=== PATIENT | female | born 1940 | race Caucasian/White ===

== ENCOUNTER → 2018-02-13 | Outpatient (CLI) | payer MEDICARE, BC ==
--- NOTE | 2018-02-13 09:44 | MR ---
EXAMINATION TYPE: MR brain wo con DATE OF EXAM: 02/13/2018 COMPARISON: CT 03/26/2015 HISTORY: 77-year-old female Dizziness / falling TECHNIQUE: Multiplanar, multisequence images of the brain and brainstem were acquired without IV con trast. The patient declined IV contrast administration. Diffusion weighted imaging is performed. FINDINGS: No evidence for acute infarction, hemorrhage, mass, mass effect, midline shift, herniation, effacemen t of basal cisterns, or extra-axial fluid collection. There is moderate bifrontal cerebral atrophy. No hydrocephalus. The vertebral and basilar artery flow voids appear diminutive and small in caliber. No mass in the posterior fossa or cerebellopontine angles. T2/FLAIR weighted sequences show mild scattered burden of right white matter change located in the mazariegos bcortical and periventricular regions of both cerebral hemispheres. Midline structures demonstrates a partially empty sella but otherwise normal morphology. The cranioc ervical junction is normal. Mild mucosal thickening within the ethmoid air cells, right maxillary sinus, and bifrontal sinuses. G lobes are intact. IMPRESSION: 1. The patient declined IV contrast administration. 2. No acute intracranial abnormality seen. No CP angle or posterior fossa mass. 3. Moderate bifrontal atrophy and mild burden of chronic small vessel ischemic disease. 4. We note small caliber to the vertebral and basilar arteries. Correlate for the possibility of vert ebrobasilar insufficiency as an etiology of the patient's symptoms. 5. Mild chronic pansinus disease.
== END | disposition home or self-care (01) ==
LOC: RADMRIMAIN 07:07
PROVIDERS: ATTEND Family Medicine
DX: G31.9 Degenerative disease of nervous system, unspecified (principal); I67.82 Cerebral ischemia
CPT/HCPCS: 70551

== ENCOUNTER 2018-06-03 19:54 | Inpatient (IN) | payer MEDICARE, BC ==
--- NOTE | 2018-06-03 20:52 | ED ---
General Adult HPI - General Chief complaint: Shortness of Breath Stated complaint: LEIE/Anxiety Time Seen by Provider: 06/03/18 20:05 Source: patient, EMS, RN notes reviewed, old records reviewed Mode of arrival: EMS Limitations: no limitations - History of Present Illness Initial comments: 77-year-old female presented for evaluation of dyspnea. Patient has history of congestive heart failure. She states that this evening she went to sleep, woke with significant dyspnea. She has noted increased lower extremity swelling over the past several weeks. Denies chest pain. States her symptoms have improved with supplemental oxygen and sitting up. Denies any recent change in medication. Denies cough. Denies fever or chills. Denies abdominal pain nausea vomiting. - Related Data Home Medications Medication Instructions Recorded Confirmed Glimepiride [Amaryl] 1 mg PO DAILY 03/13/15 06/03/18 Carbidopa-Levodopa 25-100 mg 0.5 tab PO HS 06/03/18 06/03/18 [Sinemet 25-100] Carbidopa-Levodopa 25-100 mg 1 tab PO AC-BID 06/03/18 06/03/18 [Sinemet 25-100] Furosemide [Lasix] 20 mg PO DAILY 06/03/18 06/03/18 Isosorbide Mononitrate ER [Imdur] 30 mg PO DAILY 06/03/18 06/03/18 Levothyroxine Sodium [Synthroid] 50 mcg PO DAILY 06/03/18 06/03/18 Meclizine [Antivert] 25 mg PO Q8H PRN 06/03/18 06/03/18 Simvastatin [Zocor] 40 mg PO HS 06/03/18 06/03/18 amLODIPine [Norvasc] 5 mg PO DAILY 06/03/18 06/03/18 Allergies Allergy/AdvReac Type Severity Reaction Status Date / Time Influenza Virus Vaccines Allergy Unknown Verified 06/03/18 20:28 Insulins Allergy Swelling Verified 06/03/18 20:28 nitroglycerin Allergy Swelling Verified 06/03/18 20:28 [From Nitro-Bid] pneumococcal vaccine Allergy Unknown Verified 06/03/18 20:28 strawberry Allergy Swelling Verified 06/03/18 20:28 tetanus immune globulin Allergy Unknown Verified 06/03/18 20:28 Review of Systems ROS Statement: Those systems with pertinent positive or pertinent negative responses have been documented in the HPI. ROS Other: All systems not noted in ROS Statement are negative. Past Medical History Past Medical History: Atrial Fibrillation, Chest Pain / Angina, Diabetes Mellitus, Hyperlipidemia, Hypertension, Myocardial Infarction (MD), Thyroid Disorder Additional Past Medical History / Comment(s): ARTHRITIS Last Myocardial Infarction Date:: unknown History of Any Multi-Drug Resistant Organisms: MRSA Date of last positivie culture/infection: 02/14/2015 MDRO Source:: URINE Past Surgical History: Cholecystectomy, Heart Catheterization With Stent, Hysterectomy Past Anesthesia/Blood Transfusion Reactions: No Reported Reaction Date of Last Stent Placement:: unknown Past Psychological History: Anxiety Smoking Status: Never smoker Past Alcohol Use History: Rare Past Drug Use History: None Reported - Past Family History Father Additional Family Medical History / Comment(s): from lung disease not sure what it was called Mother History Unknown: Yes Family Medical History: COPD Additional Family Medical History / Comment(s): empysema General Exam Limitations: no limitations General appearance: alert, in no apparent distress Head exam: Present: atraumatic, normocephalic Eye exam: Present: normal appearance, PERRL ENT exam: Present: normal exam Neck exam: Present: normal inspection. Absent: tenderness Respiratory exam: Present: normal lung sounds bilaterally, decreased breath sounds. Absent: respiratory distress Cardiovascular Exam: Present: regular rate, normal rhythm GI/Abdominal exam: Present: soft. Absent: distended, tenderness Extremities exam: Present: normal capillary refill, pedal edema. Absent: calf tenderness Neurological exam: Present: alert, oriented X3, CN II-XII intact. Absent: motor sensory deficit Psychiatric exam: Present: normal affect, normal mood Skin exam: Present: warm, dry, intact. Absent: cyanosis, diaphoretic Course Vital Signs 06/03/18 06/03/18 19:56 21:32 Temperature 98.6 F Pulse Rate 81 58 L Respiratory 16 16 Rate Blood Pressure 140/64 141/70 O2 Sat by Pulse 99 100 Oximetry EKG Findings - EKG Comments: EKG Findings:: EKG: Sinus rhythm, rate of 68, LA interval approximately 200 ms, QRS duration 96, QTC 440. T waves are upright, no ST segment elevation or depression Medical Decision Making - Medical Decision Making 77-year-old female presenting with an episode dyspnea. She does have bilateral lower extremity edema. Lungs are clear to auscultation, normal oxygenation. EKG normal sinus rhythm with no signs of ischemia. Patient has normal CBC, stable hemoglobin, CMP, negative troponin, negative BNP. Chest x-ray negative for pulmonary edema, no acute process. Patient is 99% on room air. I did offer observation, patient prefers to be discharged home. She will return with worsening or changing symptoms. Diagnosis: Dyspnea, resolved. - Lab Data Result diagrams: 06/03/18 20:35 06/03/18 20:35 Lab Results 06/03/18 06/03/18 06/03/18 Range/Units 20:35 20:35 20:35 WBC 8.9 (3.8-10.6) k/uL RBC 3.91 (3.80-5.40) m/uL Hgb 11.7 (11.4-16.0) gm/dL Hct 35.8 (34.0-46.0) % MCV 91.5 (80.0-100.0) fL MCH 30.0 (25.0-35.0) pg MCHC 32.8 (31.0-37.0) g/dL RDW 13.1 (11.5-15.5) % Plt Count 201 (150-450) k/uL Neutrophils % 76 % Lymphocytes % 13 % Monocytes % 7 % Eosinophils % 3 % Basophils % 0 % Neutrophils # 6.7 (1.3-7.7) k/uL Lymphocytes # 1.1 (1.0-4.8) k/uL Monocytes # 0.6 (0-1.0) k/uL Eosinophils # 0.3 (0-0.7) k/uL Basophils # 0.0 (0-0.2) k/uL PT (9.0-12.0) sec INR (<1.2) APTT (22.0-30.0) sec Sodium 139 (137-145) mmol/L Potassium 4.3 (3.5-5.1) mmol/L Chloride 105 (98-107) mmol/L Carbon Dioxide 27 (22-30) mmol/L Anion Gap 7 mmol/L BUN 22 H (7-17) mg/dL Creatinine 0.89 (0.52-1.04) mg/dL Est GFR (CKD-EPI)AfAm 72 (>60 ml/min/1.73 sqM) Est GFR (CKD-EPI)NonAf 62 (>60 ml/min/1.73 sqM) Glucose 187 H (74-99) mg/dL Calcium 9.8 (8.4-10.2) mg/dL Total Bilirubin 0.5 (0.2-1.3) mg/dL AST 13 L (14-36) U/L ALT 20 (9-52) U/L Alkaline Phosphatase 75 (38-126) U/L Total Creatine Kinase 49 (30-135) U/L CK-MB (CK-2) 0.2 (0.0-2.4) ng/mL CK-MB (CK-2) Rel Index 0.4 Troponin I <0.012 (0.000-0.034) ng/mL NT-Pro-B Natriuret Pep pg/mL Total Protein 6.5 (6.3-8.2) g/dL Albumin 3.5 (3.5-5.0) g/dL 06/03/18 06/03/18 Range/Units 20:35 20:35 WBC (3.8-10.6) k/uL RBC (3.80-5.40) m/uL Hgb (11.4-16.0) gm/dL Hct (34.0-46.0) % MCV (80.0-100.0) fL MCH (25.0-35.0) pg MCHC (31.0-37.0) g/dL RDW (11.5-15.5) % Plt Count (150-450) k/uL Neutrophils % % Lymphocytes % % Monocytes % % Eosinophils % % Basophils % % Neutrophils # (1.3-7.7) k/uL Lymphocytes # (1.0-4.8) k/uL Monocytes # (0-1.0) k/uL Eosinophils # (0-0.7) k/uL Basophils # (0-0.2) k/uL PT 9.9 (9.0-12.0) sec INR 0.9 (<1.2) APTT 23.4 (22.0-30.0) sec Sodium (137-145) mmol/L Potassium (3.5-5.1) mmol/L Chloride (98-107) mmol/L Carbon Dioxide (22-30) mmol/L Anion Gap mmol/L BUN (7-17) mg/dL Creatinine (0.52-1.04) mg/dL Est GFR (CKD-EPI)AfAm (>60 ml/min/1.73 sqM) Est GFR (CKD-EPI)NonAf (>60 ml/min/1.73 sqM) Glucose (74-99) mg/dL Calcium (8.4-10.2) mg/dL Total Bilirubin (0.2-1.3) mg/dL AST (14-36) U/L ALT (9-52) U/L Alkaline Phosphatase (38-126) U/L Total Creatine Kinase (30-135) U/L CK-MB (CK-2) (0.0-2.4) ng/mL CK-MB (CK-2) Rel Index Troponin I (0.000-0.034) ng/mL NT-Pro-B Natriuret Pep 735 pg/mL Total Protein (6.3-8.2) g/dL Albumin (3.5-5.0) g/dL Disposition Clinical Impression: Acute anxiety, Dyspnea Disposition: HOME SELF-CARE Condition: Fair Instructions (If sedation given, give patient instructions): Dyspnea (ED), Shortness of Breath (ED) Is patient prescribed a controlled substance at d/c from ED?: No Referrals: Ben Al MD [Primary Care Provider] - 1-2 days Time of Disposition: 22:00
[2018-06-03 20:55] LABS: Basophils % (A) 0 %; Eosinophils # (A) 0.3 k/uL (0-0.7); Eosinophils % (A) 3 %; HCT 35.8 % (34.0-46.0); HGB 11.7 gm/dL (11.4-16.0); Lymphocytes # (A) 1.1 k/uL (1.0-4.8); Lymphocytes % (A) 13 %; MCHC 32.8 g/dL (31.0-37.0); MCV 91.5 fL (80.0-100.0); Mean Platelet Volume 8.1; Monocytes # (A) 0.6 k/uL (0-1.0); Monocytes % (A) 7 %; Neutrophils # (A) 6.7 k/uL (1.3-7.7); Neutrophils % (A) 76 %; Platelet Count 201 k/uL (150-450); RBC 3.91 m/uL (3.80-5.40); RDW 13.1 % (11.5-15.5); WBC 8.9 k/uL (3.8-10.6)
[2018-06-03 21:04] LABS: INR 0.9 (<1.2); Partial Thromboplastin Time 23.4 sec (22.0-30.0); Prothrombin Time 9.9 sec (9.0-12.0)
[2018-06-03 21:10] LABS: Albumin 3.5 g/dL (3.5-5.0); Calcium 9.8 mg/dL (8.4-10.2); Creatine Kinase 49 U/L (30-135); Potassium 4.3 mmol/L (3.5-5.1); Total Bilirubin 0.5 mg/dL (0.2-1.3); Total Protein 6.5 g/dL (6.3-8.2)
[2018-06-03 21:21] LABS: Creatine Kinase MB 0.2 ng/mL (0.0-2.4); Troponin I <0.012 ng/mL (0.000-0.034)
--- NOTE | 2018-06-03 21:35 | XR ---
EXAMINATION: XR chest 2V DATE AND TIME: 06/03/2018 9:06 PM CLINICAL INDICATION: PHH; difficulty breathing TECHNIQUE: AP upright and lateral COMPARISON: 08/08/2015 FINDINGS: There is a baseline of a few scattered chronic calcifications throughout the lungs bilaterally, great er on the right. These are 1 cm and less in diameter and are consistent with incidental healed granul omatous process. The lungs are clear. The pleural spaces are negative. The cardiac silhouette is mildly enlarged. The remainder of the mediastinal silhouette is unremarkabl e. The skeletal structures and soft tissues are negative for acute findings. IMPRESSION: NO ACUTE PROCESS.
[2018-06-03] MEDS ORDERED: FUROSEMIDE 10 MG/ML 2 ML VIAL IV ONE (23:12)
[2018-06-03] MEDS ORDERED: ACETAMINOPHEN TAB 325 MG TAB PO PRN (23:13)
[2018-06-03] MEDS ORDERED: NALOXONE 0.4 MG/ML 1 ML VIAL IV PRN (23:13)
--- NOTE | 2018-06-03 23:18 | ED ---
Medical Decision Making - Lab Data Result diagrams: 06/03/18 20:35 06/03/18 20:35 Lab Results 06/03/18 06/03/18 06/03/18 Range/Units 20:35 20:35 20:35 WBC 8.9 (3.8-10.6) k/uL RBC 3.91 (3.80-5.40) m/uL Hgb 11.7 (11.4-16.0) gm/dL Hct 35.8 (34.0-46.0) % MCV 91.5 (80.0-100.0) fL MCH 30.0 (25.0-35.0) pg MCHC 32.8 (31.0-37.0) g/dL RDW 13.1 (11.5-15.5) % Plt Count 201 (150-450) k/uL Neutrophils % 76 % Lymphocytes % 13 % Monocytes % 7 % Eosinophils % 3 % Basophils % 0 % Neutrophils # 6.7 (1.3-7.7) k/uL Lymphocytes # 1.1 (1.0-4.8) k/uL Monocytes # 0.6 (0-1.0) k/uL Eosinophils # 0.3 (0-0.7) k/uL Basophils # 0.0 (0-0.2) k/uL PT (9.0-12.0) sec INR (<1.2) APTT (22.0-30.0) sec Sodium 139 (137-145) mmol/L Potassium 4.3 (3.5-5.1) mmol/L Chloride 105 (98-107) mmol/L Carbon Dioxide 27 (22-30) mmol/L Anion Gap 7 mmol/L BUN 22 H (7-17) mg/dL Creatinine 0.89 (0.52-1.04) mg/dL Est GFR (CKD-EPI)AfAm 72 (>60 ml/min/1.73 sqM) Est GFR (CKD-EPI)NonAf 62 (>60 ml/min/1.73 sqM) Glucose 187 H (74-99) mg/dL Calcium 9.8 (8.4-10.2) mg/dL Total Bilirubin 0.5 (0.2-1.3) mg/dL AST 13 L (14-36) U/L ALT 20 (9-52) U/L Alkaline Phosphatase 75 (38-126) U/L Total Creatine Kinase 49 (30-135) U/L CK-MB (CK-2) 0.2 (0.0-2.4) ng/mL CK-MB (CK-2) Rel Index 0.4 Troponin I <0.012 (0.000-0.034) ng/mL NT-Pro-B Natriuret Pep pg/mL Total Protein 6.5 (6.3-8.2) g/dL Albumin 3.5 (3.5-5.0) g/dL 06/03/18 06/03/18 Range/Units 20:35 20:35 WBC (3.8-10.6) k/uL RBC (3.80-5.40) m/uL Hgb (11.4-16.0) gm/dL Hct (34.0-46.0) % MCV (80.0-100.0) fL MCH (25.0-35.0) pg MCHC (31.0-37.0) g/dL RDW (11.5-15.5) % Plt Count (150-450) k/uL Neutrophils % % Lymphocytes % % Monocytes % % Eosinophils % % Basophils % % Neutrophils # (1.3-7.7) k/uL Lymphocytes # (1.0-4.8) k/uL Monocytes # (0-1.0) k/uL Eosinophils # (0-0.7) k/uL Basophils # (0-0.2) k/uL PT 9.9 (9.0-12.0) sec INR 0.9 (<1.2) APTT 23.4 (22.0-30.0) sec Sodium (137-145) mmol/L Potassium (3.5-5.1) mmol/L Chloride (98-107) mmol/L Carbon Dioxide (22-30) mmol/L Anion Gap mmol/L BUN (7-17) mg/dL Creatinine (0.52-1.04) mg/dL Est GFR (CKD-EPI)AfAm (>60 ml/min/1.73 sqM) Est GFR (CKD-EPI)NonAf (>60 ml/min/1.73 sqM) Glucose (74-99) mg/dL Calcium (8.4-10.2) mg/dL Total Bilirubin (0.2-1.3) mg/dL AST (14-36) U/L ALT (9-52) U/L Alkaline Phosphatase (38-126) U/L Total Creatine Kinase (30-135) U/L CK-MB (CK-2) (0.0-2.4) ng/mL CK-MB (CK-2) Rel Index Troponin I (0.000-0.034) ng/mL NT-Pro-B Natriuret Pep 735 pg/mL Total Protein (6.3-8.2) g/dL Albumin (3.5-5.0) g/dL Disposition Clinical Impression: Acute anxiety, Dyspnea, Congestive heart failure Disposition: HOME SELF-CARE Condition: Fair Instructions (If sedation given, give patient instructions): Dyspnea (ED), Shortness of Breath (ED) Is patient prescribed a controlled substance at d/c from ED?: No Referrals: Ben Al MD [Primary Care Provider] - 1-2 days Decision to Admit Reason: Admit from EC Decision Date: 06/03/18 Decision Time: 23:17
[2018-06-04 06:51] LABS: Glucose,Whole Blood 118 mg/dL (75-99)
[2018-06-04] MEDS: FUROSEMIDE 10 MG/ML 2 ML VIAL IV SCH ×2 (08:41→19:55)
[2018-06-04] MEDS: CARBIDOPA-LEVODOPA 25-100 MG 1 EACH TAB PO SCH ×2 (08:41→17:22)
[2018-06-04] MEDS: LEVOTHYROXINE 50 MCG TAB PO SCH (08:41)
[2018-06-04] MEDS: ISOSORBIDE MONONITRATE ER 30 MG TAB.ER.24H PO SCH (08:41)
[2018-06-04] MEDS: amLODIPine 5 MG TAB PO SCH (08:41)
[2018-06-04 11:59] LABS: Glucose,Whole Blood 145 mg/dL (75-99)
[2018-06-04] MEDS: NYSTATIN 100,000UNIT/GM CREAM 30 GM TUBE TOPICAL SCH ×2 (14:29→19:56)
[2018-06-04 15:09] VITALS: BMI 32.9
[2018-06-04 16:34] LABS: Glucose,Whole Blood 140 mg/dL (75-99)
[2018-06-04 19:55] LABS: Glucose,Whole Blood 190 mg/dL (75-99)
[2018-06-04] MEDS ORDERED: CARBIDOPA-LEVODOPA 25-100 MG 1 EACH TAB PO SCH (21:00)
[2018-06-04] MEDS ORDERED: ATORVASTATIN 20 MG TAB PO SCH (21:00)
--- NOTE | 2018-06-04 23:29 | HP ---
HISTORY AND PHYSICAL Came into the emergency room with shortness of breath. Awaken from sleep. She was out of rehab for like 5 days. She has gained a lot of weight. She says she has been taken off her diuretic for unclear reasons. She is admitted with shortness of breath and monitoring. She has gained a lot of weight. A lot of swelling in her extremities and spine. She had swelling in her legs. She does not wear oxygen at home. PAST MEDICAL HISTORY: History of congestive heart failure, PND, orthopnea. Denies cough, fever, chills, nausea, vomiting. She has been diagnosed with Parkinson's, versus supranuclear palsy being seen by Dr. Ray. MEDICATIONS: Home medications are: 1. Amaryl for diabetes. 2. Sinemet for Parkinson's. 3. Lasix that she states she has been taken off of. 4. Imdur 30 mg daily. 5. Synthroid 50 mcg daily. 6. Antivert 25 q.h.s. for vertigo. 7. Zocor 40 q.h.s. for dyslipidemia. 8. Norvasc 5 mg a day for hypertension. ALLERGIES: Influenza, insulin, Nitro-Bid, strawberry, pneumococcal vaccine, tetanus, immunoglobulin. 14-point review of systems negative except for mentioned in HPI. PAST MEDICAL HISTORY: Atrial fibrillation and diabetes mellitus, dyslipidemia, hypertension, myocardial infarction, hypothyroidism, arthritis, MRSA surgery, cholecystectomy, heart catheterization with stent, hysterectomy. SOCIAL HISTORY: No smoking. No alcohol. No illicit drugs. FAMILY HISTORY: Father from lung disease. Mother, COPD. PHYSICAL EXAM: Alert and oriented x3. CARDIOVASCULAR: S1, S2. Lungs: Rales at the bases. Hematology: Negative Homans, 2+ pedal edema. Psych: Fair mood and affect. SKIN: Warm, dry, intact. NECK: Supple. Normal range of motion ophthalmologic pupils equal, round, reactive to light and accommodation. Temp 98.6, pulse is 50s to 81, respiratory 12-16. EKG sinus rhythm. No ischemia. Chest x-ray negative for pulmonary edema. O2 99% on room air. She does not take oxygen at home. She is on IV Lasix. ASSESSMENT: 1. Acute shortness of breath secondary to congestive heart failure exacerbation. 2. Insulin dependent diabetes mellitus, supranuclear palsy versus Parkinson's. 3. Anxiety. Continue with IV diuretics. Wean off oxygen and see how she does. Continue with PT/OT. Possible discharge home in the morning. MMODL / IJN: [id number] /
[2018-06-05] MEDS: LEVOTHYROXINE 50 MCG TAB PO SCH (06:00)
[2018-06-05 06:52] LABS: Glucose,Whole Blood 126 mg/dL (75-99)
[2018-06-05] MEDS: amLODIPine 5 MG TAB PO SCH (07:52)
[2018-06-05] MEDS: FUROSEMIDE 10 MG/ML 2 ML VIAL IV SCH (07:52)
[2018-06-05] MEDS: CARBIDOPA-LEVODOPA 25-100 MG 1 EACH TAB PO SCH (07:52)
[2018-06-05] MEDS: ISOSORBIDE MONONITRATE ER 30 MG TAB.ER.24H PO SCH (07:52)
[2018-06-05 08:08] VITALS: TEMP 97.5
[2018-06-05] MEDS: NYSTATIN 100,000UNIT/GM CREAM 30 GM TUBE TOPICAL SCH (10:09)
--- NOTE | 2018-06-05 10:50 | CDI ---
Documentation Clarification Form Date: 06/05/2018 10:40:45 AM From: Gege Lopez CCS, CCDS Admit Date: 06/04/2018 2:46:00 PM Patient Name: Brit Wilkinson Visit Number: [id number] Discharge Date: 06/05/2018 ATTENTION: The Clinical Documentation Specialists (CDI) and [facility] Coding Staff appreciate your assistance in clarifying documentation. Please respond to the clarification below the line at the bottom and electronically sign. The CDI & [facility] Coding staff will review the response and follow-up if needed. Please note: Queries are made part of the Legal Health Record. If you have any questions, please contact the author of this message via ITS. Dr. Ben Al: CHF is documented in the ED notes and also the History & Physical as "Acute SOB secondary to congestive heart failure exacerbation." History/Risk Factors: CHF, Hypertension, Hyperlipidemia, possible Parkinson's disease vs supranuclear palsy, [place], Hypothyroidism, Osteoarthritis, CAD w/ coronary stent, IDDM. Clinical Indicators: SOB, recently discharged from rehab & taken off of her diuretics for unknown reason. VS: P 81 - 56*, R 16, BP 140/64, PO 99 RA - 100 2Lnc BNP: 735 Echocardiogram Results: no recent ECHO obtained. Chest X Ray: No acute process Treatment: O2 2Lnc, IV Lasix. Cardiology is not consulted at this time. In your professional opinion, can you please clarify the acuity and type of CHF if known? Systolic Heart Failure: o Acute o Chronic o Acute on Chronic Diastolic Heart Failure: o Acute o Chronic o Acute on Chronic Systolic & Diastolic Heart Failure: o Acute o Chronic o Acute on Chronic Heart Failure Unable to Determine Other, please specify (Last Revision: July 2017) MTDD
[2018-06-05 11:39] LABS: Glucose,Whole Blood 201 mg/dL (75-99)
[2018-06-05] MEDS ORDERED: FUROSEMIDE 40 MG TAB PO STA (12:23)
[2018-06-05 16:02] VITALS: BP 128/60; PULSE 77; RESP 18
--- NOTE | 2018-06-06 09:58 | CDI ---
Documentation Clarification Form Date: 06/03/2018 1:07:00 PM From: Gege Lopez CCS, CCDS Admit Date: 06/02/2018 3:04:00 PM Patient Name: Aakash Bowers Visit Number: [id number] Discharge Date: ATTENTION: The Clinical Documentation Specialists (CDI) and [facility] Coding Staff appreciate your assistance in clarifying documentation. Please respond to the clarification below the line at the bottom and electronically sign. The CDI & [facility] Coding staff will review the response and follow-up if needed. Please note: Queries are made part of the Legal Health Record. If you have any questions, please contact the author of this message via ITS. Dr. Cathie Tan: Per the Cardiology consult: "The patient appears to have paroxysmal atrial flutter on and off." Per the Pulmonary consult: "Shortness of breath, likely secondary to atrial fibrillation/flutter with increased with the atrial fibrillation/flutter with a rapid ventricular response." History/Risk Factors: Atrial fibrillation (per pulmonary consult), Hypertension with CKD, PVD, COPD, Hyperlipidemia, Obesity,non smoker, previous left carotid endarterectomy. Clinical Indicators: Presented with SOB from other facility, transferred for VQ scan: low probability for PE. 06/03 Initial EKG: evidence of atrial flutter. Treatment: Albuterol INH, IV Rocephin, IV fl bolus x, IV Azithromycin, IV Solumedrol, NRB. In your professional opinion, can you please clarify the type of Atrial Fibrillation and the type of Atrial Flutter, if known? Atrial Fibrillation: o Chronic/Permanent o Paroxysmal o Persistent o Other, please specify o Unable to determine Atrial Flutter: o Typical o Atypical o Type I o Type II o Other, please specify: o Unable to determine (Last Revision: July 2017) MTDD
--- NOTE | 2018-06-10 05:55 | DS ---
DISCHARGE SUMMARY ADDENDUM: Please add acute on chronic diastolic congestive heart failure. MMODL / IJN: [id number] /
== END 2018-06-05 16:20 | DRG 293 ==
LOC: EC 19:54 → 1SOBS 23:13 → OBSVTOIN 06-04 14:46
PROVIDERS: ADMIT Family Medicine; ATTEND Family Medicine
DX: I11.0 Hypertensive heart disease with heart failure (principal); I50.33 Acute on chronic diastolic (congestive) heart failure; G20 Parkinson's disease; E11.9 Type 2 diabetes mellitus without complications; G83.9 Paralytic syndrome, unspecified; E03.9 Hypothyroidism, unspecified; E78.5 Hyperlipidemia, unspecified; I25.10 Atherosclerotic heart disease of native coronary artery without angina pectoris; F41.9 Anxiety disorder, unspecified; I25.2 Old myocardial infarction; M19.90 Unspecified osteoarthritis, unspecified site; Z79.890 Hormone replacement therapy; Z79.899 Other long term (current) drug therapy; Z79.84 Long term (current) use of oral hypoglycemic drugs; Z90.710 Acquired absence of both cervix and uterus; Z88.7 Allergy status to serum and vaccine; Z88.8 Allergy status to other drugs, medicaments and biological substances; Z86.14 Personal history of Methicillin resistant Staphylococcus aureus infection; Z90.49 Acquired absence of other specified parts of digestive tract
CPT/HCPCS: 36415; 71046; 80053; 82550; 82553; 83880; 84484; 85025; 85610; 85730; 93005; 96374; 99285

== ENCOUNTER 2018-09-13 20:19 | Emergency (ER) | payer MEDICARE, BC ==
[2018-09-13 20:31] VITALS: TEMP 98.1
--- NOTE | 2018-09-13 21:27 | ED ---
General Adult HPI - General Chief complaint: Fall Stated complaint: Fall, Hip injury Time Seen by Provider: 09/13/18 20:22 Source: patient, EMS Mode of arrival: EMS Limitations: no limitations - History of Present Illness Initial comments: Dictation was produced using [employer] dictation software. please excuse any grammatical, word or spelling errors. Chief Complaint: 77-year-old female multiple comorbidities presents after fall. History of Present Illness: Is a frail 69-year-old female multiple comorbidities. Patient states that 1 hour prior to arrival she fell. Patient states she lost her balance and started to fall backwards. She states she landed on her right hip. Denies any head trauma or loss of consciousness. Follows unwitnessed. Patient was at home by herself. Patient states that her right hip hurts. Patient reports that she was unable to ambulate after the fall. The ROS documented in this emergency department record has been reviewed and confirmed by me. Those systems with pertinent positive or negative responses have been documented in the HPI. All other systems are other negative and/or noncontributory. PHYSICAL EXAM: General Impression: Alert and oriented x3, not in acute distress HEENT: Normocephalic atraumatic, extra-ocular movements intact, pupils equal and reactive to light bilaterally, mucous membranes moist. Cardiovascular: Heart regular rate and rhythm, S1&S2 audible, no murmurs, rubs or gallops Chest: Lungs clear to auscultation bilaterally, no rhonchi, no wheeze, no rales Abdomen: Bowel sounds present, abdomen soft, non-tender, non-distended, no organomegaly Musculoskeletal: Pulses present and equal in all extremities, no peripheral edema, range of motion of the bilateral lower extremities are intact. Right lower extremity is not shortened or externally rotated Motor: no focal deficits noted Neurological: CN II-XII grossly intact, no focal motor or sensory deficits noted Skin: Intact with no visualized rashes Psych: Normal affect and mood ED course: 77 y old female presents with right hip pain after fall. Vital signs upon arrival are within acceptable limits. Laboratory evaluation obtained. CBC coag panel metabolic panel is unremarkable. Urinalysis is negative. X-ray of the pelvis knee and hip were all unremarkable. A computed tomography scan of the head and C-spine unremarkable. Her chest x-ray is unremarkable. Patient was given by mouth analgesia with improvement of her pain symptoms. Patient ambulatory at baseline with a walker. Patient appears stable to go home. Patient clear for discharge. Patient clinical presentation consistent with hip contusion. EKG interpretation: Ventricular rate 67, normal sinus rhythm, QRS 94. TC 426. No IN prolongation, no QTC prolongation, no ST or T-wave changes noted. Overall, this EKG is unremarkable - Related Data Home Medications Medication Instructions Recorded Confirmed Glimepiride [Amaryl] 1 mg PO DAILY 03/13/15 06/03/18 Carbidopa-Levodopa 25-100 mg 0.5 tab PO HS 06/03/18 06/03/18 [Sinemet 25-100 mg] Carbidopa-Levodopa 25-100 mg 1 tab PO AC-BID 06/03/18 06/03/18 [Sinemet 25-100 mg] Isosorbide Mononitrate ER [Imdur] 30 mg PO DAILY 06/03/18 06/03/18 Levothyroxine Sodium [Synthroid] 50 mcg PO DAILY 06/03/18 06/03/18 Meclizine [Antivert] 25 mg PO Q8H PRN 06/03/18 06/03/18 Simvastatin [Zocor] 40 mg PO HS 06/03/18 06/03/18 amLODIPine [Norvasc] 5 mg PO DAILY 06/03/18 06/03/18 Previous Rx's Medication Instructions Recorded Acetaminophen Tab [Tylenol] 650 mg PO Q6HR PRN tab 06/05/18 Furosemide [Lasix] 40 mg PO ONCE tab 06/05/18 Nystatin 100,000Unit/gm Cream 1 applic TOPICAL BID applic 06/05/18 [Mycostatin Cream] Allergies Allergy/AdvReac Type Severity Reaction Status Date / Time Influenza Virus Vaccines Allergy Unknown Verified 09/13/18 20:40 Insulins Allergy Swelling Verified 09/13/18 20:40 metformin Allergy Rash/Hives Verified 09/13/18 20:40 nitroglycerin Allergy Swelling Verified 09/13/18 20:40 [From Nitro-Bid] pneumococcal vaccine Allergy Unknown Verified 09/13/18 20:40 strawberry Allergy Swelling Verified 09/13/18 20:40 tetanus immune globulin Allergy Unknown Verified 09/13/18 20:40 Review of Systems ROS Statement: Those systems with pertinent positive or pertinent negative responses have been documented in the HPI. ROS Other: All systems not noted in ROS Statement are negative. Past Medical History Past Medical History: Atrial Fibrillation, Chest Pain / Angina, Diabetes Mellitus, Hyperlipidemia, Hypertension, Myocardial Infarction ([place]), Thyroid Disorder Additional Past Medical History / Comment(s): ARTHRITIS Last Myocardial Infarction Date:: unknown History of Any Multi-Drug Resistant Organisms: MRSA Date of last positivie culture/infection: 02/14/2015 MDRO Source:: URINE Past Surgical History: Cholecystectomy, Heart Catheterization With Stent, Hysterectomy Past Anesthesia/Blood Transfusion Reactions: No Reported Reaction Date of Last Stent Placement:: unknown Past Psychological History: Anxiety Smoking Status: Never smoker Past Alcohol Use History: Rare Past Drug Use History: None Reported - Past Family History Father Additional Family Medical History / Comment(s): from lung disease not sure what it was called Mother History Unknown: Yes Family Medical History: COPD Additional Family Medical History / Comment(s): empysema General Exam Limitations: no limitations Course Vital Signs 09/13/18 09/13/18 20:23 22:47 Temperature 98.1 F Pulse Rate 66 68 Respiratory 18 16 Rate Blood Pressure 129/97 125/78 O2 Sat by Pulse 99 99 Oximetry Medical Decision Making - Lab Data Result diagrams: 09/13/18 21:50 09/13/18 21:50 Lab Results 09/13/18 09/13/18 09/13/18 Range/Units 20:51 21:50 21:50 WBC 9.6 (3.8-10.6) k/uL RBC 4.37 (3.80-5.40) m/uL Hgb 12.8 (11.4-16.0) gm/dL Hct 38.2 (34.0-46.0) % MCV 87.3 (80.0-100.0) fL MCH 29.3 (25.0-35.0) pg MCHC 33.6 (31.0-37.0) g/dL RDW 14.5 (11.5-15.5) % Plt Count 214 (150-450) k/uL Neutrophils % 73 % Lymphocytes % 16 % Monocytes % 6 % Eosinophils % 4 % Basophils % 0 % Neutrophils # 7.0 (1.3-7.7) k/uL Lymphocytes # 1.5 (1.0-4.8) k/uL Monocytes # 0.6 (0-1.0) k/uL Eosinophils # 0.3 (0-0.7) k/uL Basophils # 0.0 (0-0.2) k/uL PT (9.0-12.0) sec INR (<1.2) Sodium 139 (137-145) mmol/L Potassium 4.4 (3.5-5.1) mmol/L Chloride 107 (98-107) mmol/L Carbon Dioxide 27 (22-30) mmol/L Anion Gap 5 mmol/L BUN 29 H (7-17) mg/dL Creatinine 0.99 (0.52-1.04) mg/dL Est GFR (CKD-EPI)AfAm 63 (>60 ml/min/1.73 sqM) Est GFR (CKD-EPI)NonAf 55 (>60 ml/min/1.73 sqM) Glucose 212 H (74-99) mg/dL Plasma Lactic Acid Kurt (0.7-2.0) mmol/L Calcium 9.7 (8.4-10.2) mg/dL Magnesium 1.7 (1.6-2.3) mg/dL Troponin I (0.000-0.034) ng/mL Urine Color Light Yellow Urine Appearance Clear (Clear) Urine pH 7.0 (5.0-8.0) Ur Specific [place] 1.015 (1.001-1.035) Urine Protein 2+ H (Negative) Urine Glucose (UA) Negative (Negative) Urine Ketones Negative (Negative) Urine Blood Trace H (Negative) Urine Nitrite Negative (Negative) Urine Bilirubin Negative (Negative) Urine Urobilinogen <2.0 (<2.0) mg/dL Ur Leukocyte Esterase Negative (Negative) Urine RBC 1 (0-5) /hpf Urine WBC 1 (0-5) /hpf Ur Squamous Epith Cells 2 (0-4) /hpf Hyaline Casts 7 H (0-2) /lpf Urine Mucus Rare H (None) /hpf 09/13/18 09/13/18 09/13/18 Range/Units 21:50 21:50 21:50 WBC (3.8-10.6) k/uL RBC (3.80-5.40) m/uL Hgb (11.4-16.0) gm/dL Hct (34.0-46.0) % MCV (80.0-100.0) fL MCH (25.0-35.0) pg MCHC (31.0-37.0) g/dL RDW (11.5-15.5) % Plt Count (150-450) k/uL Neutrophils % % Lymphocytes % % Monocytes % % Eosinophils % % Basophils % % Neutrophils # (1.3-7.7) k/uL Lymphocytes # (1.0-4.8) k/uL Monocytes # (0-1.0) k/uL Eosinophils # (0-0.7) k/uL Basophils # (0-0.2) k/uL PT 9.9 (9.0-12.0) sec INR 0.9 (<1.2) Sodium (137-145) mmol/L Potassium (3.5-5.1) mmol/L Chloride (98-107) mmol/L Carbon Dioxide (22-30) mmol/L Anion Gap mmol/L BUN (7-17) mg/dL Creatinine (0.52-1.04) mg/dL Est GFR (CKD-EPI)AfAm (>60 ml/min/1.73 sqM) Est GFR (CKD-EPI)NonAf (>60 ml/min/1.73 sqM) Glucose (74-99) mg/dL Plasma Lactic Acid Kurt 1.3 (0.7-2.0) mmol/L Calcium (8.4-10.2) mg/dL Magnesium (1.6-2.3) mg/dL Troponin I <0.012 (0.000-0.034) ng/mL Urine Color Urine Appearance (Clear) Urine pH (5.0-8.0) Ur Specific [place] (1.001-1.035) Urine Protein (Negative) Urine Glucose (UA) (Negative) Urine Ketones (Negative) Urine Blood (Negative) Urine Nitrite (Negative) Urine Bilirubin (Negative) Urine Urobilinogen (<2.0) mg/dL Ur Leukocyte Esterase (Negative) Urine RBC (0-5) /hpf Urine WBC (0-5) /hpf Ur Squamous Epith Cells (0-4) /hpf Hyaline Casts (0-2) /lpf Urine Mucus (None) /hpf Disposition Clinical Impression: Fall, Contusion, hip Disposition: HOME SELF-CARE Condition: Good Instructions (If sedation given, give patient instructions): Fall Prevention for Older Adults (ED) Is patient prescribed a controlled substance at d/c from ED?: No Referrals: None,Stated [Primary Care Provider] - 1-2 days Time of Disposition: 22:57
[2018-09-13 21:29] LABS: Appearance,Urine Clear (Clear); Bilirubin,Urine Negative (Negative); Blood,Urine Trace (Negative); Color,Urine Light Yellow; Glucose,Urine (UA) Negative (Negative); Hyaline Casts,Urine 7 /lpf (0-2); Ketones,Urine Negative (Negative); Leukocyte Esterase,Urine Negative (Negative); Mucus,Urine Rare /hpf; Nitrite,Urine Negative (Negative); Protein,Urine 2+ (Negative); RBC,Urine 1 /hpf (0-5); Specific Gravity,Urine 1.015 (1.001-1.035); Squamous Epithelial Cell,Urine 2 /hpf (0-4); Urobilinogen,Urine <2.0 mg/dL (<2.0)
--- NOTE | 2018-09-13 21:49 | CT ---
EXAMINATION TYPE: CT brain mono bolivar con DATE OF EXAM: 09/13/2018 COMPARISON: CT brain from March 26, 2015 HISTORY: Fall injury with headache and neck pain. CT DLP: 1371.4 mGycm. Automated Exposure Control for Dose Reduction was Utilized. TECHNIQUE: CT scan of the head and cervical spine are performed without contrast. FINDINGS: There is no acute intracranial hemorrhage or midline shift identified. There is ventricul ar and sulcal prominence. There is slightly more prominent atrophy of the bilateral frontal lobes red emonstrated. The calvarium is intact. The globes are intact and the visualized sinuses are clear. Cervical spine is visualized in its entirety from C1 through upper thoracic levels and demonstrates l evoconvex scoliosis or positioning centered in the upper thoracic spine with loss of normal cervical curvature. There is no acute fracture or dislocation clearly seen. Prevertebral soft tissue appears w ithin normal limits. The C1-C2 articulation is within normal limits on the coronal images. Vertebra l body heights are maintained. There is habf-[id number] disc space narrowing at C3-C4 and C4-C5 leve ls. There is moderate to advanced disc space narrowing at C5-C6 and C6-C7 levels. There is moderately advanced anterior spurring C4-C5 level extending through the C7-T1 level. Posterior spur disc comple x effaces the anterior thecal sac at C3-C4, C5-C6, C6-C7 levels on sagittal and axial images. Lung ap ices are clear. Thyroid gland is normal in size. IMPRESSION: 1. There is no acute fracture or dislocation evident in the cervical spine. 2. No acute intracranial hemorrhage or midline shift is seen. Dcrj-et-ibvyvxcj diffuse cerebral atrop hy more prominent over bilateral frontal lobes is redemonstrated.
--- NOTE | 2018-09-13 21:51 | XR ---
EXAMINATION TYPE: XR pelvis AP view, XR Hip Complete RT DATE OF EXAM: 09/13/2018 CLINICAL HISTORY: Pelvic and right hip pain after falling injury today.. TECHNIQUE: A single AP view of the pelvis is obtained. Two views of the right hip are obtained. COMPARISON: None. FINDINGS: There is no acute fracture/dislocation evident in the pelvis. There is suggestion of asymmetric right sacroiliac joint narrowing and sclerosis. Scattered pelvic phleboliths are present bilaterally. Ther e is [id number] axial joint space loss and mild acetabular spurring of both hips. .Two views of right hip show no acute fracture or dislocation. No focal lytic or sclerotic lesion se en in the proximal right femur. The overlying soft tissue is unremarkable. IMPRESSION: There is no acute fracture or dislocation in the pelvis or right hip.
--- NOTE | 2018-09-13 21:52 | XR ---
EXAMINATION TYPE: XR chest 1V DATE OF EXAM: 09/13/2018 COMPARISON: Chest x-ray June 03, 2018. HISTORY: History of atrial fibrillation with chest pain. TECHNIQUE: Single frontal view of the chest is obtained. FINDINGS: There is no focal air space opacity, pleural effusion, or pneumothorax seen. The cardiac silhouette size remains enlarged. The osseous structures are intact. IMPRESSION: Cardiomegaly without acute pulmonary process.
--- NOTE | 2018-09-13 21:52 | XR ---
EXAMINATION TYPE: XR knee complete RT DATE OF EXAM: 09/13/2018 CLINICAL HISTORY: Fall injury with pain TECHNIQUE: Three views of the right knee are obtained. COMPARISON: None. FINDINGS: Demineralization is present. There is no acute fracture/dislocation evident in right knee. Metallic hardware from right knee arthroplasty is well satisfactory in position. Some medial heteroto pic ossification is noted. The overlying soft tissue appears unremarkable. IMPRESSION: There is no acute fracture or dislocation in the right knee.
[2018-09-13 22:11] LABS: Basophils % (A) 0 %; Eosinophils # (A) 0.3 k/uL (0-0.7); Eosinophils % (A) 4 %; HCT 38.2 % (34.0-46.0); HGB 12.8 gm/dL (11.4-16.0); INR 0.9 (<1.2); Lymphocytes # (A) 1.5 k/uL (1.0-4.8); Lymphocytes % (A) 16 %; MCH 29.3 pg (25.0-35.0); MCHC 33.6 g/dL (31.0-37.0); MCV 87.3 fL (80.0-100.0); Monocytes # (A) 0.6 k/uL (0-1.0); Monocytes % (A) 6 %; Neutrophils % (A) 73 %; Platelet Count 214 k/uL (150-450); Prothrombin Time 9.9 sec (9.0-12.0); RBC 4.37 m/uL (3.80-5.40); RDW 14.5 % (11.5-15.5); WBC 9.6 k/uL (3.8-10.6)
[2018-09-13 22:12] LABS: Calcium 9.7 mg/dL (8.4-10.2); Magnesium 1.7 mg/dL (1.6-2.3); Potassium 4.4 mmol/L (3.5-5.1)
[2018-09-13] MEDS ORDERED: ACETAMINOPHEN TAB 500 MG TAB PO STA (22:30)
[2018-09-13 22:48] VITALS: BP 125/78; PULSE 68; RESP 16
== END 2018-09-13 23:32 | disposition home or self-care (01) ==
LOC: EC 20:19
DX: S70.01XA Contusion of right hip, initial encounter (principal); E11.9 Type 2 diabetes mellitus without complications; E78.5 Hyperlipidemia, unspecified; I10 Essential (primary) hypertension; I25.2 Old myocardial infarction; E07.9 Disorder of thyroid, unspecified; Z79.84 Long term (current) use of oral hypoglycemic drugs; Z79.890 Hormone replacement therapy; Z79.899 Other long term (current) drug therapy; Z88.7 Allergy status to serum and vaccine; Z88.8 Allergy status to other drugs, medicaments and biological substances; Z91.018 Allergy to other foods; Z95.5 Presence of coronary angioplasty implant and graft; W19.XXXA Unspecified fall, initial encounter
CPT/HCPCS: 36415; 70450; 71045; 72125; 72170; 73502; 80048; 81001; 83605; 83735; 84484; 85025; 85610; 93005; 99284

== ENCOUNTER 2019-05-13 05:10 | Observation (INO) | payer MEDICARE, BC ==
[2019-05-13] MEDS ORDERED: ASPIRIN 81 MG PO STA (05:22)
[2019-05-13] MEDS ORDERED: SODIUM CHLORIDE 0.9% 1,000 ML IV STA (05:22)
[2019-05-13 05:40] LABS: Basophils # (A) 0.2 k/uL (0-0.2); Basophils % (A) 3 %; Eosinophils # (A) 0.3 k/uL (0-0.7); Eosinophils % (A) 4 %; HCT 41.2 % (34.0-46.0); HGB 13.5 gm/dL (11.4-16.0); Lymphocytes # (A) 1.6 k/uL (1.0-4.8); Lymphocytes % (A) 22 %; MCH 30.1 pg (25.0-35.0); MCHC 32.8 g/dL (31.0-37.0); MCV 91.7 fL (80.0-100.0); Mean Platelet Volume 9.9; Monocytes # (A) 0.7 k/uL (0-1.0); Monocytes % (A) 9 %; Neutrophils # (A) 4.4 k/uL (1.3-7.7); Neutrophils % (A) 59 %; Platelet Count 234 k/uL (150-450); RBC 4.49 m/uL (3.80-5.40); RDW 12.7 % (11.5-15.5); WBC 7.4 k/uL (3.8-10.6)
[2019-05-13 05:50] LABS: INR 0.9 (<1.2); Prothrombin Time 9.8 sec (9.0-12.0)
[2019-05-13 05:54] LABS: Albumin 3.7 g/dL (3.5-5.0); Calcium 8.9 mg/dL (8.4-10.2); Magnesium 1.9 mg/dL (1.6-2.3); Potassium 4.1 mmol/L (3.5-5.1); Total Bilirubin 0.5 mg/dL (0.2-1.3); Total Protein 7.2 g/dL (6.3-8.2)
--- NOTE | 2019-05-13 06:27 | ED ---
Chest Pain HPI - General Chief Complaint: Chest Pain Stated Complaint: Neck Pain Time Seen by Provider: 05/13/19 05:21 Source: EMS Mode of arrival: EMS Limitations: no limitations - History of Present Illness Initial Comments: Brit is a pleasant 78-year-old female with a history of coronary artery disease status post stenting number of years ago. Patient presents to the ER today with complaint of pain in her chest radiating to her neck which woke her from sleep. Patient reports that this pain is same as previous IN. Pain is not associated with any lightheadedness diaphoresis or shortness of breath. - Related Data Home Medications Medication Instructions Recorded Confirmed Glimepiride [Amaryl] 1 mg PO DAILY 03/13/15 06/03/18 Carbidopa-Levodopa 25-100 mg 0.5 tab PO HS 06/03/18 06/03/18 [Sinemet 25-100 mg] Carbidopa-Levodopa 25-100 mg 1 tab PO AC-BID 06/03/18 06/03/18 [Sinemet 25-100 mg] Isosorbide Mononitrate ER [Imdur] 30 mg PO DAILY 06/03/18 06/03/18 Levothyroxine Sodium [Synthroid] 50 mcg PO DAILY 06/03/18 06/03/18 Meclizine [Antivert] 25 mg PO Q8H PRN 06/03/18 06/03/18 Simvastatin [Zocor] 40 mg PO HS 06/03/18 06/03/18 amLODIPine [Norvasc] 5 mg PO DAILY 06/03/18 06/03/18 Previous Rx's Medication Instructions Recorded Acetaminophen Tab [Tylenol] 650 mg PO Q6HR PRN tab 06/05/18 Furosemide [Lasix] 40 mg PO ONCE tab 06/05/18 Nystatin 100,000Unit/gm Cream 1 applic TOPICAL BID applic 06/05/18 [Mycostatin Cream] Allergies Allergy/AdvReac Type Severity Reaction Status Date / Time Influenza Virus Vaccines Allergy Unknown Verified 05/13/19 07:59 Insulins Allergy Swelling Verified 05/13/19 07:59 metformin Allergy Rash/Hives Verified 05/13/19 07:59 pneumococcal vaccine Allergy Unknown Verified 05/13/19 07:59 strawberry Allergy Swelling Verified 05/13/19 07:59 tetanus immune globulin Allergy Unknown Verified 05/13/19 07:59 Review of Systems ROS Statement: Those systems with pertinent positive or pertinent negative responses have been documented in the HPI. ROS Other: All systems not noted in ROS Statement are negative. EKG Findings - EKG Comments: EKG Findings:: EKG was obtained due to complaint chest pain, EKG was obtained at 5:27 AM, rate of 78 rhythm is sinus with first-degree AV block, GA prolonged at 302, QRS 92, QTc is [address] elevations or depressions there is no evidence of acute ischemia or infarction. Past Medical History Past Medical History: Atrial Fibrillation, Chest Pain / Angina, Diabetes Mellitus, Hyperlipidemia, Hypertension, Myocardial Infarction ([place]), Thyroid Disorder Additional Past Medical History / Comment(s): ARTHRITIS Last Myocardial Infarction Date:: unknown History of Any Multi-Drug Resistant Organisms: C-DIFF, MRSA Date of last positivie culture/infection: 02/14/2015 MDRO Source:: URINE Past Surgical History: Cholecystectomy, Heart Catheterization With Stent, Hysterectomy Past Anesthesia/Blood Transfusion Reactions: No Reported Reaction Date of Last Stent Placement:: unknown Past Psychological History: Anxiety Smoking Status: Never smoker Past Alcohol Use History: Rare Past Drug Use History: None Reported - Past Family History Father Additional Family Medical History / Comment(s): from lung disease not sure what it was called Mother History Unknown: Yes Family Medical History: COPD Additional Family Medical History / Comment(s): empysema General Exam - General Exam Comments Initial Comments: Physical Exam GENERAL: Patient is well-developed and well-nourished. Patient is nontoxic and well- hydrated and is in no distress. HENT: Normocephalic, Atraumatic. EYES: PERRL, EOMI PULMONARY: Unlabored respirations. No audible rales rhonchi or wheezing was noted. CARDIOVASCULAR: There is a regular rate and rhythm without any murmurs gallops or rubs. ABDOMEN: Soft and nontender with normal bowel sounds. SKIN: Skin is clear with no lesions or rashes and otherwise unremarkable. : Deferred NEUROLOGIC: Patient is alert and oriented x3. Moving all extremities spontaneously MUSCULOSKELETAL: Normal extremities with adequate strength and full range of motion. No lower extremity swelling or edema. No calf tenderness. PSYCHIATRIC: Normal psychiatric evaluation. Limitations: no limitations Course Vital Signs 05/13/19 05/13/19 05:15 07:27 Temperature 97.6 F Pulse Rate 68 70 Respiratory 18 18 Rate Blood Pressure 145/77 152/60 O2 Sat by Pulse 99 99 Oximetry Chest Pain MDM - MDM Pt was seen and evaluated history was obtained from the patient excited 78-year-old female with known coronary artery disease presenting the ER with chest pain radiating to her neck similar to previous episodes of cardiac ischemia I think cardiac workup was initiated initial EKG is nonischemic Labs were unremarkable initial troponin was not elevated however given the pat ient's advanced age multiple risk factors we will plan to admit the patient for acute coronary syndrome workup Patient care was discussed with admitting physician Dr. Swartz who agrees with plan for admission Disposition Clinical Impression: Chest pain Disposition: ADMITTED IP TO THIS HOSP Condition: Stable Is patient prescribed a controlled substance at d/c from ED?: No Referrals: Sangeeta Chung DO [Primary Care Provider] - 1-2 days
--- NOTE | 2019-05-13 06:56 | XR ---
EXAMINATION TYPE: XR chest 2V DATE OF EXAM: 05/13/2019 COMPARISON: 09/13/2018 HISTORY: Atrial fibrillation TECHNIQUE: Single view FINDINGS: There is no heart failure nor confluent pneumonic infiltrate. Heart is enlarged. Costophren ic angles are clear. Thoracic aorta is atheromatous. There are chest leads. IMPRESSION: Mild cardiomegaly. No acute lung disease. No change.
[2019-05-13] MEDS ORDERED: NITROGLYCERIN SL TABS 0.4 MG TAB SUBLINGUAL PRN (07:27)
[2019-05-13] MEDS ORDERED: INSULIN LISPRO 9 UNIT SQ SCH (17:30)
[2019-05-13] MEDS: SODIUM CHLORIDE 0.9% 1,000 ML IV SCH (17:32)
[2019-05-13] MEDS: GLIMEPIRIDE 2 MG TAB PO SCH (17:33)
[2019-05-13] MEDS: amLODIPine 2.5 MG TAB PO SCH (17:33)
[2019-05-13] MEDS: CARBIDOPA-LEVODOPA 25-100 MG 1 EACH TAB PO SCH (20:35)
[2019-05-13 20:48] LABS: Glucose,Whole Blood 294 mg/dL (75-99)
[2019-05-13] MEDS: INSULIN LISPRO SQ SCH ×2 (21:01)
--- NOTE | 2019-05-13 22:49 | P.HPIM ---
History of Present Illness H&P Date: 05/13/19 Chief Complaint: chest pain Brit Wilkinson is a 78 yo F with PMH of cononary artery disease, hx LA, parkinson disease, T2DM who presented to the ED after experiencing chest ti ghtness last night. She reports experiencing pain and tightness in her bilateral neck which lasted a few minutes. She did have some associated shortness of breath, denies chest pain, nausea, diaphoresis. She states this felt similar to her previous LA so came in to the ED. On presentation, vitals stable, labs notable for Cr 1.3, trop negative x3, EKG with NSR. Review of Systems All systems: negative Constitutional: Denies chills, Denies fever Eyes: denies blurred vision, denies pain Ears, nose, mouth and throat: Denies headache, Denies sore throat Cardiovascular: Reports as per HPI, Reports chest pain, Denies shortness of breath Respiratory: Denies cough Gastrointestinal: Denies abdominal pain, Denies diarrhea, Denies nausea, Denies vomiting Genitourinary: Denies dysuria, Denies hematuria Musculoskeletal: Denies myalgias Integumentary: Denies pruritus, Denies rash Neurological: Denies numbness, Denies weakness Psychiatric: Denies anxiety, Denies depression Endocrine: Denies fatigue, Denies weight change Past Medical History Past Medical History: Blood Disorder, Coronary Artery Disease (CAD), Chest Pain / Angina, Heart Failure, Diabetes Mellitus, Deep Vein Thrombosis (DVT), Hyperlipidemia, Hypertension, Myocardial Infarction ([place]), Neurologic Disorder, Pneumonia, Pulmonary Embolus (PE), Renal Disease, Thyroid Disorder Additional Past Medical History / Comment(s): ARTHRITIS, low platelets, [place] x2, parkinsons, stage 3 renal failure Last Myocardial Infarction Date:: unknown History of Any Multi-Drug Resistant Organisms: C-DIFF Date of last positivie culture/infection: 02/14/2015 MDRO Source:: URINE Past Surgical History: Appendectomy, Cholecystectomy, Heart Catheterization With Stent, Hysterectomy, Orthopedic Surgery Additional Past Surgical History / Comment(s): bilateral total knee, 4 breast biopsies right breast, bilateral cataract sx Past Anesthesia/Blood Transfusion Reactions: No Reported Reaction Date of Last Stent Placement:: unknown Past Psychological History: No Psychological Hx Reported Smoking Status: Never smoker Past Alcohol Use History: Rare Past Drug Use History: None Reported - Past Family History Father Additional Family Medical History / Comment(s): from lung disease not sure what it was called Mother History Unknown: Yes Family Medical History: COPD Additional Family Medical History / Comment(s): empysema Medications and Allergies Home Medications Medication Instructions Recorded Confirmed Type Carbidopa-Levodopa 25-100 mg 1 tab PO BID 06/03/18 05/13/19 History [Sinemet 25-100 mg] Levothyroxine Sodium [Synthroid] 50 mcg PO DAILY 06/03/18 05/13/19 History Simvastatin [Zocor] 40 mg PO PC-LUNCH 06/03/18 05/13/19 History Aspirin EC [Ecotrin Low Dose] 81 mg PO DAILY 05/13/19 05/13/19 History Furosemide [Lasix] 40 mg PO Q72H 05/13/19 05/13/19 History Glimepiride [Amaryl] 2 mg PO DAILY 05/13/19 05/13/19 History Insulin Lispro [humaLOG Kwikpen] 9 unit SQ AC-TID 05/13/19 05/13/19 History amLODIPine [Norvasc] 2.5 mg PO PC-LUNCH 05/13/19 05/13/19 History Allergies Allergy/AdvReac Type Severity Reaction Status Date / Time Influenza Virus Vaccines Allergy Unknown Verified 05/13/19 07:59 Insulins Allergy Swelling Verified 05/13/19 16:41 metformin Allergy Rash/Hives Verified 05/13/19 07:59 pneumococcal vaccine Allergy Unknown Verified 05/13/19 07:59 strawberry Allergy Swelling Verified 05/13/19 07:59 tetanus immune globulin Allergy Unknown Verified 05/13/19 07:59 Physical Exam Vitals: Vital Signs Temp Pulse Pulse Resp BP BP Pulse Ox 05/13/19 20:00 98.1 F 90 17 115/65 99 05/13/19 15:46 97.4 F L 68 18 135/65 100 05/13/19 13:17 97.7 F 56 L 163/80 71 L 05/13/19 12:53 70 18 132/80 98 05/13/19 10:14 63 18 103/60 98 05/13/19 07:27 70 18 152/60 99 05/13/19 05:15 97.6 F 68 18 145/77 99 Intake and Output 05/13/19 05/13/19 05/13/19 06:59 14:59 22:59 Intake Total 340 Balance 340 Intake: Oral 240 Other 100 Other: Voiding Method Toilet Toilet Bedside Commode # Voids 1 Weight 83.007 kg 83.007 kg General: well nourished, well developed, NAD. Vitals reviewed Eyes: PERRL, EOMI, conjunctiva normal HENT: normocephalic, mucus membranes moist Neck: supple, no JVD Lungs: normal respiratory effort, no wheezes or rales CV: Regular rate and rhythm, no murmur. Peripheral pulses 2+ Abdomen: soft, nondistended, no organomegaly Lymph: no cervical or axillary LAD Skin: warm and dry. Neuro: A&Ox3, normal mood and affect Results CBC & Chem 7: 05/13/19 05:32 05/13/19 05:32 Labs: Abnormal Lab Results - Last 24 Hours (Table) 05/13/19 05/13/19 Range/Units 05:32 20:46 Sodium 136 L (137-145) mmol/L BUN 31 H (7-17) mg/dL Creatinine 1.27 H (0.52-1.04) mg/dL Glucose 170 H (74-99) mg/dL POC Glucose (mg/dL) 294 H (75-99) mg/dL Thrombosis Risk Factor Assmnt - Choose All That Apply Any of the Below Risk Factors Present?: Yes Each Factor Represents 1 point: Abnormal pulmonary function (COPD), Obesity (BMI >25) Other Risk Factors: Yes Each Risk Factor Represents 3 Points: Age 75 years or older, History of DVT/PE Other congenital or acquired thrombophilia - If yes, enter type in comment: No Thrombosis Risk Factor Assessment Total Risk Factor Score: 8 Thrombosis Risk Factor Assessment Level: High Risk Assessment and Plan (1) Coronary artery disease Current Visit: Yes Status: Acute Code(s): I25.10 - ATHSCL HEART DISEASE OF [place] CORONARY ARTERY W/O ANG PCTRS SNOMED Code(s): 57101377 (2) History of LA (myocardial infarction) Current Visit: Yes Status: Acute Code(s): I25.2 - OLD MYOCARDIAL INFARCTION SNOMED Code(s): 302678318 (3) T2DM (type 2 diabetes mellitus) Current Visit: Yes Status: Acute Code(s): E11.9 - TYPE 2 DIABETES MELLITUS WITHOUT COMPLICATIONS SNOMED Code(s): 59066326 (4) Chest pain Current Visit: Yes Status: Acute Code(s): R07.9 - CHEST PAIN, UNSPECIFIED SNOMED Code(s): 15950383 (5) Unstable angina pectoris Current Visit: No Status: Acute Code(s): I20.0 - UNSTABLE ANGINA SNOMED Code(s): 3400784 Plan: 1. Chest pain. ACS ruled out. Cardiology consulted for further evaluation 2. Coronary artery disease. Continue ASA and lipitor 3. T2DM. Continue amaryl. Accucheck and sliding scale insulin 4. HTN. Continue norvasc
[2019-05-14] MEDS: SODIUM CHLORIDE 0.9% 1,000 ML IV SCH (02:00)
[2019-05-14 04:45] VITALS: RESP 18
[2019-05-14] MEDS ORDERED: LEVOTHYROXINE 50 MCG TAB PO SCH (06:30)
[2019-05-14 07:28] LABS: Glucose,Whole Blood 184 mg/dL (75-99)
[2019-05-14 08:05] LABS: Calcium 9.1 mg/dL (8.4-10.2); Potassium 4.3 mmol/L (3.5-5.1)
[2019-05-14] MEDS ORDERED: SODIUM CHLORIDE 0.9% IV ONE (08:54)
[2019-05-14] MEDS ORDERED: AMINOPHYLLINE 500 MG/20 ML VIAL IV PRN (08:54)
[2019-05-14] MEDS ORDERED: CAFFEINE CITRATE 60 MG/3 ML VIAL IV PRN (08:54)
[2019-05-14] MEDS ORDERED: DIPYRIDAMOLE IV ONE (08:54)
[2019-05-14] MEDS ORDERED: ASPIRIN 81 MG PO SCH (09:00)
[2019-05-14] MEDS ORDERED: ASPIRIN 325 MG TAB PO SCH (09:00)
[2019-05-14] MEDS: INSULIN LISPRO SQ SCH ×4 (09:44→12:49)
[2019-05-14] MEDS: CARBIDOPA-LEVODOPA 25-100 MG 1 EACH TAB PO SCH (09:53)
--- NOTE | 2019-05-14 11:00 | P.CRDCN ---
History of Present Illness History of present illness: HISTORY OF PRESENTING ILLNESS This is a pleasant 78-year-old female past medical history significant for coronary artery disease in the setting of an anterior wall myocardial infar ction in 2007 status post PCI to the LAD, hypertension, diabetes mellitus, dyslipidemia and frequent falls. She follows in the office with Dr. Tan. We have been asked to see in consultation for chest pain. She states she felt a burning sensation at the base of her neck that radiated up to the neck and into the jaw yesterday morning when she woke up. She states she sensation she experienced was similar to how she felt in the past when she had a heart attack. She denies radiation to the back or down the arms. She denies associated shortness of breath, dizziness, nausea, vomiting, palpitations or diaphoresis. She is seen and examined resting comfortably in no acute distress. Her symptoms have resolved. Due to frequent falls she has been taken off beta blockers. DIAGNOSTICS EKG reveals an is mechanism with first-degree AV block heart rate of 78. Telemetry tracings reviewed and she is having intermittent episodes of second- degree Wenckebach. Chest xray negative for an acute cardiopulmonary process. Laboratory reviewed, CBC unremarkable, cardiac enzymes negative 3, sodium 140, potassium 4.3, creatinine 1.07 with a GFR 50, magnesium 1.9, NT proBNP 185 and LDL 98. Current cardiac medications include Lasix 40 mg every 3 days, simvastatin 40 mg daily, amlodipine 2.5 mg daily and aspirin 81 mg daily. Most recent echocardiogram obtained in the office in 2017 reveals preserved LV systolic function with EF 55-60%, mild MR and mild TR. Most recent stress test was a Lexiscan in 2015, negative for reversible ischemia. REVIEW OF SYSTEMS At the time of my exam: CONSTITUTIONAL: Denies fever or chills. CARDIOVASCULAR: Denies chest pain, shortness of breath, orthopnea, PND or pa lpitations. RESPIRATORY: Denies cough. GASTROINTESTINAL: Denies abdominal pain, diarrhea, constipation, nausea or vomiting. MUSCULOSKELETAL: Denies myalgias. NEUROLOGIC: Denies numbness, tingling or weakness. ENDOCRINE: Denies fatigue, weight change, polydipsia or polyurina. GENITOURINARY: Denies burning, hematuria or urgency with micturation. HEMATOLOGIC: Denies history of anemia or bleeding. PHYSICAL EXAMINATION Blood pressure 116/54 heart rate 67 afebrile and maintaining oxygen saturation on room air. CONSTITUTIONAL: No apparent distress. HEENT: Head is normocephalic. Pupils are equal, round. Sclerae anicteric. Mucous membranes of the mouth are moist. No JVD. No carotid bruit. CHEST EXAMINATION: Lungs are clear to auscultation. No chest wall tenderness is noted on palpation or with deep breathing. HEART EXAMINATION: Regular rate and rhythm. S1, S2 heard. No murmurs, gallops or rub. ABDOMEN: Soft, nontender. Positive bowel sounds. EXTREMITIES: 2+ peripheral pulses, no lower extremity edema and no calf tenderness. NEUROLOGIC EXAMINATION: Patient is awake, alert and oriented x3. ASSESSMENT Chest pain, atypical. An acute event has been ruled out. History of coronary artery disease s/p stent placement to the LAD 2006 in the setting of an acute anterior wall [place] Hypertension Dyslipidemia Diabetes mellitus Frequent falls PLAN An acute coronary event has been ruled out. Obtain 2D echocardiogram and doppler study to assess cardiac structure and function. Perform persantine stress test to assess for reversible cardiac ischemia. If abnormal we will consider coronary angiography. Increase atorvastatin to 40 mg daily for optimal LDL of less than 70. Thank you kindly for this consultation. Nurse Practitioner note has been reviewed, I agree with a documented findings and plan of care. Patient was seen and examined. Past Medical History Past Medical History: Blood Disorder, Coronary Artery Disease (CAD), Chest Pain / Angina, Heart Failure, Diabetes Mellitus, Deep Vein Thrombosis (DVT), Hyperlipidemia, Hypertension, Myocardial Infarction ([place]), Neurologic Disorder, Pneumonia, Pulmonary Embolus (PE), Renal Disease, Thyroid Disorder Additional Past Medical History / Comment(s): ARTHRITIS, low platelets, [place] x2, parkinsons, stage 3 renal failure Last Myocardial Infarction Date:: unknown History of Any Multi-Drug Resistant Organisms: C-DIFF Date of last positivie culture/infection: 02/14/2015 MDRO Source:: URINE Past Surgical History: Appendectomy, Cholecystectomy, Heart Catheterization With Stent, Hysterectomy, Orthopedic Surgery Additional Past Surgical History / Comment(s): bilateral total knee, 4 breast biopsies right breast, bilateral cataract sx Past Anesthesia/Blood Transfusion Reactions: No Reported Reaction Date of Last Stent Placement:: unknown Past Psychological History: No Psychological Hx Reported Smoking Status: Never smoker Past Alcohol Use History: Rare Past Drug Use History: None Reported - Past Family History Father Additional Family Medical History / Comment(s): from lung disease not sure what it was called Mother History Unknown: Yes Family Medical History: COPD Additional Family Medical History / Comment(s): empysema Medications and Allergies Home Medications Medication Instructions Recorded Confirmed Type Carbidopa-Levodopa 25-100 mg 1 tab PO BID 06/03/18 05/13/19 History [Sinemet 25-100 mg] Levothyroxine Sodium [Synthroid] 50 mcg PO DAILY 06/03/18 05/13/19 History Simvastatin [Zocor] 40 mg PO PC-LUNCH 06/03/18 05/13/19 History Aspirin EC [Ecotrin Low Dose] 81 mg PO DAILY 05/13/19 05/13/19 History Furosemide [Lasix] 40 mg PO Q72H 05/13/19 05/13/19 History Glimepiride [Amaryl] 2 mg PO DAILY 05/13/19 05/13/19 History Insulin Lispro [humaLOG Kwikpen] 9 unit SQ AC-TID 05/13/19 05/13/19 History amLODIPine [Norvasc] 2.5 mg PO PC-LUNCH 05/13/19 05/13/19 History Allergies Allergy/AdvReac Type Severity Reaction Status Date / Time Influenza Virus Vaccines Allergy Unknown Verified 05/13/19 07:59 Insulins Allergy Swelling Verified 05/13/19 16:41 metformin Allergy Rash/Hives Verified 05/13/19 07:59 pneumococcal vaccine Allergy Unknown Verified 05/13/19 07:59 strawberry Allergy Swelling Verified 05/13/19 07:59 tetanus immune globulin Allergy Unknown Verified 05/13/19 07:59 Physical Exam Vitals: Vital Signs Temp Pulse Pulse Resp BP BP Pulse Ox 05/14/19 07:52 97.3 F L 67 18 116/54 95 05/14/19 04:00 97.5 F L 71 18 142/65 99 05/13/19 23:41 97.9 F 75 17 126/65 97 05/13/19 20:00 98.1 F 90 17 115/65 99 05/13/19 15:46 97.4 F L 68 18 135/65 100 05/13/19 13:17 97.7 F 56 L 163/80 71 L 05/13/19 12:53 70 18 132/80 98 Intake and Output 01/05/14/19 05/14/19 22:59 06:59 14:59 Intake Total 340 Balance 340 Intake: Oral 240 Other 100 Other: Voiding Method Toilet Toilet Toilet Diaper Diaper Diaper # Voids 1 1 Results 05/13/19 05:32 05/14/19 06:39 Cardiac Enzymes 05/13/19 05/13/19 Range/Units 11:29 17:19 Troponin I <0.012 <0.012 (0.000-0.034) ng/mL Lipids 05/14/19 Range/Units 06:39 Triglycerides 170 H (<150) mg/dL Cholesterol 173 (<200) mg/dL HDL Cholesterol 41 (40-60) mg/dL Comprehensive Metabolic Panel 05/14/19 Range/Units 06:39 Sodium 140 (137-145) mmol/L Potassium 4.3 (3.5-5.1) mmol/L Chloride 110 H (98-107) mmol/L Carbon Dioxide 21 L (22-30) mmol/L BUN 24 H (7-17) mg/dL Creatinine 1.07 H (0.52-1.04) mg/dL Glucose 182 H (74-99) mg/dL Calcium 9.1 (8.4-10.2) mg/dL Current Medications Generic Name Dose Route Start Last Admin Trade Name Freq PRN Reason Stop Dose Admin Aminophylline 100 mg 05/14/19 08:54 Aminophylline IV 05/14/19 23:00 ONCE PRN Patient Response Amlodipine Besylate 2.5 mg 05/13/19 16:30 05/13/19 17:33 Norvasc PO 2.5 mg PC-LUNCH YULISA Administration Aspirin 81 mg 05/14/19 09:00 05/14/19 09:53 Aspirin PO 81 mg DAILY YULISA Administration Atorvastatin Calcium 20 mg 05/14/19 13:30 Lipitor PO PC-LUNCH YULISA Caffeine Citrate 60 mg 05/14/19 08:54 Cafcit Inj IV 05/14/19 23:00 ONCE PRN Patient Response Carbidopa/Levodopa 1 each 05/13/19 21:00 05/14/19 09:53 Sinemet 25-100 PO 1 each BID YULISA Administration Glimepiride 2 mg 05/13/19 16:30 05/13/19 17:33 Amaryl PO 2 mg DAILY YULISA Administration Sodium Chloride 1,000 mls @ 60 mls/hr 05/13/19 16:30 05/14/19 02:00 Saline 0.9% IV Not Given .[id number] YULISA Levothyroxine Sodium 50 mcg 05/14/19 06:30 05/14/19 06:22 Synthroid PO 50 mcg DAILY@0630 YULISA Administration Nitroglycerin 0.4 mg 05/13/19 07:27 Nitrostat SUBLINGUAL Q5M PRN Chest Pain Humalog (Insulin 0 each 05/13/19 21:00 05/14/19 09:44 Lispro) *Nonform* SQ Not Given 100 Units/Ml ACHS [facility] Protocol Humalog (Insulin 9 each 05/13/19 18:30 05/14/19 09:44 Lispro) *Nonform* SQ Not Given 100 Units/Ml AC-TID YULISA Intake and Output 05/13/19 05/14/19 05/14/19 22:59 06:59 14:59 Intake Total 340 Balance 340 Intake: Oral 240 Other 100 Other: Voiding Method Toilet Toilet Toilet Diaper Diaper Diaper # Voids 1 1 05/13/19 05:32 05/14/19 06:39
[2019-05-14] MEDS ORDERED: AMINOPHYLLINE 500 MG/20 ML VIAL IV ONE (11:48)
[2019-05-14 12:33] LABS: Glucose,Whole Blood 216 mg/dL (75-99)
[2019-05-14] MEDS: amLODIPine 2.5 MG TAB PO SCH (12:49)
[2019-05-14] MEDS: GLIMEPIRIDE 2 MG TAB PO SCH (12:49)
--- NOTE | 2019-05-14 12:54 | NM ---
EXAMINATION TYPE: NM stress persantine cardiolit DATE OF EXAM: 05/14/2019 COMPARISON: 03/14/2015 HISTORY: Chest pain TECHNIQUE: After the intravenous administration of 10.23 mCi Tc 99m Sestamibi - Cardiolite resting S PECT images acquired 45 minutes post injection. The patient received 47.3 mg Persantine, 26.0 mCi Tc 99m Sestamibi - Stress images obtained 30 minute s post injection FINDINGS: Review of stress and rest SPECT images demonstrates no distinct perfusion abnormality. Gated analysi s shows normal wall motion with an estimated left ventricular ejection fraction of 75 %. TID is withi n normal limits calculated at 0.9. IMPRESSION: No scintigraphic evidence for reversible ischemia.
[2019-05-14 13:06] VITALS: BP 126/72; PULSE 81; TEMP 97.5
[2019-05-14] MEDS ORDERED: ATORVASTATIN 20 MG TAB PO SCH (13:30)
[2019-05-14] MEDS ORDERED: ATORVASTATIN 40 MG TAB PO SCH (13:30)
--- NOTE | 2019-05-14 14:48 | P.DS ---
Providers Date of admission: 05/13/19 07:27 Expected date of discharge: 05/14/19 Attending physician: Adrien Swartz MD Consults: 05/13/19 07:27 Consult Physician Urgent Consulting Provider: [facility] Consult Reason/Comments: chest pain, known CAD Do you want consulting provider notified?: Yes, Notify in am Primary care physician: Sangeeta Chung [facility] Hospital Course: Final Diagnoses: (1) Coronary artery disease Current Visit: Yes Status: Acute Code(s): I25.10 - ATHSCL HEART DISEASE OF [place] CORONARY ARTERY W/O ANG PCTRS SNOMED Code(s): 75953870 (2) History of [place] (myocardial infarction) Current Visit: Yes Status: Acute Code(s): I25.2 - OLD MYOCARDIAL INFARCTION SNOMED Code(s): 214401546 (3) T2DM (type 2 diabetes mellitus) Current Visit: Yes Status: Acute Code(s): E11.9 - TYPE 2 DIABETES MELLITUS WITHOUT COMPLICATIONS SNOMED Code(s): 98503447 (4) Chest pain, atypical, acute coronary syndrome ruled out as per cardiology, stress test reported as negative Current Visit: Yes Status: Acute Code(s): R07.9 - CHEST PAIN, UNSPECIFIED SNOMED Code(s): 93467504 (5) Unstable angina pectoris Current Visit: No Status: Acute Code(s): I20.0 - UNSTABLE ANGINA SNOMED C ode(s): 5116310 (6) Hypertension Hospital course: Brit Wilkinson is a 78 yo F with PMH of cononary artery disease, hx [place], parkinson disease, T2DM who presented to the ED after experiencing chest tightness last night. She reports experiencing pain and tightness in her bilateral neck which lasted a few minutes. She did have some associated shortness of breath, denies chest pain, nausea, diaphoresis. She states this felt similar to her previous [place] so came in to the ED. On presentation, vitals stable, labs notable for Cr 1.3, trop negative x3, EKG with NSR. Evaluated by cardiology, underwent stress test, reported negative. Significant clinical improvement. Patient has been cleared by cardiology for discharge. Patient is being discharged home in stable condition with guarded prognosis. EXAM: General: Alert and oriented 3, NAD. Lungs: normal respiratory effort, no wheezes or rales CV: Regular rate and rhythm, no murmur. Peripheral pulses 2+ Abdomen: soft, nondistended, nontender, Positive bowel sounds Neuro: No focal deficits The impression and plan of care has been dictated as directed. : I performed a history and examination of this patient, discussed the same with the dictator. I agree with the dictator's note ,documented as a scribe. Any additional findings or plans will be noted. Patient Condition at Discharge: Stable Plan - Discharge Summary Discharge Rx Participant: Yes New Discharge Prescriptions: Continue Levothyroxine Sodium [Synthroid] 50 mcg PO DAILY Carbidopa-Levodopa 25-100 mg [Sinemet 25-100 mg] 1 tab PO BID Simvastatin [Zocor] 40 mg PO PC-LUNCH Aspirin EC [Ecotrin Low Dose] 81 mg PO DAILY amLODIPine [Norvasc] 2.5 mg PO PC-LUNCH Glimepiride [Amaryl] 2 mg PO DAILY Furosemide [Lasix] 40 mg PO Q72H Insulin Lispro [humaLOG Kwikpen] 9 unit SQ AC-TID #0 Discharge Medication List Carbidopa-Levodopa 25-100 mg [Sinemet 25-100 mg] 1 tab PO BID 06/03/18 [History] Levothyroxine Sodium [Synthroid] 50 mcg PO DAILY 06/03/18 [History] Simvastatin [Zocor] 40 mg PO PC-LUNCH 06/03/18 [History] Aspirin EC [Ecotrin Low Dose] 81 mg PO DAILY 05/13/19 [History] Furosemide [Lasix] 40 mg PO Q72H 05/13/19 [History] Glimepiride [Amaryl] 2 mg PO DAILY 05/13/19 [History] amLODIPine [Norvasc] 2.5 mg PO PC-LUNCH 05/13/19 [History] Insulin Lispro [humaLOG Kwikpen] 9 unit SQ AC-TID #0 05/14/19 [Rx] Follow up Appointment(s)/Referral(s): Sangeeta Chung DO [Primary Care Provider] - 3 Days Ambulatory/Diagnostic Orders: Complete Blood Count w/diff [LAB.AMB] Time Frame: 3 Days, Location: None Selected Activity/Diet/Wound Care/Special Instructions: Confirm cardiology follow-up appointment prior to discharge.
--- NOTE | 2019-05-15 12:52 | P.STRESS ---
- Stress Test Note Stress Test Results/Findings: Exam Performed: NM stress persantine cardiolite Exam Date: 05/14/19 Reason for Exam: CHEST PAIN Height: 5 ft 1 in Weight: 83.01 kg Protocol: PERSANTINE Stage: NA Duration of Exercise: NA Resting Heart Rate: 68 Resting Blood Pressure: 134/69 Maximum Achieved Heart Rate: 85 Maximum Achieved Blood Pressure: 148/65 85% PMHR: NA 100% PMHR: NA METS: NA Technologist Comment: Stress Test Results/Findings: This is a 78-year-old female with history of hypertension, diabetes, hypercholesterolemia, being evaluated for symptoms of chest pain and palpitations. Stress data: Baseline EKG showed sinus rhythm with normal GA interval and QRS duration. Blood pressure at rest is 134/69 with pulse rate of 68. A standard dose of Persantine was infused. EKGs taken during and after infusion did not reveal any significant changes from the baseline. Final impression: #1. Negative Persantine stress test #2. Report on the nuclear images to be given by the radiologist.
--- NOTE | 2019-05-15 13:57 | EST ---
Stress Test Results/Findings: Exam Performed: NM stress persantine cardiolite Exam Date: 05/14/19 Reason for Exam: CHEST PAIN Height: 5 ft 1 in Weight: 83.01 kg Protocol: PERSANTINE Stage: NA Duration of Exercise: NA Resting Heart Rate: 68 Resting Blood Pressure: 134/69 Maximum Achieved Heart Rate: 85 Maximum Achieved Blood Pressure: 148/65 85% PMHR: NA 100% PMHR: NA METS: NA Technologist Comment: Stress Test Results/Findings: This is a 78-year-old female with history of hypertension, diabetes, hypercholesterolemia, being evaluated for symptoms of chest pain and palpitations. Stress data: Baseline EKG showed sinus rhythm with normal MA interval and QRS duration. Blood pressure at rest is 134/69 with pulse rate of 68. A standard dose of Persantine was infused. EKGs taken during and after infusion did not reveal any significant changes from the baseline. Final impression: #1. Negative Persantine stress test #2. Report on the nuclear images to be given by the radiologist. LIOR
== END 2019-05-14 16:38 | disposition home or self-care (01) ==
LOC: EC 05:10 → 1SOBS 07:27
PROVIDERS: ADMIT Family Medicine; ATTEND Family Medicine
DX: R07.89 Other chest pain (principal); I25.110 Atherosclerotic heart disease of native coronary artery with unstable angina pectoris; I13.0 Hypertensive heart and chronic kidney disease with heart failure and stage 1 through stage 4 chronic kidney disease, or unspecified chronic kidney disease; E11.22 Type 2 diabetes mellitus with diabetic chronic kidney disease; N18.3 Chronic kidney disease, stage 3 (moderate); I50.9 Heart failure, unspecified; I48.91 Unspecified atrial fibrillation; E11.9 Type 2 diabetes mellitus without complications; E78.5 Hyperlipidemia, unspecified; E07.9 Disorder of thyroid, unspecified; M19.90 Unspecified osteoarthritis, unspecified site; I44.1 Atrioventricular block, second degree; I25.2 Old myocardial infarction; F41.9 Anxiety disorder, unspecified; G20 Parkinson's disease; R29.6 Repeated falls; Z86.718 Personal history of other venous thrombosis and embolism; Z86.711 Personal history of pulmonary embolism; Z95.5 Presence of coronary angioplasty implant and graft; Z86.14 Personal history of Methicillin resistant Staphylococcus aureus infection; Z86.19 Personal history of other infectious and parasitic diseases; Z87.01 Personal history of pneumonia (recurrent); Z83.6 Family history of other diseases of the respiratory system; Z90.49 Acquired absence of other specified parts of digestive tract; Z90.710 Acquired absence of both cervix and uterus; Z96.653 Presence of artificial knee joint, bilateral; Z79.890 Hormone replacement therapy; Z79.82 Long term (current) use of aspirin; Z79.899 Other long term (current) drug therapy; Z79.4 Long term (current) use of insulin; Z88.7 Allergy status to serum and vaccine; Z88.8 Allergy status to other drugs, medicaments and biological substances; Z91.018 Allergy to other foods
CPT/HCPCS: 93005 ×3; 99285; 36415; 93017; 93306; 83880; 80061; 80053; 80048; 83735; 84484; 85025; 85610; 85730; 71046; 78452; G0378 ×2; A9500; J0280; J1245

== ENCOUNTER 2019-06-22 07:44 | Emergency (ER) | payer MEDICARE, BC ==
[2019-06-22 07:56] VITALS: RESP 16; TEMP 98.5
[2019-06-22] MEDS ORDERED: SODIUM CHLORIDE 0.9% 500 ML 500 ML IV STA (08:05)
--- NOTE | 2019-06-22 08:12 | ED ---
General Adult HPI - General Chief complaint: Fall Stated complaint: fall Time Seen by Provider: 06/22/19 07:50 Source: patient, EMS, RN notes reviewed, old records reviewed Mode of arrival: EMS Limitations: no limitations - History of Present Illness Initial comments: This is a 78-year-old female presents emergency department stating she came out of the bathroom all spell spell backward and hit her on the floor. Patient states she may have lost consciousness because she murmurs falling in and seeing the ceiling so she doesn't know if she was out or not. Patient states she has pain on her scalp but no headache. Patient denies any neck pain. Patient denies numbness weakness. Patient denies any back pain chest pain or abdominal pain. Patient denies any hip pain. Patient only complains of pain in the left lower extremity at the knee just above the patella. Patient does move it with full range of motion. Patient denies any other injury. Patient denies being on any blood thinners. Patient mentions that she has been low on platelets many years ago but she doesn't know if that still a problem. - Related Data Home Medications Medication Instructions Recorded Confirmed Carbidopa-Levodopa 25-100 mg 1 tab PO BID 06/03/18 05/13/19 [Sinemet 25-100 mg] Levothyroxine Sodium [Synthroid] 50 mcg PO DAILY 06/03/18 05/13/19 Simvastatin [Zocor] 40 mg PO PC-LUNCH 06/03/18 05/13/19 Aspirin EC [Ecotrin Low Dose] 81 mg PO DAILY 05/13/19 05/13/19 Furosemide [Lasix] 40 mg PO Q72H 05/13/19 05/13/19 Glimepiride [Amaryl] 2 mg PO DAILY 05/13/19 05/13/19 amLODIPine [Norvasc] 2.5 mg PO PC-LUNCH 05/13/19 05/13/19 Previous Rx's Medication Instructions Recorded Insulin Lispro [humaLOG Kwikpen] 9 unit SQ AC-TID #0 05/14/19 Allergies Allergy/AdvReac Type Severity Reaction Status Date / Time Influenza Virus Vaccines Allergy Unknown Verified 05/13/19 07:59 Insulins Allergy Swelling Verified 05/13/19 16:41 metformin Allergy Rash/Hives Verified 05/13/19 07:59 pneumococcal vaccine Allergy Unknown Verified 05/13/19 07:59 strawberry Allergy Swelling Verified 05/13/19 07:59 tetanus immune globulin Allergy Unknown Verified 05/13/19 07:59 Review of Systems ROS Statement: Those systems with pertinent positive or pertinent negative responses have been documented in the HPI. ROS Other: All systems not noted in ROS Statement are negative. Past Medical History Past Medical History: Blood Disorder, Coronary Artery Disease (CAD), Chest Pain / Angina, Heart Failure, Diabetes Mellitus, Deep Vein Thrombosis (DVT), Hyperlipidemia, Hypertension, Myocardial Infarction ([place]), Neurologic Disorder, Pneumonia, Pulmonary Embolus ([place]), Renal Disease, Thyroid Disorder Additional Past Medical History / Comment(s): ARTHRITIS, low platelets, [place] x2, parkinsons, stage 3 renal failure Last Myocardial Infarction Date:: unknown History of Any Multi-Drug Resistant Organisms: C-DIFF Date of last positivie culture/infection: 02/14/2015 MDRO Source:: URINE Past Surgical History: Appendectomy, Cholecystectomy, Heart Catheterization With Stent, Hysterectomy, Orthopedic Surgery Additional Past Surgical History / Comment(s): bilateral total knee, 4 breast biopsies right breast, bilateral cataract sx Past Anesthesia/Blood Transfusion Reactions: No Reported Reaction Date of Last Stent Placement:: unknown Past Psychological History: No Psychological Hx Reported Smoking Status: Never smoker Past Alcohol Use History: Rare Past Drug Use History: None Reported - Past Family History Father Additional Family Medical History / Comment(s): from lung disease not sure what it was called Mother History Unknown: Yes Family Medical History: COPD Additional Family Medical History / Comment(s): empysema General Exam - General Exam Comments Initial Comments: GENERAL: Patient is well-developed and well-nourished. Patient is nontoxic and well- hydrated and is in mild distress. Patient has a large hematoma to the occipital region a little bit to the left. ENT: Neck is soft and supple. No significant lymphadenopathy is noted. Oropharynx is clear. Moist mucous membranes. Neck has full range of motion without eliciting any pain. EYES: The sclera were anicteric and conjunctiva were pink and moist. Extraocular movements were intact and pupils were equal round and reactive to light. Ey elids were unremarkable. PULMONARY: Unlabored respirations. Good breath sounds bilaterally. No audible rales rhonchi or wheezing was noted. CARDIOVASCULAR: There is a regular rate and rhythm without any murmurs gallops or rubs. ABDOMEN: Soft and nontender with normal bowel sounds. SKIN: Skin is clear with no lesions or rashes and otherwise unremarkable. NEUROLOGIC: Patient is alert and oriented x3. Cranial nerves II through XII are grossly intact. Motor and sensory are also intact. Normal speech, volume and content. Symmetrical smile. MUSCULOSKELETAL: Normal extremities with adequate strength and full range of motion. Patient has some slight tenderness above the patella on the left knee. LYMPHATICS: No significant lymphadenopathy is noted PSYCHIATRIC: Normal psychiatric evaluation. Limitations: no limitations Course Vital Signs 06/22/19 06/22/19 06/22/19 07:50 08:50 09:35 Temperature 98.5 F Pulse Rate 74 69 72 Respiratory 16 16 16 Rate Blood Pressure 179/97 158/88 184/66 O2 Sat by Pulse 98 98 99 Oximetry 06/22/19 10:56 Temperature Pulse Rate 70 Respiratory 16 Rate Blood Pressure 170/73 O2 Sat by Pulse 100 Oximetry Medical Decision Making - Medical Decision Making EKG shows an accelerated junctional rhythm at 73 bpm QRS is 92 QT interval 44 QTC is 445. Patient's EKG shows no ST segment elevation or depression. Chest x-ray shows no acute abnormality. Patient did have a lung nodule that needs to be followed up. CT of the brain and C-spine showed no acute abnormality. X-ray of the knee shows no acute normalities. - Lab Data Result diagrams: 06/22/19 09:21 06/22/19 09:21 Lab Results 06/22/19 06/22/19 06/22/19 Range/Units 09:21 09:21 09:21 WBC 8.0 (3.8-10.6) k/uL RBC 4.23 (3.80-5.40) m/uL Hgb 12.7 (11.4-16.0) gm/dL Hct 38.9 (34.0-46.0) % MCV 92.0 (80.0-100.0) fL MCH 30.0 (25.0-35.0) pg MCHC 32.6 (31.0-37.0) g/dL RDW 12.8 (11.5-15.5) % Plt Count 173 (150-450) k/uL Neutrophils % 74 % Lymphocytes % 14 % Monocytes % 6 % Eosinophils % 3 % Basophils % 1 % Neutrophils # 5.9 (1.3-7.7) k/uL Lymphocytes # 1.1 (1.0-4.8) k/uL Monocytes # 0.5 (0-1.0) k/uL Eosinophils # 0.2 (0-0.7) k/uL Basophils # 0.1 (0-0.2) k/uL PT 9.6 (9.0-12.0) sec INR 0.9 (<1.2) APTT 22.1 (22.0-30.0) sec Sodium 138 (137-145) mmol/L Potassium 4.4 (3.5-5.1) mmol/L Chloride 107 (98-107) mmol/L Carbon Dioxide 23 (22-30) mmol/L Anion Gap 8 mmol/L BUN 25 H (7-17) mg/dL Creatinine 1.09 H (0.52-1.04) mg/dL Est GFR (CKD-EPI)AfAm 56 (>60 ml/min/1.73 sqM) Est GFR (CKD-EPI)NonAf 49 (>60 ml/min/1.73 sqM) Glucose 179 H (74-99) mg/dL Calcium 9.4 (8.4-10.2) mg/dL Magnesium 1.7 (1.6-2.3) mg/dL Total Bilirubin 0.5 (0.2-1.3) mg/dL AST 16 (14-36) U/L ALT <6 (4-34) U/L Alkaline Phosphatase 95 (38-126) U/L Troponin I (0.000-0.034) ng/mL Total Protein 6.9 (6.3-8.2) g/dL Albumin 3.8 (3.5-5.0) g/dL 06/22/19 Range/Units 09:21 WBC (3.8-10.6) k/uL RBC (3.80-5.40) m/uL Hgb (11.4-16.0) gm/dL Hct (34.0-46.0) % MCV (80.0-100.0) fL MCH (25.0-35.0) pg MCHC (31.0-37.0) g/dL RDW (11.5-15.5) % Plt Count (150-450) k/uL Neutrophils % % Lymphocytes % % Monocytes % % Eosinophils % % Basophils % % Neutrophils # (1.3-7.7) k/uL Lymphocytes # (1.0-4.8) k/uL Monocytes # (0-1.0) k/uL Eosinophils # (0-0.7) k/uL Basophils # (0-0.2) k/uL PT (9.0-12.0) sec INR (<1.2) APTT (22.0-30.0) sec Sodium (137-145) mmol/L Potassium (3.5-5.1) mmol/L Chloride (98-107) mmol/L Carbon Dioxide (22-30) mmol/L Anion Gap mmol/L BUN (7-17) mg/dL Creatinine (0.52-1.04) mg/dL Est GFR (CKD-EPI)AfAm (>60 ml/min/1.73 sqM) Est GFR (CKD-EPI)NonAf (>60 ml/min/1.73 sqM) Glucose (74-99) mg/dL Calcium (8.4-10.2) mg/dL Magnesium (1.6-2.3) mg/dL Total Bilirubin (0.2-1.3) mg/dL AST (14-36) U/L ALT (4-34) U/L Alkaline Phosphatase (38-126) U/L Troponin I <0.012 (0.000-0.034) ng/mL Total Protein (6.3-8.2) g/dL Albumin (3.5-5.0) g/dL Disposition Clinical Impression: Fall, Head injury, acute Disposition: HOME SELF-CARE Instructions (If sedation given, give patient instructions): Concussion (ED), Fall Prevention for Older Adults (ED) Referrals: Sangeeta Chung DO [Primary Care Provider] - 1-2 days Time of Disposition: 11:00
--- NOTE | 2019-06-22 08:52 | XR ---
EXAMINATION TYPE: XR chest 2V DATE OF EXAM: 06/22/2019 COMPARISON: 05/13/2019 HISTORY: Fall and subsequent chest pain TECHNIQUE: Frontal and lateral views of the chest are obtained. FINDINGS: There is no focal air space opacity, pleural effusion, or pneumothorax seen. 7 mm right mi dlung pulmonary nodule. The cardiac silhouette size is within normal limits. The osseous structures are intact. Moderate multilevel degenerative change of the spine. Dextroscoliosis is seen of the spi ne. Calcific tendinitis of the left rotator cuff. IMPRESSION: 1. No acute cardiopulmonary process. 2. New right midlung pulmonary nodule. Follow-up CT thorax is recommended on a nonemergent basis for full characterization.
[2019-06-22] MEDS ORDERED: ONDANSETRON 4 MG/2 ML VIAL IVP STA (09:15)
--- NOTE | 2019-06-22 09:19 | CT ---
EXAMINATION TYPE: CT brain mono wo con DATE OF EXAM: 06/22/2019 COMPARISON: 09/13/2018 HISTORY: 78-year-old female with pain after Fall CT DLP: 1355 mGycm Automated exposure control for dose reduction was used. Technique: Examination of the head was done in axial plane without intravenous contrast. Coronal and sagittal reconstructions performed. CT of the cervical spine was obtained in axial plane without intravenous injection of contrast mater ial. Coronal and sagittal reformatted images were obtained from the axial views for evaluation of f ractures, spinal alignment and canal. FINDINGS: Head: There is no evidence of acute intracranial hemorrhage, acute ischemic changes, mass, mass-effect, or extra-axial fluid collection. There is no effacement of cerebral sulci or basal subarachnoid cister ns. There is no hydrocephalus. There is no midline shift. Molina-white matter distinction is preserv ed. Redemonstrated moderate bifrontal atrophy and partially empty sella. Lobulated mucosal thickening posterior left sphenoid sinus. Mastoid air cells are well pneumatized. O rbits and globes are intact. No calvarial fracture. Cervical spine: No craniocervical junction abnormality, predental space widening, or prevertebral soft tissue swellin g. Facet and uncovertebral joint arthropathy throughout. Enlarging subchondral geode within the right C4 facet. Moderate to advanced disc/endplate degenerative change particularly at C5-C7 levels. Disc/osteophyte complexes mildly narrow the spinal canal at both of these levels. Stable sclerotic focus within the C3 vertebral body suggesting a benign bone island. No acute fracture of the cervical spine. Alignment is maintained. Moderate neural foraminal stenosis at C3-C4, on the right at C5-C6. Additional mild neuroforaminal st enoses throughout. Sagittal and coronal reformatted images confirm above findings. COMBINED IMPRESSION: 1. Redemonstrated moderate bifrontal atrophy. No acute intracranial abnormality seen. 2. No acute fracture or malalignment of the cervical spine. Moderate to advanced multilevel spondylot ic change. Incidental enlarging subchondral geode within the right C4 facet.
[2019-06-22 09:51] LABS: Basophils # (A) 0.1 k/uL (0-0.2); Basophils % (A) 1 %; Eosinophils # (A) 0.2 k/uL (0-0.7); Eosinophils % (A) 3 %; HCT 38.9 % (34.0-46.0); HGB 12.7 gm/dL (11.4-16.0); Lymphocytes # (A) 1.1 k/uL (1.0-4.8); Lymphocytes % (A) 14 %; MCHC 32.6 g/dL (31.0-37.0); Mean Platelet Volume 8.3; Monocytes # (A) 0.5 k/uL (0-1.0); Monocytes % (A) 6 %; Neutrophils # (A) 5.9 k/uL (1.3-7.7); Neutrophils % (A) 74 %; Platelet Count 173 k/uL (150-450); RBC 4.23 m/uL (3.80-5.40); RDW 12.8 % (11.5-15.5)
[2019-06-22 10:02] LABS: ALT <6 U/L (4-34); AST 16 U/L (14-36); African American GFR (CKD) 56 (>60 ml/min/1.73 sqM); Albumin 3.8 g/dL (3.5-5.0); Alkaline Phosphatase 95 U/L (38-126); Anion Gap 8 mmol/L; Blood Urea Nitrogen 25 mg/dL (7-17); Calcium 9.4 mg/dL (8.4-10.2); Carbon Dioxide 23 mmol/L (22-30); Chloride 107 mmol/L (98-107); Glucose 179 mg/dL (74-99); INR 0.9 (<1.2); Magnesium 1.7 mg/dL (1.6-2.3); Non-African American GFR(CKD) 49 (>60 ml/min/1.73 sqM); Partial Thromboplastin Time 22.1 sec (22.0-30.0); Potassium 4.4 mmol/L (3.5-5.1); Prothrombin Time 9.6 sec (9.0-12.0); Sodium 138 mmol/L (137-145); Total Bilirubin 0.5 mg/dL (0.2-1.3); Total Protein 6.9 g/dL (6.3-8.2)
[2019-06-22] MEDS ORDERED: ACETAMINOPHEN TAB 500 MG TAB PO STA (11:00)
--- NOTE | 2019-06-22 11:36 | XR ---
Left knee HISTORY: Trauma and pain 3 views of the left knee Bone mineralization is reduced. Patient is status post left knee arthroplasty. Soft tissue calcificat ions felt likely to be vascular. No evident joint effusion. Alignment is maintained. Suspect soft tis frank swelling is present. IMPRESSION: No fracture or dislocation.
[2019-06-22 11:47] VITALS: BP 148/89; PULSE 67
== END 2019-06-22 12:51 | disposition home or self-care (01) ==
LOC: EC 07:44
DX: S09.90XA Unspecified injury of head, initial encounter (principal); I49.8 Other specified cardiac arrhythmias; R91.1 Solitary pulmonary nodule; I25.119 Atherosclerotic heart disease of native coronary artery with unspecified angina pectoris; I13.0 Hypertensive heart and chronic kidney disease with heart failure and stage 1 through stage 4 chronic kidney disease, or unspecified chronic kidney disease; E11.22 Type 2 diabetes mellitus with diabetic chronic kidney disease; N18.3 Chronic kidney disease, stage 3 (moderate); I50.9 Heart failure, unspecified; E07.9 Disorder of thyroid, unspecified; G20 Parkinson's disease; E78.5 Hyperlipidemia, unspecified; I25.2 Old myocardial infarction; Z79.84 Long term (current) use of oral hypoglycemic drugs; Z79.890 Hormone replacement therapy; Z79.82 Long term (current) use of aspirin; Z79.899 Other long term (current) drug therapy; Z88.7 Allergy status to serum and vaccine; Z88.8 Allergy status to other drugs, medicaments and biological substances; Z91.018 Allergy to other foods; Z86.718 Personal history of other venous thrombosis and embolism; Z86.711 Personal history of pulmonary embolism; Z95.5 Presence of coronary angioplasty implant and graft; W18.39XA Other fall on same level, initial encounter; Y92.009 Unspecified place in unspecified non-institutional (private) residence as the place of occurrence of the external cause
CPT/HCPCS: 36415; 93005; 80053; 83735; 84484; 85025; 85610; 85730; 73562; 71046; 72125; 70450; 96374; 99285; 96361 ×4; J2405

== ENCOUNTER 2020-01-31 08:07 | Emergency (ER) | payer MEDICARE, BC ==
[2020-01-31] MEDS ORDERED: ASPIRIN 81 MG PO STA (08:17)
[2020-01-31] MEDS ORDERED: MORPHINE SULFATE 2 MG/ML SYRINGE IVP ONE (08:18)
[2020-01-31] MEDS ORDERED: ONDANSETRON 4 MG/2 ML VIAL IVP STA (08:18)
[2020-01-31 08:19] VITALS: RESP 18
--- NOTE | 2020-01-31 08:24 | ED ---
General Adult HPI - General Stated complaint: Rt shoulder/back pain Time Seen by Provider: 01/31/20 08:12 Source: patient, EMS, RN notes reviewed Mode of arrival: EMS Limitations: no limitations - History of Present Illness Initial comments: This an 79-year-old female presents emergency department via EMS with chief complaint of right shoulder pain, chest discomfort. Patient states that she fell 2 weeks ago in which she fell and right shoulders been having shoulder pain. Patient states that she became worried today when she states the pain is radiating across her chest. She states she has some pain in her right side and injured her back. Patient reports no current shortness of breath she complained shortness breath a few days ago. Patient has a history of cardiac stents with hyperlipidemia hypertension and diabetes. She states she has full range of motion right shoulder though does increase her pain. Denies paresthesias. No abdominal pain denies any nausea vomiting. - Related Data Home Medications Medication Instructions Recorded Confirmed Carbidopa-Levodopa 25-100 mg 1 tab PO BID 06/03/18 05/13/19 [Sinemet 25-100 mg] Levothyroxine Sodium [Synthroid] 50 mcg PO DAILY 06/03/18 05/13/19 Simvastatin [Zocor] 40 mg PO PC-LUNCH 06/03/18 05/13/19 Aspirin EC [Ecotrin Low Dose] 81 mg PO DAILY 05/13/19 05/13/19 Furosemide [Lasix] 40 mg PO Q72H 05/13/19 05/13/19 Glimepiride [Amaryl] 2 mg PO DAILY 05/13/19 05/13/19 amLODIPine [Norvasc] 2.5 mg PO PC-LUNCH 05/13/19 05/13/19 Previous Rx's Medication Instructions Recorded Insulin Lispro [humaLOG Kwikpen] 9 unit SQ AC-TID #0 05/14/19 Allergies Allergy/AdvReac Type Severity Reaction Status Date / Time Influenza Virus Vaccines Allergy Unknown Verified 05/13/19 07:59 Insulins Allergy Swelling Verified 05/13/19 16:41 metformin Allergy Rash/Hives Verified 05/13/19 07:59 pneumococcal vaccine Allergy Unknown Verified 05/13/19 07:59 strawberry Allergy Swelling Verified 05/13/19 07:59 tetanus immune globulin Allergy Unknown Verified 05/13/19 07:59 Review of Systems ROS Statement: Those systems with pertinent positive or pertinent negative responses have been documented in the HPI. ROS Other: All systems not noted in ROS Statement are negative. Past Medical History Past Medical History: Blood Disorder, Coronary Artery Disease (CAD), Chest Pain / Angina, Heart Failure, Diabetes Mellitus, Deep Vein Thrombosis (DVT), Hyperlipidemia, Hypertension, Myocardial Infarction ([place]), Neurologic Disorder, Pneumonia, Pulmonary Embolus ([place]), Renal Disease, Thyroid Disorder Additional Past Medical History / Comment(s): ARTHRITIS, low platelets, [place] x2, parkinsons, stage 3 renal failure Last Myocardial Infarction Date:: unknown History of Any Multi-Drug Resistant Organisms: C-DIFF Date of last positivie culture/infection: 02/14/2015 MDRO Source:: URINE Past Surgical History: Appendectomy, Cholecystectomy, Heart Catheterization With Stent, Hysterectomy, Orthopedic Surgery Additional Past Surgical History / Comment(s): bilateral total knee, 4 breast biopsies right breast, bilateral cataract sx Past Anesthesia/Blood Transfusion Reactions: No Reported Reaction Date of Last Stent Placement:: unknown Past Psychological History: No Psychological Hx Reported Smoking Status: Never smoker Past Alcohol Use History: Rare Past Drug Use History: None Reported - Past Family History Father Additional Family Medical History / Comment(s): from lung disease not sure what it was called Mother History Unknown: Yes Family Medical History: COPD Additional Family Medical History / Comment(s): empysema General Exam General appearance: alert, in no apparent distress Head exam: Present: atraumatic, normocephalic, normal inspection Eye exam: Present: normal appearance, PERRL, EOMI. Absent: scleral icterus, conjunctival injection, periorbital swelling ENT exam: Present: normal exam, normal oropharynx, mucous membranes moist Neck exam: Present: normal inspection, full ROM. Absent: tenderness, meningismus, lymphadenopathy Respiratory exam: Present: normal lung sounds bilaterally. Absent: respiratory distress, wheezes, rales, rhonchi, stridor Cardiovascular Exam: Present: regular rate, normal rhythm, normal heart sounds. Absent: systolic murmur, diastolic murmur, rubs, gallop, clicks GI/Abdominal exam: Present: soft, normal bowel sounds. Absent: distended, tenderness, guarding, rebound, rigid Neurological exam: Present: alert, oriented X3, CN II-XII intact Course Vital Signs 01/31/20 08:12 Temperature 97.6 F Pulse Rate 70 Respiratory 18 Rate Blood Pressure 142/97 O2 Sat by Pulse 99 Oximetry EKG Findings - EKG Comments: EKG Findings:: A. fib rate of 60 QRS 94 QTC is QTC 420/420 Medical Decision Making - Medical Decision Making 79-year-old presented for right shoulder pain after a fall 2 weeks ago. She states she's had persistent pain x-rays were reviewed and arthritic changes possible underlying rotator cuff disease. Patient reported to have some discomfort and chest recently. She has no symptoms currently. Patient's labs are unremarkable. She was offered admission for further evaluation for cardiology shoulder patient declined states she was here this year for chronic work up patient negative stress test. Patient will follow-up with orthopedics, primary care physician and return for any worsening or changing symptoms. - Lab Data Result diagrams: 01/31/20 08:21 01/31/20 08:21 Lab Results 01/31/20 01/31/20 01/31/20 Range/Units 08:21 08:21 08:21 WBC 6.0 (3.8-10.6) k/uL RBC 4.31 (3.80-5.40) m/uL Hgb 13.4 (11.4-16.0) gm/dL Hct 40.5 (34.0-46.0) % MCV 93.8 (80.0-100.0) fL MCH 31.1 (25.0-35.0) pg MCHC 33.1 (31.0-37.0) g/dL RDW 12.6 (11.5-15.5) % Plt Count 189 (150-450) k/uL Neutrophils % 66 % Lymphocytes % 22 % Monocytes % 7 % Eosinophils % 2 % Basophils % 1 % Neutrophils # 3.9 (1.3-7.7) k/uL Lymphocytes # 1.3 (1.0-4.8) k/uL Monocytes # 0.4 (0-1.0) k/uL Eosinophils # 0.1 (0-0.7) k/uL Basophils # 0.0 (0-0.2) k/uL PT 9.5 (9.0-12.0) sec INR 0.9 (<1.2) APTT 22.4 (22.0-30.0) sec Sodium 137 (137-145) mmol/L Potassium 5.0 (3.5-5.1) mmol/L Chloride 105 (98-107) mmol/L Carbon Dioxide 24 (22-30) mmol/L Anion Gap 8 mmol/L BUN 27 H (7-17) mg/dL Creatinine 1.43 H (0.52-1.04) mg/dL Est GFR (CKD-EPI)AfAm 40 (>60 ml/min/1.73 sqM) Est GFR (CKD-EPI)NonAf 35 (>60 ml/min/1.73 sqM) Glucose 223 H (74-99) mg/dL Calcium 9.3 (8.4-10.2) mg/dL Magnesium 1.9 (1.6-2.3) mg/dL Total Bilirubin 0.6 (0.2-1.3) mg/dL AST 17 (14-36) U/L ALT <6 (4-34) U/L Alkaline Phosphatase 79 (38-126) U/L Troponin I (0.000-0.034) ng/mL Total Protein 7.1 (6.3-8.2) g/dL Albumin 3.8 (3.5-5.0) g/dL 01/31/20 Range/Units 08:21 WBC (3.8-10.6) k/uL RBC (3.80-5.40) m/uL Hgb (11.4-16.0) gm/dL Hct (34.0-46.0) % MCV (80.0-100.0) fL MCH (25.0-35.0) pg MCHC (31.0-37.0) g/dL RDW (11.5-15.5) % Plt Count (150-450) k/uL Neutrophils % % Lymphocytes % % Monocytes % % Eosinophils % % Basophils % % Neutrophils # (1.3-7.7) k/uL Lymphocytes # (1.0-4.8) k/uL Monocytes # (0-1.0) k/uL Eosinophils # (0-0.7) k/uL Basophils # (0-0.2) k/uL PT (9.0-12.0) sec INR (<1.2) APTT (22.0-30.0) sec Sodium (137-145) mmol/L Potassium (3.5-5.1) mmol/L Chloride (98-107) mmol/L Carbon Dioxide (22-30) mmol/L Anion Gap mmol/L BUN (7-17) mg/dL Creatinine (0.52-1.04) mg/dL Est GFR (CKD-EPI)AfAm (>60 ml/min/1.73 sqM) Est GFR (CKD-EPI)NonAf (>60 ml/min/1.73 sqM) Glucose (74-99) mg/dL Calcium (8.4-10.2) mg/dL Magnesium (1.6-2.3) mg/dL Total Bilirubin (0.2-1.3) mg/dL AST (14-36) U/L ALT (4-34) U/L Alkaline Phosphatase (38-126) U/L Troponin I <0.012 (0.000-0.034) ng/mL Total Protein (6.3-8.2) g/dL Albumin (3.5-5.0) g/dL Disposition Clinical Impression: Right shoulder strain Disposition: HOME SELF-CARE Condition: Stable Instructions (If sedation given, give patient instructions): Shoulder Sprain (ED) Additional Instructions: Please return to the Emergency Department if symptoms worsen or any other concerns. Is patient prescribed a controlled substance at d/c from ED?: No Referrals: Sangeeta Chung DO [Primary Care Provider] - 1-2 days Adis Dailey MD [STAFF PHYSICIAN] - 1-2 days Time of Disposition: 09:57
[2020-01-31 09:14] LABS: Basophils % (A) 1 %; Eosinophils # (A) 0.1 k/uL (0-0.7); Eosinophils % (A) 2 %; HCT 40.5 % (34.0-46.0); HGB 13.4 gm/dL (11.4-16.0); Lymphocytes # (A) 1.3 k/uL (1.0-4.8); Lymphocytes % (A) 22 %; MCH 31.1 pg (25.0-35.0); MCHC 33.1 g/dL (31.0-37.0); MCV 93.8 fL (80.0-100.0); Mean Platelet Volume 8.4; Monocytes # (A) 0.4 k/uL (0-1.0); Monocytes % (A) 7 %; Neutrophils # (A) 3.9 k/uL (1.3-7.7); Neutrophils % (A) 66 %; Platelet Count 189 k/uL (150-450); RBC 4.31 m/uL (3.80-5.40); RDW 12.6 % (11.5-15.5)
--- NOTE | 2020-01-31 09:19 | XR ---
EXAMINATION TYPE: XR chest 2V DATE OF EXAM: 01/31/2020 COMPARISON: 06/22/2019 HISTORY: 79-year-old female with chest pain TECHNIQUE: AP and lateral views FINDINGS: Heart mildly enlarged. Mild interstitial prominence. No consolidation or pleural effusion. The previo us right midlung nodule is no longer identified. IMPRESSION: Mild cardiomegaly. Mild interstitial prominence. Correlate to exclude mild pulmonary vascular congest ion.
[2020-01-31 09:20] LABS: ALT <6 U/L (4-34); AST 17 U/L (14-36); African American GFR (CKD) 40 (>60 ml/min/1.73 sqM); Albumin 3.8 g/dL (3.5-5.0); Alkaline Phosphatase 79 U/L (38-126); Anion Gap 8 mmol/L; Blood Urea Nitrogen 27 mg/dL (7-17); Calcium 9.3 mg/dL (8.4-10.2); Carbon Dioxide 24 mmol/L (22-30); Chloride 105 mmol/L (98-107); Glucose 223 mg/dL (74-99); Magnesium 1.9 mg/dL (1.6-2.3); Non-African American GFR(CKD) 35 (>60 ml/min/1.73 sqM); Sodium 137 mmol/L (137-145); Total Bilirubin 0.6 mg/dL (0.2-1.3); Total Protein 7.1 g/dL (6.3-8.2)
--- NOTE | 2020-01-31 09:20 | XR ---
EXAMINATION TYPE: XR shoulder complete RT DATE OF EXAM: 01/31/2020 Comparison: None Clinical History: 79-year-old female with pain Findings: Mild degenerative change at the AC joint with capsular hypertrophy and marginal spurring. Bony irregu larity at the greater tuberosity. No acute fracture, subluxation, or dislocation. Impression: Mild AC joint OA. Bony changes suggesting chronic rotator cuff tendinopathy. No acute osseous abnorma lity seen.
[2020-01-31 09:22] LABS: INR 0.9 (<1.2); Partial Thromboplastin Time 22.4 sec (22.0-30.0); Prothrombin Time 9.5 sec (9.0-12.0)
[2020-01-31] MEDS ORDERED: SODIUM CHLORIDE 0.9% 1,000 ML IV ONE (09:24)
[2020-01-31] MEDS ORDERED: SODIUM CHLORIDE 0.9% 500 ML 500 ML IV ONE (09:25)
[2020-01-31] MEDS ORDERED: ACET/COD 300 MG/30 MG STARTER PACK 6 TAB BTL PO STA (09:56)
[2020-01-31 10:18] VITALS: BP 149/60; PULSE 62; TEMP 97.5
== END 2020-01-31 10:18 | disposition home or self-care (01) ==
LOC: EC 08:07
DX: S46.911A Strain of unspecified muscle, fascia and tendon at shoulder and upper arm level, right arm, initial encounter (principal); I11.0 Hypertensive heart disease with heart failure; I50.9 Heart failure, unspecified; I25.119 Atherosclerotic heart disease of native coronary artery with unspecified angina pectoris; I25.2 Old myocardial infarction; E78.5 Hyperlipidemia, unspecified; E07.9 Disorder of thyroid, unspecified; Z86.718 Personal history of other venous thrombosis and embolism; Z86.711 Personal history of pulmonary embolism; G20 Parkinson's disease; Z79.890 Hormone replacement therapy; Z79.82 Long term (current) use of aspirin; Z79.84 Long term (current) use of oral hypoglycemic drugs; Z79.899 Other long term (current) drug therapy; Z88.7 Allergy status to serum and vaccine; Z88.8 Allergy status to other drugs, medicaments and biological substances; Z91.018 Allergy to other foods; Z95.5 Presence of coronary angioplasty implant and graft; W19.XXXA Unspecified fall, initial encounter
CPT/HCPCS: 36415; 93005; 80053; 83735; 84484; 85025; 85610; 85730; 73030; 71046; 99284; 96374; 96375; 96361; J2405; J2270

== ENCOUNTER 2020-02-02 22:03 | Emergency (ER) | payer MEDICARE, BC ==
[2020-02-02] MEDS ORDERED: MORPHINE SULFATE 4 MG/ML SYRINGE IV STA (22:32)
[2020-02-02] MEDS ORDERED: KETOROLAC 15 MG/ML 1 ML VIAL IVP STA (22:32)
--- NOTE | 2020-02-02 22:42 | ED ---
General Adult HPI - General Chief complaint: Shortness of Breath Stated complaint: Shortness of Breath Time Seen by Provider: 02/02/20 22:12 Source: patient, EMS Mode of arrival: EMS Limitations: no limitations - History of Present Illness Initial comments: This patient is an 79-year-old woman who presents with complaint of having right shoulder pain that was flaring up tonight and then she began to feel short of breath associated with this. The patient states that she had a fall approximately 2 weeks ago from a chair to the ground and she had landed on her right shoulder. She states that then it began flaring up and she was seen here on Saturday for the same complaint. She states that they performed x-rays and prescribed Tylenol 3. She states that the pain seems to keep coming back despite taking the Tylenol 3. She describes as aching and that she cannot find a comfortable position. Patient states that when the pain came tonight she also began feeling short of breath. She states that the shortness of breath is somewhat similar to when she had congestive heart failure exacerbation. She denies fever or chills. No cough or sputum. No chest pain or palpitations. No diaphoresis. No change in urination or bowel movements. No leg pain or swelling -: hour(s) Location: right, upper extremity Radiation: non-radiation Quality: aching Consistency: constant Improves with: none Worsens with: none Associated Symptoms: shortness of breath Treatments Prior to Arrival: other (Tylenol 3) - Related Data Home Medications Medication Instructions Recorded Confirmed Carbidopa-Levodopa 25-100 mg 1 tab PO BID 06/03/18 01/31/20 [Sinemet 25-100 mg] Levothyroxine Sodium [Synthroid] 50 mcg PO DAILY 06/03/18 01/31/20 Simvastatin [Zocor] 40 mg PO PC-LUNCH 06/03/18 01/31/20 Aspirin EC [Ecotrin Low Dose] 81 mg PO DAILY 05/13/19 01/31/20 Furosemide [Lasix] 40 mg PO DAILY 05/13/19 01/31/20 Glimepiride [Amaryl] 2 mg PO BID 05/13/19 01/31/20 amLODIPine [Norvasc] 2.5 mg PO PC-LUNCH 05/13/19 01/31/20 Cholecalciferol [Vitamin D3 (25 1,000 unit PO DAILY 01/31/20 01/31/20 Mcg = 1000 Iu)] Cyanocobalamin (Vitamin B-12) 1,000 mcg PO DAILY 01/31/20 01/31/20 [Vitamin B-12] Previous Rx's Medication Instructions Recorded Insulin Lispro [humaLOG Kwikpen] 9 unit SQ AC-TID #0 05/14/19 Allergies Allergy/AdvReac Type Severity Reaction Status Date / Time Influenza Virus Vaccines Allergy Unknown Verified 02/02/20 22:11 Insulins Allergy Swelling Verified 02/02/20 22:11 lisinopril Allergy SWELLING, Verified 02/02/20 22:11 HIVES metformin Allergy Rash/Hives Verified 02/02/20 22:11 pneumococcal vaccine Allergy Unknown Verified 02/02/20 22:11 strawberry Allergy Swelling Verified 02/02/20 22:11 tetanus immune globulin Allergy Unknown Verified 02/02/20 22:11 Review of Systems ROS Statement: Those systems with pertinent positive or pertinent negative responses have been documented in the HPI. ROS Other: All systems not noted in ROS Statement are negative. Constitutional: Denies: fever, chills Respiratory: Reports: dyspnea. Denies: cough, wheezes, hemoptysis, stridor Cardiovascular: Denies: chest pain, palpitations, orthopnea, edema, syncope Gastrointestinal: Denies: abdominal pain, nausea, vomiting, diarrhea, melena, hematochezia Genitourinary: Denies: dysuria, hematuria Musculoskeletal: Reports: as per HPI, arthralgia. Denies: back pain Skin: Denies: rash Neurological: Denies: headache, weakness, numbness Past Medical History Past Medical History: Blood Disorder, Coronary Artery Disease (CAD), Chest Pain / Angina, Heart Failure, Diabetes Mellitus, Deep Vein Thrombosis (DVT), Hyperlipidemia, Hypertension, Myocardial Infarction ([place]), Neurologic Disorder, Pneumonia, Pulmonary Embolus (PE), Renal Disease, Thyroid Disorder Additional Past Medical History / Comment(s): ARTHRITIS, low platelets, [place] x2, parkinsons, stage 3 renal failure Last Myocardial Infarction Date:: unknown History of Any Multi-Drug Resistant Organisms: C-DIFF Date of last positivie culture/infection: 02/14/2015 MDRO Source:: URINE Past Surgical History: Appendectomy, Cholecystectomy, Heart Catheterization With Stent, Hysterectomy, Orthopedic Surgery Additional Past Surgical History / Comment(s): bilateral total knee, 4 breast biopsies right breast, bilateral cataract sx Past Anesthesia/Blood Transfusion Reactions: No Reported Reaction Date of Last Stent Placement:: unknown Past Psychological History: No Psychological Hx Reported Smoking Status: Never smoker Past Alcohol Use History: Rare Past Drug Use History: None Reported - Past Family History Father Additional Family Medical History / Comment(s): from lung disease not sure what it was called Mother History Unknown: Yes Family Medical History: COPD Additional Family Medical History / Comment(s): empysema General Exam Limitations: no limitations General appearance: alert, in no apparent distress, anxious Head exam: Present: atraumatic, normocephalic Eye exam: Present: normal appearance. Absent: scleral icterus, conjunctival injection ENT exam: Present: normal oropharynx, mucous membranes moist Neck exam: Present: normal inspection, full ROM. Absent: tenderness, men ingismus Respiratory exam: Present: normal lung sounds bilaterally. Absent: respiratory distress, wheezes, rales, rhonchi, stridor Cardiovascular Exam: Present: regular rate, normal rhythm, normal heart sounds. Absent: systolic murmur, diastolic murmur, rubs, gallop GI/Abdominal exam: Present: soft. Absent: distended, tenderness, guarding, rebound, mass Extremities exam: Present: normal inspection, normal capillary refill. Absent: pedal edema, calf tenderness Right Shoulder Exam: Present: normal inspection, tenderness (Over anterior aspect right shoulder). Absent: full ROM, swelling, abrasion, laceration, ecchymosis, deformity, crepitus, dislocation, erythema, tenderness over AC joint Upper Arm exam: Present: normal inspection, full ROM. Absent: tenderness, swelling, abrasion, laceration, ecchymosis, deformity, crepidus, dislocation, erythema Elbow exam: Present: normal inspection, full ROM. Absent: tenderness, swelling, abrasion, laceration, ecchymosis, deformity, crepitus, dislocation, erythema, effusion Neurosensory exam: Present: radial nerve intact, ulnar nerve intact Vascular: Present: normal capillary refill, radial pulse (Normal). Absent: vascular compromise Back exam: Present: normal inspection. Absent: vertebral tenderness Neurological exam: Present: alert Psychiatric exam: Present: anxious Skin exam: Present: warm, dry, intact, normal color. Absent: rash Course Vital Signs 02/02/20 22:04 Temperature 97.7 F Pulse Rate 80 Respiratory 18 Rate Blood Pressure 101/69 O2 Sat by Pulse 98 Oximetry EKG Findings - EKG Results: EKG: interpreted by ERMD, sinus rhythm (Rate 63 bpm), normal axis, normal QRS, normal ST/T Medical Decision Making - Lab Data Result diagrams: 02/02/20 22:48 02/02/20 22:48 Lab Results 02/02/20 02/02/20 02/02/20 Range/Units 22:48 22:48 22:48 WBC 7.0 (3.8-10.6) k/uL RBC 4.25 (3.80-5.40) m/uL Hgb 13.3 (11.4-16.0) gm/dL Hct 40.5 (34.0-46.0) % MCV 95.3 (80.0-100.0) fL MCH 31.3 (25.0-35.0) pg MCHC 32.8 (31.0-37.0) g/dL RDW 12.8 (11.5-15.5) % Plt Count 221 (150-450) k/uL Neutrophils % 71 % Lymphocytes % 19 % Monocytes % 6 % Eosinophils % 2 % Basophils % 1 % Neutrophils # 5.0 (1.3-7.7) k/uL Lymphocytes # 1.4 (1.0-4.8) k/uL Monocytes # 0.4 (0-1.0) k/uL Eosinophils # 0.1 (0-0.7) k/uL Basophils # 0.0 (0-0.2) k/uL PT 9.5 (9.0-12.0) sec INR 0.9 (<1.2) APTT 22.5 (22.0-30.0) sec D-Dimer 1.21 H (<0.60) mg/L FEU Sodium 136 L (137-145) mmol/L Potassium 5.0 (3.5-5.1) mmol/L Chloride 102 (98-107) mmol/L Carbon Dioxide 26 (22-30) mmol/L Anion Gap 8 mmol/L BUN 30 H (7-17) mg/dL Creatinine 1.30 H (0.52-1.04) mg/dL Est GFR (CKD-EPI)AfAm 45 (>60 ml/min/1.73 sqM) Est GFR (CKD-EPI)NonAf 39 (>60 ml/min/1.73 sqM) Glucose 296 H (74-99) mg/dL Plasma Lactic Acid Kurt (0.7-2.0) mmol/L Calcium 9.6 (8.4-10.2) mg/dL Magnesium 1.9 (1.6-2.3) mg/dL Total Bilirubin 0.6 (0.2-1.3) mg/dL AST 18 (14-36) U/L ALT 6 (4-34) U/L Alkaline Phosphatase 79 (38-126) U/L Troponin I (0.000-0.034) ng/mL NT-Pro-B Natriuret Pep pg/mL Total Protein 6.8 (6.3-8.2) g/dL Albumin 3.9 (3.5-5.0) g/dL 02/02/20 02/02/20 02/02/20 Range/Units 22:48 22:48 22:48 WBC (3.8-10.6) k/uL RBC (3.80-5.40) m/uL Hgb (11.4-16.0) gm/dL Hct (34.0-46.0) % MCV (80.0-100.0) fL MCH (25.0-35.0) pg MCHC (31.0-37.0) g/dL RDW (11.5-15.5) % Plt Count (150-450) k/uL Neutrophils % % Lymphocytes % % Monocytes % % Eosinophils % % Basophils % % Neutrophils # (1.3-7.7) k/uL Lymphocytes # (1.0-4.8) k/uL Monocytes # (0-1.0) k/uL Eosinophils # (0-0.7) k/uL Basophils # (0-0.2) k/uL PT (9.0-12.0) sec INR (<1.2) APTT (22.0-30.0) sec D-Dimer (<0.60) mg/L FEU Sodium (137-145) mmol/L Potassium (3.5-5.1) mmol/L Chloride (98-107) mmol/L Carbon Dioxide (22-30) mmol/L Anion Gap mmol/L BUN (7-17) mg/dL Creatinine (0.52-1.04) mg/dL Est GFR (CKD-EPI)AfAm (>60 ml/min/1.73 sqM) Est GFR (CKD-EPI)NonAf (>60 ml/min/1.73 sqM) Glucose (74-99) mg/dL Plasma Lactic Acid Kurt 3.5 H* (0.7-2.0) mmol/L Calcium (8.4-10.2) mg/dL Magnesium (1.6-2.3) mg/dL Total Bilirubin (0.2-1.3) mg/dL AST (14-36) U/L ALT (4-34) U/L Alkaline Phosphatase (38-126) U/L Troponin I <0.012 (0.000-0.034) ng/mL NT-Pro-B Natriuret Pep 283 pg/mL Total Protein (6.3-8.2) g/dL Albumin (3.5-5.0) g/dL Disposition Clinical Impression: Dyspnea Disposition: Left Against Medical Advice Condition: Undetermined Instructions (If sedation given, give patient instructions): Dyspnea (ED) Is patient prescribed a controlled substance at d/c from ED?: No Referrals: Sangeeta Chung DO [Primary Care Provider] - 1-2 days
[2020-02-02 23:09] LABS: Albumin 3.9 g/dL (3.5-5.0); Calcium 9.6 mg/dL (8.4-10.2); Magnesium 1.9 mg/dL (1.6-2.3); Total Bilirubin 0.6 mg/dL (0.2-1.3); Total Protein 6.8 g/dL (6.3-8.2)
--- NOTE | 2020-02-02 23:12 | XR ---
EXAMINATION TYPE: XR chest 2V DATE OF EXAM: 02/02/2020 COMPARISON: 01/31/2020 HISTORY: Difficulty breathing TECHNIQUE: 2 views FINDINGS: There is no heart failure nor confluent pneumonic infiltrate. Costophrenic angles are clear . There is spurring in the thoracic spine. Thoracic aorta is atheromatous. IMPRESSION: No active cardiopulmonary disease. Atheromatous aorta. No adverse change.
[2020-02-02 23:14] LABS: INR 0.9 (<1.2); Partial Thromboplastin Time 22.5 sec (22.0-30.0); Prothrombin Time 9.5 sec (9.0-12.0)
[2020-02-02 23:23] LABS: D-Dimer 1.21 mg/L FEU (<0.60)
[2020-02-02 23:25] LABS: Basophils % (A) 1 %; Eosinophils # (A) 0.1 k/uL (0-0.7); Eosinophils % (A) 2 %; HCT 40.5 % (34.0-46.0); HGB 13.3 gm/dL (11.4-16.0); Lymphocytes # (A) 1.4 k/uL (1.0-4.8); Lymphocytes % (A) 19 %; MCH 31.3 pg (25.0-35.0); MCHC 32.8 g/dL (31.0-37.0); MCV 95.3 fL (80.0-100.0); Mean Platelet Volume 8.4; Monocytes # (A) 0.4 k/uL (0-1.0); Monocytes % (A) 6 %; Neutrophils % (A) 71 %; Platelet Count 221 k/uL (150-450); RBC 4.25 m/uL (3.80-5.40); RDW 12.8 % (11.5-15.5)
[2020-02-02] MEDS ORDERED: SODIUM CHLORIDE 0.9% 500 ML 500 ML IV STA ×2 (23:35→23:54)
[2020-02-02] MEDS ORDERED: SODIUM CHLORIDE 0.9% 1,000 ML IV STA (23:54)
[2020-02-03 00:30] LABS: Appearance,Urine Cloudy (Clear); Bacteria,Urine Rare /hpf; Bilirubin,Urine Negative (Negative); Blood,Urine Negative (Negative); Color,Urine Yellow; Glucose,Urine (UA) 3+ (Negative); Ketones,Urine Negative (Negative); Leukocyte Esterase,Urine Negative (Negative); Mucus,Urine Rare /hpf; Nitrite,Urine Negative (Negative); PH, Urine 6.5 (5.0-8.0); Protein,Urine 1+ (Negative); RBC,Urine 1 /hpf (0-5); Squamous Epithelial Cell,Urine 3 /hpf (0-4); WBC,Urine 6 /hpf (0-5)
[2020-02-03 01:10] VITALS: BP 167/79; PULSE 68; RESP 20; TEMP 97.9
== END 2020-02-03 01:10 | disposition left against medical advice (07) ==
LOC: EC 22:03
DX: R06.02 Shortness of breath (principal); M25.511 Pain in right shoulder; N18.30 Chronic kidney disease, stage 3 unspecified; E07.9 Disorder of thyroid, unspecified; E78.5 Hyperlipidemia, unspecified; E11.22 Type 2 diabetes mellitus with diabetic chronic kidney disease; I50.9 Heart failure, unspecified; I13.10 Hypertensive heart and chronic kidney disease without heart failure, with stage 1 through stage 4 chronic kidney disease, or unspecified chronic kidney disease; I25.119 Atherosclerotic heart disease of native coronary artery with unspecified angina pectoris; I25.2 Old myocardial infarction; Z79.82 Long term (current) use of aspirin; Z79.890 Hormone replacement therapy; Z79.899 Other long term (current) drug therapy; Z79.84 Long term (current) use of oral hypoglycemic drugs; Z95.5 Presence of coronary angioplasty implant and graft; Z98.42 Cataract extraction status, left eye; Z98.41 Cataract extraction status, right eye; Z88.7 Allergy status to serum and vaccine; Z88.8 Allergy status to other drugs, medicaments and biological substances; Z91.018 Allergy to other foods; Z53.29 Procedure and treatment not carried out because of patient's decision for other reasons
CPT/HCPCS: 36415; 93005; 85379; 83880; 80053; 83605; 83735; 84484; 85025; 85610; 85730; 81001; 71046; 99285; 96365; 96375 ×2; J2270; J0696; J1885

== ENCOUNTER 2020-03-27 08:58 | Inpatient (IN) | payer MEDICARE, BC ==
[2020-03-27] MEDS ORDERED: SODIUM CHLORIDE 0.9% 1,000 ML IV STA (09:09)
[2020-03-27 09:32] LABS: Basophils % (A) 0 %; Eosinophils # (A) 0.1 k/uL (0-0.7); Eosinophils % (A) 2 %; HGB 12.5 gm/dL (11.4-16.0); Lymphocytes # (A) 0.8 k/uL (1.0-4.8); Lymphocytes % (A) 14 %; MCH 30.5 pg (25.0-35.0); MCHC 32.9 g/dL (31.0-37.0); MCV 92.6 fL (80.0-100.0); Mean Platelet Volume 8.1; Monocytes # (A) 0.3 k/uL (0-1.0); Monocytes % (A) 6 %; Neutrophils # (A) 4.3 k/uL (1.3-7.7); Neutrophils % (A) 77 %; Platelet Count 235 k/uL (150-450); RDW 13.1 % (11.5-15.5); WBC 5.5 k/uL (3.8-10.6)
--- NOTE | 2020-03-27 09:34 | ED ---
Weakness HPI - General Source: patient, EMS, RN notes reviewed Mode of arrival: EMS Limitations: no limitations <Martinez Lenz - Last Filed: 03/27/20 10:54> <Trevor Buckner - Last Filed: 03/27/20 11:23> - General Stated complaint: weakness Time Seen by Provider: 03/27/20 09:00 - History of Present Illness Initial comments: This is a 79-year-old female presents emergency Department with chief complaint of generalized weakness. Patient states she is essentially getting more weak. She has had issues with this in the past in which she was sent to snf. Patient states that she lives at home by herself does have some home health care help but states that they have not been helping her that she is not getting help that she needs and feels that she's become more weak. She has no complaints of chest pain, , headache or dizziness. Denies any fevers or chills currently. Patient states she did have a cough and shortness of breath and felt that she had a fever the other day. She does state that she's had some diarrhea. Alysha ent has no dysuria. EMS stated bring her to the emergency room for evaluation [employer] did discuss with caregiver who has covid. And did evaluate homeless. (Martinez Lenz) - Related Data Home Medications Medication Instructions Recorded Confirmed Carbidopa-Levodopa 25-100 mg 1 tab PO BID 06/03/18 03/27/20 [Sinemet 25-100 mg] Levothyroxine Sodium [Synthroid] 50 mcg PO DAILY 06/03/18 03/27/20 Simvastatin [Zocor] 40 mg PO PC-LUNCH 06/03/18 03/27/20 Aspirin EC [Ecotrin Low Dose] 81 mg PO DAILY 05/13/19 03/27/20 Furosemide [Lasix] 40 mg PO DAILY 05/13/19 03/27/20 Glimepiride [Amaryl] 2 mg PO BID 05/13/19 03/27/20 amLODIPine [Norvasc] 2.5 mg PO PC-LUNCH 05/13/19 03/27/20 Cholecalciferol [Vitamin D3 (25 1,000 unit PO DAILY 01/31/20 03/27/20 Mcg = 1000 Iu)] Cyanocobalamin (Vitamin B-12) 1,000 mcg PO DAILY 01/31/20 03/27/20 [Vitamin B-12] Clotrimazole/Betamethasone Dip 1 applic TOPICAL BID PRN 03/27/20 03/27/20 [Lotrisone Cream] Insulin Glargine,Hum.rec.anlog 8 unit SQ DAILY 03/27/20 03/27/20 [Lantus Solostar] Nitroglycerin Sl Tabs [Nitrostat] 0.4 mg SUBLINGUAL Q5M PRN 03/27/20 03/27/20 metFORMIN HCL [Glucophage] 500 mg PO BID 03/27/20 03/27/20 Previous Rx's Medication Instructions Recorded Insulin Lispro [humaLOG Kwikpen] 9 unit SQ AC-TID #0 05/14/19 Allergies Allergy/AdvReac Type Severity Reaction Status Date / Time Influenza Virus Vaccines Allergy Unknown Verified 03/27/20 11:00 Insulins Allergy Swelling Verified 03/27/20 11:00 lisinopril Allergy SWELLING, Verified 03/27/20 11:00 HIVES metformin Allergy Rash/Hives Verified 03/27/20 11:00 pneumococcal vaccine Allergy Unknown Verified 03/27/20 11:00 strawberry Allergy Swelling Verified 03/27/20 11:00 tetanus immune globulin Allergy Unknown Verified 03/27/20 11:00 Review of Systems ROS Other: All systems not noted in ROS Statement are negative. <Martinez Lenz - Last Filed: 03/27/20 10:54> ROS Other: All systems not noted in ROS Statement are negative. <Trevor Buckner - Last Filed: 03/27/20 11:23> ROS Statement: Those systems with pertinent positive or pertinent negative responses have been documented in the HPI. Past Medical History Past Medical History: Blood Disorder, Coronary Artery Disease (CAD), Chest Pain / Angina, Heart Failure, Diabetes Mellitus, Deep Vein Thrombosis (DVT), Hyperlipidemia, Hypertension, Myocardial Infarction ([place]), Neurologic Disorder, Pneumonia, Pulmonary Embolus ([place]), Renal Disease, Thyroid Disorder Additional Past Medical History / Comment(s): ARTHRITIS, low platelets, [place] x2, parkinsons, stage 3 renal failure Last Myocardial Infarction Date:: unknown History of Any Multi-Drug Resistant Organisms: C-DIFF Date of last positivie culture/infection: 02/14/2015 MDRO Source:: URINE Past Surgical History: Appendectomy, Cholecystectomy, Heart Catheterization With Stent, Hysterectomy, Orthopedic Surgery Additional Past Surgical History / Comment(s): bilateral total knee, 4 breast biopsies right breast, bilateral cataract sx Past Anesthesia/Blood Transfusion Reactions: No Reported Reaction Date of Last Stent Placement:: unknown Past Psychological History: No Psychological Hx Reported Smoking Status: Never smoker Past Alcohol Use History: None Reported, Rare Past Drug Use History: None Reported - Past Family History Father Additional Family Medical History / Comment(s): from lung disease not sure what it was called Mother History Unknown: Yes Family Medical History: COPD Additional Family Medical History / Comment(s): empysema <Martinez Lenz - Last Filed: 03/27/20 10:54> General Exam Limitations: no limitations General appearance: alert, in no apparent distress Head exam: Present: atraumatic, normocephalic, normal inspection Eye exam: Present: normal appearance, PERRL, EOMI. Absent: scleral icterus, conjunctival injection, periorbital swelling ENT exam: Present: normal exam, normal oropharynx, mucous membranes moist Neck exam: Present: normal inspection, full ROM. Absent: tenderness, meningismus, lymphadenopathy Respiratory exam: Present: normal lung sounds bilaterally. Absent: respiratory distress, wheezes, rales, rhonchi, stridor Cardiovascular Exam: Present: regular rate, normal rhythm, normal heart sounds. Absent: systolic murmur, diastolic murmur, rubs, gallop, clicks GI/Abdominal exam: Present: soft, normal bowel sounds. Absent: distended, tenderness, guarding, rebound, rigid Extremities exam: Present: normal inspection, full ROM, normal capillary refill. Absent: tenderness, pedal edema, joint swelling, calf tenderness Neurological exam: Present: alert, oriented X3, CN II-XII intact, reflexes normal. Absent: motor sensory deficit Skin exam: Present: warm, dry, intact, normal color. Absent: rash <Martinez Lenz - Last Filed: 03/27/20 10:54> Course <Trevor Buckner - Last Filed: 03/27/20 11:23> Vital Signs 03/27/20 03/27/20 03/27/20 09:10 09:15 10:52 Temperature 97.6 F Pulse Rate 85 67 Respiratory 24 24 18 Rate Blood Pressure 154/101 141/59 O2 Sat by Pulse 97 100 Oximetry 03/27/20 11:15 Temperature Pulse Rate 65 Respiratory 16 Rate Blood Pressure 140/60 O2 Sat by Pulse 98 Oximetry - Reevaluation(s) Reevaluation #1: 03/27/20 11:22 PA supervision: I did personally evaluate this patient she did present with complaints of weakness she lives at home by herself her domicile is unkempt she did have stool on her person and clothing. She was brought in by EMS and police. She does demonstrate evidence of failure to thrive inability to perform ADLs. Evidence of dehydration. She will be admitted I did discuss the case with Dr. Griffin. X-rays do show evidence of left lower lobe infiltrate. (Trevor Buckner) Medical Decision Making - Lab Data Result diagrams: 03/27/20 09:22 03/27/20 09:22 <Martinez Lenz - Last Filed: 03/27/20 10:54> - Lab Data Result diagrams: 03/27/20 09:22 03/27/20 09:22 <Trevor Buckner - Last Filed: 03/27/20 11:23> - Medical Decision Making 79-year-old female present for weakness. Patient's found to have left lower lobe pneumonia. Patient was started on broad-spectrum antibiotics. We'll culture was obtained. did discuss with caregiver, went to the patient's home and which she noted to be very filthy, noted to have stool on the ground. Patient unable to care for herself has no current caregiver per her report. Patient will be admitted for placement, treatment of pneumonia. (Martinez Lenz) - Lab Data Lab Results 03/27/20 03/27/20 03/27/20 Range/Units 09:22 09:22 09:22 WBC 5.5 (3.8-10.6) k/uL RBC 4.10 (3.80-5.40) m/uL Hgb 12.5 (11.4-16.0) gm/dL Hct 38.0 (34.0-46.0) % MCV 92.6 (80.0-100.0) fL MCH 30.5 (25.0-35.0) pg MCHC 32.9 (31.0-37.0) g/dL RDW 13.1 (11.5-15.5) % Plt Count 235 (150-450) k/uL MPV 8.1 Neutrophils % 77 % Lymphocytes % 14 % Monocytes % 6 % Eosinophils % 2 % Basophils % 0 % Neutrophils # 4.3 (1.3-7.7) k/uL Lymphocytes # 0.8 L (1.0-4.8) k/uL Monocytes # 0.3 (0-1.0) k/uL Eosinophils # 0.1 (0-0.7) k/uL Basophils # 0.0 (0-0.2) k/uL PT 9.4 (9.0-12.0) sec INR 0.9 (<1.2) APTT 23.1 (22.0-30.0) sec Sodium 137 (137-145) mmol/L Potassium 4.4 (3.5-5.1) mmol/L Chloride 109 H (98-107) mmol/L Carbon Dioxide 21 L (22-30) mmol/L Anion Gap 7 mmol/L BUN 28 H (7-17) mg/dL Creatinine 1.17 H (0.52-1.04) mg/dL Est GFR (CKD-EPI)AfAm 51 (>60 ml/min/1.73 sqM) Est GFR (CKD-EPI)NonAf 44 (>60 ml/min/1.73 sqM) Glucose 262 H (74-99) mg/dL Plasma Lactic Acid Kurt (0.7-2.0) mmol/L Calcium 8.3 L (8.4-10.2) mg/dL Magnesium 2.2 (1.6-2.3) mg/dL Total Bilirubin 0.8 (0.2-1.3) mg/dL AST 20 (14-36) U/L ALT 7 (4-34) U/L Alkaline Phosphatase 94 (38-126) U/L Troponin I (0.000-0.034) ng/mL NT-Pro-B Natriuret Pep pg/mL Total Protein 6.7 (6.3-8.2) g/dL Albumin 3.3 L (3.5-5.0) g/dL Coronavirus (PCR) (Not Detectd) 03/27/20 03/27/20 03/27/20 Range/Units 09:22 09:22 09:22 WBC (3.8-10.6) k/uL RBC (3.80-5.40) m/uL Hgb (11.4-16.0) gm/dL Hct (34.0-46.0) % MCV (80.0-100.0) fL MCH (25.0-35.0) pg MCHC (31.0-37.0) g/dL RDW (11.5-15.5) % Plt Count (150-450) k/uL MPV Neutrophils % % Lymphocytes % % Monocytes % % Eosinophils % % Basophils % % Neutrophils # (1.3-7.7) k/uL Lymphocytes # (1.0-4.8) k/uL Monocytes # (0-1.0) k/uL Eosinophils # (0-0.7) k/uL Basophils # (0-0.2) k/uL PT (9.0-12.0) sec INR (<1.2) APTT (22.0-30.0) sec Sodium (137-145) mmol/L Potassium (3.5-5.1) mmol/L Chloride (98-107) mmol/L Carbon Dioxide (22-30) mmol/L Anion Gap mmol/L BUN (7-17) mg/dL Creatinine (0.52-1.04) mg/dL Est GFR (CKD-EPI)AfAm (>60 ml/min/1.73 sqM) Est GFR (CKD-EPI)NonAf (>60 ml/min/1.73 sqM) Glucose (74-99) mg/dL Plasma Lactic Acid Kurt 1.6 (0.7-2.0) mmol/L Calcium (8.4-10.2) mg/dL Magnesium (1.6-2.3) mg/dL Total Bilirubin (0.2-1.3) mg/dL AST (14-36) U/L ALT (4-34) U/L Alkaline Phosphatase (38-126) U/L Troponin I <0.012 (0.000-0.034) ng/mL NT-Pro-B Natriuret Pep 395 pg/mL Total Protein (6.3-8.2) g/dL Albumin (3.5-5.0) g/dL Coronavirus (PCR) (Not Detectd) 03/27/20 Range/Units 10:47 WBC (3.8-10.6) k/uL RBC (3.80-5.40) m/uL Hgb (11.4-16.0) gm/dL Hct (34.0-46.0) % MCV (80.0-100.0) fL MCH (25.0-35.0) pg MCHC (31.0-37.0) g/dL RDW (11.5-15.5) % Plt Count (150-450) k/uL MPV Neutrophils % % Lymphocytes % % Monocytes % % Eosinophils % % Basophils % % Neutrophils # (1.3-7.7) k/uL Lymphocytes # (1.0-4.8) k/uL Monocytes # (0-1.0) k/uL Eosinophils # (0-0.7) k/uL Basophils # (0-0.2) k/uL PT (9.0-12.0) sec INR (<1.2) APTT (22.0-30.0) sec Sodium (137-145) mmol/L Potassium (3.5-5.1) mmol/L Chloride (98-107) mmol/L Carbon Dioxide (22-30) mmol/L Anion Gap mmol/L BUN (7-17) mg/dL Creatinine (0.52-1.04) mg/dL Est GFR (CKD-EPI)AfAm (>60 ml/min/1.73 sqM) Est GFR (CKD-EPI)NonAf (>60 ml/min/1.73 sqM) Glucose (74-99) mg/dL Plasma Lactic Acid Kurt (0.7-2.0) mmol/L Calcium (8.4-10.2) mg/dL Magnesium (1.6-2.3) mg/dL Total Bilirubin (0.2-1.3) mg/dL AST (14-36) U/L ALT (4-34) U/L Alkaline Phosphatase (38-126) U/L Troponin I (0.000-0.034) ng/mL NT-Pro-B Natriuret Pep pg/mL Total Protein (6.3-8.2) g/dL Albumin (3.5-5.0) g/dL Coronavirus (PCR) Detected A (Not Detectd) Disposition <Martinez Lenz - Last Filed: 03/27/20 10:54> <Trevor Buckner - Last Filed: 03/27/20 11:23> Clinical Impression: Pneumonia, Impaired mobility and ADLs, Weakness Disposition: ADMITTED IP TO THIS HOSP Condition: Fair
[2020-03-27 09:42] LABS: Albumin 3.3 g/dL (3.5-5.0); Calcium 8.3 mg/dL (8.4-10.2); Magnesium 2.2 mg/dL (1.6-2.3); Potassium 4.4 mmol/L (3.5-5.1); Total Bilirubin 0.8 mg/dL (0.2-1.3); Total Protein 6.7 g/dL (6.3-8.2)
[2020-03-27 09:50] LABS: INR 0.9 (<1.2); Partial Thromboplastin Time 23.1 sec (22.0-30.0); Prothrombin Time 9.4 sec (9.0-12.0)
--- NOTE | 2020-03-27 10:03 | XR ---
EXAMINATION TYPE: XR chest 2V DATE OF EXAM: 03/27/2020 COMPARISON: 02/02/2020 INDICATION: Weakness shortness of breath TECHNIQUE: Frontal and lateral views of the chest are obtained. FINDINGS: The heart size is normal. The pulmonary vasculature is normal. Minimal left lower lobe infiltrate. Previous right lower lobe infiltrate has resolved. IMPRESSION: 1. Mild left lower lobe infiltrate.
[2020-03-27] MEDS ORDERED: PNEUMONIA PROTOCOL UTILIZED 1 EACH MISC PO PRN (10:57)
[2020-03-27] MEDS ORDERED: AZITHROMYCIN 500 MG in SODIUM CHLORIDE 0.9% 250 ML IVPB STA (10:57)
[2020-03-27] MEDS ORDERED: guaiFENesin-DM 100-10MG/5ML 10 ML CUP PO PRN (12:31)
--- NOTE | 2020-03-27 12:32 | P.HPIM ---
History of Present Illness This is a pleasant 79 years old female with multiple medical problems including history of coronary artery disease, heart failure, diabetes mellitus, hyperlipidemia, hypertension, history of DVT and pulmonary embolism, not on anticoagulation and reviewing her home medication. Hypothyroidism, arthritis, Parkinson disease, chronic kidney disease stage III. History of C. diff. She has recent stress test which was negative on 05/22/19, echocardiogram: EF 55- 60%. She presents because of generalized weakness and diarrhea. When asked patient she was complaining of from fever and headache at home with, and call symptoms like sneezing, she has been having with some phlegm, she also complained from heaviness and breathing however she was noted to be mildly tachypneic at 18-22. her oxygen saturation was 98% on room air. Also patient complaining of from loose stool and some mild abdominal pain and tenderness with no rebound ten derness, her pain M. Umbilical on the left side, abdomen soft with positive bowel sounds. Also patient has some vomiting Also patient has not limited to care for her at home so she might need place ment, one caregiver went to her home was noted it was healthy and stool on the ground Vitas looks stable. Labs including CBC, INR, BMP and liver enzymes and troponin were unremarkable. Her creatinine is filthy elevated at 1.1 which is baseline, GFR is 44. Glucose is elevated. Covid test came back to detected and positive. EKG showing junctional ST depression probably abnormal. Chest x-ray showing mild left lower lobe infiltrate In the emergency room she was started on Zithromax and ceftriaxone and normal saline bolus of 1 L. Review of Systems CONSTITUTIONAL: No fever, no malaise, no fatigue. HEENT: No recent visual problems or hearing problems. Denied any sore throat. CARDIOVASCULAR: No orthopnea, PND, no palpitations, no syncope. PULMONARY: No chest wall tenderness, no hemoptysis. GASTROINTESTINAL: No heartburn. Normoactive bowel sounds. NEUROLOGICAL: No headaches, no weakness, no numbness. HEMATOLOGICAL: Denies any bleeding or petechiae. GENITOURINARY: Denies any burning micturition, frequency, or urgency. MUSCULOSKELETAL/RHEUMATOLOGICAL: Denies any joint pain, swelling, or any muscle pain. ENDOCRINE: Denies any polyuria or polydipsia. Past Medical History Past Medical History: Blood Disorder, Coronary Artery Disease (CAD), Chest Pain / Angina, Heart Failure, Diabetes Mellitus, Deep Vein Thrombosis (DVT), Hyperlipidemia, Hypertension, Myocardial Infarction (MS), Neurologic Disorder, Pneumonia, Pulmonary Embolus (PE), Renal Disease, Thyroid Disorder Additional Past Medical History / Comment(s): ARTHRITIS, low platelets, MS x2, parkinsons, stage 3 renal failure Last Myocardial Infarction Date:: unknown History of Any Multi-Drug Resistant Organisms: C-DIFF Date of last positivie culture/infection: 02/14/2015 MDRO Source:: URINE Past Surgical History: Appendectomy, Cholecystectomy, Heart Catheterization With Stent, Hysterectomy, Orthopedic Surgery Additional Past Surgical History / Comment(s): bilateral total knee, 4 breast biopsies right breast, bilateral cataract sx Past Anesthesia/Blood Transfusion Reactions: No Reported Reaction Date of Last Stent Placement:: unknown Past Psychological History: No Psychological Hx Reported Smoking Status: Never smoker Past Alcohol Use History: None Reported, Rare Past Drug Use History: None Reported - Past Family History Father Additional Family Medical History / Comment(s): from lung disease not sure what it was called Mother History Unknown: Yes Family Medical History: COPD Additional Family Medical History / Comment(s): empysema Medications and Allergies Home Medications Medication Instructions Recorded Confirmed Type Carbidopa-Levodopa 25-100 mg 1 tab PO BID 06/03/18 03/27/20 History [Sinemet 25-100 mg] Levothyroxine Sodium [Synthroid] 50 mcg PO DAILY 06/03/18 03/27/20 History Simvastatin [Zocor] 40 mg PO PC-LUNCH 06/03/18 03/27/20 History Aspirin EC [Ecotrin Low Dose] 81 mg PO DAILY 05/13/19 03/27/20 History Furosemide [Lasix] 40 mg PO DAILY 05/13/19 03/27/20 History Glimepiride [Amaryl] 2 mg PO BID 05/13/19 03/27/20 History amLODIPine [Norvasc] 2.5 mg PO PC-LUNCH 05/13/19 03/27/20 History Insulin Lispro [humaLOG Kwikpen] 9 unit SQ AC-TID #0 05/14/19 03/27/20 Rx Cholecalciferol [Vitamin D3 (25 1,000 unit PO DAILY 01/31/20 03/27/20 History Mcg = 1000 Iu)] Cyanocobalamin (Vitamin B-12) 1,000 mcg PO DAILY 01/31/20 03/27/20 History [Vitamin B-12] Clotrimazole/Betamethasone Dip 1 applic TOPICAL BID PRN 03/27/20 03/27/20 History [Lotrisone Cream] Insulin Glargine,Hum.rec.anlog 8 unit SQ DAILY 03/27/20 03/27/20 History [Lantus Solostar] Nitroglycerin Sl Tabs [Nitrostat] 0.4 mg SUBLINGUAL Q5M PRN 03/27/20 03/27/20 History metFORMIN HCL [Glucophage] 500 mg PO BID 03/27/20 03/27/20 History Allergies Allergy/AdvReac Type Severity Reaction Status Date / Time Influenza Virus Vaccines Allergy Unknown Verified 03/27/20 11:00 Insulins Allergy Swelling Verified 03/27/20 11:00 lisinopril Allergy SWELLING, Verified 03/27/20 11:00 HIVES metformin Allergy Rash/Hives Verified 03/27/20 11:00 pneumococcal vaccine Allergy Unknown Verified 03/27/20 11:00 strawberry Allergy Swelling Verified 03/27/20 11:00 tetanus immune globulin Allergy Unknown Verified 03/27/20 11:00 Physical Exam Vitals: Vital Signs Temp Pulse Resp BP Pulse Ox 03/27/20 11:15 65 16 140/60 98 03/27/20 10:52 67 18 141/59 100 03/27/20 09:15 24 03/27/20 09:10 97.6 F 85 24 154/101 97 Intake and Output 03/26/20 03/27/20 03/27/20 22:59 06:59 14:59 Other: Weight 86.183 kg GENERAL: The patient is alert and oriented x3, not in any acute distress. Well developed, well nourished. HEENT: Pupils are round and equally reacting to light. EOMI. No scleral icterus. No conjunctival pallor. Normocephalic, atraumatic. No pharyngeal erythema. No thyromegaly. CARDIOVASCULAR: S1 and S2 present. No murmurs, rubs, or gallops. PULMONARY: Chest is clear to auscultation, no wheezing or crackles. -ABDOMEN: Soft, mildly left periumbilical tenderness, no rebound tenderness or guarding nondistended, normoactive bowel sounds. No palpable organomegaly. MUSCULOSKELETAL: No joint swelling or deformity. EXTREMITIES: No cyanosis, clubbing, or pedal edema. NEUROLOGICAL: Gross neurological examination did not reveal any focal deficits. SKIN: No rashes. No petechiae Results CBC & Chem 7: 03/27/20 09:22 03/27/20 09:22 Labs: Abnormal Lab Results - Last 24 Hours (Table) 03/27/20 03/27/20 03/27/20 Range/Units 09:22 09:22 10:47 Lymphocytes # 0.8 L (1.0-4.8) k/uL Chloride 109 H (98-107) mmol/L Carbon Dioxide 21 L (22-30) mmol/L BUN 28 H (7-17) mg/dL Creatinine 1.17 H (0.52-1.04) mg/dL Glucose 262 H (74-99) mg/dL Calcium 8.3 L (8.4-10.2) mg/dL Albumin 3.3 L (3.5-5.0) g/dL Coronavirus (PCR) Detected A (Not Detectd) Assessment and Plan Assessment: Acute Covid infection with left lower lobe pneumonia Covid acute gastroenteritis Dehydration Chronic kidney disease, stage III Diabetes mellitus, with hyperglycemia Hypertension Hyperlipidemia History of coronary artery disease Tonic heart failure History of DVT/PE, not on anticoagulation Hypothyroidism History of arthritis Plan: this is a pleasant 79 years old female who presents with Covid infection, pneumonia, deconditioning. Continue with antibiotic for now and adjust accordingly. Check inflammatory markers and procalcitonin. Start zinc/vitamin C. We will consult infectious disease as patient might benefit from remdesivir . Continue with gentle hydration. Check hemoglobin A1c Labs and medication were reviewed.. Continue same treatment. Continue with symptomatic treatment. Resume home medication. Monitor lytes and vitals. DVT and GI prophylaxis. Further recommendations depends on the clinical course of the patient DVT prophylaxis: SubcutaneouLovenox GI Prophylaxis: Pepcid PT/OT: Pending Prognosis is guarded Dr. Swartz will resume the care of the patient tomorrow
[2020-03-27] MEDS: FAMOTIDINE 20 MG TAB PO SCH (12:44)
[2020-03-27] MEDS: ENOXAPARIN 40 MG/0.4 ML SYRINGE SQ SCH (12:44)
[2020-03-27] MEDS: ASCORBIC ACID 500 MG TAB PO SCH (12:44)
[2020-03-27 13:01] LABS: C Reactive Protein 18.2 mg/L (<10.0)
[2020-03-27] MEDS: SODIUM CHLORIDE 0.9% 1,000 ML IV SCH ×2 (13:32→22:52)
[2020-03-27] MEDS: amLODIPine 2.5 MG TAB PO SCH (14:24)
[2020-03-27 17:06] LABS: Glucose,Whole Blood 198 mg/dL (75-99)
[2020-03-27] MEDS: ATORVASTATIN 40 MG TAB PO SCH (20:11)
[2020-03-27] MEDS: CARBIDOPA-LEVODOPA 25-100 MG 1 EACH TAB PO SCH (20:11)
[2020-03-27 20:14] LABS: Glucose,Whole Blood 232 mg/dL (75-99)
[2020-03-27] MEDS ORDERED: metFORMIN 500 MG TAB PO SCH (21:00)
[2020-03-27 21:13] LABS: Amorphous Sediment,Urine Many /hpf; Appearance,Urine Turbid (Clear); Bacteria,Urine Many /hpf; Bilirubin,Urine Negative (Negative); Blood,Urine Small (Negative); Color,Urine Yellow; Glucose,Urine (UA) 1+ (Negative); Hyaline Casts,Urine 21 /lpf (0-2); Ketones,Urine Negative (Negative); Leukocyte Esterase,Urine Moderate (Negative); Mucus,Urine Occasional /hpf; Nitrite,Urine Negative (Negative); PH, Urine 5.5 (5.0-8.0); Protein,Urine 2+ (Negative); RBC,Urine 8 /hpf (0-5); Squamous Epithelial Cell,Urine 5 /hpf (0-4); Uric Acid Crystals,Urine Many /hpf; Urobilinogen,Urine <2.0 mg/dL (<2.0); WBC,Urine 10 /hpf (0-5)
[2020-03-27] MEDS: DEXAMETHASONE SOD PHOSPHATE 10 MG/ML 1 ML VIAL IV SCH (22:50)
[2020-03-27 22:53] LABS: Ferritin 252.2 ng/mL (10.0-291.0)
[2020-03-28] MEDS: LEVOTHYROXINE 50 MCG TAB PO SCH (05:28)
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
[2020-03-28] MEDS ORDERED: INSULIN DETEMIR (LEVEMIR) 100 UNIT/ML SYR SQ SCH (07:00)
[2020-03-28 07:07] LABS: Glucose,Whole Blood 354 mg/dL (75-99)
[2020-03-28] MEDS: CARBIDOPA-LEVODOPA 25-100 MG 1 EACH TAB PO SCH ×2 (08:16→22:06)
[2020-03-28] MEDS: CHOLECALCIFEROL 1,000 UNIT TAB PO SCH (08:16)
[2020-03-28] MEDS: ASCORBIC ACID 500 MG TAB PO SCH (08:16)
[2020-03-28] MEDS: FAMOTIDINE 20 MG TAB PO SCH (08:16)
[2020-03-28] MEDS: ZINC SULFATE 220 MG CAP PO SCH (08:16)
[2020-03-28] MEDS: ENOXAPARIN 40 MG/0.4 ML SYRINGE SQ SCH (08:16)
[2020-03-28] MEDS: ASPIRIN 81 MG PO SCH (08:16)
[2020-03-28] MEDS: FUROSEMIDE 40 MG TAB PO SCH (08:16)
[2020-03-28] MEDS: DEXAMETHASONE SOD PHOSPHATE 10 MG/ML 1 ML VIAL IV SCH (08:17)
[2020-03-28] MEDS ORDERED: ONDANSETRON 4 MG/2 ML VIAL IVP PRN (09:03)
[2020-03-28] MEDS ORDERED: ALPRAZolam 0.25 MG TAB PO PRN (09:03)
--- NOTE | 2020-03-28 09:14 | XR ---
EXAMINATION TYPE: XR chest 1V portable DATE OF EXAM: 03/28/2020 HISTORY: Shortness of breath. COMPARISON: 03/27/2020 TECHNIQUE: Single view of the chest is submitted. FINDINGS: Demonstrated are scattered senescent parenchymal change. Patchy infiltrate left lower lobe and to a lesser extent right perihilar region. Correlate for pneumo mike. The heart is stable. Hilar and mediastinal structures are within normal limits. Degenerative changes are seen of the dorsal spine. IMPRESSION: 1. Patchy infiltrate left lower lobe and to a lesser extent right perihilar region. Correlate for pn eumonia.
[2020-03-28 09:23] LABS: C Reactive Protein 0.9 mg/dL (0.0-0.8)
[2020-03-28 11:30] LABS: Glucose,Whole Blood 378 mg/dL (75-99)
[2020-03-28 12:43] VITALS: BMI 34.7
[2020-03-28] MEDS: amLODIPine 2.5 MG TAB PO SCH (13:40)
--- NOTE | 2020-03-28 14:49 | P.PN ---
Subjective Progress Note Date: 03/28/20 This is an 79-year-old female admitted with acute left lower lobe covid pneumonia. Maintained on vitamin C, vitamin D, zinc, Decadron, Rocephin. Chest x-ray reporting patchy infiltrate lower lobe and to a lesser extent right perihilar region. Maintaining O2 sats in the 90s on room air. Complains of na usea, anxiety. No emesis, no diarrhea, no chest pain. Early in the morning Xanax ordered for anxiety .Confusion increased along with agitation, steroids and Xanax discontinued. Objective - Vital Signs Vital signs: Vital Signs Temp 98.1 F 03/28/20 05:49 Pulse 70 03/28/20 05:49 Resp 16 03/28/20 05:49 BP 174/84 03/28/20 05:49 Pulse Ox 96 03/28/20 05:49 Intake & Output 03/27/20 03/28/20 03/28/20 18:59 06:59 18:59 Intake Total 300 Balance 300 Weight 86.183 kg 86.183 kg Intake: Intake, IV Titration 300 Amount Sodium Chloride 0.9% 1, 300 000 ml @ 75 mls/hr IV . [id number] [facility] Rx#:[id number] Other: Voiding Method Toilet Toilet Toilet # Voids 1 1 - Exam GENERAL: The patient is alert and oriented x2, not in any acute distress. HEENT: Pupils are round and equally reacting to light. EOMI. No scleral icterus. No conjunctival pallor. Normocephalic, atraumatic. No pharyngeal erythema. No thyromegaly. CARDIOVASCULAR: S1 and S2 present. No murmurs, rubs, or gallops. PULMONARY: Chest is clear to auscultation, no rhonchi, crackles or wheezing. -ABDOMEN: Soft, nontender, nondistended, normoactive bowel sounds. No palpable organomegaly. EXTREMITIES: No cyanosis, clubbing, or pedal edema. NEUROLOGICAL: Gross neurological examination did not reveal any focal deficits. Mild fluctuating confusion SKIN: No rashes. No petechiae - Labs CBC & Chem 7: 03/27/20 09:22 03/27/20 09:22 Labs: Abnormal Lab Results - Last 24 Hours (Table) 03/27/20 03/27/20 03/27/20 Range/Units 09:22 11:01 16:56 D-Dimer (<0.60) mg/L FEU POC Glucose (mg/dL) 198 H (75-99) mg/dL Hemoglobin A1c 8.1 H (4.0-6.0) % C-Reactive Protein (0.0-0.8) mg/dL Urine Appearance Turbid H (Clear) Urine Protein 2+ H (Negative) Urine Glucose (UA) 1+ H (Negative) Urine Blood Small H (Negative) Ur Leukocyte Esterase Moderate H (Negative) Urine RBC 8 H (0-5) /hpf Urine WBC 10 H (0-5) /hpf Ur Squamous Epith Cells 5 H (0-4) /hpf Uric Acid Crystals Many H (None) /hpf Amorphous Sediment Many H (None) /hpf Urine Bacteria Many H (None) /hpf Hyaline Casts 21 H (0-2) /lpf Urine Mucus Occasional H (None) /hpf 03/27/20 03/28/20 03/28/20 Range/Units 20:09 04:53 04:53 D-Dimer 1.89 H (<0.60) mg/L FEU POC Glucose (mg/dL) 232 H (75-99) mg/dL Hemoglobin A1c (4.0-6.0) % C-Reactive Protein 0.9 H (0.0-0.8) mg/dL Urine Appearance (Clear) Urine Protein (Negative) Urine Glucose (UA) (Negative) Urine Blood (Negative) Ur Leukocyte Esterase (Negative) Urine RBC (0-5) /hpf Urine WBC (0-5) /hpf Ur Squamous Epith Cells (0-4) /hpf Uric Acid Crystals (None) /hpf Amorphous Sediment (None) /hpf Urine Bacteria (None) /hpf Hyaline Casts (0-2) /lpf Urine Mucus (None) /hpf 03/28/20 03/28/20 Range/Units 07:06 11:29 D-Dimer (<0.60) mg/L FEU POC Glucose (mg/dL) 354 H 378 H (75-99) mg/dL Hemoglobin A1c (4.0-6.0) % C-Reactive Protein (0.0-0.8) mg/dL Urine Appearance (Clear) Urine Protein (Negative) Urine Glucose (UA) (Negative) Urine Blood (Negative) Ur Leukocyte Esterase (Negative) Urine RBC (0-5) /hpf Urine WBC (0-5) /hpf Ur Squamous Epith Cells (0-4) /hpf Uric Acid Crystals (None) /hpf Amorphous Sediment (None) /hpf Urine Bacteria (None) /hpf Hyaline Casts (0-2) /lpf Urine Mucus (None) /hpf Microbiology - Last 24 Hours (Table) 03/27/20 11:12 Blood Culture - Preliminary Blood No Growth after 24 hours Assessment and Plan Assessment: Acute Covid infection with left lower lobe pneumonia Toxic and metabolic encephalopathy, multifactorial secondary to infection and Steroid psychosis. Covid acute gastroenteritis, improving Dehydration Acute on Chronic kidney disease, stage III Diabetes mellitus, with hyperglycemia , hemoglobin A1c 8.1 Hypertension Hyperlipidemia History of coronary artery disease CHronic heart failure History of DVT/PE, not on anticoagulation Hypothyroidism History of arthritis Plan: Continue on current medication regime ,monitoring and symptomatic treatment. Labs pending. Steroids and benzos discontinued. Seroquel added to med regimen. color artist ordered for bedside. Hyperglycemia, Levemir insulin dose increased, close monitoring of Accu-Cheks. Close monitoring of electrolytes, renal function .d-dimer trending up, expected with Covid. The impression and plan of care has been dictated as directed. : I performed a history and examination of this patient, discussed the same with the dictator. I agree with the dictator's note ,documented as a scribe. Any additional findings or plans will be noted.
[2020-03-28] MEDS ORDERED: INSULIN DETEMIR (LEVEMIR) 100 UNIT/ML SYR SQ ONE (15:00)
[2020-03-28 15:14] LABS: HCT 36.8 % (34.0-46.0); HGB 11.5 gm/dL (11.4-16.0); Hypochromasia Slight; MCH 30.1 pg (25.0-35.0); MCHC 31.2 g/dL (31.0-37.0); MCV 96.4 fL (80.0-100.0); Mean Platelet Volume 8.4; Platelet Count 248 k/uL (150-450); RBC 3.82 m/uL (3.80-5.40); WBC 3.8 k/uL (3.8-10.6)
[2020-03-28] MEDS: QUEtiapine 50 MG TAB PO SCH (16:52)
[2020-03-28] MEDS: AZITHROMYCIN 500 MG TAB PO SCH (16:52)
[2020-03-28] MEDS: SODIUM CHLORIDE 0.9% 1,000 ML IV SCH (16:53)
[2020-03-28 17:03] LABS: Glucose,Whole Blood 419 mg/dL (75-99)
[2020-03-28 20:05] LABS: Glucose,Whole Blood 474 mg/dL (75-99)
[2020-03-28] MEDS: ATORVASTATIN 40 MG TAB PO SCH (22:06)
--- NOTE | 2020-03-28 22:39 | PN ---
PROGRESS NOTE DATE OF SERVICE: 03/28/2020 REASON FOR FOLLOWUP: Pneumonia. INTERVAL HISTORY: The patient is currently afebrile. The patient is breathing comfortably on room air. The patient was agitated this morning at the time of evaluation and the patient wanted to leave, as the patient mentioned nobody is taking care of her or giving her food. When asked specifically, she denied having any chest pain. Minimal cough. No abdominal pain or diarrhea. PHYSICAL EXAMINATION: Her blood pressure 178/78, pulse of 78, temperature 98.9. She is 99% on room air. General description is an elderly female up in the bed in no distress. RESPIRATORY SYSTEM: Unlabored breathing with decreased intensity of breath sounds. No wheeze. HEART: S1, S2. Regular rate and rhythm. ABDOMEN: Soft. No tenderness. LABS: Hemoglobin 11.5, white count 3.8. BUN of 28, creatinine is 1.17. Procalcitonin 0.08. CRP is 18.2. DIAGNOSTIC IMPRESSION AND PLAN: 1. Patient admitted to hospital with mental status changes, shortness of breath fever, likely secondary to acute COVID-19 infection. However, the patient is currently maintaining oxygen saturations 99% on room air and will not qualify for the remdesivir. Currently covered with Lovenox, dexamethasone and zinc; to continue. 2. Possible urinary tract infection, covered with Rocephin while waiting for the culture to finalize. Continue with supportive care. MMODL / IJN: [id number] / MTDD
[2020-03-29] MEDS ORDERED: HALOPERIDOL LACTATE 5 MG/ML 1 ML VIAL IM ONE ×2 (04:03→09:26)
[2020-03-29] MEDS: SODIUM CHLORIDE 0.9% 1,000 ML IV SCH ×2 (05:46→19:08)
[2020-03-29] MEDS: LEVOTHYROXINE 50 MCG TAB PO SCH (05:47)
[2020-03-29 06:11] LABS: African American GFR (CKD) 61.6 (60.0-200.0); Anion Gap 14.9 mmol/L (4.00-12.00); Calcium 8.1 mg/dL (8.7-10.3); Carbon Dioxide 14.1 mmol/L (21.6-31.8); Non-African American GFR(CKD) 53.2 (60.0-200.0)
[2020-03-29 06:33] LABS: Basophils % (A) 0 %; Eosinophils % (A) 0 %; HCT 34.8 % (34.0-46.0); HGB 11.4 gm/dL (11.4-16.0); Lymphocytes # (A) 0.6 k/uL (1.0-4.8); Lymphocytes % (A) 9 %; MCHC 32.8 g/dL (31.0-37.0); MCV 91.6 fL (80.0-100.0); Mean Platelet Volume 7.4; Monocytes # (A) 0.4 k/uL (0-1.0); Monocytes % (A) 6 %; Neutrophils # (A) 5.2 k/uL (1.3-7.7); Neutrophils % (A) 84 %; Platelet Count 287 k/uL (150-450); WBC 6.2 k/uL (3.8-10.6)
[2020-03-29] MEDS ORDERED: INSULIN DETEMIR (LEVEMIR) 100 UNIT/ML SYR SQ SCH (07:00)
[2020-03-29 07:16] LABS: Glucose,Whole Blood 433 mg/dL (75-99)
[2020-03-29] MEDS: CARBIDOPA-LEVODOPA 25-100 MG 1 EACH TAB PO SCH ×2 (07:56→20:22)
[2020-03-29] MEDS: ASPIRIN 81 MG PO SCH (07:56)
[2020-03-29] MEDS: CHOLECALCIFEROL 1,000 UNIT TAB PO SCH (07:56)
[2020-03-29] MEDS: FAMOTIDINE 20 MG TAB PO SCH (07:56)
[2020-03-29] MEDS: ASCORBIC ACID 500 MG TAB PO SCH (07:57)
[2020-03-29] MEDS: ZINC SULFATE 220 MG CAP PO SCH (07:57)
[2020-03-29] MEDS: FUROSEMIDE 40 MG TAB PO SCH (07:57)
[2020-03-29] MEDS: ENOXAPARIN 40 MG/0.4 ML SYRINGE SQ SCH (07:57)
[2020-03-29] MEDS: QUEtiapine 50 MG TAB PO SCH ×2 (07:57→20:22)
[2020-03-29 09:15] LABS: Amorphous Sediment,Urine Occasional /hpf; Appearance,Urine Cloudy (Clear); Bacteria,Urine Few /hpf; Bilirubin,Urine Negative (Negative); Blood,Urine Small (Negative); Color,Urine Yellow; Glucose,Urine (UA) 4+ (Negative); Hyaline Casts,Urine 3 /lpf (0-2); Ketones,Urine Negative (Negative); Leukocyte Esterase,Urine Negative (Negative); Mucus,Urine Occasional /hpf; Nitrite,Urine Negative (Negative); PH, Urine 5.5 (5.0-8.0); Protein,Urine 2+ (Negative); RBC,Urine 3 /hpf (0-5); Specific Gravity,Urine 1.019 (1.001-1.035); Squamous Epithelial Cell,Urine 5 /hpf (0-4); Urobilinogen,Urine <2.0 mg/dL (<2.0); WBC,Urine 3 /hpf (0-5)
[2020-03-29 11:23] LABS: Glucose,Whole Blood 343 mg/dL (75-99)
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
[2020-03-29] MEDS: ACETAMINOPHEN TAB 500 MG TAB PO PRN (13:10)
[2020-03-29] MEDS: amLODIPine 2.5 MG TAB PO SCH (13:10)
--- NOTE | 2020-03-29 13:12 | P.PN ---
Subjective Progress Note Date: 03/29/20 This is an 79-year-old female admitted with acute left lower lobe covid pneumonia. Maintained on vitamin C, vitamin D, zinc, Decadron, Rocephin. Chest x-ray reporting patchy infiltrate lower lobe and to a lesser extent right perihilar region. Maintaining O2 sats in the 90s on room air. Complains of na usea, anxiety. No emesis, no diarrhea, no chest pain. Early in the morning Xanax ordered for anxiety .Confusion increased along with agitation, steroids and Xanax discontinued. 03/29/2020 steroids, benzos discontinued yesterday .confusion, psychosis worsened overnight. Patient having hallucinations, combative. Received Haldol during the wastewater supervisor hours. service counter cashier at bedside. This morning refusing oral meds, paranoid that people are out to hurt her. Hyperglycemic. Maintaining O2 sats of the 90s on room air. Objective - Vital Signs Vital signs: Vital Signs Temp 97.9 F 03/29/20 05:00 Pulse 77 03/29/20 05:00 Resp 16 03/29/20 05:00 BP 167/83 03/29/20 05:00 Pulse Ox 96 03/29/20 05:00 Intake & Output 03/28/20 03/29/20 03/29/20 18:59 06:59 18:59 Intake Total 100 Balance 100 Weight 86.183 kg Intake: Oral 100 Other: Voiding Method Toilet Toilet Toilet # Voids 6 1 - Exam GENERAL: The patient is alert and oriented x1, anxious, hallucinating HEENT: Pupils are round and equally reacting to light. EOMI. No scleral icterus. No conjunctival pallor. Normocephalic, atraumatic. No pharyngeal erythema. No thyromegaly. CARDIOVASCULAR: S1 and S2 present. No murmurs, rubs, or gallops. PULMONARY: Chest is clear to auscultation, no rhonchi, crackles or wheezing. -ABDOMEN: Soft, nontender, nondistended, normoactive bowel sounds. No palpable organomegaly. EXTREMITIES: No cyanosis, clubbing, or pedal edema. NEUROLOGICAL: Currently alert and oriented 1 to person only, agitated easily, hallucinating. SKIN: No rashes. Warm and dry. - Labs CBC & Chem 7: 03/29/20 05:38 03/28/20 04:53 Labs: Abnormal Lab Results - Last 24 Hours (Table) 03/28/20 03/28/20 03/28/20 Range/Units 04:53 17:02 19:56 Lymphocytes # (1.0-4.8) k/uL Chloride 114 H (96-109) mmol/L Carbon Dioxide 14.1 L (21.6-31.8) mmol/L Anion Gap 14.90 H (4.00-12.00) mmol/L Est GFR (CKD-EPI)NonAf 53.2 L (60.0-200.0) Glucose 326 H (70-110) mg/dL POC Glucose (mg/dL) 419 H 474 H (75-99) mg/dL Calcium 8.1 L (8.7-10.3) mg/dL Urine Appearance (Clear) Urine Protein (Negative) Urine Glucose (UA) (Negative) Urine Blood (Negative) Ur Squamous Epith Cells (0-4) /hpf Amorphous Sediment (None) /hpf Urine Bacteria (None) /hpf Hyaline Casts (0-2) /lpf Urine Mucus (None) /hpf 03/29/20 03/29/20 03/29/20 Range/Units 05:38 07:02 08:45 Lymphocytes # 0.6 L (1.0-4.8) k/uL Chloride (96-109) mmol/L Carbon Dioxide (21.6-31.8) mmol/L Anion Gap (4.00-12.00) mmol/L Est GFR (CKD-EPI)NonAf (60.0-200.0) Glucose (70-110) mg/dL POC Glucose (mg/dL) 433 H (75-99) mg/dL Calcium (8.7-10.3) mg/dL Urine Appearance Cloudy H (Clear) Urine Protein 2+ H (Negative) Urine Glucose (UA) 4+ H (Negative) Urine Blood Small H (Negative) Ur Squamous Epith Cells 5 H (0-4) /hpf Amorphous Sediment Occasional H (None) /hpf Urine Bacteria Few H (None) /hpf Hyaline Casts 3 H (0-2) /lpf Urine Mucus Occasional H (None) /hpf 03/29/20 Range/Units 11:20 Lymphocytes # (1.0-4.8) k/uL Chloride (96-109) mmol/L Carbon Dioxide (21.6-31.8) mmol/L Anion Gap (4.00-12.00) mmol/L Est GFR (CKD-EPI)NonAf (60.0-200.0) Glucose (70-110) mg/dL POC Glucose (mg/dL) 343 H (75-99) mg/dL Calcium (8.7-10.3) mg/dL Urine Appearance (Clear) Urine Protein (Negative) Urine Glucose (UA) (Negative) Urine Blood (Negative) Ur Squamous Epith Cells (0-4) /hpf Amorphous Sediment (None) /hpf Urine Bacteria (None) /hpf Hyaline Casts (0-2) /lpf Urine Mucus (None) /hpf Microbiology - Last 24 Hours (Table) 03/27/20 11:12 Blood Culture - Preliminary Blood No Growth after 24 hours Assessment and Plan Assessment: Acute Covid infection with left lower lobe pneumonia Toxic ,metabolic encephalopathy, multifactorial secondary to infection and Steroid psychosis. Covid acute gastroenteritis, improving Dehydration Acute on Chronic kidney disease, stage III Diabetes mellitus, with hyperglycemia , hemoglobin A1c 8.1 Hypertension Hyperlipidemia History of coronary artery disease CHronic heart failure History of DVT/PE, not on anticoagulation Hypothyroidism History of arthritis Plan: Continue on current medication regime ,monitoring and symptomatic treatment. Maintain service counter cashier. Delirium precautions. Increase Seroquel to twice a day, may give afternoon dose now. Hyperglycemia, Levemir insulin dose increased, close monitoring of Accu-Cheks. Psych consult in place with recommendations pending. Once medically stable, PT recommending subacute rehab at [place]. Social work assisting. The impression and plan of care has been dictated as directed. : I performed a history and examination of this patient, discussed the same with the dictator. I agree with the dictator's note ,documented as a scribe. Any additional findings or plans will be noted.
[2020-03-29] MEDS ORDERED: INSULIN DETEMIR (LEVEMIR) 100 UNIT/ML SYR SQ ONE (13:30)
[2020-03-29 14:09] LABS: African American GFR (CKD) 37.7 (60.0-200.0); Anion Gap 9.2 mmol/L (4.00-12.00); Calcium 8.8 mg/dL (8.7-10.3); Carbon Dioxide 21.8 mmol/L (21.6-31.8); Non-African American GFR(CKD) 32.6 (60.0-200.0); Potassium 4.5 mmol/L (3.5-5.5)
[2020-03-29] MEDS: AZITHROMYCIN 500 MG TAB PO SCH (17:06)
[2020-03-29 17:43] LABS: Glucose,Whole Blood 274 mg/dL (75-99)
[2020-03-29] MEDS: ATORVASTATIN 40 MG TAB PO SCH (20:22)
[2020-03-29 20:33] LABS: Glucose,Whole Blood 270 mg/dL (75-99)
[2020-03-29] MEDS ORDERED: QUEtiapine 25 MG TAB PO SCH (21:00)
--- NOTE | 2020-03-29 23:30 | PN ---
PROGRESS NOTE DATE OF SERVICE: 03/29/2020 REASON FOR FOLLOWUP: Pneumonia. INTERVAL HISTORY: The patient is afebrile. The patient remains upset and wants to leave. Denies having any chest pain or shortness of breath or cough. No abdominal pain or any diarrhea. PHYSICAL EXAMINATION: Her blood pressure 184/78 with a pulse of 84, temperature 97.8. She is 94% on room air. General description is an elderly female up in the bed in no distress. RESPIRATORY SYSTEM: Unlabored breathing with decreased intensity of breath sounds. No wheeze. HEART: S1, S2. Regular rate and rhythm. ABDOMEN: Soft. No tenderness. LABS: BUN of 27, creatinine 1.5. Urine is negative. Bautista PCR was positive. Procalcitonin was normal. DIAGNOSTIC IMPRESSION AND PLAN: Patient admitted to hospital with shortness of breath with evidence of pneumonia on the chest x-ray, likely secondary to acute COVID-19. procalcitonin is normal and not a bacterial pneumonia. Rocephin should be discontinued. She was started on dexamethasone, which will be discontinued, and currently covered with Lovenox. Continue with the current respiratory support and monitor her clinical course closely. MMODL / IJN: [id number] / MTDD
[2020-03-30] MEDS: LEVOTHYROXINE 50 MCG TAB PO SCH (05:49)
[2020-03-30] MEDS ORDERED: INSULIN DETEMIR (LEVEMIR) 100 UNIT/ML SYR SQ SCH (07:00)
[2020-03-30] MEDS: ASCORBIC ACID 500 MG TAB PO SCH (09:33)
[2020-03-30] MEDS: ASPIRIN 81 MG PO SCH (09:34)
[2020-03-30] MEDS: FAMOTIDINE 20 MG TAB PO SCH (09:35)
[2020-03-30] MEDS: AZITHROMYCIN 500 MG TAB PO SCH (09:35)
[2020-03-30] MEDS: ZINC SULFATE 220 MG CAP PO SCH (09:35)
[2020-03-30] MEDS: FUROSEMIDE 40 MG TAB PO SCH (09:35)
[2020-03-30] MEDS: amLODIPine 2.5 MG TAB PO SCH (09:35)
[2020-03-30] MEDS: QUEtiapine 50 MG TAB PO SCH ×2 (09:35→20:10)
[2020-03-30] MEDS: CARBIDOPA-LEVODOPA 25-100 MG 1 EACH TAB PO SCH ×2 (09:35→20:10)
[2020-03-30] MEDS: ENOXAPARIN 30 MG/0.3 ML SYRINGE SQ SCH (09:36)
[2020-03-30] MEDS: CHOLECALCIFEROL 1,000 UNIT TAB PO SCH (09:38)
[2020-03-30 09:44] LABS: African American GFR (CKD) 44.9 (60.0-200.0); Anion Gap 8.3 mmol/L (4.00-12.00); BUN/Creat Ratio 19.23 Ratio (12.00-20.00); Calcium 9.2 mg/dL (8.7-10.3); Carbon Dioxide 24.7 mmol/L (21.6-31.8); Non-African American GFR(CKD) 38.7 (60.0-200.0); Potassium 3.8 mmol/L (3.5-5.5)
--- NOTE | 2020-03-30 10:15 | P.PN ---
Progress Note - Text Progress Note Date: 03/30/20 Interval History: Patient was seen at bedside. Patient is currently eating her breakfast and a sitting upright in her chair. The patient is much more pleasant today. She is reporting that she continues to feel sick but is alert and oriented in all spheres. She is able to recall the reason for hospitalization stating that she is sick with covered pneumonia. She is able to identify person, place, and time. She is currently not reporting any suicidal or homicidal ideation, intention, and/or plan. She is reporting auditory or visual. She is denying any paranoia. In regards to her living situation, the patient states that she has significant support from her friend Olena. She has been adherent with her Seroquel is not reporting any significant side effects at this time. She has been noted by staff to be much more irritable and confused earlier this morning. Mental Status Exam: General Appearance: Patient appears to be stated age is alert, directable, and cooperative. Dressed in hospital gown. Slightly disheveled. Hair is unkempt. Behavior: Patient is calmly seated without any agitated behavior. Speech: Patient's speech is fluent and nonpressured. Mood/Affect: Mood is "I feel sick," affect is malaised with appropriate range. Suicidality/Homicidality: Patient denies having any suicidal or homicidal ideation intent or plan. Perceptions: Patient denies any visual hallucinations and denies any auditory hallucinations Though content/process: There is no evidence of any delusional thought content and thought process is linear and goal-directed. Memory and concentration: AOX3, grossly intact for the purposes of this session Judgment and insight: Improving mildly Assessment Toxic metabolic encephalopathy, resolving Plan: -At this time patient DOES NOT meet criteria for inpatient psychiatric admission. -Delirium precautions recommended with patient including - avoiding use of narcotics and BAG MAKING MACHINE TENDER sedatives, limit anticholinergic medications when possible, frequent re-orientation, minimize use of restraints, open window shades during the day and close them at night -Would recommend the following medication changes/additions: Continue Seroquel 50 mg by mouth twice a day for psychosis/agitation -QTC was noted to be 444 ms -Patient's confusion and agitation appear to be resolving. Psychiatry will sign off at this point. May hold Seroquel upon discharge once patient is medically stable. -Psychiatry will sign off at this point. Please call for any questions or reconsult us if necessary.
[2020-03-30 11:20] LABS: Glucose,Whole Blood 371 mg/dL (75-99)
[2020-03-30] MEDS: SODIUM CHLORIDE 0.9% 1,000 ML IV SCH ×2 (12:15→22:49)
[2020-03-30] MEDS ORDERED: HALOPERIDOL LACTATE 5 MG/ML 1 ML VIAL IM ONE (13:00)
--- NOTE | 2020-03-30 14:16 | P.PN ---
Subjective Progress Note Date: 03/30/20 HISTORY OF PRESENT ILLNESS This is an 79-year-old female admitted to the hospital for pneumonia secondary to acute COVID19. Patient is on dexamethasone, Lovenox, supplements and azithromycin. Patient states that her breathing is okay today. Patient denies any chest pain, no cough, no nausea, vomiting, diarrhea. No abdominal pain. She has been afebrile and pulse ox is 97% on room air. PHYSICAL EXAMINATION Gen: This is an obese 79-year-old female. She is sitting up in bed a nd appears to be comfortable. No acute respiratory distress is noted. HEENT: Head is atraumatic, normocephalic. Pupils equal, round. Sclerae is anicteric. NECK: Supple. No JVD. No lymphadenopathy. LUNGS: Clear to auscultation. No wheezes or rhonchi. No intercostal retractions. HEART: Regular rate and rhythm. No murmur. ABDOMEN: Soft. Bowel sounds are present. No masses. No tenderness. EXTREMITIES: No pedal edema. No calf tenderness. NEUROLOGICAL: Patient is awake, alert and oriented2%. ASSESSMENT COVID-19 pneumonia PLAN Patient does not qualify for him to severe. Continue Lovenox, dexamethasone, vitamin supplements The above dictated assessment and findings were discussed with Dr. Mcqueen. The impression and plan of care have been directed as dictated. Helena Love nurse practitioner acting as scribe for Dr. Mcqueen. Objective - Vital Signs Vital signs: Vital Signs Temp 97.4 F L 03/30/20 04:46 Pulse 86 03/30/20 08:30 Resp 18 03/30/20 08:30 BP 162/82 03/30/20 04:46 Pulse Ox 98 03/30/20 04:46 Intake & Output 03/29/20 03/30/20 03/30/20 18:59 06:59 18:59 Intake Total 540 Balance 540 Intake: Oral 540 Other: Voiding Method Toilet Toilet Toilet # Voids 1 1 # Bowel Movements 1 - Labs CBC & Chem 7: 03/29/20 05:38 03/30/20 06:32 Labs: Abnormal Lab Results - Last 24 Hours (Table) 03/29/20 03/29/20 03/29/20 Range/Units 05:38 17:38 20:11 Est GFR (CKD-EPI)AfAm 37.7 L (60.0-200.0) Est GFR (CKD-EPI)NonAf 32.6 L (60.0-200.0) Glucose 385 H (70-110) mg/dL POC Glucose (mg/dL) 274 H 270 H (75-99) mg/dL 03/30/20 03/30/20 Range/Units 06:32 11:19 Est GFR (CKD-EPI)AfAm 44.9 L (60.0-200.0) Est GFR (CKD-EPI)NonAf 38.7 L (60.0-200.0) Glucose 237 H (70-110) mg/dL POC Glucose (mg/dL) 371 H (75-99) mg/dL Microbiology - Last 24 Hours (Table) 03/27/20 11:12 Blood Culture - Preliminary Blood No Growth after 48 hours
--- NOTE | 2020-03-30 14:44 | P.PN ---
Subjective Progress Note Date: 03/30/20 This is an 79-year-old female admitted with acute left lower lobe covid pneumonia. Maintained on vitamin C, vitamin D, zinc, Decadron, Rocephin. Chest x-ray reporting patchy infiltrate lower lobe and to a lesser extent right perihilar region. Maintaining O2 sats in the 90s on room air. Complains of na usea, anxiety. No emesis, no diarrhea, no chest pain. Early in the morning Xanax ordered for anxiety .Confusion increased along with agitation, steroids and Xanax discontinued. 03/29/2020 steroids, benzos discontinued yesterday .confusion, psychosis worsened overnight. Patient having hallucinations, combative. Received Haldol during the wash barrel leader hours. engineer conductor at bedside. This morning refusing oral meds, paranoid that people are out to hurt her. Hyperglycemic. Maintaining O2 sats of the 90s on room air. 03/30/2020 maintained on Covid regimen with the exception of Remdesivir as per ID. Maintaining O2 sats in the high 90s on room air. Delirium persist, combative with staff. Refused labs, Accu-Cheks. Psychiatry consult reported patient not competent in making her own decisions at this time. Psychiatry recommendations noted and appreciated-Seroquel adjusted. Hyperglycemic. Objective - Vital Signs Vital signs: Vital Signs Temp 97.6 F 03/30/20 11:00 Pulse 63 03/30/20 13:15 Resp 18 03/30/20 13:15 BP 104/63 03/30/20 11:00 Pulse Ox 97 03/30/20 11:00 Intake & Output 03/29/20 03/30/20 03/30/20 18:59 06:59 18:59 Intake Total 540 Balance 540 Intake: Oral 540 Other: Voiding Method Toilet Toilet Toilet # Voids 1 1 2 # Bowel Movements 1 - Exam GENERAL: The patient is alert and oriented x1, anxious, paranoid, delirious HEENT: Pupils are round and equally reacting to light. EOMI. No scleral icterus. No conjunctival pallor. Normocephalic, atraumatic. No pharyngeal erythema. No thyromegaly. CARDIOVASCULAR: S1 and S2 present. No murmurs, rubs, or gallops. PULMONARY: Chest is clear to auscultation, no rhonchi, crackles or wheezing. -ABDOMEN: Soft, nontender, nondistended, normoactive bowel sounds. EXTREMITIES: No cyanosis, clubbing, or pedal edema. NEUROLOGICAL: Currently alert and oriented 1 to person only, combative at times, confused SKIN: No rashes. Warm and dry. - Labs CBC & Chem 7: 03/29/20 05:38 03/30/20 06:32 Labs: Abnormal Lab Results - Last 24 Hours (Table) 03/29/20 03/29/20 03/30/20 Range/Units 17:38 20:11 06:32 Est GFR (CKD-EPI)AfAm 44.9 L (60.0-200.0) Est GFR (CKD-EPI)NonAf 38.7 L (60.0-200.0) Glucose 237 H (70-110) mg/dL POC Glucose (mg/dL) 274 H 270 H (75-99) mg/dL 03/30/20 Range/Units 11:19 Est GFR (CKD-EPI)AfAm (60.0-200.0) Est GFR (CKD-EPI)NonAf (60.0-200.0) Glucose (70-110) mg/dL POC Glucose (mg/dL) 371 H (75-99) mg/dL Microbiology - Last 24 Hours (Table) 03/27/20 11:12 Blood Culture - Preliminary Blood No Growth after 72 hours Assessment and Plan Assessment: Acute Covid -19 left lower lobe pneumonia Toxic ,metabolic encephalopathy, multifactorial secondary to infection and Steroid psychosis. Covid acute gastroenteritis, improving Dehydration Acute on Chronic kidney disease, stage III Diabetes mellitus, with hyperglycemia , hemoglobin A1c 8.1 Hypertension Hyperlipidemia History of coronary artery disease CHronic heart failure History of DVT/PE, not on anticoagulation Hypothyroidism History of arthritis Plan: Continue on current medication regime ,monitoring and symptomatic treatment. engineer conductor. Delirium precautions. Psychiatry recommendations noted and appreciated. Hyperglycemia, Levemir insulin dose increased further. close monitoring of Accu-Cheks. Social work assisting discharge planning for subacute rehab. pending manageable behavior. Follow closely with psychiatry. The impression and plan of care has been dictated as directed. : I performed a history and examination of this patient, discussed the same with the dictator. I agree with the dictator's note ,documented as a scribe. Any additional findings or plans will be noted.
[2020-03-30] MEDS ORDERED: INSULIN DETEMIR (LEVEMIR) 100 UNIT/ML SYR SQ ONE (15:00)
[2020-03-30] MEDS: ESCITALOPRAM 10 MG TAB PO SCH (16:09)
--- NOTE | 2020-03-30 18:10 | CDI ---
Documentation Clarification Form Date: 03/30/2020 05:55:03 PM From: Juany Avilez RN, CCDS Admit Date: 03/27/2020 11:11:00 AM Patient Name: Brit Wilkinson Visit Number: [id number] Discharge Date: ATTENTION: The Clinical Documentation Specialists (CDI) and [facility] Coding Staff appreciate your assistance in clarifying documentation. Please respond to the clarification below the line at the bottom and electronically sign. The CDI & [facility] Coding staff will review the response and follow-up if needed. Please note: Queries are made part of the Legal Health Record. If you have any questions, please contact the author of this message via ITS. Dr. Adrien Swartz Chronic heart Failure is documented in the H/P and subsequent progress notes. Please further specify type of heart failure. History/Risk Factors: Coronary artery disease, Heart Failure, Diabetes mellitus, Hypertension. Clinical Indicators: 79-year-old female present with generalized weakness, minimal shortness of breath. 03/27 VS/Pulse OX: 154/101 85 24 97.6 97 % RA 03/27 BNP: 395 Echocardiogram Results: (05/22/19) EF 55-60 % 03/27 Chest X Ray: Mild left lower lobe infiltrate Treatment: Lasix 40 mg po daily Lipitor 40 mg po daily In your professional opinion, can you please clarify the type of CHF if known? Chronic Diastolic Heart Failure: Unable to Determine Other, please specify (Last Revision: July 2017) Chronic Diastolic Heart Failure MTDD
[2020-03-30] MEDS: ATORVASTATIN 40 MG TAB PO SCH (20:10)
[2020-03-31 06:12] LABS: Glucose,Whole Blood 236 mg/dL (75-99)
[2020-03-31] MEDS ORDERED: INSULIN DETEMIR (LEVEMIR) 100 UNIT/ML SYR SQ SCH (07:00)
[2020-03-31] MEDS: ZINC SULFATE 220 MG CAP PO SCH (08:14)
[2020-03-31] MEDS: ESCITALOPRAM 10 MG TAB PO SCH (08:15)
[2020-03-31] MEDS: ENOXAPARIN 30 MG/0.3 ML SYRINGE SQ SCH (08:15)
[2020-03-31] MEDS: FUROSEMIDE 40 MG TAB PO SCH (08:15)
[2020-03-31] MEDS: CHOLECALCIFEROL 1,000 UNIT TAB PO SCH (08:15)
[2020-03-31] MEDS: FAMOTIDINE 20 MG TAB PO SCH (08:15)
[2020-03-31] MEDS: CARBIDOPA-LEVODOPA 25-100 MG 1 EACH TAB PO SCH ×2 (08:15→20:49)
[2020-03-31] MEDS: QUEtiapine 50 MG TAB PO SCH ×2 (08:15→20:49)
[2020-03-31] MEDS: ASCORBIC ACID 500 MG TAB PO SCH (08:15)
[2020-03-31] MEDS: LEVOTHYROXINE 50 MCG TAB PO SCH (08:15)
[2020-03-31] MEDS: ASPIRIN 81 MG PO SCH (08:15)
--- NOTE | 2020-03-31 11:06 | P.PN ---
Subjective Progress Note Date: 03/31/20 HISTORY OF PRESENT ILLNESS This is an 79-year-old female admitted to the hospital for pneumonia secondary to acute COVID19. Patient is on dexamethasone, Lovenox, supplements and azithromycin. Patient states that her breathing is good today. Patient denies any chest pain, no cough, no nausea, vomiting, diarrhea. No abdominal pain. She has been afebrile and pulse ox is 97% on room air. PHYSICAL EXAMINATION Gen: This is an obese 79-year-old female. She is sitting up in bed a nd appears to be comfortable. No acute respiratory distress is noted. HEENT: Head is atraumatic, normocephalic. Pupils equal, round. Sclerae is anicteric. NECK: Supple. No JVD. No lymphadenopathy. LUNGS: Clear to auscultation. No wheezes or rhonchi. No intercostal retractions. HEART: Regular rate and rhythm. No murmur. ABDOMEN: Soft. Bowel sounds are present. No masses. No tenderness. EXTREMITIES: No pedal edema. No calf tenderness. NEUROLOGICAL: Patient is awake, alert and oriented2%. ASSESSMENT COVID-19 pneumonia PLAN Patient does not qualify for Remdesivir Continue Lovenox, dexamethasone, vitamin supplements Patient is cleared for discharge from infectious disease Plan for azithromycin 3 more days and continue supplements. The above dictated assessment and findings were discussed with Dr. Mcqueen. The impression and plan of care have been directed as dictated. Helena Love nurse practitioner acting as scribe for Dr. Mcqueen. Objective - Vital Signs Vital signs: Vital Signs Temp 98.2 F 03/31/20 04:40 Pulse 63 03/31/20 04:40 Resp 16 03/31/20 04:40 BP 164/74 03/31/20 04:40 Pulse Ox 97 03/31/20 04:40 Intake & Output 03/30/20 03/31/20 03/31/20 18:59 06:59 18:59 Intake Total 240 Balance 240 Intake: Oral 240 Other: Voiding Method Toilet Toilet # Voids 3 3 # Bowel Movements 0 - Labs CBC & Chem 7: 03/29/20 05:38 03/30/20 06:32 Labs: Abnormal Lab Results - Last 24 Hours (Table) 03/30/20 03/31/20 Range/Units 11:19 06:10 POC Glucose (mg/dL) 371 H 236 H (75-99) mg/dL Microbiology - Last 24 Hours (Table) 03/27/20 11:12 Blood Culture - Preliminary Blood No Growth after 72 hours
[2020-03-31] MEDS: SODIUM CHLORIDE 0.9% 1,000 ML IV SCH (11:08)
[2020-03-31 12:11] LABS: Glucose,Whole Blood 410 mg/dL (75-99)
[2020-03-31] MEDS: amLODIPine 2.5 MG TAB PO SCH (13:05)
[2020-03-31 17:12] LABS: Glucose,Whole Blood 387 mg/dL (75-99)
[2020-03-31] MEDS: AZITHROMYCIN 500 MG TAB PO SCH (17:18)
[2020-03-31] MEDS ORDERED: INSULIN DETEMIR (LEVEMIR) 100 UNIT/ML SYR SQ ONE (18:05)
--- NOTE | 2020-03-31 18:09 | P.PN ---
Subjective Progress Note Date: 03/31/20 This is an 79-year-old female admitted with acute left lower lobe covid pneumonia. Maintained on vitamin C, vitamin D, zinc, Decadron, Rocephin. Chest x-ray reporting patchy infiltrate lower lobe and to a lesser extent right perihilar region. Maintaining O2 sats in the 90s on room air. Complains of na usea, anxiety. No emesis, no diarrhea, no chest pain. Early in the morning Xanax ordered for anxiety .Confusion increased along with agitation, steroids and Xanax discontinued. 03/29/2020 steroids, benzos discontinued yesterday .confusion, psychosis worsened overnight. Patient having hallucinations, combative. Received Haldol during the oim architect hours. career center director at bedside. This morning refusing oral meds, paranoid that people are out to hurt her. Hyperglycemic. Maintaining O2 sats of the 90s on room air. 03/30/2020 maintained on Covid regimen with the exception of Remdesivir as per ID. Maintaining O2 sats in the high 90s on room air. Delirium persist, combative with staff. Refused labs, Accu-Cheks. Psychiatry consult reported patient not competent in making her own decisions at this time. Psychiatry recommendations noted and appreciated-Seroquel adjusted. Hyperglycemic. 03/31/20 significant clinical improvement this morning. Sitting up in chair, cooperative, allowing lab draw and taking morning meds. Continues on Covid regimen. Maintaining O2 sats in the high 90s on room air. Denies chest pain, palpitations or shortness of breath. Afebrile. Objective - Vital Signs Vital signs: Vital Signs Temp 98.1 F 03/31/20 17:00 Pulse 69 03/31/20 17:00 Resp 18 03/31/20 17:00 BP 132/67 03/31/20 17:00 Pulse Ox 98 03/31/20 17:00 Intake & Output 03/30/20 03/31/20 03/31/20 18:59 06:59 18:59 Intake Total 240 0 Balance 240 0 Intake: Intake, IV Titration 0 Amount Sodium Chloride 0.9% 1, 0 000 ml @ 75 mls/hr IV . [id number] YULISA Rx#:[id number] Oral 240 Other: Voiding Method Toilet Toilet Toilet # Voids 3 3 # Bowel Movements 0 - Exam GENERAL: The patient is alert and oriented x1, sitting up in chair, cooperative HEENT: Pupils are round and equally reacting to light. EOMI. No scleral icterus. No conjunctival pallor. Normocephalic, atraumatic. No pharyngeal erythema. No thyromegaly. CARDIOVASCULAR: S1 and S2 present. No murmurs, rubs, or gallops. PULMONARY: Chest is clear to auscultation, no rhonchi, crackles or wheezing. -ABDOMEN: Soft, nontender, nondistended, normoactive bowel sounds. EXTREMITIES: No cyanosis, clubbing, or pedal edema. NEUROLOGICAL: Currently alert and oriented 1-2, SKIN: No rashes. Warm and dry. - Labs CBC & Chem 7: 03/29/20 05:38 03/30/20 06:32 Labs: Abnormal Lab Results - Last 24 Hours (Table) 03/31/20 03/31/20 03/31/20 Range/Units 06:10 12:09 17:00 POC Glucose (mg/dL) 236 H 410 H 387 H (75-99) mg/dL Microbiology - Last 24 Hours (Table) 03/27/20 11:12 Blood Culture - Preliminary Blood No Growth after 96 hours Assessment and Plan Assessment: Acute Covid -19 left lower lobe pneumonia Toxic ,metabolic encephalopathy, multifactorial secondary to infection and Steroid psychosis. Covid acute gastroenteritis, resolved Dehydration, resolved Acute on Chronic kidney disease, stage III Diabetes mellitus, with hyperglycemia , hemoglobin A1c 8.1 Hypertension Hyperlipidemia History of coronary artery disease CHronic heart failure History of DVT/PE, not on anticoagulation Hypothyroidism History of arthritis Plan: Continue on current medication regime ,monitoring and symptomatic treatment. Maintain Delirium precautions. Consuming 50%, hyperglycemic, Levemir insulin dose increased. close monitoring of Accu-Cheks. Social work assisting discharge planning for subacute rehab. APS and social work petitioning for a public guardian, pending further psychiatric recommendations. The impression and plan of care has been dictated as directed. : I performed a history and examination of this patient, discussed the same with the dictator. I agree with the dictator's note ,documented as a scribe. Any additional findings or plans will be noted.
[2020-03-31 20:19] LABS: Glucose,Whole Blood 368 mg/dL (75-99)
[2020-03-31] MEDS: ATORVASTATIN 40 MG TAB PO SCH (20:49)
[2020-03-31] MEDS: INSULIN ASPART (NovoLOG) 100 UNIT/ML VIAL SQ SCH (20:50)
[2020-04-01] MEDS: SODIUM CHLORIDE 0.9% 1,000 ML IV SCH ×2 (00:51→12:54)
[2020-04-01] MEDS: LEVOTHYROXINE 50 MCG TAB PO SCH (05:27)
[2020-04-01 07:12] LABS: Glucose,Whole Blood 184 mg/dL (75-99)
[2020-04-01] MEDS: INSULIN DETEMIR (LEVEMIR) 100 UNIT/ML SYR SQ SCH (08:24)
[2020-04-01] MEDS: ASPIRIN 81 MG PO SCH (08:24)
[2020-04-01] MEDS: QUEtiapine 50 MG TAB PO SCH ×2 (08:24→20:18)
[2020-04-01] MEDS: ZINC SULFATE 220 MG CAP PO SCH (08:24)
[2020-04-01] MEDS: INSULIN ASPART (NovoLOG) 100 UNIT/ML VIAL SQ SCH ×4 (08:24→20:18)
[2020-04-01] MEDS: CARBIDOPA-LEVODOPA 25-100 MG 1 EACH TAB PO SCH ×2 (08:24→20:18)
[2020-04-01] MEDS: ESCITALOPRAM 10 MG TAB PO SCH (08:24)
[2020-04-01] MEDS: ENOXAPARIN 30 MG/0.3 ML SYRINGE SQ SCH (08:24)
[2020-04-01] MEDS: CHOLECALCIFEROL 1,000 UNIT TAB PO SCH (08:24)
[2020-04-01] MEDS: FAMOTIDINE 20 MG TAB PO SCH (08:24)
[2020-04-01] MEDS: ASCORBIC ACID 500 MG TAB PO SCH (08:25)
[2020-04-01] MEDS: FUROSEMIDE 40 MG TAB PO SCH (08:25)
[2020-04-01] MEDS ORDERED: amLODIPine 2.5 MG TAB PO SCH (10:00)
--- NOTE | 2020-04-01 10:15 | P.PN ---
Subjective Progress Note Date: 04/01/20 This is an 79-year-old female admitted with acute left lower lobe covid pneumonia. Maintained on vitamin C, vitamin D, zinc, Decadron, Rocephin. Chest x-ray reporting patchy infiltrate lower lobe and to a lesser extent right perihilar region. Maintaining O2 sats in the 90s on room air. Complains of na usea, anxiety. No emesis, no diarrhea, no chest pain. Early in the morning Xanax ordered for anxiety .Confusion increased along with agitation, steroids and Xanax discontinued. 03/29/2020 steroids, benzos discontinued yesterday .confusion, psychosis worsened overnight. Patient having hallucinations, combative. Received Haldol during the ore tester hours. licensed occupational therapist at bedside. This morning refusing oral meds, paranoid that people are out to hurt her. Hyperglycemic. Maintaining O2 sats of the 90s on room air. 03/30/2020 maintained on Covid regimen with the exception of Remdesivir as per ID. Maintaining O2 sats in the high 90s on room air. Delirium persist, combative with staff. Refused labs, Accu-Cheks. Psychiatry consult reported patient not competent in making her own decisions at this time. Psychiatry recommendations noted and appreciated-Seroquel adjusted. Hyperglycemic. 03/31/20 significant clinical improvement this morning. Sitting up in chair, cooperative, allowing lab draw and taking morning meds. Continues on Covid regimen. Maintaining O2 sats in the high 90s on room air. Denies chest pain, palpitations or shortness of breath. Afebrile. 04/01/2020 sitting up in chair, remains cooperative with staff, non-combative. Nurse reports yesterday patient was cooperative as well, took her medications. Discusses she is open to go to subacute rehab, requesting [facility]. Denies chest pain, palpitations or shortness of breath. Maintaining O2 sats in the 90s. Good diet intake with no nausea vomiting or diarrhea. Blood sugars trending down this morning. Afebrile. Objective - Vital Signs Vital signs: Vital Signs Temp 97.0 F L 04/01/20 05:00 Pulse 64 04/01/20 05:00 Resp 18 04/01/20 05:00 BP 185/67 04/01/20 05:00 Pulse Ox 98 04/01/20 05:00 Intake & Output 03/31/20 04/01/20 04/01/20 18:59 06:59 18:59 Intake Total 0 240 Balance 0 240 Intake: Intake, IV Titration 0 Amount Sodium Chloride 0.9% 1, 0 000 ml @ 75 mls/hr IV . [id number] [facility] Rx#:[id number] Oral 240 Other: Voiding Method Toilet Incontinent # Voids 1 # Bowel Movements 1 - Exam GENERAL: The patient is alert and oriented x1, sitting up in chair, cooperative HEENT: Pupils are round and equally reacting to light. EOMI. No scleral icterus. No conjunctival pallor.atraumatic. No pharyngeal erythema. CARDIOVASCULAR: S1 and S2 present. No murmurs, rubs, or gallops. PULMONARY: Chest is clear to auscultation, no rhonchi, crackles or wheezing. -ABDOMEN: Soft, nontender, nondistended, normoactive bowel sounds. EXTREMITIES: No cyanosis, clubbing, or pedal edema. NEUROLOGICAL: Currently alert and oriented 1-2, SKIN: No rashes. Warm and dry. - Labs CBC & Chem 7: 03/29/20 05:38 03/30/20 06:32 Labs: Abnormal Lab Results - Last 24 Hours (Table) 03/31/20 03/31/20 03/31/20 Range/Units 12:09 17:00 20:09 POC Glucose (mg/dL) 410 H 387 H 368 H (75-99) mg/dL 04/01/20 Range/Units 07:08 POC Glucose (mg/dL) 184 H (75-99) mg/dL Microbiology - Last 24 Hours (Table) 03/27/20 11:12 Blood Culture - Preliminary Blood No Growth after 96 hours Assessment and Plan Assessment: Acute Covid -19 left lower lobe pneumonia Toxic ,metabolic encephalopathy, multifactorial secondary to infection and Steroid psychosis. Covid acute gastroenteritis, resolved Dehydration, resolved Acute on Chronic kidney disease, stage III Diabetes mellitus, with hyperglycemia , hemoglobin A1c 8.1 Hypertension Hyperlipidemia History of coronary artery disease CHronic heart failure History of DVT/PE, not on anticoagulation Hypothyroidism History of arthritis Plan: Continue on current medication regime ,monitoring and symptomatic treatment. Blood sugars improving ,close monitoring of Accu-Cheks. [facility] to reevaluate. Social work assisting discharge planning for subacute rehab. APS and social work possibly petitioning for a public guardian, pending further psychiatric recommendations. The impression and plan of care has been dictated as directed. : I performed a history and examination of this patient, discussed the same with the dictator. I agree with the dictator's note ,documented as a scribe. Any a dditional findings or plans will be noted.
[2020-04-01] MEDS: amLODIPine 2.5 MG TAB PO SCH (10:17)
[2020-04-01 11:36] LABS: Glucose,Whole Blood 276 mg/dL (75-99)
--- NOTE | 2020-04-01 14:44 | CONS ---
CONSULTATION DATE OF SERVICE: 04/01/2020 PURPOSE FOR CONSULTATION: Evaluate for mental status change, agitation, and confusion. INTERVAL HISTORY: Patient has been showing progressive improvement, Dr. Nicole saw the patient on 03/30 indicating that she was showing a good mood. She was not having any issues of thought disorder. She was cooperative with care. The assessment of Dr. Nicole was that the patient did not have decision-making capacity. Psychotropic medications include Lexapro 10 mg a day and Seroquel 50 mg twice a day. When I talked to nursing in the morning, the indicated that the patient was showing some irritability. She was reluctant to consider any discharge alternative beyond returning to her own home. My understanding is that medical assessment was indicating that she needed subacute rehabilitation and that Social Work was working on referrals. When I talked to the patient, she was doing fair. She did have various complaints about staff, though felt that overall things were going somewhat better. She initially was reluctant to consider going to a rehab program, though I clarified with the patient that it was a medical necessity at that point, she did not ask questions about where the facility would be and what would be the plan. I did note to with the patient that she needed primarily to work on issues weakness. When I talked to the patient, she seems somewhat irritable, though she did respond appropriately the questions. She was oriented to his circumstances and surroundings. She did show good appetite assessment I will continue the current diagnosis and treatment plan. I would continue her psychotropic medications the same. I advised the patient that she would be referred to subacute rehabilitation program. It is not clear that she would need continuing use of Seroquel for any length of time, though it is reasonable to continue Seroquel at this point. I will continue to follow as appropriate. MMODL / IJN: [id number] /
[2020-04-01 17:25] LABS: Glucose,Whole Blood 242 mg/dL (75-99)
[2020-04-01] MEDS: AZITHROMYCIN 500 MG TAB PO SCH (17:52)
[2020-04-01 20:07] LABS: Glucose,Whole Blood 277 mg/dL (75-99)
[2020-04-01] MEDS: ATORVASTATIN 40 MG TAB PO SCH (20:18)
--- NOTE | 2020-04-02 00:36 | PN ---
PROGRESS NOTE DATE OF SERVICE: 04/01/2020 REASON FOR FOLLOWUP: Pneumonia. INTERVAL HISTORY: The patient is currently afebrile. The patient is pleasantly confused. No vegetation. She is hemodynamically stable. Denies any chest pain. Minimal cough. No abdominal pain. No diarrhea. PHYSICAL EXAMINATION: Blood pressure 155/70 with a pulse of 68. Temperature is 97.8. She is 98% on room air. General description: The patient is an elderly female up in the bed in no distress. Respiratory system: Unlabored breathing, decreased breath sounds in the bases. Heart S1, S2. Regular rate and rhythm. Abdomen soft, no tenderness. LABS: No new labs have been obtained. Blood culture has been negative. DIAGNOSTIC IMPRESSION AND PLAN: Patient admitted to hospital with weakness, congested cough in this patient diagnosed with COVID-19 infection, has been treated with antibiotic. The patient did not require any supplemental oxygen. The patient is currently covered with Zithromax, vitamin C, Lovenox, and zinc to continue and monitor clinical course closely. MMODL / IJN: [id number] /
[2020-04-02] MEDS: SODIUM CHLORIDE 0.9% 1,000 ML IV SCH ×2 (04:51→17:20)
[2020-04-02] MEDS: LEVOTHYROXINE 50 MCG TAB PO SCH (05:32)
[2020-04-02 07:02] LABS: Glucose,Whole Blood 194 mg/dL (75-99)
[2020-04-02] MEDS: INSULIN DETEMIR (LEVEMIR) 100 UNIT/ML SYR SQ SCH (08:00)
[2020-04-02] MEDS: ENOXAPARIN 30 MG/0.3 ML SYRINGE SQ SCH (08:01)
[2020-04-02] MEDS: ASCORBIC ACID 500 MG TAB PO SCH (08:02)
[2020-04-02] MEDS: FAMOTIDINE 20 MG TAB PO SCH (08:02)
[2020-04-02] MEDS: CARBIDOPA-LEVODOPA 25-100 MG 1 EACH TAB PO SCH ×2 (08:02→21:44)
[2020-04-02] MEDS: QUEtiapine 50 MG TAB PO SCH ×2 (08:02→21:44)
[2020-04-02] MEDS: ZINC SULFATE 220 MG CAP PO SCH (08:02)
[2020-04-02] MEDS: ASPIRIN 81 MG PO SCH (08:02)
[2020-04-02] MEDS: amLODIPine 2.5 MG TAB PO SCH (08:02)
[2020-04-02] MEDS: INSULIN ASPART (NovoLOG) 100 UNIT/ML VIAL SQ SCH ×4 (08:02→21:44)
[2020-04-02] MEDS: CHOLECALCIFEROL 1,000 UNIT TAB PO SCH (08:02)
[2020-04-02] MEDS: ESCITALOPRAM 10 MG TAB PO SCH (08:03)
[2020-04-02] MEDS: FUROSEMIDE 40 MG TAB PO SCH (09:08)
[2020-04-02 11:45] LABS: Glucose,Whole Blood 269 mg/dL (75-99)
[2020-04-02 17:18] LABS: Glucose,Whole Blood 218 mg/dL (75-99)
[2020-04-02] MEDS: AZITHROMYCIN 500 MG TAB PO SCH (17:48)
[2020-04-02 20:14] LABS: Glucose,Whole Blood 196 mg/dL (75-99)
[2020-04-02] MEDS: ATORVASTATIN 40 MG TAB PO SCH (21:44)
--- NOTE | 2020-04-02 22:25 | PN ---
PROGRESS NOTE DATE OF SERVICE: 04/02/2020 REASON FOR FOLLOWUP: Positive Covid test. INTERIM HISTORY: The patient is currently afebrile. The patient is breathing comfortably. Patient denies having any chest pain or shortness of breath or cough. No nausea, vomiting, abdominal pain, diarrhea. PHYSICAL EXAMINATION: Blood pressure 169/60 with a pulse of 50. Temperature 97.9. She is 93% on room air. General description is an elderly female up in the bed in no distress. Respiratory system: Unlabored breathing, decreased breath sounds in the bases. No wheeze. Heart S1, S2. Regular rate and rhythm. Abdomen soft, no tenderness. LABS: No new labs have been obtained today. DIAGNOSTIC IMPRESSION AND PLAN: Patient with a positive Covid test in this patient with no evidence of any pneumonia or hypoxemia. The patient on Zithromax, can be discontinued. Currently on Lovenox to continue along with zinc and monitor clinical course closely. MMODL / IJN: [id number] /
[2020-04-03] MEDS: SODIUM CHLORIDE 0.9% 1,000 ML IV SCH ×2 (00:56→19:42)
[2020-04-03] MEDS: LEVOTHYROXINE 50 MCG TAB PO SCH (06:24)
[2020-04-03 07:24] LABS: Glucose,Whole Blood 166 mg/dL (75-99)
[2020-04-03] MEDS: CARBIDOPA-LEVODOPA 25-100 MG 1 EACH TAB PO SCH ×2 (07:54→20:54)
[2020-04-03] MEDS: ASCORBIC ACID 500 MG TAB PO SCH (07:54)
[2020-04-03] MEDS: FAMOTIDINE 20 MG TAB PO SCH (07:54)
[2020-04-03] MEDS: ZINC SULFATE 220 MG CAP PO SCH (07:54)
[2020-04-03] MEDS: CHOLECALCIFEROL 1,000 UNIT TAB PO SCH (07:54)
[2020-04-03] MEDS: ASPIRIN 81 MG PO SCH (07:54)
[2020-04-03] MEDS: FUROSEMIDE 40 MG TAB PO SCH (07:54)
[2020-04-03] MEDS: amLODIPine 2.5 MG TAB PO SCH (07:54)
[2020-04-03] MEDS: INSULIN ASPART (NovoLOG) 100 UNIT/ML VIAL SQ SCH ×4 (07:55→20:54)
[2020-04-03] MEDS: INSULIN DETEMIR (LEVEMIR) 100 UNIT/ML SYR SQ SCH (07:55)
[2020-04-03] MEDS: ESCITALOPRAM 10 MG TAB PO SCH (07:55)
[2020-04-03] MEDS: ENOXAPARIN 30 MG/0.3 ML SYRINGE SQ SCH (07:55)
[2020-04-03] MEDS: QUEtiapine 50 MG TAB PO SCH ×2 (07:55→20:54)
[2020-04-03 11:15] LABS: Glucose,Whole Blood 229 mg/dL (75-99)
[2020-04-03 17:07] LABS: Glucose,Whole Blood 231 mg/dL (75-99)
[2020-04-03] MEDS: AZITHROMYCIN 500 MG TAB PO SCH (18:04)
[2020-04-03 20:49] LABS: Glucose,Whole Blood 257 mg/dL (75-99)
[2020-04-03] MEDS: ATORVASTATIN 40 MG TAB PO SCH (20:53)
--- NOTE | 2020-04-03 23:42 | P.PN ---
Subjective Progress Note Date: 04/02/20 Principal diagnosis: Acute COVID-19 pneumonia This is an 79-year-old female admitted with acute left lower lobe covid pneumonia. Maintained on vitamin C, vitamin D, zinc, Decadron, Rocephin. Chest x-ray reporting patchy infiltrate lower lobe and to a lesser extent right perihi lar region. Maintaining O2 sats in the 90s on room air. Complains of nausea, anxiety. No emesis, no diarrhea, no chest pain. Early in the morning Xanax ordered for anxiety .Confusion increased along with agitation, steroids and Xanax discontinued. 03/29/2020 steroids, benzos discontinued yesterday .confusion, psychosis worsened overnight. Patient having hallucinations, combative. Received Haldol during the administrator social welfare hours. shore man at bedside. This morning refusing oral meds, paranoid that people are out to hurt her. Hyperglycemic. Maintaining O2 sats of the 90s on room air. 03/30/2020 maintained on Covid regimen with the exception of Remdesivir as per ID. Maintaining O2 sats in the high 90s on room air. Delirium persist, combative with staff. Refused labs, Accu-Cheks. Psychiatry consult reported patient not competent in making her own decisions at this time. Psychiatry recommendations noted and appreciated-Seroquel adjusted. Hyperglycemic. 03/31/20 significant clinical improvement this morning. Sitting up in chair, cooperative, allowing lab draw and taking morning meds. Continues on Covid regimen. Maintaining O2 sats in the high 90s on room air. Denies chest pain, palpitations or shortness of breath. Afebrile. 04/01/2020 sitting up in chair, remains cooperative with staff, non-combative. Nurse reports yesterday patient was cooperative as well, took her medications. Discusses she is open to go to subacute rehab, requesting [facility]. Denies chest pain, palpitations or shortness of breath. Maintaining O2 sats in the 90s. Good diet intake with no nausea vomiting or diarrhea. Blood sugars trending down this morning. Afebrile. 04/02/2020 Patient is currently sitting in the chair comfortably. Patient is less combative today. Able to take her medications. Denied any chest pain or shortness breath. Currently being continued on antibiotics in the form of azithromycin. Currently on Lovenox subcu daily. Blood sugar is fairly contr olled and also on IV hydration. Patient is poor historian. Current medications reviewed. Objective - Vital Signs Vital signs: Vital Signs Temp 98.2 F 04/02/20 11:00 Pulse 71 04/02/20 11:00 Resp 16 04/02/20 11:00 BP 120/75 04/02/20 11:00 Pulse Ox 97 04/02/20 11:00 Intake & Output 04/01/20 04/02/20 04/02/20 18:59 06:59 18:59 Intake Total 900 Balance 900 Intake: Intake, IV Titration 900 Amount Sodium Chloride 0.9% 1, 900 000 ml @ 75 mls/hr IV . [id number] [facility] Rx#:[id number] Other: Voiding Method Toilet Toilet Toilet Diaper Diaper Diaper Incontinent Incontinent Incontinent # Voids 2 2 # Bowel Movements 1 1 - Exam - Exam GENERAL: The patient is alert and oriented x1, sitting up in chair, cooperative HEENT: Pupils are round and equally reacting to light. EOMI. No scleral icterus. No conjunctival pallor.atraumatic. No pharyngeal erythema. CARDIOVASCULAR: S1 and S2 present. No murmurs, rubs, or gallops. PULMONARY: Chest is clear to auscultation, no rhonchi, crackles or wheezing. -ABDOMEN: Soft, nontender, nondistended, normoactive bowel sounds. EXTREMITIES: No cyanosis, clubbing, or pedal edema. NEUROLOGICAL: Currently alert and oriented 1-2, SKIN: No rashes. Warm and dry. - Labs CBC & Chem 7: 03/29/20 05:38 03/30/20 06:32 Labs: Abnormal Lab Results - Last 24 Hours (Table) 04/01/20 04/01/20 04/02/20 Range/Units 17:16 20:06 07:00 POC Glucose (mg/dL) 242 H 277 H 194 H (75-99) mg/dL 04/02/20 Range/Units 11:43 POC Glucose (mg/dL) 269 H (75-99) mg/dL Microbiology - Last 24 Hours (Table) 03/27/20 11:12 Blood Culture - Preliminary Blood No Growth after 120 hours Assessment and Plan Assessment: Acute Covid -19 left lower lobe pneumonia Toxic ,metabolic encephalopathy, multifactorial secondary to infection and Steroid psychosis. Covid acute gastroenteritis, resolved Dehydration, resolved Acute on Chronic kidney disease, stage III Diabetes mellitus, with hyperglycemia , hemoglobin A1c 8.1 Hypertension Hyperlipidemia History of coronary artery disease CHronic heart failure History of DVT/PE, not on anticoagulation Hypothyroidism History of arthritis Plan: Continue on current medication regime ,monitoring and symptomatic treatment. Blood sugars improving ,close monitoring of Accu-Cheks. [facility] to reevaluate. Social work assisting discharge planning for subacute rehab. APS and social work possibly petitioning for a public guardian, pending further psychiatric recommendations. Time with Patient: Greater than 30
--- NOTE | 2020-04-03 23:44 | P.PN ---
Subjective Progress Note Date: 04/03/20 Principal diagnosis: Acute COVID-19 pneumonia This is an 79-year-old female admitted with acute left lower lobe covid pneumonia. Maintained on vitamin C, vitamin D, zinc, Decadron, Rocephin. Chest x-ray reporting patchy infiltrate lower lobe and to a lesser extent right perihi lar region. Maintaining O2 sats in the 90s on room air. Complains of nausea, anxiety. No emesis, no diarrhea, no chest pain. Early in the morning Xanax ordered for anxiety .Confusion increased along with agitation, steroids and Xanax discontinued. 03/29/2020 steroids, benzos discontinued yesterday .confusion, psychosis worsened overnight. Patient having hallucinations, combative. Received Haldol during the automatic embroidery machine tender hours. wet end operator at bedside. This morning refusing oral meds, paranoid that people are out to hurt her. Hyperglycemic. Maintaining O2 sats of the 90s on room air. 03/30/2020 maintained on Covid regimen with the exception of Remdesivir as per ID. Maintaining O2 sats in the high 90s on room air. Delirium persist, combative with staff. Refused labs, Accu-Cheks. Psychiatry consult reported patient not competent in making her own decisions at this time. Psychiatry recommendations noted and appreciated-Seroquel adjusted. Hyperglycemic. 03/31/20 significant clinical improvement this morning. Sitting up in chair, cooperative, allowing lab draw and taking morning meds. Continues on Covid regimen. Maintaining O2 sats in the high 90s on room air. Denies chest pain, palpitations or shortness of breath. Afebrile. 04/01/2020 sitting up in chair, remains cooperative with staff, non-combative. Nurse reports yesterday patient was cooperative as well, took her medications. Discusses she is open to go to subacute rehab, requesting [facility]. Denies chest pain, palpitations or shortness of breath. Maintaining O2 sats in the 90s. Good diet intake with no nausea vomiting or diarrhea. Blood sugars trending down this morning. Afebrile. 04/02/2020 Patient is currently sitting in the chair comfortably. Patient is less combative today. Able to take her medications. Denied any chest pain or shortness breath. Currently being continued on antibiotics in the form of azithromycin. Currently on Lovenox subcu daily. Blood sugar is fairly contr olled and also on IV hydration. Patient is poor historian. 04/03/2020 Patient is currently resting in the bed comfortably. Denies any complaints of chest pain or shortness breath. Less combative but still confused. Azithromycin will be discontinued. Continue with Lovenox subcu daily. Gentle I V hydration and follow-up CBC and BMP tomorrow. Tolerating oral diet. Patient has been afebrile. Current medications reviewed. Objective - Vital Signs Vital signs: Vital Signs Temp 97.9 F 04/03/20 11:00 Pulse 68 04/03/20 11:00 Resp 17 04/03/20 11:00 BP 145/77 04/03/20 11:00 Pulse Ox 98 04/03/20 11:00 Intake & Output 04/02/20 04/03/20 04/03/20 18:59 06:59 18:59 Intake Total 360 Balance 360 Intake: Oral 360 Other: Voiding Method Toilet Toilet Toilet Diaper Diaper Diaper Incontinent Incontinent Incontinent # Voids 1 1 # Bowel Movements 1 1 - Exam - Exam GENERAL: The patient is alert and oriented x1, sitting up in chair, cooperative HEENT: Pupils are round and equally reacting to light. EOMI. No scleral icterus. No conjunctival pallor.atraumatic. No pharyngeal erythema. CARDIOVASCULAR: S1 and S2 present. No murmurs, rubs, or gallops. PULMONARY: Chest is clear to auscultation, no rhonchi, crackles or wheezing. -ABDOMEN: Soft, nontender, nondistended, normoactive bowel sounds. EXTREMITIES: No cyanosis, clubbing, or pedal edema. NEUROLOGICAL: Currently alert and oriented 1-2, SKIN: No rashes. Warm and dry. - Labs CBC & Chem 7: 03/29/20 05:38 03/30/20 06:32 Labs: Abnormal Lab Results - Last 24 Hours (Table) 04/02/20 04/02/20 04/03/20 Range/Units 17:16 20:13 07:22 POC Glucose (mg/dL) 218 H 196 H 166 H (75-99) mg/dL 04/03/20 Range/Units 11:14 POC Glucose (mg/dL) 229 H (75-99) mg/dL Microbiology - Last 24 Hours (Table) 03/27/20 11:12 Blood Culture - Final Blood No Growth after 144 hours Assessment and Plan Assessment: Acute Covid -19 left lower lobe pneumonia Toxic ,metabolic encephalopathy, multifactorial secondary to infection and Steroid psychosis. Covid acute gastroenteritis, resolved Dehydration, resolved Acute on Chronic kidney disease, stage III Diabetes mellitus, with hyperglycemia , hemoglobin A1c 8.1 Hypertension Hyperlipidemia History of coronary artery disease CHronic heart failure History of DVT/PE, not on anticoagulation Hypothyroidism History of arthritis Plan: Continue on current medication regime ,monitoring and symptomatic treatment. Blood sugars improving ,close monitoring of Accu-Cheks. [facility] to reevaluate. Social work assisting discharge planning for subacute rehab. APS and social work possibly petitioning for a public guardian, pending further psychiatric recommendations. Time with Patient: Greater than 30
--- NOTE | 2020-04-04 00:48 | CONS ---
CONSULTATION DATE OF SERVICE: 04/03/2020 PURPOSE FOR CONSULTATION: Evaluate for mental status change, agitation, and confusion. INTERVAL HISTORY: Patient has been doing fair. I reviewed her situation with nursing. They note that the patient for the most part was fairly clear in her thoughts yesterday and continued so today. She does have short periods where she will seem to have confusion, though for the most part she communicates appropriately and seems to be aware of her circumstances and situation. She has continued to be quite reluctant about the idea of placement in a sub rehabilitation program. Apparently, she was turned down from one program because of her reluctance to consider going in to a facility. On the other hand, she has significant weakness and had been having falls at home and is not able to return home for issues of safety. When I talked to the patient, she had just woken up from a nap. She made some comments about not wanting to go into a rehab program, though she was not able to give much clarity about her thinking. I noted the factors that made it a medical necessity for her to get rehabilitation prior to going home. She was somewhat accepting of this, though she did not really engage much in the conversation. When I reviewed issues with nursing, they note that she tends to be more awake and responsive around mealtimes so my plan will be to stop by to see her in the morning. At the end of my a brief interview, the patient seemed to be drifting off to sleep again. AYSHA / KENDRA: [id number] /
--- NOTE | 2020-04-04 03:15 | PN ---
PROGRESS NOTE DATE OF SERVICE: 04/03/2020. REASON FOR FOLLOWUP: Possible pneumonia. INTERVAL HISTORY: The patient is currently afebrile. Patient is breathing comfortably. Denies having any chest pain or shortness of breath. Minimal cough. No abdominal pain or diarrhea. PHYSICAL EXAMINATION: Blood pressure is 108/79, pulse of 67, temperature 97.7. She is 99% on room air. General description is an elderly female up in the bed in no distress. RESPIRATORY SYSTEM: Unlabored breathing, with decreased intensity of breath sounds. No wheeze. HEART: S1, S2. Regular rate and rhythm. ABDOMEN: Soft, no tenderness. LABS: No new labs have been obtained today. DIAGNOSTIC IMPRESSION AND PLAN: Patient admitted to the hospital with shortness of breath and cough in this patient diagnosed with COVID-19 infection; however, she did not require any supplemental oxygen and is currently on Lovenox, Zithromax and zinc sulfate to continue and monitor clinical course closely. MMODL / IJN: [id number] /
[2020-04-04] MEDS: LEVOTHYROXINE 50 MCG TAB PO SCH (05:40)
[2020-04-04 06:47] LABS: Basophils # (A) 0.1 k/uL (0-0.2); Basophils % (A) 1 %; Eosinophils # (A) 0.1 k/uL (0-0.7); Eosinophils % (A) 2 %; HCT 36.1 % (34.0-46.0); HGB 12.1 gm/dL (11.4-16.0); Lymphocytes % (A) 12 %; MCH 31.3 pg (25.0-35.0); MCHC 33.7 g/dL (31.0-37.0); Mean Platelet Volume 8.1; Monocytes # (A) 0.7 k/uL (0-1.0); Monocytes % (A) 8 %; Neutrophils # (A) 6.5 k/uL (1.3-7.7); Neutrophils % (A) 76 %; Platelet Count 298 k/uL (150-450); RBC 3.88 m/uL (3.80-5.40); RDW 13.1 % (11.5-15.5); WBC 8.5 k/uL (3.8-10.6)
[2020-04-04 07:14] LABS: Glucose,Whole Blood 280 mg/dL (75-99)
[2020-04-04] MEDS: INSULIN DETEMIR (LEVEMIR) 100 UNIT/ML SYR SQ SCH (07:41)
[2020-04-04] MEDS: INSULIN ASPART (NovoLOG) 100 UNIT/ML VIAL SQ SCH ×4 (07:42→21:13)
[2020-04-04] MEDS: ASPIRIN 81 MG PO SCH ×2 (07:42→07:45)
[2020-04-04] MEDS: FAMOTIDINE 20 MG TAB PO SCH ×2 (07:42→10:13)
[2020-04-04] MEDS: ZINC SULFATE 220 MG CAP PO SCH (07:43)
[2020-04-04] MEDS: QUEtiapine 50 MG TAB PO SCH ×2 (07:44→21:13)
[2020-04-04] MEDS: CARBIDOPA-LEVODOPA 25-100 MG 1 EACH TAB PO SCH ×2 (07:44→21:13)
[2020-04-04] MEDS: ASCORBIC ACID 500 MG TAB PO SCH ×2 (07:44→10:24)
[2020-04-04] MEDS: CHOLECALCIFEROL 1,000 UNIT TAB PO SCH (07:44)
--- NOTE | 2020-04-04 09:53 | XR ---
EXAMINATION TYPE: XR knee complete LT DATE OF EXAM: 04/04/2020 CLINICAL HISTORY: pain TECHNIQUE: Three views of the left knee are obtained. COMPARISON: None. FINDINGS: There is no acute fracture/dislocation. 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 The overlying soft tissue appears unremarkable. IMPRESSION: There is no acute fracture or dislocation ICD 10 NO FRACTURE, INITIAL EVALUATION
[2020-04-04] MEDS: SODIUM CHLORIDE 0.9% 1,000 ML IV SCH ×2 (09:54→19:37)
[2020-04-04] MEDS: ENOXAPARIN 30 MG/0.3 ML SYRINGE SQ SCH (10:14)
[2020-04-04] MEDS: ESCITALOPRAM 10 MG TAB PO SCH (10:15)
[2020-04-04] MEDS: FUROSEMIDE 40 MG TAB PO SCH (10:15)
[2020-04-04] MEDS: amLODIPine 2.5 MG TAB PO SCH ×2 (10:15→10:23)
[2020-04-04 11:01] LABS: African American GFR (CKD) 32.4 (60.0-200.0); Anion Gap 8.6 mmol/L (4.00-12.00); BUN/Creat Ratio 22.35 Ratio (12.00-20.00); Calcium 9.2 mg/dL (8.7-10.3); Carbon Dioxide 22.4 mmol/L (21.6-31.8); Potassium 4.5 mmol/L (3.5-5.5)
[2020-04-04 11:32] LABS: Glucose,Whole Blood 287 mg/dL (75-99)
[2020-04-04] MEDS: AZITHROMYCIN 500 MG TAB PO SCH (13:59)
--- NOTE | 2020-04-04 14:21 | XR ---
EXAMINATION TYPE: XR knee complete RT DATE OF EXAM: 04/04/2020 CLINICAL HISTORY: pain TECHNIQUE: Three views of the right knee are obtained. COMPARISON: None. FINDINGS: There is no acute fracture/dislocation. Total knee arthroplasty changes are seen with femo ral and tibial components appearing well seated. The overlying soft tissue appears unremarkable. IMPRESSION: There is no acute fracture or dislocation.ICD 10 NO FRACTURE, INITIAL EVALUATION
[2020-04-04 17:01] LABS: Glucose,Whole Blood 299 mg/dL (75-99)
[2020-04-04 20:09] LABS: Glucose,Whole Blood 341 mg/dL (75-99)
--- NOTE | 2020-04-04 20:25 | CONS ---
CONSULTATION DATE OF SERVICE: 04/04/2020 PURPOSE FOR CONSULTATION: Evaluate for mental status change, agitation and confusion. INTERVAL HISTORY: The patient has been doing fairly well. Nursing has noted that yesterday and today the patient will have short periods where she seems confused and not fully aware of her situation. This does not seem to last very long, then she gets into fairly clear thinking. She slept well last night. She had been apparently stating to others that she did not want to go to [facility] for rehabilitation. When I talked to the patient today with Nursing, it was noteworthy that the patient was quite conversant. She was very clear in her thoughts and provided quite a few details that were accurate in what is documented in the medical record. She was very clear to me today that she anticipates going into rehabilitation and is not resistant to it at all. She stated that earlier in the year she was having falls and stated she had "59 falls at home." She said she went into [facility] for rehabilitation and was discharged on January 05. She said that since her discharge from [facility] January 05 she had one fall which was January 30; she said that occurred because she sat in a mechanical lounge chair and part of the chair moved on her. It is noted the patient was in quite a good mood today. She smiled. She was quite talkative. She said she had concern about medication she previously was on and said she had a list of medicines in her purse that had previously been prescribed that could put her at risk for falls. I did not look at the list during the interview. The patient's thoughts were clear. She was quite conversant. She did not show any signs of disorientation or confusion. It is noted that she did show a parkinsonian tremor in her hands. ASSESSMENT: I would continue the current diagnosis and general treatment plan. The patient is doing well in her mood and is quite positive about the idea of going to [facility] for rehabilitation. Hopefully she can be transferred as soon as possible. MMODL / RICKEYN: [id number] /
--- NOTE | 2020-04-04 20:36 | P.PN ---
Subjective Progress Note Date: 04/04/20 This is an 79-year-old female admitted with acute left lower lobe covid pneumonia. Maintained on vitamin C, vitamin D, zinc, Decadron, Rocephin. Chest x-ray reporting patchy infiltrate lower lobe and to a lesser extent right perihilar region. Maintaining O2 sats in the 90s on room air. Complains of na usea, anxiety. No emesis, no diarrhea, no chest pain. Early in the morning Xanax ordered for anxiety .Confusion increased along with agitation, steroids and Xanax discontinued. 03/29/2020 steroids, benzos discontinued yesterday .confusion, psychosis worsened overnight. Patient having hallucinations, combative. Received Haldol during the cardiopulmonary specialist hours. puppy sitter at bedside. This morning refusing oral meds, paranoid that people are out to hurt her. Hyperglycemic. Maintaining O2 sats of the 90s on room air. 03/30/2020 maintained on Covid regimen with the exception of Remdesivir as per ID. Maintaining O2 sats in the high 90s on room air. Delirium persist, combative with staff. Refused labs, Accu-Cheks. Psychiatry consult reported patient not competent in making her own decisions at this time. Psychiatry recommendations noted and appreciated-Seroquel adjusted. Hyperglycemic. 03/31/20 significant clinical improvement this morning. Sitting up in chair, cooperative, allowing lab draw and taking morning meds. Continues on Covid regimen. Maintaining O2 sats in the high 90s on room air. Denies chest pain, palpitations or shortness of breath. Afebrile. 04/01/2020 sitting up in chair, remains cooperative with staff, non-combative. Nurse reports yesterday patient was cooperative as well, took her medications. Discusses she is open to go to subacute rehab, requesting [facility]. Denies chest pain, palpitations or shortness of breath. Maintaining O2 sats in the 90s. Good diet intake with no nausea vomiting or diarrhea. Blood sugars trending down this morning. Afebrile. 04/02/2020 Patient is currently sitting in the chair comfortably. Patient is less combative today. Able to take her medications. Denied any chest pain or shortness breath. Currently being continued on antibiotics in the form of azithromycin. Currently on Lovenox subcu daily. Blood sugar is fairly controlled and also on IV hydration. Patient is poor historian. 04/03/2020 Patient is currently resting in the bed comfortably. Denies any complaints of chest pain or shortness breath. Less combative but still confused. Azithromycin will be discontinued. Continue with Lovenox subcu daily. Gentle IV hydration and follow-up CBC and BMP tomorrow. Tolerating oral diet. Patient has been afebrile. 04/04/2020 Pt did slip out of her chair and landed on her knee this morning, she is having a bit of knee pain. She denies any chest pain or shortness of breath. Appetite is improving. She remains disoriented although no longer combative with staff. Pt continues on seroquel 50 mg bid and psychiatry following. She remains incompetent and complex case manager working to establish guardianship. Objective - Vital Signs Vital signs: Vital Signs Temp 97.6 F 04/04/20 17:00 Pulse 70 04/04/20 17:00 Resp 18 04/04/20 17:00 BP 114/76 04/04/20 17:00 Pulse Ox 96 04/04/20 17:00 Intake & Output 04/04/20 04/04/20 04/05/20 06:59 18:59 06:59 Intake Total 590 Balance 590 Intake: Oral 590 Other: Voiding Method Toilet Toilet Diaper Diaper Incontinent Incontinent # Voids 2 - Exam General: well nourished, well developed, NAD. Vitals reviewed Lungs: normal respiratory effort, no wheezes or rales CV: Regular rate and rhythm, no murmur. Peripheral pulses 2+ Abdomen: soft, nondistended, no organomegaly Skin: warm and dry. - Labs CBC & Chem 7: 04/04/20 05:57 04/04/20 05:57 Labs: Abnormal Lab Results - Last 24 Hours (Table) 04/03/20 04/04/20 04/04/20 Range/Units 20:48 05:57 07:12 Sodium 131 L (135-145) mmol/L BUN 38.0 H (9.0-27.0) mg/dL Creatinine 1.7 H (0.6-1.5) mg/dL Est GFR (CKD-EPI)AfAm 32.4 L (60.0-200.0) Est GFR (CKD-EPI)NonAf 28.0 L (60.0-200.0) BUN/Creatinine Ratio 22.35 H (12.00-20.00) Ratio Glucose 250 H (70-110) mg/dL POC Glucose (mg/dL) 257 H 280 H (75-99) mg/dL 04/04/20 04/04/20 04/04/20 Range/Units 11:30 17:00 19:46 Sodium (135-145) mmol/L BUN (9.0-27.0) mg/dL Creatinine (0.6-1.5) mg/dL Est GFR (CKD-EPI)AfAm (60.0-200.0) Est GFR (CKD-EPI)NonAf (60.0-200.0) BUN/Creatinine Ratio (12.00-20.00) Ratio Glucose (70-110) mg/dL POC Glucose (mg/dL) 287 H 299 H 341 H (75-99) mg/dL Assessment and Plan Plan: Stop IV fluids and reduce lasix to 20 mg daily. Continue seroquel bid. Continue lovenox while inpatient and will switch to ASA on discharge. Continue vit C for now. She remains medically stable for discharge and awaiting legal disposition
[2020-04-04] MEDS: ATORVASTATIN 40 MG TAB PO SCH (21:13)
--- NOTE | 2020-04-04 23:24 | PN ---
PROGRESS NOTE DATE OF SERVICE: 04/04/2020 REASON FOR FOLLOWUP: Pneumonia. INTERVAL HISTORY: The patient is currently afebrile. The patient is breathing comfortably on room air. Denies having any chest pain. Occasional cough. No abdominal pain or diarrhea. PHYSICAL EXAMINATION: Blood pressure 146/81 with a pulse of 66. Temperature 97.7. She is 97% on room air. General description is an elderly female up in bed in no distress. RESPIRATORY SYSTEM: Unlabored breathing with decreased intensity of breath sounds. No wheeze. HEART: S1, S2. Regular rate and rhythm. ABDOMEN: Soft. No tenderness. LABS: Hemoglobin is 12.1, white count 8.5. Creatinine is slightly up at 1.7. DIAGNOSTIC IMPRESSION AND PLAN: Patient admitted to hospital with shortness of breath and a cough with concern for pneumonia. She did have positive COVID testing. Currently on Lovenox, zinc, and has completed her Zithromax therapy. Continue with supportive care. MMODL / IJN: [id number] / LIOR
[2020-04-05] MEDS: LEVOTHYROXINE 50 MCG TAB PO SCH (06:00)
[2020-04-05 07:17] LABS: Glucose,Whole Blood 124 mg/dL (75-99)
[2020-04-05] MEDS: INSULIN ASPART (NovoLOG) 100 UNIT/ML VIAL SQ SCH ×4 (07:41→20:54)
[2020-04-05] MEDS: INSULIN DETEMIR (LEVEMIR) 100 UNIT/ML SYR SQ SCH (07:53)
[2020-04-05] MEDS: FUROSEMIDE 40 MG TAB PO SCH (07:53)
[2020-04-05] MEDS: ASPIRIN 81 MG PO SCH (07:53)
[2020-04-05] MEDS: ASCORBIC ACID 500 MG TAB PO SCH (07:53)
[2020-04-05] MEDS: FAMOTIDINE 20 MG TAB PO SCH (07:54)
[2020-04-05] MEDS: ZINC SULFATE 220 MG CAP PO SCH (07:54)
[2020-04-05] MEDS: CHOLECALCIFEROL 1,000 UNIT TAB PO SCH (07:54)
[2020-04-05] MEDS: CARBIDOPA-LEVODOPA 25-100 MG 1 EACH TAB PO SCH ×2 (10:18→20:54)
[2020-04-05] MEDS: amLODIPine 2.5 MG TAB PO SCH (10:18)
[2020-04-05] MEDS: QUEtiapine 50 MG TAB PO SCH ×2 (10:18→20:54)
[2020-04-05] MEDS: ENOXAPARIN 30 MG/0.3 ML SYRINGE SQ SCH (10:18)
[2020-04-05] MEDS: ESCITALOPRAM 10 MG TAB PO SCH (10:18)
[2020-04-05 12:24] LABS: Glucose,Whole Blood 173 mg/dL (75-99)
[2020-04-05 17:12] LABS: Glucose,Whole Blood 205 mg/dL (75-99)
[2020-04-05 19:55] LABS: Glucose,Whole Blood 200 mg/dL (75-99)
--- NOTE | 2020-04-05 20:44 | P.PN ---
Subjective Progress Note Date: 04/05/20 This is an 79-year-old female admitted with acute left lower lobe covid pneumonia. Maintained on vitamin C, vitamin D, zinc, Decadron, Rocephin. Chest x-ray reporting patchy infiltrate lower lobe and to a lesser extent right perihilar region. Maintaining O2 sats in the 90s on room air. Complains of na usea, anxiety. No emesis, no diarrhea, no chest pain. Early in the morning Xanax ordered for anxiety .Confusion increased along with agitation, steroids and Xanax discontinued. 03/29/2020 steroids, benzos discontinued yesterday .confusion, psychosis worsened overnight. Patient having hallucinations, combative. Received Haldol during the solar pool heating installer hours. flake cutter operator at bedside. This morning refusing oral meds, paranoid that people are out to hurt her. Hyperglycemic. Maintaining O2 sats of the 90s on room air. 03/30/2020 maintained on Covid regimen with the exception of Remdesivir as per ID. Maintaining O2 sats in the high 90s on room air. Delirium persist, combative with staff. Refused labs, Accu-Cheks. Psychiatry consult reported patient not competent in making her own decisions at this time. Psychiatry recommendations noted and appreciated-Seroquel adjusted. Hyperglycemic. 03/31/20 significant clinical improvement this morning. Sitting up in chair, cooperative, allowing lab draw and taking morning meds. Continues on Covid regimen. Maintaining O2 sats in the high 90s on room air. Denies chest pain, palpitations or shortness of breath. Afebrile. 04/01/2020 sitting up in chair, remains cooperative with staff, non-combative. Nurse reports yesterday patient was cooperative as well, took her medications. Discusses she is open to go to subacute rehab, requesting [facility]. Denies chest pain, palpitations or shortness of breath. Maintaining O2 sats in the 90s. Good diet intake with no nausea vomiting or diarrhea. Blood sugars trending down this morning. Afebrile. 04/02/2020 Patient is currently sitting in the chair comfortably. Patient is less combative today. Able to take her medications. Denied any chest pain or shortness breath. Currently being continued on antibiotics in the form of azithromycin. Currently on Lovenox subcu daily. Blood sugar is fairly controlled and also on IV hydration. Patient is poor historian. 04/03/2020 Patient is currently resting in the bed comfortably. Denies any complaints of chest pain or shortness breath. Less combative but still confused. Azithromycin will be discontinued. Continue with Lovenox subcu daily. Gentle IV hydration and follow-up CBC and BMP tomorrow. Tolerating oral diet. Patient has been afebrile. 04/04/2020 Pt did slip out of her chair and landed on her knee this morning, she is having a bit of knee pain. She denies any chest pain or shortness of breath. Appetite is improving. She remains disoriented although no longer combative with staff. Pt continues on seroquel 50 mg bid and psychiatry following. She remains incompetent and pillowcase cutter working to establish guardianship. 04/05/2020 She is feeling well today, no chest pain or shortness of breath. technical sales support manager continues to await legal guardianship. Objective - Vital Signs Vital signs: Vital Signs Temp 98.7 F 04/05/20 17:00 Pulse 76 04/05/20 19:56 Resp 24 04/05/20 19:56 BP 124/50 04/05/20 17:00 Pulse Ox 93 L 04/05/20 17:00 Intake & Output 04/05/20 04/05/20 04/06/20 06:59 18:59 06:59 Intake Total 500 Output Total 1780 Balance 500 -1780 Intake: Oral 500 Output: Urine 600 Post Void Residual 580 Other 600 Other: Voiding Method Toilet Toilet Toilet Diaper Diaper Diaper Incontinent Incontinent Incontinent # Voids 1 0 # Bowel Movements 0 - Exam General: well nourished, well developed, NAD. Vitals reviewed Lungs: normal respiratory effort, no wheezes or rales CV: Regular rate and rhythm, no murmur. Peripheral pulses 2+ Abdomen: soft, nondistended, no organomegaly Skin: warm and dry. - Labs CBC & Chem 7: 04/04/20 05:57 04/04/20 05:57 Labs: Abnormal Lab Results - Last 24 Hours (Table) 04/05/20 04/05/20 04/05/20 Range/Units 07:16 12: 17:10 POC Glucose (mg/dL) 124 H 173 H 205 H (75-99) mg/dL 04/05/20 Range/Units 19:54 POC Glucose (mg/dL) 200 H (75-99) mg/dL Assessment and Plan Plan: Continue lasix 20 mg daily. Continue seroquel bid. Continue lovenox while inpatient and will switch to ASA on discharge. Continue vit C for now. She remains medically stable for discharge and awaiting legal disposition
[2020-04-05] MEDS: ATORVASTATIN 40 MG TAB PO SCH (20:54)
--- NOTE | 2020-04-05 23:23 | PN ---
PROGRESS NOTE DATE OF SERVICE: 04/05/2020 REASON FOR FOLLOWUP: Pneumonia. INTERVAL HISTORY: Patient is currently afebrile. Patient is breathing comfortably currently on room air. Denies having any chest pain. No shortness of breath or cough. No nausea, vomiting, abdominal pain or diarrhea. The patient says she is feeling better and wants to go home. PHYSICAL EXAMINATION: Her blood pressure 104/50 with a pulse of 76, temperature 98.7. She is 93% on room air. General description: The patient is an elderly female up in the chair in no distress. Respiratory system: Unlabored breathing with decreased breath sounds in the base, with no wheeze. Heart S1, S2. Regular rate and rhythm. ABDOMEN: Soft. No tenderness. LABS: No new labs have been obtained today. DIAGNOSTIC IMPRESSION AND PLAN: Patient admitted to the hospital with pneumonia, did have positive Covid testing. Patient had never been hypoxic and no fever. Did finish treatment with Zithromax, currently being monitored closely off antibiotic therapy. Continue supportive care. MMODL / IJN: [id number] /
[2020-04-06] MEDS: LEVOTHYROXINE 50 MCG TAB PO SCH (05:52)
[2020-04-06 07:24] LABS: Glucose,Whole Blood 147 mg/dL (75-99)
[2020-04-06] MEDS: INSULIN DETEMIR (LEVEMIR) 100 UNIT/ML SYR SQ SCH (09:37)
[2020-04-06] MEDS: INSULIN ASPART (NovoLOG) 100 UNIT/ML VIAL SQ SCH ×4 (09:37→21:15)
[2020-04-06] MEDS: ENOXAPARIN 30 MG/0.3 ML SYRINGE SQ SCH (09:39)
[2020-04-06] MEDS: CHOLECALCIFEROL 1,000 UNIT TAB PO SCH (09:40)
[2020-04-06] MEDS: ASCORBIC ACID 500 MG TAB PO SCH (09:40)
[2020-04-06] MEDS: ASPIRIN 81 MG PO SCH (09:40)
[2020-04-06] MEDS: FAMOTIDINE 20 MG TAB PO SCH (09:40)
[2020-04-06] MEDS: CARBIDOPA-LEVODOPA 25-100 MG 1 EACH TAB PO SCH ×2 (09:40→19:34)
[2020-04-06] MEDS: amLODIPine 2.5 MG TAB PO SCH (09:41)
[2020-04-06] MEDS: ZINC SULFATE 220 MG CAP PO SCH (09:41)
[2020-04-06] MEDS: QUEtiapine 50 MG TAB PO SCH ×2 (09:41→19:33)
[2020-04-06] MEDS: ESCITALOPRAM 10 MG TAB PO SCH (09:41)
[2020-04-06] MEDS: FUROSEMIDE 20 MG TAB PO SCH (09:41)
[2020-04-06 11:38] LABS: Glucose,Whole Blood 177 mg/dL (75-99)
[2020-04-06 16:55] LABS: Glucose,Whole Blood 190 mg/dL (75-99)
[2020-04-06] MEDS: ATORVASTATIN 40 MG TAB PO SCH (19:34)
[2020-04-06 20:14] LABS: Glucose,Whole Blood 194 mg/dL (75-99)
--- NOTE | 2020-04-06 20:55 | P.PN ---
Subjective Progress Note Date: 04/06/20 This is an 79-year-old female admitted with acute left lower lobe covid pneumonia. Maintained on vitamin C, vitamin D, zinc, Decadron, Rocephin. Chest x-ray reporting patchy infiltrate lower lobe and to a lesser extent right perihilar region. Maintaining O2 sats in the 90s on room air. Complains of na usea, anxiety. No emesis, no diarrhea, no chest pain. Early in the morning Xanax ordered for anxiety .Confusion increased along with agitation, steroids and Xanax discontinued. 03/29/2020 steroids, benzos discontinued yesterday .confusion, psychosis worsened overnight. Patient having hallucinations, combative. Received Haldol during the fur feeder hours. wardrobe attendant at bedside. This morning refusing oral meds, paranoid that people are out to hurt her. Hyperglycemic. Maintaining O2 sats of the 90s on room air. 03/30/2020 maintained on Covid regimen with the exception of Remdesivir as per ID. Maintaining O2 sats in the high 90s on room air. Delirium persist, combative with staff. Refused labs, Accu-Cheks. Psychiatry consult reported patient not competent in making her own decisions at this time. Psychiatry recommendations noted and appreciated-Seroquel adjusted. Hyperglycemic. 03/31/20 significant clinical improvement this morning. Sitting up in chair, cooperative, allowing lab draw and taking morning meds. Continues on Covid regimen. Maintaining O2 sats in the high 90s on room air. Denies chest pain, palpitations or shortness of breath. Afebrile. 04/01/2020 sitting up in chair, remains cooperative with staff, non-combative. Nurse reports yesterday patient was cooperative as well, took her medications. Discusses she is open to go to subacute rehab, requesting [facility]. Denies chest pain, palpitations or shortness of breath. Maintaining O2 sats in the 90s. Good diet intake with no nausea vomiting or diarrhea. Blood sugars trending down this morning. Afebrile. 04/02/2020 Patient is currently sitting in the chair comfortably. Patient is less combative today. Able to take her medications. Denied any chest pain or shortness breath. Currently being continued on antibiotics in the form of azithromycin. Currently on Lovenox subcu daily. Blood sugar is fairly controlled and also on IV hydration. Patient is poor historian. 04/03/2020 Patient is currently resting in the bed comfortably. Denies any complaints of chest pain or shortness breath. Less combative but still confused. Azithromycin will be discontinued. Continue with Lovenox subcu daily. Gentle IV hydration and follow-up CBC and BMP tomorrow. Tolerating oral diet. Patient has been afebrile. 04/04/2020 Pt did slip out of her chair and landed on her knee this morning, she is having a bit of knee pain. She denies any chest pain or shortness of breath. Appetite is improving. She remains disoriented although no longer combative with staff. Pt continues on seroquel 50 mg bid and psychiatry following. She remains incompetent and supportive employment case manager working to establish guardianship. 04/05/2020 She is feeling well today, no chest pain or shortness of breath. strategic procurement manager continues to await legal guardianship. 04/06/2020 Pt denies chest pain, congestion, shortness of breath or cough. She is not combative today, resting in bed and eager to leave the hospital. Objective - Vital Signs Vital signs: Vital Signs Temp 97.8 F 04/06/20 17:00 Pulse 75 04/06/20 17:00 Resp 17 04/06/20 17:00 BP 155/77 04/06/20 17:00 Pulse Ox 98 04/06/20 17:00 Intake & Output 04/06/20 04/06/20 04/07/20 06:59 18:59 06:59 Other: Voiding Method Toilet Toilet Diaper Diaper Incontinent Incontinent # Voids 2 4 # Bowel Movements 0 - Exam General: well nourished, well developed, NAD. Vitals reviewed Lungs: normal respiratory effort, no wheezes or rales CV: Regular rate and rhythm, no murmur. Peripheral pulses 2+ Abdomen: soft, nondistended, no organomegaly Skin: warm and dry. - Labs CBC & Chem 7: 04/04/20 05:57 04/04/20 05:57 Labs: Abnormal Lab Results - Last 24 Hours (Table) 04/06/20 04/06/20 04/06/20 Range/Units 07:23 11:35 16:54 POC Glucose (mg/dL) 147 H 177 H 190 H (75-99) mg/dL 04/06/20 Range/Units 20:08 POC Glucose (mg/dL) 194 H (75-99) mg/dL Assessment and Plan Plan: Continue lasix 20 mg daily. Continue seroquel bid. Continue lovenox while inpatient and will switch to ASA on discharge. Continue vit C for now. She remains medically stable for discharge and awaiting legal disposition
[2020-04-07] MEDS: LEVOTHYROXINE 50 MCG TAB PO SCH (05:32)
[2020-04-07] MEDS: INSULIN ASPART (NovoLOG) 100 UNIT/ML VIAL SQ SCH ×4 (08:35→21:07)
[2020-04-07] MEDS: ASCORBIC ACID 500 MG TAB PO SCH (08:38)
[2020-04-07] MEDS: ASPIRIN 81 MG PO SCH (08:38)
[2020-04-07] MEDS: ZINC SULFATE 220 MG CAP PO SCH (08:38)
[2020-04-07] MEDS: ESCITALOPRAM 10 MG TAB PO SCH (08:38)
[2020-04-07] MEDS: FUROSEMIDE 20 MG TAB PO SCH (08:38)
[2020-04-07] MEDS: QUEtiapine 50 MG TAB PO SCH ×2 (08:38→21:07)
[2020-04-07] MEDS: amLODIPine 2.5 MG TAB PO SCH (08:38)
[2020-04-07] MEDS: CARBIDOPA-LEVODOPA 25-100 MG 1 EACH TAB PO SCH ×2 (08:38→21:07)
[2020-04-07] MEDS: FAMOTIDINE 20 MG TAB PO SCH (08:39)
[2020-04-07] MEDS: CHOLECALCIFEROL 1,000 UNIT TAB PO SCH (08:39)
[2020-04-07] MEDS: ENOXAPARIN 30 MG/0.3 ML SYRINGE SQ SCH (08:39)
[2020-04-07] MEDS: INSULIN DETEMIR (LEVEMIR) 100 UNIT/ML SYR SQ SCH ×2 (10:41→10:48)
[2020-04-07] MEDS: ACETAMINOPHEN TAB 500 MG TAB PO PRN (11:40)
--- NOTE | 2020-04-07 19:57 | P.PN ---
Subjective On-call hospitalist covering Dr. Swartz over the holiday. This is a pleasant 79 years old female with multiple medical problems including history of coronary artery disease, heart failure, diabetes mellitus, hyperlipidemia, hypertension, history of DVT and pulmonary embolism, not on anticoagulation and reviewing her home medication. Hypothyroidism, arthritis, Parkinson disease, chronic kidney disease stage III. History of C. diff. She has recent stress test which was negative on 05/22/19, echocardiogram: EF 55- 60%. She presents because of generalized weakness and diarrhea. When asked patient she was complaining of from fever and headache at home with, and call symptoms like sneezing, she has been having with some phlegm, she also complained from heaviness and breathing however she was noted to be mildly tachypneic at 18-22. her oxygen saturation was 98% on room air. Also patient complaining of from loose stool and some mild abdominal pain and tenderness with no rebound tenderness, her pain M. Umbilical on the left side, abdomen soft with positive bowel sounds. Also patient has some vomiting Also patient has not limited to care for her at home so she might need placement, one caregiver went to her home was noted it was healthy and stool on the ground Vitas looks stable. Labs including CBC, INR, BMP and liver enzymes and troponin were unremarkable. Her creatinine is filthy elevated at 1.1 which is baseline, GFR is 44. Glucose is elevated. Covid test came back to detected and positive. EKG showing junctional ST depression probably abnormal. Chest x-ray showing mild left lower lobe infiltrate In the emergency room she was started on Zithromax and ceftriaxone and normal saline bolus of 1 L. 04/07/2020 This is a pleasant 79 years old female was admitted with signs symptoms of Covid infection, however her symptoms are controlled now and she denies any respiratory or GI symptoms. Patient has been medically stable since 04/04 pending placement also patient is undergoing process of obtaining legal guardianship decided by her primary care team , Patient has been evaluated by psychiatrist and social science professor's last rehabilitation case coordinator involved and alternatives were reviewed This morning patient was refusing to eat and taken medication, when I went to see the patient she was lying calm in bed, she denies any specific symptoms, no chest pain or dyspnea or abdominal pain, no vomiting, no urinary or change in her bowel habits. No fever. I got the patient to take her medication and she agrees Since the patient did not eat today we gave her Levemir 10 units state of the schedule 35 units. Sugar is controlled Objective - Vital Signs Vital signs: Vital Signs Temp 97.2 F L 04/07/20 10:52 Pulse 78 04/07/20 10:52 Resp 17 04/07/20 10:52 BP 163/80 04/07/20 10:52 Pulse Ox 98 04/07/20 10:52 Intake & Output 04/06/20 04/07/20 04/07/20 18:59 06:59 18:59 Other: Voiding Method Toilet Toilet Toilet Diaper Diaper Diaper Incontinent Incontinent Incontinent # Voids 4 1 - Exam GENERAL: The patient is alert and oriented x3, not in any acute distress. Well developed, well nourished. HEENT: Pupils are round and equally reacting to light. EOMI. No scleral icterus. No conjunctival pallor. Normocephalic, atraumatic. No pharyngeal erythema. No thyromegaly. CARDIOVASCULAR: S1 and S2 present. No murmurs, rubs, or gallops. PULMONARY: Chest is clear to auscultation, no wheezing or crackles. ABDOMEN: Soft, nontender, nondistended, normoactive bowel sounds. No palpable or ganomegaly. MUSCULOSKELETAL: No joint swelling or deformity. EXTREMITIES: No cyanosis, clubbing, or pedal edema. NEUROLOGICAL: Gross neurological examination did not reveal any focal deficits. SKIN: No rashes. no petechiae. - Labs CBC & Chem 7: 04/04/20 05:57 04/04/20 05:57 Labs: Abnormal Lab Results - Last 24 Hours (Table) 04/06/20 04/06/20 Range/Units 16:54 20:08 POC Glucose (mg/dL) 190 H 194 H (75-99) mg/dL Assessment and Plan Assessment: Acute Covid infection with left lower lobe pneumonia, resolved Covid acute gastroenteritis, resolved Dehydration, resolved Chronic kidney disease, stage III Diabetes mellitus, with hyperglycemia Hypertension Hyperlipidemia History of coronary artery disease Tonic heart failure History of DVT/PE, not on anticoagulation Hypothyroidism History of arthritis Plan: this is a pleasant 79 years old female who presents with Covid infection, pneumonia, deconditioning. Patient finished her therapy. Patient currently is medically stable pending placement. Also patient is undergoing legal g uardianship decided by her PCP and psychiatrist evaluated the patient Labs and medication were reviewed.. Continue same treatment. Continue with symptomatic treatment. Resume home medication. Monitor lytes and vitals. DVT and GI prophylaxis. Further recommendations depends on the clinical course of the patient DVT prophylaxis: SubcutaneouLovenox GI Prophylaxis: Pepcid PT/OT: Pending Prognosis is guarded Dr. Swartz will resume the care of the patient on Wednesday 04/11
[2020-04-07] MEDS: ATORVASTATIN 40 MG TAB PO SCH (21:07)
[2020-04-08] MEDS: LEVOTHYROXINE 50 MCG TAB PO SCH (05:23)
[2020-04-08] MEDS: ENOXAPARIN 30 MG/0.3 ML SYRINGE SQ SCH (08:18)
[2020-04-08] MEDS: INSULIN ASPART (NovoLOG) 100 UNIT/ML VIAL SQ SCH ×5 (08:18→21:29)
[2020-04-08] MEDS: INSULIN DETEMIR (LEVEMIR) 100 UNIT/ML SYR SQ SCH (08:18)
[2020-04-08] MEDS: QUEtiapine 50 MG TAB PO SCH ×2 (08:18→21:29)
[2020-04-08] MEDS: CHOLECALCIFEROL 1,000 UNIT TAB PO SCH (08:19)
[2020-04-08] MEDS: FAMOTIDINE 20 MG TAB PO SCH (08:19)
[2020-04-08] MEDS: ZINC SULFATE 220 MG CAP PO SCH (08:19)
[2020-04-08] MEDS: ESCITALOPRAM 10 MG TAB PO SCH (08:19)
[2020-04-08] MEDS: CARBIDOPA-LEVODOPA 25-100 MG 1 EACH TAB PO SCH ×2 (08:19→21:29)
[2020-04-08] MEDS: ASPIRIN 81 MG PO SCH (08:19)
[2020-04-08] MEDS: FUROSEMIDE 20 MG TAB PO SCH (08:19)
[2020-04-08] MEDS: amLODIPine 2.5 MG TAB PO SCH (08:19)
[2020-04-08] MEDS: ASCORBIC ACID 500 MG TAB PO SCH (08:19)
--- NOTE | 2020-04-08 13:24 | P.PN ---
Subjective On-call hospitalist covering Dr. Swartz over the holiday. This is a pleasant 79 years old female with multiple medical problems including history of coronary artery disease, heart failure, diabetes mellitus, hyperlipidemia, hypertension, history of DVT and pulmonary embolism, not on anticoagulation and reviewing her home medication. Hypothyroidism, arthritis, Parkinson disease, chronic kidney disease stage III. History of C. diff. She has recent stress test which was negative on 05/22/19, echocardiogram: EF 55- 60%. She presents because of generalized weakness and diarrhea. When asked patient she was complaining of from fever and headache at home with, and call symptoms like sneezing, she has been having with some phlegm, she also complained from heaviness and breathing however she was noted to be mildly tachypneic at 18-22. her oxygen saturation was 98% on room air. Also patient complaining of from loose stool and some mild abdominal pain and tenderness with no rebound tenderness, her pain M. Umbilical on the left side, abdomen soft with positive bowel sounds. Also patient has some vomiting Also patient has not limited to care for her at home so she might need placement, one caregiver went to her home was noted it was healthy and stool on the ground Vitas looks stable. Labs including CBC, INR, BMP and liver enzymes and troponin were unremarkable. Her creatinine is filthy elevated at 1.1 which is baseline, GFR is 44. Glucose is elevated. Covid test came back to detected and positive. EKG showing junctional ST depression probably abnormal. Chest x-ray showing mild left lower lobe infiltrate In the emergency room she was started on Zithromax and ceftriaxone and normal saline bolus of 1 L. 04/07/2020 This is a pleasant 79 years old female was admitted with signs symptoms of Covid infection, however her symptoms are controlled now and she denies any respiratory or GI symptoms. Patient has been medically stable since 04/04 pending placement also patient is undergoing process of obtaining legal guardianship decided by her primary care team , Patient has been evaluated by psychiatrist and health social work professor's last piano case maker involved and alternatives were reviewed This morning patient was refusing to eat and taken medication, when I went to see the patient she was lying calm in bed, she denies any specific symptoms, no chest pain or dyspnea or abdominal pain, no vomiting, no urinary or change in her bowel habits. No fever. I got the patient to take her medication and she agrees Since the patient did not eat today we gave her Levemir 10 units state of the schedule 35 units. Sugar is controlled 04/08/2020 Patient is awakened, sitting on the chair. She denies any specific complaints. She ate her meal today and took her medication Sometimes we are both change. But she has a logic conversation with me. Sugar control. Pending placement Objective - Vital Signs Vital signs: Vital Signs Temp 98 F 04/08/20 11:00 Pulse 70 04/08/20 11:00 Resp 20 04/08/20 11:00 BP 109/74 04/08/20 11:00 Pulse Ox 100 04/08/20 11:00 Intake & Output 04/07/20 04/08/20 04/08/20 18:59 06:59 18:59 Intake Total 240 Balance 240 Intake: Oral 240 Other: Voiding Method Toilet Toilet Toilet Diaper Diaper Diaper Incontinent Incontinent Incontinent # Voids 3 2 - Exam GENERAL: The patient is alert and oriented x3, not in any acute distress. Well developed, well nourished. HEENT: Pupils are round and equally reacting to light. EOMI. No scleral icterus. No conjunctival pallor. Normocephalic, atraumatic. No pharyngeal erythema. No thyromegaly. CARDIOVASCULAR: S1 and S2 present. No murmurs, rubs, or gallops. PULMONARY: Chest is clear to auscultation, no wheezing or crackles. ABDOMEN: Soft, nontender, nondistended, normoactive bowel sounds. No palpable organomegaly. MUSCULOSKELETAL: No joint swelling or deformity. EXTREMITIES: No cyanosis, clubbing, or pedal edema. NEUROLOGICAL: Gross neurological examination did not reveal any focal deficits. SKIN: No rashes. no petechiae. - Labs CBC & Chem 7: 04/04/20 05:57 04/04/20 05:57 Assessment and Plan Assessment: Acute Covid infection with left lower lobe pneumonia, resolved Covid acute gastroenteritis, resolved Dehydration, resolved Chronic kidney disease, stage III Diabetes mellitus, with hyperglycemia Hypertension Hyperlipidemia History of coronary artery disease Tonic heart failure History of DVT/PE, not on anticoagulation Hypothyroidism History of arthritis Plan: this is a pleasant 79 years old female who presents with Covid infection, pneumonia, deconditioning. Patient finished her therapy. Patient currently is medically stable pending placement. Also patient is undergoing legal guardianship decided by her PCP and psychiatrist evaluated the patient Labs and medication were reviewed.. Continue same treatment. Continue with symptomatic treatment. Resume home medication. Monitor lytes and vitals. DVT and GI prophylaxis. Further recommendations depends on the clinical course of the patient DVT prophylaxis: SubcutaneouLovenox GI Prophylaxis: Pepcid PT/OT: Pending Prognosis is guarded Dr. Swartz will resume the care of the patient on Wednesday 04/11
[2020-04-08] MEDS: ATORVASTATIN 40 MG TAB PO SCH (21:29)
[2020-04-09] MEDS: LEVOTHYROXINE 50 MCG TAB PO SCH (05:33)
[2020-04-09] MEDS: INSULIN ASPART (NovoLOG) 100 UNIT/ML VIAL SQ SCH ×4 (07:52→20:36)
[2020-04-09] MEDS: INSULIN DETEMIR (LEVEMIR) 100 UNIT/ML SYR SQ SCH (07:52)
[2020-04-09] MEDS: ENOXAPARIN 30 MG/0.3 ML SYRINGE SQ SCH (07:53)
[2020-04-09] MEDS: FAMOTIDINE 20 MG TAB PO SCH (07:54)
[2020-04-09] MEDS: CHOLECALCIFEROL 1,000 UNIT TAB PO SCH (07:54)
[2020-04-09] MEDS: ZINC SULFATE 220 MG CAP PO SCH (07:54)
[2020-04-09] MEDS: CARBIDOPA-LEVODOPA 25-100 MG 1 EACH TAB PO SCH ×2 (07:54→20:36)
[2020-04-09] MEDS: FUROSEMIDE 20 MG TAB PO SCH (07:54)
[2020-04-09] MEDS: ASPIRIN 81 MG PO SCH (07:54)
[2020-04-09] MEDS: ASCORBIC ACID 500 MG TAB PO SCH (07:55)
[2020-04-09] MEDS: QUEtiapine 50 MG TAB PO SCH ×2 (07:55→20:37)
[2020-04-09] MEDS: amLODIPine 2.5 MG TAB PO SCH (07:55)
[2020-04-09] MEDS: ESCITALOPRAM 10 MG TAB PO SCH (07:55)
[2020-04-09 11:57] LABS: African American GFR (CKD) 30.3 (60.0-200.0); Anion Gap 7.9 mmol/L (4.00-12.00); BUN/Creat Ratio 15.56 Ratio (12.00-20.00); Calcium 8.8 mg/dL (8.7-10.3); Carbon Dioxide 28.1 mmol/L (21.6-31.8); Non-African American GFR(CKD) 26.1 (60.0-200.0); Potassium 4.2 mmol/L (3.5-5.5)
--- NOTE | 2020-04-09 12:18 | P.PN ---
Subjective On-call hospitalist covering Dr. Swartz over the holiday. This is a pleasant 79 years old female with multiple medical problems including history of coronary artery disease, heart failure, diabetes mellitus, hyperlipidemia, hypertension, history of DVT and pulmonary embolism, not on anticoagulation and reviewing her home medication. Hypothyroidism, arthritis, Parkinson disease, chronic kidney disease stage III. History of C. diff. She has recent stress test which was negative on 05/22/19, echocardiogram: EF 55- 60%. She presents because of generalized weakness and diarrhea. When asked patient she was complaining of from fever and headache at home with, and call symptoms like sneezing, she has been having with some phlegm, she also complained from heaviness and breathing however she was noted to be mildly tachypneic at 18-22. her oxygen saturation was 98% on room air. Also patient complaining of from loose stool and some mild abdominal pain and tenderness with no rebound tenderness, her pain M. Umbilical on the left side, abdomen soft with positive bowel sounds. Also patient has some vomiting Also patient has not limited to care for her at home so she might need placement, one caregiver went to her home was noted it was healthy and stool on the ground Vitas looks stable. Labs including CBC, INR, BMP and liver enzymes and troponin were unremarkable. Her creatinine is filthy elevated at 1.1 which is baseline, GFR is 44. Glucose is elevated. Covid test came back to detected and positive. EKG showing junctional ST depression probably abnormal. Chest x-ray showing mild left lower lobe infiltrate In the emergency room she was started on Zithromax and ceftriaxone and normal saline bolus of 1 L. 04/07/2020 This is a pleasant 79 years old female was admitted with signs symptoms of Covid infection, however her symptoms are controlled now and she denies any respiratory or GI symptoms. Patient has been medically stable since 04/04 pending placement also patient is undergoing process of obtaining legal guardianship decided by her primary care team , Patient has been evaluated by psychiatrist and medical social consultant's last director case management involved and alternatives were reviewed This morning patient was refusing to eat and taken medication, when I went to see the patient she was lying calm in bed, she denies any specific symptoms, no chest pain or dyspnea or abdominal pain, no vomiting, no urinary or change in her bowel habits. No fever. I got the patient to take her medication and she agrees Since the patient did not eat today we gave her Levemir 10 units state of the schedule 35 units. Sugar is controlled 04/08/2020 Patient is awakened, sitting on the chair. She denies any specific complaints. She ate her meal today and took her medication Sometimes we are both change. But she has a logic conversation with me. Sugar control. Pending placement 04/09/2020 Patient is awake and alert today. She is a little paranoid however is a pleasant. She states she ate her breakfast. No other new complaints. Hemodynamically stable. Her creatinine is slightly up today at 1.8 although she has chronic kidney d isease but there is some acute worsening so we will start patient on some IV fluids Objective - Vital Signs Vital signs: Vital Signs Temp 98.1 F 04/09/20 05:00 Pulse 63 04/09/20 05:00 Resp 20 04/09/20 05:00 BP 120/72 04/09/20 05:00 Pulse Ox 98 04/09/20 05:00 Intake & Output 04/08/20 04/09/20 04/09/20 18:59 06:59 18:59 Intake Total 200 Balance 200 Intake: Oral 200 Other: Voiding Method Toilet Toilet Toilet Diaper Diaper Diaper Incontinent Incontinent Incontinent # Voids 1 1 - Exam GENERAL: The patient is alert and oriented x3, not in any acute distress. Well developed, well nourished. HEENT: Pupils are round and equally reacting to light. EOMI. No scleral icterus. No conjunctival pallor. Normocephalic, atraumatic. No pharyngeal erythema. No thyromegaly. CARDIOVASCULAR: S1 and S2 present. No murmurs, rubs, or gallops. PULMONARY: Chest is clear to auscultation, no wheezing or crackles. ABDOMEN: Soft, nontender, nondistended, normoactive bowel sounds. No palpable organomegaly. MUSCULOSKELETAL: No joint swelling or deformity. EXTREMITIES: No cyanosis, clubbing, or pedal edema. NEUROLOGICAL: Gross neurological examination did not reveal any focal deficits. SKIN: No rashes. no petechiae. - Labs CBC & Chem 7: 04/04/20 05:57 04/09/20 07:18 Labs: Abnormal Lab Results - Last 24 Hours (Table) 12/26/20 Range/Units 07:18 BUN 28.0 H (9.0-27.0) mg/dL Creatinine 1.8 H (0.6-1.5) mg/dL Est GFR (CKD-EPI)AfAm 30.3 L (60.0-200.0) Est GFR (CKD-EPI)NonAf 26.1 L (60.0-200.0) Glucose 133 H (70-110) mg/dL Assessment and Plan Assessment: Acute Covid infection with left lower lobe pneumonia, resolved Covid acute gastroenteritis, resolved Dehydration, resolved Possible Acute kidney injury Chronic kidney disease, stage III Diabetes mellitus, with hyperglycemia Hypertension Hyperlipidemia History of coronary artery disease Tonic heart failure History of DVT/PE, not on anticoagulation Hypothyroidism History of arthritis Plan: this is a pleasant 79 years old female who presents with Covid infection, pneumonia, deconditioning. Patient finished her therapy. Patient currently is medically stable pending placement. Also patient is undergoing legal guardianship decided by her PCP and psychiatrist evaluated the patient Start IV fluids at monitor creatinine Labs and medication were reviewed.. Continue same treatment. Continue with symptomatic treatment. Resume home medication. Monitor lytes and vitals. DVT and GI prophylaxis. Further recommendations depends on the clinical course of the patient DVT prophylaxis: SubcutaneouLovenox GI Prophylaxis: Pepcid PT/OT: Pending Prognosis is guarded Dr. Swartz will resume the care of the patient on Wednesday 04/11
[2020-04-09] MEDS: SODIUM CHLORIDE 0.9% 1,000 ML IV SCH (13:17)
[2020-04-09] MEDS: ATORVASTATIN 40 MG TAB PO SCH (20:36)
[2020-04-10] MEDS: SODIUM CHLORIDE 0.9% 1,000 ML IV SCH ×2 (03:20→16:24)
[2020-04-10] MEDS: LEVOTHYROXINE 50 MCG TAB PO SCH ×3 (06:20→11:54)
[2020-04-10] MEDS: FUROSEMIDE 20 MG TAB PO SCH ×2 (08:30→13:27)
[2020-04-10] MEDS: ASPIRIN 81 MG PO SCH ×2 (08:30→13:27)
[2020-04-10] MEDS: CARBIDOPA-LEVODOPA 25-100 MG 1 EACH TAB PO SCH ×3 (08:30→20:49)
[2020-04-10] MEDS: ASCORBIC ACID 500 MG TAB PO SCH ×2 (08:30→13:27)
[2020-04-10] MEDS: FAMOTIDINE 20 MG TAB PO SCH ×2 (08:30→13:27)
[2020-04-10] MEDS: amLODIPine 2.5 MG TAB PO SCH ×2 (08:30→13:27)
[2020-04-10] MEDS: ENOXAPARIN 30 MG/0.3 ML SYRINGE SQ SCH ×2 (08:30→13:27)
[2020-04-10] MEDS: ESCITALOPRAM 10 MG TAB PO SCH ×2 (08:30→13:27)
[2020-04-10] MEDS: ZINC SULFATE 220 MG CAP PO SCH ×2 (08:31→13:28)
[2020-04-10] MEDS: INSULIN DETEMIR (LEVEMIR) 100 UNIT/ML SYR SQ SCH ×2 (08:31→11:54)
[2020-04-10] MEDS: INSULIN ASPART (NovoLOG) 100 UNIT/ML VIAL SQ SCH ×4 (08:31→21:09)
[2020-04-10] MEDS: CHOLECALCIFEROL 1,000 UNIT TAB PO SCH ×2 (08:31→13:27)
[2020-04-10] MEDS: QUEtiapine 50 MG TAB PO SCH ×2 (08:31→13:28)
[2020-04-10 09:32] LABS: Glucose,Whole Blood 231 mg/dL (75-99)
[2020-04-10 09:33] LABS: Glucose,Whole Blood 223 mg/dL (75-99)
[2020-04-10 09:33] LABS: Glucose,Whole Blood 254 mg/dL (75-99)
[2020-04-10 09:33] LABS: Glucose,Whole Blood 203 mg/dL (75-99)
[2020-04-10 09:34] LABS: Glucose,Whole Blood 212 mg/dL (75-99)
[2020-04-10 09:39] LABS: Glucose,Whole Blood 257 mg/dL (75-99)
[2020-04-10 09:40] LABS: Glucose,Whole Blood 184 mg/dL (75-99)
[2020-04-10 09:40] LABS: Glucose,Whole Blood 280 mg/dL (75-99)
[2020-04-10 09:41] LABS: Glucose,Whole Blood 191 mg/dL (75-99)
[2020-04-10 09:44] LABS: African American GFR (CKD) 34.9 (60.0-200.0); Anion Gap 6.3 mmol/L (4.00-12.00); BUN/Creat Ratio 18.13 Ratio (12.00-20.00); Calcium 8.7 mg/dL (8.7-10.3); Carbon Dioxide 29.7 mmol/L (21.6-31.8); Non-African American GFR(CKD) 30.1 (60.0-200.0); Potassium 3.9 mmol/L (3.5-5.5)
[2020-04-10 09:48] LABS: Glucose,Whole Blood 163 mg/dL (75-99)
[2020-04-10 09:48] LABS: Glucose,Whole Blood 113 mg/dL (75-99)
[2020-04-10 09:48] LABS: Glucose,Whole Blood 142 mg/dL (75-99)
[2020-04-10 09:48] LABS: Glucose,Whole Blood 116 mg/dL (75-99)
--- NOTE | 2020-04-10 10:49 | P.PN ---
Subjective On-call hospitalist covering Dr. Swartz over the holiday. This is a pleasant 79 years old female with multiple medical problems including history of coronary artery disease, heart failure, diabetes mellitus, hyperlipidemia, hypertension, history of DVT and pulmonary embolism, not on anticoagulation and reviewing her home medication. Hypothyroidism, arthritis, Parkinson disease, chronic kidney disease stage III. History of C. diff. She has recent stress test which was negative on 05/22/19, echocardiogram: EF 55- 60%. She presents because of generalized weakness and diarrhea. When asked patient she was complaining of from fever and headache at home with, and call symptoms like sneezing, she has been having with some phlegm, she also complained from heaviness and breathing however she was noted to be mildly tachypneic at 18-22. her oxygen saturation was 98% on room air. Also patient complaining of from loose stool and some mild abdominal pain and tenderness with no rebound tenderness, her pain M. Umbilical on the left side, abdomen soft with positive bowel sounds. Also patient has some vomiting Also patient has not limited to care for her at home so she might need placement, one caregiver went to her home was noted it was healthy and stool on the ground Vitas looks stable. Labs including CBC, INR, BMP and liver enzymes and troponin were unremarkable. Her creatinine is filthy elevated at 1.1 which is baseline, GFR is 44. Glucose is elevated. Covid test came back to detected and positive. EKG showing junctional ST depression probably abnormal. Chest x-ray showing mild left lower lobe infiltrate In the emergency room she was started on Zithromax and ceftriaxone and normal saline bolus of 1 L. 04/07/2020 This is a pleasant 79 years old female was admitted with signs symptoms of Covid infection, however her symptoms are controlled now and she denies any respiratory or GI symptoms. Patient has been medically stable since 04/04 pending placement also patient is undergoing process of obtaining legal guardianship decided by her primary care team , Patient has been evaluated by psychiatrist and social services designee's last piano case maker involved and alternatives were reviewed This morning patient was refusing to eat and taken medication, when I went to see the patient she was lying calm in bed, she denies any specific symptoms, no chest pain or dyspnea or abdominal pain, no vomiting, no urinary or change in her bowel habits. No fever. I got the patient to take her medication and she agrees Since the patient did not eat today we gave her Levemir 10 units state of the schedule 35 units. Sugar is controlled 04/08/2020 Patient is awakened, sitting on the chair. She denies any specific complaints. She ate her meal today and took her medication Sometimes we are both change. But she has a logic conversation with me. Sugar control. Pending placement 04/09/2020 Patient is awake and alert today. She is a little paranoid however is a pleasant. She states she ate her breakfast. No other new complaints. Hemodynamically stable. Her creatinine is slightly up today at 1.8 although she has chronic kidney d isease but there is some acute worsening so we will start patient on some IV fluids 04/10/2020 Patient is awake and calm and no distress. However she talks with strange answers at times, and sometimes she is paranoid. Patient is refusing IV fluids Her creatinine is trending down to 1.60 and patient is encouraged with oral hydration and she said she'll try to drink more Patient also refusing to eat, refusing to take medications are to check her sugar. Ga discussed with the bedside nurse and we are holding her Levemir today. Also we'll ask for psych follow-up because of her paranoia and refusing to eat,or take medication. Objective - Vital Signs Vital signs: Vital Signs Temp 98.1 F 04/10/20 06:16 Pulse 74 04/10/20 06:16 Resp 16 04/10/20 06:16 BP 128/61 04/10/20 06:16 Pulse Ox 96 04/10/20 06:16 Intake & Output 04/09/20 04/10/20 04/10/20 18:59 06:59 18:59 Intake Total 600 Balance 600 Intake: Oral 600 Other: Voiding Method Toilet Toilet Toilet Diaper Diaper Diaper Incontinent Incontinent Incontinent # Voids 0 # Bowel Movements 1 - Exam GENERAL: The patient is alert and oriented x3, not in any acute distress. Well developed, well nourished. HEENT: Pupils are round and equally reacting to light. EOMI. No scleral icterus. No conjunctival pallor. Normocephalic, atraumatic. No pharyngeal erythema. No thyromegaly. CARDIOVASCULAR: S1 and S2 present. No murmurs, rubs, or gallops. PULMONARY: Chest is clear to auscultation, no wheezing or crackles. ABDOMEN: Soft, nontender, nondistended, normoactive bowel sounds. No palpable organomegaly. MUSCULOSKELETAL: No joint swelling or deformity. EXTREMITIES: No cyanosis, clubbing, or pedal edema. NEUROLOGICAL: Gross neurological examination did not reveal any focal deficits. SKIN: No rashes. no petechiae. - Labs CBC & Chem 7: 04/04/20 05:57 04/10/20 06:25 Labs: Abnormal Lab Results - Last 24 Hours (Table) 04/07/20 04/07/20 04/07/20 Range/Units 07:05 09:59 11:09 BUN (9.0-27.0) mg/dL Creatinine (0.6-1.5) mg/dL Est GFR (CKD-EPI)AfAm (60.0-200.0) Est GFR (CKD-EPI)NonAf (60.0-200.0) Glucose (70-110) mg/dL POC Glucose (mg/dL) 116 H 113 H 142 H (75-99) mg/dL 04/07/20 04/07/20 04/08/20 Range/Units 16:48 20:20 06:59 BUN (9.0-27.0) mg/dL Creatinine (0.6-1.5) mg/dL Est GFR (CKD-EPI)AfAm (60.0-200.0) Est GFR (CKD-EPI)NonAf (60.0-200.0) Glucose (70-110) mg/dL POC Glucose (mg/dL) 163 H 257 H 231 H (75-99) mg/dL 04/08/20 04/08/20 04/08/20 Range/Units 11:45 16:56 20:22 BUN (9.0-27.0) mg/dL Creatinine (0.6-1.5) mg/dL Est GFR (CKD-EPI)AfAm (60.0-200.0) Est GFR (CKD-EPI)NonAf (60.0-200.0) Glucose (70-110) mg/dL POC Glucose (mg/dL) 254 H 223 H 203 H (75-99) mg/dL 04/09/20 04/09/20 04/09/20 Range/Units 07:18 07:25 11:43 BUN 28.0 H (9.0-27.0) mg/dL Creatinine 1.8 H (0.6-1.5) mg/dL Est GFR (CKD-EPI)AfAm 30.3 L (60.0-200.0) Est GFR (CKD-EPI)NonAf 26.1 L (60.0-200.0) Glucose 133 H (70-110) mg/dL POC Glucose (mg/dL) 212 H 280 H (75-99) mg/dL 04/09/20 04/09/20 04/10/20 Range/Units 16:36 20:30 06:25 BUN 29.0 H (9.0-27.0) mg/dL Creatinine 1.6 H (0.6-1.5) mg/dL Est GFR (CKD-EPI)AfAm 34.9 L (60.0-200.0) Est GFR (CKD-EPI)NonAf 30.1 L (60.0-200.0) Glucose (70-110) mg/dL POC Glucose (mg/dL) 184 H 191 H (75-99) mg/dL Assessment and Plan Assessment: Acute Covid infection with left lower lobe pneumonia, resolved Acute kidney injury Covid acute gastroenteritis, resolved Dehydration, patient refusing IV fluids Noncompliance to recommendation, medication, eating or checking her sugar, mostly due to psych illnesses Chronic kidney disease, stage III Diabetes mellitus, with hyperglycemia Hypertension Hyperlipidemia History of coronary artery disease Tonic heart failure History of DVT/PE, not on anticoagulation Hypothyroidism History of arthritis Plan: this is a pleasant 79 years old female who presents with Covid infection, pne umonia, deconditioning. Also with dehydration. Continue with IV fluids and encourage oral hydration We'll ask for psych follow-up Also patient is undergoing legal guardianship decided by her PCP and psychiatrist evaluated the patient Start IV fluids at monitor creatinine Labs and medication were reviewed.. Continue same treatment. Continue with symptomatic treatment. Resume home medication. Monitor lytes and vitals. DVT and GI prophylaxis. Further recommendations depends on the clinical course of the patient DVT prophylaxis: SubcutaneouLovenox GI Prophylaxis: Pepcid PT/OT: Pending Prognosis is guarded Dr. Swartz will resume the care of the patient
[2020-04-10] MEDS ORDERED: OLANZapine 10 MG VIAL IM PRN (12:47)
[2020-04-10 12:52] LABS: Glucose,Whole Blood 186 mg/dL (75-99)
[2020-04-10] MEDS: OLANZapine 5 MG TAB PO SCH ×3 (13:18→21:09)
--- NOTE | 2020-04-10 16:26 | CONS ---
CONSULTATION DATE OF SERVICE: 04/10/2020 PURPOSE FOR CONSULTATION: Evaluate for mental status change, agitation, and confusion. Currently, the patient has psychosis with delusions and hallucinations. INTERVAL HISTORY: I last saw the patient on the . At that time she was doing fairly well. She had a good mood. Nursing reported that she would have brief periods of getting confused, not fully being aware of her situation, though for the most part her thinking was clear. When I talked with her on the she was clear about the plan to go to [facility] and had no issues with that. She was able to give quite a bit of details about her situation. According to nursing, at least in the last few days patient has been having increasing problems with being distressed and agitated. She makes statements that are not in touch with reality. When I talked to the patient she mostly talked about things that were very delusional. She talked about people needing to get locked up for some uncertain actions against her. She made statements about people trying to steal her money and going to the bank. She was demanding to go home. She said her grand children are her guardians and they take care of her. The longer she talked the more delusional she became and pretty much everything she said was out of touch with reality, mainly with a lot of paranoid thinking that people were threatening her and doing things to harm her in any number of ways. Toward the end of the interview she started talking about "that lady in the corner who was drunk." She said that somebody needed to take that lady out of here. She even looked over in that direction and pointed. She repeated that comment several times. She talked clearly. She had an intense manner. Her thoughts were coherent and goal directed. Her mood was depressed. She was highly distressed. She exhibited paranoid delusions in response to auditory and visual hallucinations. ASSESSMENT: I will continue the current diagnosis. I had a discussion with the patient about taking medications plus about the plan of getting her to [facility]. The patient really was not able to engage in anything about that conversation though I did make my best effort to fully inform the patient. I will start the patient on Zyprexa 5 mg 3 times a day. I encouraged the patient to take oral medications, though I discussed with the patient that if she did not take oral medications, we would give IM medications due to high risk for safety issues. My understanding is that the guardianship is being set up and that the plan would be for her to be discharged to [facility] once that is in place. Psychiatry will continue to follow end dictation. AYSHA / RICKEYN: [id number] /
[2020-04-10 17:51] LABS: Glucose,Whole Blood 189 mg/dL (75-99)
[2020-04-10 20:32] LABS: Glucose,Whole Blood 295 mg/dL (75-99)
[2020-04-10] MEDS: ATORVASTATIN 40 MG TAB PO SCH (20:49)
[2020-04-11] MEDS: SODIUM CHLORIDE 0.9% 1,000 ML IV SCH ×2 (05:53→15:58)
[2020-04-11] MEDS: LEVOTHYROXINE 50 MCG TAB PO SCH (05:53)
[2020-04-11 08:09] LABS: Glucose,Whole Blood 202 mg/dL (75-99)
[2020-04-11 09:49] LABS: African American GFR (CKD) 44.9 (60.0-200.0); Anion Gap 8.2 mmol/L (4.00-12.00); BUN/Creat Ratio 18.46 Ratio (12.00-20.00); Carbon Dioxide 24.8 mmol/L (21.6-31.8); Non-African American GFR(CKD) 38.7 (60.0-200.0); Potassium 4.5 mmol/L (3.5-5.5)
[2020-04-11] MEDS: FAMOTIDINE 20 MG TAB PO SCH (09:53)
[2020-04-11] MEDS: ASPIRIN 81 MG PO SCH (09:53)
[2020-04-11] MEDS: ENOXAPARIN 30 MG/0.3 ML SYRINGE SQ SCH (09:53)
[2020-04-11] MEDS: CHOLECALCIFEROL 1,000 UNIT TAB PO SCH ×2 (09:54→11:15)
[2020-04-11] MEDS: ZINC SULFATE 220 MG CAP PO SCH ×2 (09:54→11:15)
[2020-04-11] MEDS: amLODIPine 2.5 MG TAB PO SCH ×2 (09:54→11:15)
[2020-04-11] MEDS: CARBIDOPA-LEVODOPA 25-100 MG 1 EACH TAB PO SCH ×2 (09:54→21:51)
[2020-04-11] MEDS: ASCORBIC ACID 500 MG TAB PO SCH ×2 (09:54→11:15)
[2020-04-11] MEDS: FUROSEMIDE 20 MG TAB PO SCH (09:54)
[2020-04-11] MEDS: ESCITALOPRAM 10 MG TAB PO SCH ×2 (09:55→13:26)
[2020-04-11] MEDS: OLANZapine 5 MG TAB PO SCH ×3 (09:55→21:51)
[2020-04-11] MEDS: INSULIN DETEMIR (LEVEMIR) 100 UNIT/ML SYR SQ SCH (10:08)
[2020-04-11] MEDS: INSULIN ASPART (NovoLOG) 100 UNIT/ML VIAL SQ SCH ×4 (10:08→21:51)
[2020-04-11] MEDS: ACETAMINOPHEN TAB 500 MG TAB PO PRN (11:10)
[2020-04-11 13:19] LABS: Glucose,Whole Blood 275 mg/dL (75-99)
[2020-04-11 17:53] LABS: Glucose,Whole Blood 264 mg/dL (75-99)
--- NOTE | 2020-04-11 19:39 | P.PN ---
Subjective Progress Note Date: 04/11/20 This is an 79-year-old female admitted with acute left lower lobe covid pneumonia. Her COVID symptoms have resolved although pt remains persistently confused. She was evaluated by psych and deemed incompetent to make her medical decisions. She is awaiting court hearing for guardianship and disposition pen [place]. 04/11/2020. She remains afebrile and vitals stable. She is confused today and confabulates that nursing staff have been abusive. Pt is eager to leave the hospital. Objective - Vital Signs Vital signs: Vital Signs Temp 98.0 F 04/11/20 17:00 Pulse 84 04/11/20 17:00 Resp 16 04/11/20 17:00 BP 141/70 04/11/20 17:00 Pulse Ox 94 L 04/11/20 17:00 Intake & Output 04/11/20 04/11/20 04/12/20 06:59 18:59 06:59 Intake Total 300 225 Balance 300 225 Weight 86.183 kg Intake: Intake, IV Titration 225 Amount Sodium Chloride 0.9% 1, 225 000 ml @ 75 mls/hr IV . [id number] COUNT INCLUDES THE [facility] Rx#:[id number] Oral 300 Other: Voiding Method Toilet Toilet Diaper Diaper Incontinent Incontinent # Voids 3 - Exam General: well nourished, well developed, NAD. Vitals reviewed Lungs: normal respiratory effort, no wheezes or rales CV: Regular rate and rhythm, no murmur. Peripheral pulses 2+ Abdomen: soft, nondistended, no organomegaly Skin: warm and dry. - Labs CBC & Chem 7: 04/04/20 05:57 04/11/20 05:25 Labs: Abnormal Lab Results - Last 24 Hours (Table) 04/10/20 04/11/20 04/11/20 Range/Units 20:18 05:25 07:53 Est GFR (CKD-EPI)AfAm 44.9 L (60.0-200.0) Est GFR (CKD-EPI)NonAf 38.7 L (60.0-200.0) Glucose 155 H (70-110) mg/dL POC Glucose (mg/dL) 295 H 202 H (75-99) mg/dL 04/11/20 04/11/20 Range/Units 13:13 17:46 Est GFR (CKD-EPI)AfAm (60.0-200.0) Est GFR (CKD-EPI)NonAf (60.0-200.0) Glucose (70-110) mg/dL POC Glucose (mg/dL) 275 H 264 H (75-99) mg/dL Assessment and Plan Plan: Continue seroquel bid. Continue lovenox while inpatient and will switch to ASA on discharge. Continue vit C. She remains medically stable for discharge and awaiting legal disposition
[2020-04-11 20:27] LABS: Glucose,Whole Blood 213 mg/dL (75-99)
[2020-04-11] MEDS: ATORVASTATIN 40 MG TAB PO SCH (21:50)
[2020-04-12] MEDS: LEVOTHYROXINE 50 MCG TAB PO SCH (05:34)
[2020-04-12 07:31] LABS: Glucose,Whole Blood 164 mg/dL (75-99)
[2020-04-12 11:37] LABS: Glucose,Whole Blood 198 mg/dL (75-99)
[2020-04-12] MEDS: INSULIN ASPART (NovoLOG) 100 UNIT/ML VIAL SQ SCH ×4 (12:49→21:15)
[2020-04-12] MEDS: INSULIN DETEMIR (LEVEMIR) 100 UNIT/ML SYR SQ SCH (13:38)
[2020-04-12] MEDS: SODIUM CHLORIDE 0.9% 1,000 ML IV SCH ×2 (13:39→20:57)
[2020-04-12] MEDS: amLODIPine 2.5 MG TAB PO SCH (15:31)
[2020-04-12] MEDS: ASPIRIN 81 MG PO SCH (15:32)
[2020-04-12] MEDS: CHOLECALCIFEROL 1,000 UNIT TAB PO SCH (15:32)
[2020-04-12] MEDS: ASCORBIC ACID 500 MG TAB PO SCH (15:32)
[2020-04-12] MEDS: CARBIDOPA-LEVODOPA 25-100 MG 1 EACH TAB PO SCH ×2 (15:32→21:15)
[2020-04-12] MEDS: ENOXAPARIN 30 MG/0.3 ML SYRINGE SQ SCH (15:33)
[2020-04-12] MEDS: FAMOTIDINE 20 MG TAB PO SCH (15:34)
[2020-04-12] MEDS: ESCITALOPRAM 10 MG TAB PO SCH (15:34)
[2020-04-12] MEDS: OLANZapine 5 MG TAB PO SCH ×3 (15:34→21:15)
[2020-04-12] MEDS: ZINC SULFATE 220 MG CAP PO SCH (15:34)
[2020-04-12 17:05] LABS: Glucose,Whole Blood 166 mg/dL (75-99)
[2020-04-12 20:34] LABS: Glucose,Whole Blood 183 mg/dL (75-99)
--- NOTE | 2020-04-12 21:12 | P.PN ---
Subjective Progress Note Date: 04/12/20 This is an 79-year-old female admitted with acute left lower lobe covid pneumonia. Her COVID symptoms have resolved although pt remains persistently confused. She was evaluated by psych and deemed incompetent to make her medical decisions. She is awaiting court hearing for guardianship and disposition pen ding. 04/11/2020. She remains afebrile and vitals stable. She is confused today and confabulates that nursing staff have been abusive. Pt is eager to leave the hospital. 04/12/2020. She is feeling well this morning, denies complaint and remains eager to leave the hospital. staffing branch manager continues to work on obtaining guardianship. Objective - Vital Signs Vital signs: Vital Signs Temp 98.0 F 04/12/20 17:00 Pulse 81 04/12/20 17:00 Resp 18 04/12/20 17:00 BP 152/71 04/12/20 17:00 Pulse Ox 96 04/12/20 17:00 Intake & Output 04/12/20 04/12/20 04/13/20 06:59 18:59 06:59 Intake Total 320 Balance 320 Intake: Oral 320 Other: Voiding Method Diaper Diaper Incontinent Incontinent # Voids 1 2 - Exam General: well nourished, well developed, NAD. Vitals reviewed Lungs: normal respiratory effort, no wheezes or rales CV: Regular rate and rhythm, no murmur. Peripheral pulses 2+ Abdomen: soft, nondistended, no organomegaly Skin: warm and dry. - Labs CBC & Chem 7: 04/04/20 05:57 04/11/20 05:25 Labs: Abnormal Lab Results - Last 24 Hours (Table) 04/12/20 04/12/20 04/12/20 Range/Units 07:28 11:33 16:52 POC Glucose (mg/dL) 164 H 198 H 166 H (75-99) mg/dL 04/12/20 Range/Units 20:22 POC Glucose (mg/dL) 183 H (75-99) mg/dL Assessment and Plan Plan: Continue seroquel bid. Continue lovenox while inpatient and will switch to ASA on discharge. Continue vit C. She remains medically stable for discharge and awaiting legal disposition
[2020-04-12] MEDS: ATORVASTATIN 40 MG TAB PO SCH (21:15)
[2020-04-13 07:03] LABS: Glucose,Whole Blood 163 mg/dL (75-99)
[2020-04-13] MEDS: OLANZapine 5 MG TAB PO SCH ×4 (08:37→21:38)
[2020-04-13] MEDS: INSULIN ASPART (NovoLOG) 100 UNIT/ML VIAL SQ SCH ×5 (08:37→21:38)
[2020-04-13] MEDS: ASPIRIN 81 MG PO SCH ×2 (08:37→14:37)
[2020-04-13] MEDS: FAMOTIDINE 20 MG TAB PO SCH (08:37)
[2020-04-13] MEDS: ESCITALOPRAM 10 MG TAB PO SCH ×2 (08:38→14:38)
[2020-04-13] MEDS: ZINC SULFATE 220 MG CAP PO SCH ×2 (08:38→14:38)
[2020-04-13] MEDS: CHOLECALCIFEROL 1,000 UNIT TAB PO SCH ×2 (08:38→14:38)
[2020-04-13] MEDS: LEVOTHYROXINE 50 MCG TAB PO SCH ×2 (08:38→14:37)
[2020-04-13] MEDS: CARBIDOPA-LEVODOPA 25-100 MG 1 EACH TAB PO SCH ×3 (08:38→21:31)
[2020-04-13] MEDS: ENOXAPARIN 30 MG/0.3 ML SYRINGE SQ SCH ×2 (08:38→14:38)
[2020-04-13] MEDS: INSULIN DETEMIR (LEVEMIR) 100 UNIT/ML SYR SQ SCH ×2 (08:38→08:43)
[2020-04-13] MEDS: ASCORBIC ACID 500 MG TAB PO SCH ×2 (08:38→14:37)
[2020-04-13] MEDS: amLODIPine 2.5 MG TAB PO SCH ×2 (08:38→14:37)
[2020-04-13 11:30] LABS: Glucose,Whole Blood 192 mg/dL (75-99)
[2020-04-13] MEDS: SODIUM CHLORIDE 0.9% 1,000 ML IV SCH ×2 (12:04→21:28)
[2020-04-13 17:16] LABS: Glucose,Whole Blood 199 mg/dL (75-99)
[2020-04-13 21:06] LABS: Glucose,Whole Blood 194 mg/dL (75-99)
[2020-04-13] MEDS: ATORVASTATIN 40 MG TAB PO SCH (21:37)
--- NOTE | 2020-04-13 21:39 | P.PN ---
Subjective Progress Note Date: 04/13/20 This is an 79-year-old female admitted with acute left lower lobe covid pneumonia. Her COVID symptoms have resolved although pt remains persistently confused and agitated. She was evaluated by psych and deemed incompetent to make her medical decisions. She is awaiting court hearing for guardianship and di sposition pending. 04/11/2020. She remains afebrile and vitals stable. She is confused today and co nfabulates that nursing staff have been abusive. Pt is eager to leave the hospital. 04/12/2020. She is feeling well this morning, denies complaint and remains eager to leave the hospital. core manager continues to work on obtaining guardianship. 04/13/2020. Pt denies any shortness of breath or cough. No chest pain. Appetite is appropriate. She has declined her medications and is confused this morning, endorses delusion that there have been drug deals going on and she believes she has been spending the night at her own house. She continues to accuse nursing staff of harming her. Per case management disposition likely will be resolved next week. Objective - Vital Signs Vital signs: Vital Signs Temp 97.8 F 04/13/20 16:08 Pulse 83 04/13/20 16:08 Resp 18 04/13/20 16:08 BP 168/99 04/13/20 16:08 Pulse Ox 97 04/13/20 16:08 Intake & Output 04/13/20 04/13/20 04/14/20 06:59 18:59 06:59 Intake Total 100 Balance 100 Intake: Oral 100 Other: Voiding Method Diaper Toilet Diaper Incontinent Diaper Incontinent Incontinent # Voids 2 # Bowel Movements 0 - Exam General: well nourished, well developed, NAD. Vitals reviewed Lungs: normal respiratory effort, no wheezes or rales CV: Regular rate and rhythm, no murmur. Peripheral pulses 2+ Abdomen: soft, nondistended, no organomegaly Psych: paranoid, delusional, difficult to redirect Skin: warm and dry. - Labs CBC & Chem 7: 04/04/20 05:57 04/11/20 05:25 Labs: Abnormal Lab Results - Last 24 Hours (Table) 04/13/20 04/13/20 04/13/20 Range/Units 06:58 11:23 17:00 POC Glucose (mg/dL) 163 H 192 H 199 H (75-99) mg/dL 04/13/20 Range/Units 20:53 POC Glucose (mg/dL) 194 H (75-99) mg/dL Assessment and Plan Plan: Continue seroquel bid. Continue lovenox while inpatient and will switch to ASA on discharge. Stop vit C and zinc. She remains medically stable for discharge and awaiting legal disposition
[2020-04-14] MEDS: LEVOTHYROXINE 50 MCG TAB PO SCH (05:27)
[2020-04-14 07:04] LABS: Glucose,Whole Blood 181 mg/dL (75-99)
[2020-04-14] MEDS: ESCITALOPRAM 10 MG TAB PO SCH (08:03)
[2020-04-14] MEDS: FAMOTIDINE 20 MG TAB PO SCH (08:03)
[2020-04-14] MEDS: CHOLECALCIFEROL 1,000 UNIT TAB PO SCH (08:03)
[2020-04-14] MEDS: ASPIRIN 81 MG PO SCH (08:03)
[2020-04-14] MEDS: QUEtiapine 50 MG TAB PO SCH ×2 (08:03→20:17)
[2020-04-14] MEDS: INSULIN ASPART (NovoLOG) 100 UNIT/ML VIAL SQ SCH ×4 (08:03→20:17)
[2020-04-14] MEDS: CARBIDOPA-LEVODOPA 25-100 MG 1 EACH TAB PO SCH ×2 (08:04→20:17)
[2020-04-14] MEDS: ENOXAPARIN 30 MG/0.3 ML SYRINGE SQ SCH (08:04)
[2020-04-14] MEDS: INSULIN DETEMIR (LEVEMIR) 100 UNIT/ML SYR SQ SCH (08:04)
[2020-04-14] MEDS: amLODIPine 2.5 MG TAB PO SCH (08:04)
[2020-04-14 11:47] LABS: Glucose,Whole Blood 236 mg/dL (75-99)
[2020-04-14] MEDS: SODIUM CHLORIDE 0.9% 1,000 ML IV SCH ×2 (12:28→20:18)
[2020-04-14 17:05] LABS: Glucose,Whole Blood 177 mg/dL (75-99)
--- NOTE | 2020-04-14 19:44 | P.PN ---
Subjective Progress Note Date: 04/14/20 This is an 79-year-old female admitted with acute left lower lobe covid pneumonia. Her COVID symptoms have resolved although pt remains persistently confused and agitated. She was evaluated by psych and deemed incompetent to make her medical decisions. She is awaiting court hearing for guardianship and di sposition pending. 04/11/2020. She remains afebrile and vitals stable. She is confused today and co nfabulates that nursing staff have been abusive. Pt is eager to leave the hospital. 04/12/2020. She is feeling well this morning, denies complaint and remains eager to leave the hospital. mechanical project manager continues to work on obtaining guardianship. 04/13/2020. Pt denies any shortness of breath or cough. No chest pain. Appetite is appropriate. She has declined her medications and is confused this morning, endorses delusion that there have been drug deals going on and she believes she has been spending the night at her own house. She continues to accuse nursing staff of harming her. Per case management disposition likely will be resolved next week. 04/14/2020. She is resting this morning, no chest pain, cough or shortness of breath. Objective - Vital Signs Vital signs: Vital Signs Temp 97.9 F 04/14/20 17:00 Pulse 92 04/14/20 17:00 Resp 22 04/14/20 17:00 BP 156/83 04/14/20 17:00 Pulse Ox 93 L 04/14/20 17:00 Intake & Output 04/14/20 04/14/20 04/15/20 06:59 18:59 06:59 Intake Total 290 0 Balance 290 0 Intake: Intake, IV Titration 0 Amount Sodium Chloride 0.9% 1, 0 000 ml @ 75 mls/hr IV . [id number] [facility] Rx#:[id number] Oral 290 Other: Voiding Method Diaper Diaper Incontinent Incontinent # Voids 1 2 - Exam General: well nourished, well developed, NAD. Vitals reviewed Lungs: normal respiratory effort, no wheezes or rales CV: Regular rate and rhythm, no murmur. Peripheral pulses 2+ Abdomen: soft, nondistended, no organomegaly Psych: paranoid, delusional, difficult to redirect Skin: warm and dry. - Labs CBC & Chem 7: 04/04/20 05:57 04/11/20 05:25 Labs: Abnormal Lab Results - Last 24 Hours (Table) 04/13/20 04/14/20 04/14/20 Range/Units 20:53 07:01 11:44 POC Glucose (mg/dL) 194 H 181 H 236 H (75-99) mg/dL 04/14/20 Range/Units 17:04 POC Glucose (mg/dL) 177 H (75-99) mg/dL Assessment and Plan Plan: Continue seroquel bid. Continue lovenox while inpatient and will switch to ASA on discharge. Stop vit C and zinc. She remains medically stable for discharge and awaiting legal disposition
[2020-04-14] MEDS: ATORVASTATIN 40 MG TAB PO SCH (20:17)
[2020-04-14 20:19] LABS: Glucose,Whole Blood 217 mg/dL (75-99)
[2020-04-15] MEDS: LEVOTHYROXINE 50 MCG TAB PO SCH (04:38)
[2020-04-15 07:35] LABS: Glucose,Whole Blood 132 mg/dL (75-99)
[2020-04-15] MEDS: INSULIN DETEMIR (LEVEMIR) 100 UNIT/ML SYR SQ SCH (08:26)
[2020-04-15] MEDS: INSULIN ASPART (NovoLOG) 100 UNIT/ML VIAL SQ SCH ×4 (08:26→20:56)
[2020-04-15] MEDS: CARBIDOPA-LEVODOPA 25-100 MG 1 EACH TAB PO SCH ×2 (08:26→19:39)
[2020-04-15] MEDS: QUEtiapine 50 MG TAB PO SCH ×2 (08:26→19:39)
[2020-04-15] MEDS: ASPIRIN 81 MG PO SCH (08:31)
[2020-04-15] MEDS: CHOLECALCIFEROL 1,000 UNIT TAB PO SCH (08:31)
[2020-04-15] MEDS: ESCITALOPRAM 10 MG TAB PO SCH (08:31)
[2020-04-15] MEDS: ENOXAPARIN 30 MG/0.3 ML SYRINGE SQ SCH (08:31)
[2020-04-15] MEDS: amLODIPine 2.5 MG TAB PO SCH (08:31)
[2020-04-15] MEDS: FAMOTIDINE 20 MG TAB PO SCH (08:31)
[2020-04-15 11:43] LABS: Glucose,Whole Blood 140 mg/dL (75-99)
[2020-04-15 16:58] LABS: Glucose,Whole Blood 165 mg/dL (75-99)
[2020-04-15] MEDS: SODIUM CHLORIDE 0.9% 1,000 ML IV SCH (17:32)
[2020-04-15] MEDS: ATORVASTATIN 40 MG TAB PO SCH (19:38)
[2020-04-15 20:38] LABS: Glucose,Whole Blood 291 mg/dL (75-99)
--- NOTE | 2020-04-15 22:03 | P.PN ---
Subjective Progress Note Date: 04/15/20 This is an 79-year-old female admitted with acute left lower lobe covid pneumonia. Her COVID symptoms have resolved although pt remains persistently confused and agitated. She was evaluated by psych and deemed incompetent to make her medical decisions. She is awaiting court hearing for guardianship and di sposition pending. 04/11/2020. She remains afebrile and vitals stable. She is confused today and co nfabulates that nursing staff have been abusive. Pt is eager to leave the hospital. 04/12/2020. She is feeling well this morning, denies complaint and remains eager to leave the hospital. manager highway continues to work on obtaining guardianship. 04/13/2020. Pt denies any shortness of breath or cough. No chest pain. Appetite is appropriate. She has declined her medications and is confused this morning, endorses delusion that there have been drug deals going on and she believes she has been spending the night at her own house. She continues to accuse nursing staff of harming her. Per case management disposition likely will be resolved next week. 04/14/2020. She is resting this morning, no chest pain, cough or shortness of breath. 04/15/2020. Pt doing well today, denies chest pain, shortness of breath. She remains persistently confused and paranoid. Objective - Vital Signs Vital signs: Vital Signs Temp 97.9 F 04/15/20 20:48 Pulse 81 04/15/20 20:48 Resp 17 04/15/20 20:48 BP 104/63 04/15/20 20:48 Pulse Ox 97 04/15/20 20:48 Intake & Output 04/15/20 04/15/20 04/16/20 06:59 18:59 06:59 Output Total 600 Balance -600 Output: Urine 600 Other: Voiding Method Diaper Diaper Diaper Incontinent Incontinent Incontinent # Voids 2 3 # Bowel Movements 0 - Exam General: well nourished, well developed, NAD. Vitals reviewed Lungs: normal respiratory effort, no wheezes or rales CV: Regular rate and rhythm, no murmur. Peripheral pulses 2+ Abdomen: soft, nondistended, no organomegaly Psych: paranoid, delusional, difficult to redirect Skin: warm and dry. - Labs CBC & Chem 7: 04/04/20 05:57 04/11/20 05:25 Labs: Abnormal Lab Results - Last 24 Hours (Table) 04/15/20 04/15/20 04/15/20 Range/Units 07:32 11:35 16:57 POC Glucose (mg/dL) 132 H 140 H 165 H (75-99) mg/dL 04/15/20 Range/Units 20:37 POC Glucose (mg/dL) 291 H (75-99) mg/dL Assessment and Plan Plan: Continue seroquel bid. Continue lovenox while inpatient and will switch to ASA on discharge. Stop vit C and zinc. She remains medically stable for discharge and awaiting legal disposition
[2020-04-16] MEDS: LEVOTHYROXINE 50 MCG TAB PO SCH (04:44)
[2020-04-16] MEDS: SODIUM CHLORIDE 0.9% 1,000 ML IV SCH ×2 (05:39→12:26)
[2020-04-16 06:59] LABS: Glucose,Whole Blood 159 mg/dL (75-99)
[2020-04-16] MEDS: CHOLECALCIFEROL 1,000 UNIT TAB PO SCH (09:16)
[2020-04-16] MEDS: CARBIDOPA-LEVODOPA 25-100 MG 1 EACH TAB PO SCH ×2 (09:16→21:30)
[2020-04-16] MEDS: ASPIRIN 81 MG PO SCH (09:16)
[2020-04-16] MEDS: FAMOTIDINE 20 MG TAB PO SCH (09:16)
[2020-04-16] MEDS: ENOXAPARIN 30 MG/0.3 ML SYRINGE SQ SCH (09:16)
[2020-04-16] MEDS: amLODIPine 2.5 MG TAB PO SCH (09:17)
[2020-04-16] MEDS: INSULIN DETEMIR (LEVEMIR) 100 UNIT/ML SYR SQ SCH (09:17)
[2020-04-16] MEDS: ESCITALOPRAM 10 MG TAB PO SCH (09:17)
[2020-04-16] MEDS: INSULIN ASPART (NovoLOG) 100 UNIT/ML VIAL SQ SCH ×4 (09:19→20:44)
[2020-04-16] MEDS: QUEtiapine 50 MG TAB PO SCH ×2 (09:22→21:30)
[2020-04-16 11:09] LABS: Glucose,Whole Blood 208 mg/dL (75-99)
[2020-04-16] MEDS: ACETAMINOPHEN TAB 500 MG TAB PO PRN ×2 (12:46→21:30)
[2020-04-16 16:06] LABS: ALT <6 U/L (4-34); AST 23 U/L (14-36); African American GFR (CKD) 42 (>60 ml/min/1.73 sqM); Albumin 3.2 g/dL (3.5-5.0); Albumin/Globulin Ratio 1.1; Alkaline Phosphatase 77 U/L (38-126); Anion Gap 4 mmol/L; Blood Urea Nitrogen 36 mg/dL (7-17); Calcium 9.3 mg/dL (8.4-10.2); Carbon Dioxide 30 mmol/L (22-30); Chloride 105 mmol/L (98-107); Glucose 151 mg/dL (74-99); Non-African American GFR(CKD) 37 (>60 ml/min/1.73 sqM); Potassium 4.1 mmol/L (3.5-5.1); Sodium 139 mmol/L (137-145); Total Bilirubin 0.5 mg/dL (0.2-1.3); Total Protein 6.2 g/dL (6.3-8.2)
--- NOTE | 2020-04-16 17:01 | PN ---
PROGRESS NOTE DATE OF SERVICE: 04/16/2020 I am covering for Dr. Swartz. This 79-year-old woman who was admitted with acute COVID-19 infection. Left lower pneumonia is being closely monitored. The patient also had possible Covid, acute gastroenteritis also. The patient is mildly confused. Patient also complaining of right shoulder pain also. PT/OT evaluated the patient. cemetery worker was also following the patient closely. PAST MEDICAL HISTORY: Reviewed. REVIEW OF SYSTEMS: CARDIOVASCULAR: No angina. RESPIRATORY: As mentioned. GI: As mentioned earlier. NERVOUS SYSTEM: No numbness, weakness. CURRENT MEDICATIONS: Reviewed and include: Tylenol, Norvasc, aspirin, Lipitor, Sinemet. Lexapro. Pepcid. Doses reviewed. PHYSICAL EXAM: Patient is alert, oriented x2. Pulse is 71. Blood pressure 120/59. Respirations 20. Temp 97.2, pulse ox 94% on room air. HEENT: Conjunctivae normal. Neck: No JVD. CARDIOVASCULAR: S1, S2 muffled. RESPIRATIONS: Breath sounds diminished in the bases. A few scattered rhonchi and crackles. ABDOMEN: Soft. Nontender. LEGS: No edema. No swelling. NERVOUS SYSTEM: Diffusely weak. LABS: Accu-Cheks 159, 208. Other labs are creatinine is 1.6, which is improved. Chest x-ray reviewed personally. ASSESSMENT: 1. Acute Covid 19 infection with acute Covid left lower lobe pneumonia, viral pneumonia. 2. Acute kidney injury, improving. 3. Covid acute gastritis improved. 4. Dehydration. Patient is refusing IV fluids. 5. History of noncompliance to recommendations due to psychiatric illness. 6. Chronic kidney disease stage 3. 7. Diabetes mellitus type 2 with hyperglycemia. 8. Hypertension. 9. Hyperlipidemia. 10.History of coronary artery disease. 11.Chronic heart failure. 12.History of deep vein thrombosis, pulmonary embolism not on any anticoagulation currently. 13.Hypothyroidism. 14.History of degenerative joint disease. RECOMMENDATIONS AND DISCUSSION: Recommend to continue current medications, management and symptomatic treatment. Otherwise, at this time, I will recommend repeat labs. PT/OT evaluation, possible ECF rehab. Closely follow. Continue the rest of medication at this time. Monitor blood sugars closely. Further recommendations to follow. MMODL / IJN: [id number] /
[2020-04-16 17:03] LABS: Glucose,Whole Blood 138 mg/dL (75-99)
[2020-04-16 20:04] LABS: Glucose,Whole Blood 125 mg/dL (75-99)
[2020-04-16] MEDS: ATORVASTATIN 40 MG TAB PO SCH (21:30)
[2020-04-17 00:03] LABS: Amorphous Sediment,Urine Rare /hpf; Appearance,Urine Cloudy (Clear); Bilirubin,Urine Negative (Negative); Blood,Urine Negative (Negative); Color,Urine Yellow; Glucose,Urine (UA) Negative (Negative); Ketones,Urine Negative (Negative); Leukocyte Esterase,Urine Negative (Negative); Mucus,Urine Rare /hpf; Nitrite,Urine Negative (Negative); Protein,Urine 1+ (Negative); RBC,Urine 8 /hpf (0-5); Specific Gravity,Urine 1.019 (1.001-1.035); Squamous Epithelial Cell,Urine <1 /hpf (0-4); Uric Acid Crystals,Urine Few /hpf; Urobilinogen,Urine <2.0 mg/dL (<2.0); WBC,Urine 11 /hpf (0-5)
[2020-04-17 04:31] LABS: Basophils % (A) 1 %; Eosinophils # (A) 0.3 k/uL (0-0.7); Eosinophils % (A) 5 %; HCT 32.3 % (34.0-46.0); HGB 10.7 gm/dL (11.4-16.0); Lymphocytes # (A) 1.3 k/uL (1.0-4.8); Lymphocytes % (A) 23 %; MCH 31.1 pg (25.0-35.0); MCHC 33.2 g/dL (31.0-37.0); MCV 93.7 fL (80.0-100.0); Mean Platelet Volume 8.4; Monocytes # (A) 0.6 k/uL (0-1.0); Monocytes % (A) 10 %; Neutrophils # (A) 3.3 k/uL (1.3-7.7); Neutrophils % (A) 60 %; Platelet Count 196 k/uL (150-450); RBC 3.45 m/uL (3.80-5.40); RDW 12.9 % (11.5-15.5); WBC 5.5 k/uL (3.8-10.6)
[2020-04-17] MEDS: LEVOTHYROXINE 50 MCG TAB PO SCH (05:38)
[2020-04-17 07:09] LABS: Glucose,Whole Blood 115 mg/dL (75-99)
[2020-04-17] MEDS: INSULIN ASPART (NovoLOG) 100 UNIT/ML VIAL SQ SCH ×4 (07:35→21:22)
[2020-04-17] MEDS: SODIUM CHLORIDE 0.9% 1,000 ML IV SCH (08:41)
[2020-04-17] MEDS: FAMOTIDINE 20 MG TAB PO SCH (08:42)
[2020-04-17] MEDS: CHOLECALCIFEROL 1,000 UNIT TAB PO SCH (08:42)
[2020-04-17] MEDS: ASPIRIN 81 MG PO SCH (08:42)
[2020-04-17] MEDS: ENOXAPARIN 30 MG/0.3 ML SYRINGE SQ SCH (08:43)
[2020-04-17] MEDS: QUEtiapine 50 MG TAB PO SCH ×2 (08:43→21:18)
[2020-04-17] MEDS: CARBIDOPA-LEVODOPA 25-100 MG 1 EACH TAB PO SCH ×2 (08:43→21:18)
[2020-04-17] MEDS: ESCITALOPRAM 10 MG TAB PO SCH (08:44)
[2020-04-17] MEDS: amLODIPine 2.5 MG TAB PO SCH (08:44)
[2020-04-17] MEDS: INSULIN DETEMIR (LEVEMIR) 100 UNIT/ML SYR SQ SCH (08:44)
[2020-04-17 11:18] LABS: Glucose,Whole Blood 145 mg/dL (75-99)
[2020-04-17] MEDS ORDERED: NITROGLYCERIN SL TABS 0.4 MG TAB SUBLINGUAL STA (12:02)
[2020-04-17] MEDS ORDERED: NITROGLYCERIN SL TABS 0.4 MG TAB SUBLINGUAL PRN (12:02)
[2020-04-17] MEDS ORDERED: NITROGLYCERIN SL TABS 0.4 MG TAB SUBLINGUAL ONE (12:07)
[2020-04-17] MEDS ORDERED: HYDROcodone/APAP 5-325MG 1 EACH TAB PO PRN (12:09)
--- NOTE | 2020-04-17 15:08 | PN ---
PROGRESS NOTE DATE OF SERVICE: 04/17/2020 I am covering for Dr. Swartz. HISTORY OF PRESENT ILLNESS: This is an 79-year-old woman who was admitted to COVID-19 infection as well as pneumonia, aspiration of the left lower lobe. She is being closely monitored at this time. The patient is confused, combative at this time. The patient is refusing multiple medications also. Patient also had acute kidney injury, which is improved. The patient also had dehydration. Patient was treated with IV fluids. LABORATORY DATA: Today's labs showed WBC 5.2, hemoglobin 10.7. UA is noted. Urine culture negative so far. PAST MEDICAL HISTORY: Reviewed. REVIEW OF SYSTEMS: Could not be taken. The patient is confused and combative. MEDICATIONS ARE: 1. Tylenol. 2. [place]. 3. Norvasc. 4. Sinemet. 5. Vitamin D3. 6. Lexapro. 7. Pepcid. 8. Doses reviewed. PHYSICAL EXAM: GENERAL: Patient is conscious, confused, oriented times one. VITAL SIGNS: Pulse 71, blood pressure 134/77, respirations 18, temperature 98.2, pulse ox 100% on room air HEENT: Conjunctivae normal. Oral mucosa moist. NECK: No jugular venous distention. No carotid bruits. No lymph node enlargement. RESPIRATORY: Breath sounds diminished at the bases. A few scattered rhonchi and crackles. HEART: S1 and S2, muffled. ABDOMEN: Soft, obese, no tenderness. No masses palpable. EXTREMITIES: No edema, no swelling. NERVOUS: No focal deficits. LAB STUDIES: WBC 5.1, hemoglobin 10.7, glucose noted. ASSESSMENT: 1. Acute COVID-19 infectious with acute COVID-19 left lower lobe pneumonia, viral pneumonia. 2. Change in mental status possible acute psychosis. 3. Possible acute metabolic encephalopathy, multifactorial. 4. Acute kidney injury with acute renal failure, improving. 5. COVID acute gastritis improved. 6. History of dehydration present on admission. The patient is refusing IV fluids. 7. History of noncompliance with recommendations due to psychiatric illness. 8. Chronic kidney disease stage 3. 9. Diabetes mellitus type 2 with hyperglycemia. 10.Hypertension. 11.Hyperlipidemia. 12.History of coronary artery disease. 13.History of chronic congestive heart failure with ejection fraction unknown. 14.History of DVT, pulmonary embolism, not on any anticoagulation currently. 15.Hypothyroidism. 16.History of degenerative joint disease. RECOMMENDATION AND DISCUSSION: Recommend to continue current medications, continue symptomatic treatment. Otherwise at this time I would recommend psychiatric evaluation. Continue the rest of the medications. PT, OT evaluation. Possibly supplemental vitamins. Possible ECF rehab. Dr. Swartz will follow tomorrow. MMODL / IJN: [id number] /
[2020-04-17 17:06] LABS: Glucose,Whole Blood 186 mg/dL (75-99)
[2020-04-17 21:14] LABS: Glucose,Whole Blood 257 mg/dL (75-99)
[2020-04-17] MEDS: ATORVASTATIN 40 MG TAB PO SCH (21:18)
[2020-04-18] MEDS: LEVOTHYROXINE 50 MCG TAB PO SCH (06:06)
[2020-04-18 08:08] LABS: Glucose,Whole Blood 193 mg/dL (75-99)
[2020-04-18] MEDS: CARBIDOPA-LEVODOPA 25-100 MG 1 EACH TAB PO SCH ×2 (08:48→20:55)
[2020-04-18] MEDS: ENOXAPARIN 30 MG/0.3 ML SYRINGE SQ SCH (08:48)
[2020-04-18] MEDS: amLODIPine 2.5 MG TAB PO SCH (08:48)
[2020-04-18] MEDS: ESCITALOPRAM 10 MG TAB PO SCH (08:48)
[2020-04-18] MEDS: CHOLECALCIFEROL 1,000 UNIT TAB PO SCH (08:48)
[2020-04-18] MEDS: QUEtiapine 50 MG TAB PO SCH ×2 (08:48→20:55)
[2020-04-18] MEDS: ASPIRIN 81 MG PO SCH (08:48)
[2020-04-18] MEDS: INSULIN DETEMIR (LEVEMIR) 100 UNIT/ML SYR SQ SCH (08:49)
[2020-04-18] MEDS: INSULIN ASPART (NovoLOG) 100 UNIT/ML VIAL SQ SCH ×4 (08:49→20:55)
[2020-04-18 12:12] LABS: Glucose,Whole Blood 332 mg/dL (75-99)
[2020-04-18] MEDS: THIAMINE 100 MG TAB PO SCH (13:27)
[2020-04-18] MEDS: FOLIC ACID 1 MG TAB PO SCH (13:27)
[2020-04-18] MEDS: MULTIVITAMINS, THERA 1 EACH TAB PO SCH (13:27)
--- NOTE | 2020-04-18 14:28 | P.PN ---
Progress Note - Text Progress Note Date: 04/18/20 Interval History: Patient was seen at bedside. Patient remains pleasantly confused. She is currently not oriented to place or time. She is oriented to person only. She has been adherent with her prescribed medications and is not reporting any issues at this time. History is somewhat limited as the patient is nonsensical and nonlinear in conversation. She brings up names of people this provider does not know and has difficulty clarifying who these people are. She is able to deny any suicidal or homicidal ideation or intention. Collateral information from the patient's daughter reveals no significant history of dementia. Patient's daughter reports that the patient has attempted suicide when she was much younger. She also reports that the patient has a history of odd behaviors including spending excessive amounts of money. She also reports the patient was admitted to a psychiatric unit 4-5 years ago. She has been noted to be intermittently agitated with family as well. Mental Status Exam: General Appearance: Patient appears to be stated age is alert, difficult to direct but is cooperative. Behavior: Patient is calmly seated upright in bed without any agitated behavior. Speech: Patient's speech is fluent and nonpressured. Mood/Affect: Mood is "okay" affect is pleasantly confused Suicidality/Homicidality: Patient denies having any suicidal or homicidal ideation intent or plan. Perceptions: Unable to assess. Though content/process: Patient appears to be illogical, non-linear, and pleasantly confused. Memory and concentration: Patient is alert and oriented to self only. Concentration is grossly stable. Judgment and insight: Very Poor Assessment Altered mental status History of Bipolar Disorder Plan: -At this time patient DOES NOT meet criteria for inpatient psychiatric admission. -Delirium precautions recommended with patient including - avoiding use of narcotics and CORSETIER sedatives, limit anticholinergic medications when possible, frequent re-orientation, minimize use of restraints, open window shades during the day and close them at night -Continue Seroquel 50 mg by mouth twice daily for mood stabilization - -Continue lexapro 10 mg by mouth daily -Patient has not been agitated but remains confused albeit pleasant. -Psychiatry will continue to follow.
--- NOTE | 2020-04-18 14:31 | P.PN ---
Subjective Progress Note Date: 04/18/20 This is an 79-year-old female admitted with acute left lower lobe covid pneumonia. Maintained on vitamin C, vitamin D, zinc, Decadron, Rocephin. Chest x-ray reporting patchy infiltrate lower lobe and to a lesser extent right perihilar region. Maintaining O2 sats in the 90s on room air. Complains of na usea, anxiety. No emesis, no diarrhea, no chest pain. Early in the morning Xanax ordered for anxiety .Confusion increased along with agitation, steroids and Xanax discontinued. 03/29/2020 steroids, benzos discontinued yesterday .confusion, psychosis worsened overnight. Patient having hallucinations, combative. Received Haldol during the regulation supervisor hours. corn husker machine operator at bedside. This morning refusing oral meds, paranoid that people are out to hurt her. Hyperglycemic. Maintaining O2 sats of the 90s on room air. 03/30/2020 maintained on Covid regimen with the exception of Remdesivir as per ID. Maintaining O2 sats in the high 90s on room air. Delirium persist, combative with staff. Refused labs, Accu-Cheks. Psychiatry consult reported patient not competent in making her own decisions at this time. Psychiatry recommendations noted and appreciated-Seroquel adjusted. Hyperglycemic. 03/31/20 significant clinical improvement this morning. Sitting up in chair, cooperative, allowing lab draw and taking morning meds. Continues on Covid regimen. Maintaining O2 sats in the high 90s on room air. Denies chest pain, palpitations or shortness of breath. Afebrile. 04/01/2020 sitting up in chair, remains cooperative with staff, non-combative. Nurse reports yesterday patient was cooperative as well, took her medications. Discusses she is open to go to subacute rehab, requesting [facility]. Denies chest pain, palpitations or shortness of breath. Maintaining O2 sats in the 90s. Good diet intake with no nausea vomiting or diarrhea. Blood sugars trending down this morning. Afebrile. 04/18/20 persistent paranoia and confusion. Denies chest pain, palpitations or shortness of breath. Covid symptoms resolved. Guardianship hearing scheduled for 04/20/2020. Objective - Vital Signs Vital signs: Vital Signs Temp 97.9 F 04/18/20 11:00 Pulse 76 04/18/20 11:00 Resp 16 04/18/20 11:00 BP 130/58 04/18/20 11:00 Pulse Ox 98 04/18/20 11:00 Intake & Output 04/17/20 04/18/20 04/18/20 18:59 06:59 18:59 Intake Total 360 Balance 360 Intake: Oral 360 Other: Voiding Method Diaper Diaper Diaper Incontinent Incontinent Incontinent # Voids 1 - Exam General: well nourished, well developed, NAD. Vitals reviewed Lungs: normal respiratory effort, no wheezes or rales CV: Regular rate and rhythm, no murmur. Peripheral pulses 2+ Abdomen: soft, nondistended, no organomegaly Psych: paranoid, delusional, difficult to redirect Skin: warm and dry. - Labs CBC & Chem 7: 04/17/20 04:01 04/16/20 15:32 Labs: Abnormal Lab Results - Last 24 Hours (Table) 04/17/20 04/17/20 04/18/20 Range/Units 17:05 20:55 08:03 POC Glucose (mg/dL) 186 H 257 H 193 H (75-99) mg/dL 04/18/20 Range/Units 12:01 POC Glucose (mg/dL) 332 H (75-99) mg/dL Microbiology - Last 24 Hours (Table) 04/16/20 23:25 Urine Culture - Preliminary Urine,Catheterized Group D Enterococcus Assessment and Plan Assessment: Acute Covid -19 left lower lobe pneumonia, improved Toxic ,metabolic encephalopathy, multifactorial secondary to infection and Steroid psychosis. Covid acute gastroenteritis, resolved Dehydration, resolved Acute on Chronic kidney disease, stage III, improving Diabetes mellitus, with hyperglycemia , hemoglobin A1c 8.1 Hypertension Hyperlipidemia History of coronary artery disease CHronic heart failure History of DVT/PE, not on anticoagulation Hypothyroidism History of arthritis Plan: Continue on current medication regime ,monitoring and symptomatic treatment. Public guardian hearing 04/20/20. Medically stable for DC. Psychiatry we consulted yesterday, Further psych recommendations noted. The impression and plan of care has been dictated as directed. : I performed a history and examination of this patient, discussed the same with the dictator. I agree with the dictator's note ,documented as a scribe. Any additional findings or plans will be noted.
[2020-04-18 18:19] LABS: Glucose,Whole Blood 361 mg/dL (75-99)
[2020-04-18] MEDS: ACETAMINOPHEN TAB 500 MG TAB PO PRN (20:54)
[2020-04-18] MEDS: ATORVASTATIN 40 MG TAB PO SCH (20:55)
[2020-04-18] MEDS: SENNOSIDES 8.6 MG TAB PO SCH (20:55)
[2020-04-18 21:03] LABS: Glucose,Whole Blood 273 mg/dL (75-99)
[2020-04-19] MEDS: LEVOTHYROXINE 50 MCG TAB PO SCH (05:39)
[2020-04-19 07:31] LABS: Glucose,Whole Blood 157 mg/dL (75-99)
[2020-04-19] MEDS: INSULIN ASPART (NovoLOG) 100 UNIT/ML VIAL SQ SCH ×4 (08:31→20:23)
[2020-04-19] MEDS: ENOXAPARIN 30 MG/0.3 ML SYRINGE SQ SCH (08:31)
[2020-04-19] MEDS: amLODIPine 2.5 MG TAB PO SCH (08:32)
[2020-04-19] MEDS: ESCITALOPRAM 10 MG TAB PO SCH (08:32)
[2020-04-19] MEDS: ASPIRIN 81 MG PO SCH (08:32)
[2020-04-19] MEDS: SENNOSIDES 8.6 MG TAB PO SCH ×2 (08:32→20:22)
[2020-04-19] MEDS: INSULIN DETEMIR (LEVEMIR) 100 UNIT/ML SYR SQ SCH (08:32)
[2020-04-19] MEDS: QUEtiapine 50 MG TAB PO SCH ×2 (08:32→20:22)
[2020-04-19] MEDS: CARBIDOPA-LEVODOPA 25-100 MG 1 EACH TAB PO SCH ×2 (08:32→20:22)
[2020-04-19] MEDS: FOLIC ACID 1 MG TAB PO SCH (08:32)
[2020-04-19] MEDS: CHOLECALCIFEROL 1,000 UNIT TAB PO SCH (08:32)
[2020-04-19 11:58] LABS: Glucose,Whole Blood 202 mg/dL (75-99)
--- NOTE | 2020-04-19 12:28 | P.PN ---
Progress Note - Text Progress Note Date: 04/19/20 Interval History: Patient was seen at bedside. Currently, the patient is presenting much better today. She is alert and oriented to person and time but not to place. She is able to identify who the current president intellect is. She has been adherent with her medications and is not reporting any significant side effects at this time. She is not reporting any suicidal or homicidal ideation, intention, and/or plan. She is denying any auditory or visual hallucinations. She expresses a strong desire to go to a residential upon discharge. As per discussion with patient's nurse, the patient has been calm and cooperative. The patient has a guardianship hearing tomorrow. Mental Status Exam: General Appearance: Patient appears to be stated age is alert, is directable and cooperative Behavior: Patient is calmly seated upright in bed without any agitated behavior. Speech: Patient's speech is fluent and nonpressured. Mood/Affect: Mood is "doing fine" affect is euthymic but constricted in range Suicidality/Homicidality: Patient denies having any suicidal or homicidal ideation intent or plan. Perceptions: Unable to assess. Though content/process: Patient appears to be mostly logical and linear and short conversation. Memory and concentration: The patient is alert and oriented to person and time. She continues to have some confusion as to regarding where she is located. She continues to state that she is currently in [place]. Concentration is grossly stable. Judgment and insight: Very Poor Assessment Altered mental status History of Bipolar Disorder Plan: -At this time patient DOES NOT meet criteria for inpatient psychiatric a dmission. -Delirium precautions recommended with patient including - avoiding use of narcotics and MEDICAL STAFFING COORDINATOR sedatives, limit anticholinergic medications when possible, frequent re-orientation, minimize use of restraints, open window shades during the day and close them at night -Continue Seroquel 50 mg by mouth twice daily for mood stabilization - -Continue lexapro 10 mg by mouth daily -She and appears to be intimately confused but albeit pleasant at this time. -Psychiatry will sign off at this point. Thank you for this consult. If any concerns or questions please feel free to call or reconsult if necessary.
[2020-04-19] MEDS: MULTIVITAMINS, THERA 1 EACH TAB PO SCH (13:24)
[2020-04-19] MEDS: THIAMINE 100 MG TAB PO SCH (13:24)
--- NOTE | 2020-04-19 15:01 | P.PN ---
Subjective Progress Note Date: 04/19/20 This is an 79-year-old female admitted with acute left lower lobe covid pneumonia. Maintained on vitamin C, vitamin D, zinc, Decadron, Rocephin. Chest x-ray reporting patchy infiltrate lower lobe and to a lesser extent right perihilar region. Maintaining O2 sats in the 90s on room air. Complains of na usea, anxiety. No emesis, no diarrhea, no chest pain. Early in the morning Xanax ordered for anxiety .Confusion increased along with agitation, steroids and Xanax discontinued. 03/29/2020 steroids, benzos discontinued yesterday .confusion, psychosis worsened overnight. Patient having hallucinations, combative. Received Haldol during the sustainable products marketing manager hours. catalog library assistant at bedside. This morning refusing oral meds, paranoid that people are out to hurt her. Hyperglycemic. Maintaining O2 sats of the 90s on room air. 03/30/2020 maintained on Covid regimen with the exception of Remdesivir as per ID. Maintaining O2 sats in the high 90s on room air. Delirium persist, combative with staff. Refused labs, Accu-Cheks. Psychiatry consult reported patient not competent in making her own decisions at this time. Psychiatry recommendations noted and appreciated-Seroquel adjusted. Hyperglycemic. 03/31/20 significant clinical improvement this morning. Sitting up in chair, cooperative, allowing lab draw and taking morning meds. Continues on Covid regimen. Maintaining O2 sats in the high 90s on room air. Denies chest pain, palpitations or shortness of breath. Afebrile. 04/01/2020 sitting up in chair, remains cooperative with staff, non-combative. Nurse reports yesterday patient was cooperative as well, took her medications. Discusses she is open to go to subacute rehab, requesting [facility]. Denies chest pain, palpitations or shortness of breath. Maintaining O2 sats in the 90s. Good diet intake with no nausea vomiting or diarrhea. Blood sugars trending down this morning. Afebrile. 04/18/20 persistent paranoia and confusion. Denies chest pain, palpitations or shortness of breath. Covid symptoms resolved. Guardianship hearing scheduled for 04/20/2020. 04/19/20 More alert today, calm and cooperative. Psychiatry has signed off. Denies chest pain, palpitations or shortness of breath. Awaiting guardianship hearing and discharged to [facility]. Objective - Vital Signs Vital signs: Vital Signs Temp 98.1 F 04/19/20 04:35 Pulse 59 L 04/19/20 04:35 Resp 16 04/19/20 04:35 BP 111/70 04/19/20 04:35 Pulse Ox 98 04/19/20 04:35 Intake & Output 04/18/20 04/19/20 04/19/20 18:59 06:59 18:59 Intake Total 450 Output Total 20 Balance 430 Intake: Oral 450 Output: Post Void Residual 20 Other: Voiding Method Diaper Diaper Diaper Incontinent Incontinent Incontinent # Voids 1 2 # Bowel Movements 0 - Exam General: well nourished, well developed, NAD. Vitals reviewed, calm, cooperati ve. Lungs: normal respiratory effort, no wheezes or rales CV: Regular rate and rhythm, no murmur. Peripheral pulses 2+ Abdomen: soft, nondistended, no organomegaly Psych: Sitting up in chair, alert and oriented to person and time, disoriented to place. Skin: warm and dry. - Labs CBC & Chem 7: 04/17/20 04:01 04/16/20 15:32 Labs: Abnormal Lab Results - Last 24 Hours (Table) 04/18/20 04/18/20 04/19/20 Range/Units 17:36 20:50 07:28 POC Glucose (mg/dL) 361 H 273 H 157 H (75-99) mg/dL 04/19/20 Range/Units 11:50 POC Glucose (mg/dL) 202 H (75-99) mg/dL Microbiology - Last 24 Hours (Table) 04/16/20 23:25 Urine Culture - Final Urine,Catheterized Enterococcus faecalis Assessment and Plan Assessment: Acute Covid -19 left lower lobe pneumonia, improved Toxic ,metabolic encephalopathy, multifactorial secondary to infection and Steroid psychosis, improving. Covid acute gastroenteritis, resolved Dehydration, resolved Acute on Chronic kidney disease, stage III, improving Diabetes mellitus, with hyperglycemia , hemoglobin A1c 8.1 Hypertension Hyperlipidemia History of coronary artery disease CHronic heart failure History of DVT/PE, not on anticoagulation Hypothyroidism History of arthritis Plan: Continue on current medication regime ,monitoring and symptomatic treatment. Public guardian hearing tomorrow. Medically stable for [place]. Psychiatry signed off. The impression and plan of care has been dictated as directed. : I performed a history and examination of this patient, discussed the same with the dictator. I agree with the dictator's note ,documented as a scribe. Any additional findings or plans will be noted.
[2020-04-19 17:12] LABS: Glucose,Whole Blood 260 mg/dL (75-99)
[2020-04-19] MEDS: ATORVASTATIN 40 MG TAB PO SCH (20:22)
[2020-04-19 20:32] LABS: Glucose,Whole Blood 98 mg/dL (75-99)
[2020-04-20] MEDS: LEVOTHYROXINE 50 MCG TAB PO SCH (05:30)
[2020-04-20 07:21] LABS: Glucose,Whole Blood 150 mg/dL (75-99)
[2020-04-20] MEDS: ASPIRIN 81 MG PO SCH (08:19)
[2020-04-20] MEDS: ENOXAPARIN 30 MG/0.3 ML SYRINGE SQ SCH (08:19)
[2020-04-20] MEDS: INSULIN DETEMIR (LEVEMIR) 100 UNIT/ML SYR SQ SCH (08:19)
[2020-04-20] MEDS: INSULIN ASPART (NovoLOG) 100 UNIT/ML VIAL SQ SCH ×4 (08:19→20:27)
[2020-04-20] MEDS: QUEtiapine 50 MG TAB PO SCH ×2 (08:20→20:27)
[2020-04-20] MEDS: SENNOSIDES 8.6 MG TAB PO SCH ×2 (08:20→20:27)
[2020-04-20] MEDS: CARBIDOPA-LEVODOPA 25-100 MG 1 EACH TAB PO SCH ×2 (08:20→20:27)
[2020-04-20] MEDS: amLODIPine 2.5 MG TAB PO SCH (08:20)
[2020-04-20] MEDS: ESCITALOPRAM 10 MG TAB PO SCH (08:20)
[2020-04-20] MEDS: CHOLECALCIFEROL 1,000 UNIT TAB PO SCH (08:20)
[2020-04-20 12:24] LABS: Glucose,Whole Blood 173 mg/dL (75-99)
[2020-04-20] MEDS: FOLIC ACID 1 MG TAB PO SCH (12:50)
[2020-04-20] MEDS: MULTIVITAMINS, THERA 1 EACH TAB PO SCH (12:50)
[2020-04-20] MEDS: THIAMINE 100 MG TAB PO SCH (12:50)
--- NOTE | 2020-04-20 14:55 | P.PN ---
Subjective Progress Note Date: 04/20/20 This is an 79-year-old female admitted with acute left lower lobe covid pneumonia. Maintained on vitamin C, vitamin D, zinc, Decadron, Rocephin. Chest x-ray reporting patchy infiltrate lower lobe and to a lesser extent right perihilar region. Maintaining O2 sats in the 90s on room air. Complains of na usea, anxiety. No emesis, no diarrhea, no chest pain. Early in the morning Xanax ordered for anxiety .Confusion increased along with agitation, steroids and Xanax discontinued. 03/29/2020 steroids, benzos discontinued yesterday .confusion, psychosis worsened overnight. Patient having hallucinations, combative. Received Haldol during the digital data analyst hours. guide travel at bedside. This morning refusing oral meds, paranoid that people are out to hurt her. Hyperglycemic. Maintaining O2 sats of the 90s on room air. 03/30/2020 maintained on Covid regimen with the exception of Remdesivir as per ID. Maintaining O2 sats in the high 90s on room air. Delirium persist, combative with staff. Refused labs, Accu-Cheks. Psychiatry consult reported patient not competent in making her own decisions at this time. Psychiatry recommendations noted and appreciated-Seroquel adjusted. Hyperglycemic. 03/31/20 significant clinical improvement this morning. Sitting up in chair, cooperative, allowing lab draw and taking morning meds. Continues on Covid regimen. Maintaining O2 sats in the high 90s on room air. Denies chest pain, palpitations or shortness of breath. Afebrile. 04/01/2020 sitting up in chair, remains cooperative with staff, non-combative. Nurse reports yesterday patient was cooperative as well, took her medications. Discusses she is open to go to subacute rehab, requesting [facility]. Denies chest pain, palpitations or shortness of breath. Maintaining O2 sats in the 90s. Good diet intake with no nausea vomiting or diarrhea. Blood sugars trending down this morning. Afebrile. 04/18/20 persistent paranoia and confusion. Denies chest pain, palpitations or shortness of breath. Covid symptoms resolved. Guardianship hearing scheduled for 04/20/2020. 04/19/20 More alert today, calm and cooperative. Psychiatry has signed off. Denies chest pain, palpitations or shortness of breath. Awaiting guardianship hearing and discharged to [facility]. 04/20/20 public guardian hearing today. Denies chest pain, palpitations or shortness of breath. Denies lightheadedness dizziness or focal deficits. Discharge planning in progress for subacute rehab. Objective - Vital Signs Vital signs: Vital Signs Temp 97.7 F 04/20/20 05:00 Pulse 66 04/20/20 05:00 Resp 16 04/20/20 05:00 BP 130/67 04/20/20 05:00 Pulse Ox 94 L 04/20/20 05:00 Intake & Output 04/19/20 04/20/20 04/20/20 18:59 06:59 18:59 Intake Total 120 Output Total 400 Balance -400 120 Intake: Oral 120 Output: Urine 400 Other: Voiding Method Diaper Diaper Diaper Incontinent Incontinent Incontinent # Voids 1 # Bowel Movements 0 - Exam General: Sitting up in chair, NAD. Vitals reviewed, calm, cooperative. Lungs: normal respiratory effort, no wheezes or rales CV: Regular rate and rhythm, no murmur. Peripheral pulses 2+ Abdomen: soft, nondistended, no organomegaly Psych: Sitting up in chair, alert and oriented to person and time, disoriented to place. Skin: warm and dry. - Labs CBC & Chem 7: 04/17/20 04:01 04/16/20 15:32 Labs: Abnormal Lab Results - Last 24 Hours (Table) 04/19/20 04/19/20 04/20/20 Range/Units 11:50 17:06 07:19 POC Glucose (mg/dL) 202 H 260 H 150 H (75-99) mg/dL Microbiology - Last 24 Hours (Table) 04/16/20 23:25 Urine Culture - Final Urine,Catheterized Enterococcus faecalis Assessment and Plan Assessment: Acute Covid -19 left lower lobe pneumonia, improved Toxic ,metabolic encephalopathy, multifactorial secondary to infection and Steroid psychosis, improving. Covid acute gastroenteritis, resolved Dehydration, resolved Acute on Chronic kidney disease, stage III, improving Diabetes mellitus, with hyperglycemia , hemoglobin A1c 8.1 Hypertension Hyperlipidemia History of coronary artery disease CHronic heart failure History of DVT/PE, not on anticoagulation Hypothyroidism History of arthritis Plan: Continue on current medication regime ,monitoring and symptomatic treatment. Public guardian hearing today. Medically stable for [place]. The impression and plan of care has been dictated as directed. : I performed a history and examination of this patient, discussed the same with the dictator. I agree with the dictator's note ,documented as a scribe. Any additional findings or plans will be noted.
[2020-04-20 17:22] LABS: Glucose,Whole Blood 155 mg/dL (75-99)
[2020-04-20 20:02] LABS: Glucose,Whole Blood 176 mg/dL (75-99)
[2020-04-20] MEDS: ATORVASTATIN 40 MG TAB PO SCH (20:27)
[2020-04-21] MEDS: LEVOTHYROXINE 50 MCG TAB PO SCH (05:32)
[2020-04-21 07:10] LABS: Glucose,Whole Blood 100 mg/dL (75-99)
[2020-04-21] MEDS: INSULIN ASPART (NovoLOG) 100 UNIT/ML VIAL SQ SCH ×2 (07:21→12:17)
[2020-04-21] MEDS: CARBIDOPA-LEVODOPA 25-100 MG 1 EACH TAB PO SCH (07:59)
[2020-04-21] MEDS: ASPIRIN 81 MG PO SCH (07:59)
[2020-04-21] MEDS: QUEtiapine 50 MG TAB PO SCH (07:59)
[2020-04-21] MEDS: amLODIPine 2.5 MG TAB PO SCH (08:00)
[2020-04-21] MEDS: INSULIN DETEMIR (LEVEMIR) 100 UNIT/ML SYR SQ SCH (08:00)
[2020-04-21] MEDS: CHOLECALCIFEROL 1,000 UNIT TAB PO SCH (08:00)
[2020-04-21] MEDS: SENNOSIDES 8.6 MG TAB PO SCH (08:00)
[2020-04-21] MEDS: ENOXAPARIN 30 MG/0.3 ML SYRINGE SQ SCH (08:00)
[2020-04-21] MEDS: ESCITALOPRAM 10 MG TAB PO SCH (08:00)
--- NOTE | 2020-04-21 10:18 | P.DS ---
Providers Date of admission: 03/27/20 11:11 Expected date of discharge: 04/21/20 Attending physician: Adrien Swartz MD Consults: 03/27/20 12:29 Consult Physician Routine Consulting Provider: Savannah Mcqueen Consult Reason/Comments: Covid, pneumonia Do you want consulting provider notified?: Yes 03/29/20 09:27 Consult Physician Routine Consulting Provider: Agapito Zamora Consult Reason/Comments: psychosis Do you want consulting provider notified?: Yes 03/31/20 15:20 Consult Physician Routine Consulting Provider: Abdullahi Hodges Consult Reason/Comments: Re-evaluate for competency for legal guardian Do you want consulting provider notified?: Already Contacted 04/17/20 11:07 Consult Physician Routine Consulting Provider: Ben Snyder Consult Reason/Comments: agitation Do you want consulting provider notified?: Yes Primary care physician: Adrien Swartz MD Hospital Course: Final Diagnoses: Acute Covid -19 left lower lobe pneumonia, improved Toxic ,metabolic encephalopathy, multifactorial secondary to infection and Steroid psychosis, improving. History of bipolar disorder,per psychiatry. Covid acute gastroenteritis, resolved Dehydration, resolved Acute on Chronic kidney disease, stage III, improving Diabetes mellitus, with hyperglycemia , hemoglobin A1c 8.1 Hypertension Hyperlipidemia History of coronary artery disease CHronic heart failure History of DVT/PE, not on anticoagulation Hypothyroidism History of arthritis Hospital course:This is an 79-year-old female admitted with acute left lower lobe covid pneumonia. Maintained on vitamin C, vitamin D, zinc, Decadron, Rocephin. Chest x-ray reporting patchy infiltrate lower lobe and to a lesser extent right perihilar region. Maintaining O2 sats in the 90s on room air. Complains of nausea, anxiety. No emesis, no diarrhea, no chest pain. Early in the morning Xanax ordered for anxiety .Confusion increased along with agitation, steroids and Xanax discontinued. 03/29/2020 steroids, benzos discontinued yesterday .confusion, psychosis worsened overnight. Patient having hallucinations, combative. Received Haldol during the fiberglass ski maker hours. form coverer at bedside. This morning refusing oral meds, paranoid that people are out to hurt her. Hyperglycemic. Maintaining O2 sats of the 90s on room air. 03/30/2020 maintained on Covid regimen with the exception of Remdesivir as per ID. Maintaining O2 sats in the high 90s on room air. Delirium persist, combative with staff. Refused labs, Accu-Cheks. Psychiatry consult reported patient not competent in making her own decisions at this time. Psychiatry recommendations noted and appreciated-Seroquel adjusted. Hyperglycemic. 03/31/20 significant clinical improvement this morning. Sitting up in chair, cooperative, allowing lab draw and taking morning meds. Continues on Covid regimen. Maintaining O2 sats in the high 90s on room air. Denies chest pain, palpitations or shortness of breath. Afebrile. 04/01/2020 sitting up in chair, remains cooperative with staff, non-combative. Nurse reports yesterday patient was cooperative as well, took her medications. Discusses she is open to go to subacute rehab, requesting [facility]. Denies chest pain, palpitations or shortness of breath. Maintaining O2 sats in the 90s. Good diet intake with no nausea vomiting or diarrhea. Blood sugars trending down this morning. Afebrile. 04/18/20 persistent paranoia and confusion. Denies chest pain, palpitations or shortness of breath. Covid symptoms resolved. Guardianship hearing scheduled for 04/20/2020. 04/19/20 More alert today, calm and cooperative. Psychiatry has signed off. Denies chest pain, palpitations or shortness of breath. Awaiting guardianship hearing and discharged to [facility]. 04/20/20 public guardian hearing today. Denies chest pain, palpitations or shortness of breath. Denies lightheadedness dizziness or focal deficits. Discharge planning in progress for subacute rehab. Public guardian appointed. Denies any auditory or visual hallucinations, adherent with medications. Significant clinical improvement. Patient is being discharged today to subacute rehab.,in a stable condition with guarded prognosis. - Exam General: Sitting up in chair, alert and oriented to person and time, NAD,calm, cooperative. Lungs: normal respiratory effort, no wheezes or rales CV: Regular rate and rhythm, no murmur. Peripheral pulses 2+ Abdomen: soft, nondistended, no organomegaly, positive bowel sound Skin: Warm and dry. The impression and plan of care has been dictated as directed. : I performed a history and examination of this patient, discussed the same with the dictator. I agree with the dictator's note ,documented as a scribe. Any additional findings or plans will be noted. Patient Condition at Discharge: Stable Plan - Discharge Summary New Discharge Prescriptions: New Folic Acid 1 mg PO DAILY@1200 tab INSULIN LISPRO (HumaLOG) [humaLOG] 0 unit SQ ACHS #1 vial Escitalopram [Lexapro] 10 mg PO DAILY tab Atorvastatin [Lipitor] 40 mg PO HS tab Multivitamins, Thera [Multivitamin (formulary)] 1 each PO DAILY@1200 tab Sennosides [Senokot] 8.6 mg PO BID tab QUEtiapine [SEROquel] 50 mg PO BID tab Acetaminophen Tab [Tylenol] 1,000 mg PO Q6HR PRN tab PRN Reason: Fever And/ Or Pain Thiamine [Vitamin B-1] 100 mg PO DAILY@1200 tab Continue Levothyroxine Sodium [Synthroid] 50 mcg PO DAILY Carbidopa-Levodopa 25-100 mg [Sinemet 25-100 mg] 1 tab PO BID Aspirin EC [Ecotrin Low Dose] 81 mg PO DAILY amLODIPine [Norvasc] 2.5 mg PO PC-LUNCH Cholecalciferol [Vitamin D3 (25 Mcg = 1000 Iu)] 1,000 unit PO DAILY Cyanocobalamin (Vitamin B-12) [Vitamin B-12] 1,000 mcg PO DAILY Nitroglycerin Sl Tabs [Nitrostat] 0.4 mg SUBLINGUAL Q5M PRN PRN Reason: Chest Pain Changed Insulin Glargine,Hum.rec.anlog [Lantus Solostar] 35 unit SQ DAILY #0 Discontinued Simvastatin [Zocor] 40 mg PO PC-LUNCH Glimepiride [Amaryl] 2 mg PO BID Furosemide [Lasix] 40 mg PO DAILY Insulin Lispro [humaLOG Kwikpen] 9 unit SQ AC-TID #0 Clotrimazole/Betamethasone Dip [Lotrisone Cream] 1 applic TOPICAL BID PRN PRN Reason: Rash metFORMIN HCL [Glucophage] 500 mg PO BID Discharge Medication List Carbidopa-Levodopa 25-100 mg [Sinemet 25-100 mg] 1 tab PO BID 06/03/18 [History] Levothyroxine Sodium [Synthroid] 50 mcg PO DAILY 06/03/18 [History] Aspirin EC [Ecotrin Low Dose] 81 mg PO DAILY 05/13/19 [History] amLODIPine [Norvasc] 2.5 mg PO PC-LUNCH 05/13/19 [History] Cholecalciferol [Vitamin D3 (25 Mcg = 1000 Iu)] 1,000 unit PO DAILY 01/31/20 [History] Cyanocobalamin (Vitamin B-12) [Vitamin B-12] 1,000 mcg PO DAILY 01/31/20 [History] Nitroglycerin Sl Tabs [Nitrostat] 0.4 mg SUBLINGUAL Q5M PRN 03/27/20 [History] Acetaminophen Tab [Tylenol] 1,000 mg PO Q6HR PRN tab 04/21/20 [Rx] Atorvastatin [Lipitor] 40 mg PO HS tab 04/21/20 [Rx] Escitalopram [Lexapro] 10 mg PO DAILY tab 04/21/20 [Rx] Folic Acid 1 mg PO DAILY@1200 tab 04/21/20 [Rx] INSULIN LISPRO (HumaLOG) [humaLOG] 0 unit SQ ACHS #1 vial 04/21/20 [Rx] Insulin Glargine,Hum.rec.anlog [Lantus Solostar] 35 unit SQ DAILY #0 04/21/20 [Rx] Multivitamins, Thera [Multivitamin (formulary)] 1 each PO DAILY@1200 tab 04/21/20 [Rx] QUEtiapine [SEROquel] 50 mg PO BID tab 04/21/20 [Rx] Sennosides [Senokot] 8.6 mg PO BID tab 04/21/20 [Rx] Thiamine [Vitamin B-1] 100 mg PO DAILY@1200 tab 04/21/20 [Rx] Follow up Appointment(s)/Referral(s): Dr. ROGER Psychiatry [Other] - 1 Week Denisse Swartz DO [REFERRING] - 1 Week (After DC from subacute rehab) Activity/Diet/Wound Care/Special Instructions: Shree Amaral APS (P: [phone]) CBC,BMP in 3 days
[2020-04-21 10:35] LABS: Glucose,Whole Blood 162 mg/dL (75-99)
[2020-04-21 10:57] VITALS: BP 135/72; PULSE 66; RESP 17; TEMP 98.7
[2020-04-21] MEDS: THIAMINE 100 MG TAB PO SCH (12:17)
[2020-04-21] MEDS: FOLIC ACID 1 MG TAB PO SCH (12:17)
[2020-04-21] MEDS: MULTIVITAMINS, THERA 1 EACH TAB PO SCH (12:17)
== END 2020-04-21 14:41 | DRG 177 ==
LOC: EC 08:58 → 6NMEDSUR 11:11 → EEVIPCON 11:11 → 6NMEDSUR 12:38
PROVIDERS: ADMIT Family Medicine; ATTEND Family Medicine
DX: U07.1 COVID-19 (principal); G92 Toxic encephalopathy; J12.82 Pneumonia due to coronavirus disease 2019; J69.0 Pneumonitis due to inhalation of food and vomit; I13.0 Hypertensive heart and chronic kidney disease with heart failure and stage 1 through stage 4 chronic kidney disease, or unspecified chronic kidney disease; I50.32 Chronic diastolic (congestive) heart failure; N17.9 Acute kidney failure, unspecified; D72.810 Lymphocytopenia; E03.9 Hypothyroidism, unspecified; E11.22 Type 2 diabetes mellitus with diabetic chronic kidney disease; E11.65 Type 2 diabetes mellitus with hyperglycemia; E78.5 Hyperlipidemia, unspecified; E86.0 Dehydration; F09 Unspecified mental disorder due to known physiological condition; T38.0X5A Adverse effect of glucocorticoids and synthetic analogues, initial encounter; T42.4X5A Adverse effect of benzodiazepines, initial encounter; F31.9 Bipolar disorder, unspecified; F41.9 Anxiety disorder, unspecified; G20 Parkinson's disease; I25.10 Atherosclerotic heart disease of native coronary artery without angina pectoris; I25.2 Old myocardial infarction; W07.XXXA Fall from chair, initial encounter; K52.9 Noninfective gastroenteritis and colitis, unspecified; M25.569 Pain in unspecified knee; Z53.20 Procedure and treatment not carried out because of patient's decision for unspecified reasons; K29.00 Acute gastritis without bleeding; M19.90 Unspecified osteoarthritis, unspecified site; N18.30 Chronic kidney disease, stage 3 unspecified; Z79.4 Long term (current) use of insulin; Z79.82 Long term (current) use of aspirin; Z79.890 Hormone replacement therapy; Z79.899 Other long term (current) drug therapy; Z82.5 Family history of asthma and other chronic lower respiratory diseases; Z86.711 Personal history of pulmonary embolism; Z86.718 Personal history of other venous thrombosis and embolism; Z90.710 Acquired absence of both cervix and uterus; Z91.19 Patient's noncompliance with other medical treatment and regimen; Z95.5 Presence of coronary angioplasty implant and graft; Z96.653 Presence of artificial knee joint, bilateral; Z87.01 Personal history of pneumonia (recurrent); Z90.49 Acquired absence of other specified parts of digestive tract; Z88.7 Allergy status to serum and vaccine; Z88.8 Allergy status to other drugs, medicaments and biological substances; R45.1 Restlessness and agitation; R29.6 Repeated falls; Z91.81 History of falling; F22 Delusional disorders
CPT/HCPCS: 36415; 71045; 71046; 80048; 80053; 81001; 82728; 83036; 83605; 83615; 83735; 83880; 84145; 84484; 85025; 85027; 85379; 85610; 85730; 86140; 87040; 87077; 87086; 87186; 87635; 93005; 96365; 96367; 96372; 99285

== ENCOUNTER 2020-12-12 21:09 | Inpatient (IN) | payer MEDICARE, BC, OTHER ==
--- NOTE | 2020-12-12 21:41 | ED ---
Recheck HPI - General Chief Complaint: Recheck/Abnormal Lab/Rx Stated Complaint: AMS Time Seen by Provider: 12/12/20 21:31 Source: patient, folder hand Mode of arrival: EMS Limitations: altered mental status - History of Present Illness Initial Comments: This patient is an 80-year-old woman sent from alf to be evaluated for elevated BUN and creatinine. The patient poorly had labs sent which came back showing BUN in the 120s and creatinine 6.4. These are higher than baseline so patient sent for evaluation. When I interview the patient, she does appear to be somewhat delirious however is able answer simple yes or no questions. She denies pain. She denies dyspnea. She answers yes that she is feeling thirsty. No complaints MD Complaint: abnormal lab -: unknown Initial Visit For: other Associated Symptoms: none - Related Data Home Medications Medication Instructions Recorded Confirmed Carbidopa-Levodopa 25-100 mg 1 tab PO BID@0800,199906/03/18 12/12/20 [Sinemet 25-100 mg] Levothyroxine Sodium [Synthroid] 50 mcg PO HS 06/03/18 12/12/20 amLODIPine [Norvasc] 2.5 mg PO DAILY 05/13/19 12/12/20 Cholecalciferol [Vitamin D3 (25 25 mcg PO DAILY 01/31/20 12/12/20 Mcg = 1000 Iu)] Cyanocobalamin (Vitamin B-12) 1,000 mcg PO HS 01/31/20 12/12/20 [Vitamin B-12] Aspirin EC [Ecotrin Low Dose] 81 mg PO DAILY 12/12/20 12/12/20 Ciprofloxacin HCl [Cipro] 500 mg PO BID 12/12/20 12/12/20 Folic Acid 0.8 mg PO DAILY 12/12/20 12/12/20 Furosemide [Lasix] 40 mg PO DAILY 12/12/20 12/12/20 Healthshake 1 can PO AC-BID 12/12/20 12/12/20 Insulin Glargine [Lantus Vial] 35 unit SQ HS 12/12/20 12/12/20 Insulin Lispro [humaLOG Kwikpen] See Protocol SQ ACHS 12/12/20 12/12/20 Magnesium Hydroxide [Milk of 2,400 mg PO ONCE PRN 12/12/20 12/12/20 Magnesia] Memantine [Namenda] 5 mg PO BID 12/12/20 12/12/20 QUEtiapine [SEROquel] 25 mg PO BID 12/12/20 12/12/20 Sennosides/Docusate Sodium [Senna 1 tab PO TID 12/12/20 12/12/20 Plus 8.6-50 mg Tablet] Thiamine [Vitamin B-1] 100 mg PO HS 12/12/20 12/12/20 amantadine HCL [Amantadine] 100 mg PO BID 12/12/20 12/12/20 Previous Rx's Medication Instructions Recorded Atorvastatin [Lipitor] 40 mg PO HS tab 04/21/20 Escitalopram [Lexapro] 10 mg PO DAILY tab 04/21/20 QUEtiapine [SEROquel] 50 mg PO BID tab 04/21/20 Allergies Allergy/AdvReac Type Severity Reaction Status Date / Time Influenza Virus Vaccines Allergy Unknown Verified 03/27/20 11:00 Insulins Allergy Swelling Verified 03/27/20 11:00 lisinopril Allergy SWELLING, Verified 03/27/20 11:00 HIVES metformin Allergy Rash/Hives Verified 03/27/20 11:00 pneumococcal vaccine Allergy Unknown Verified 03/27/20 11:00 strawberry Allergy Swelling Verified 03/27/20 11:00 tetanus immune globulin Allergy Unknown Verified 03/27/20 11:00 Review of Systems ROS Statement: Those systems with pertinent positive or pertinent negative responses have been documented in the HPI. ROS Other: All systems not noted in ROS Statement are negative. Limitations: ROS unobtainable due to patients medical condition (Patient appears delirious) Constitutional: Denies: fever Respiratory: Denies: cough, dyspnea Cardiovascular: Denies: chest pain Gastrointestinal: Denies: abdominal pain Musculoskeletal: Denies: back pain Neurological: Denies: headache Past Medical History Past Medical History: Blood Disorder, Coronary Artery Disease (CAD), Chest Pain / Angina, Heart Failure, Diabetes Mellitus, Deep Vein Thrombosis (DVT), Hyperlipidemia, Hypertension, Myocardial Infarction ([place]), Neurologic Disorder, Pneumonia, Pulmonary Embolus ([place]), Renal Disease, Thyroid Disorder Additional Past Medical History / Comment(s): ARTHRITIS, low platelets, [place] x2, parkinsons, stage 3 renal failure Last Myocardial Infarction Date:: unknown History of Any Multi-Drug Resistant Organisms: C-DIFF Date of last positivie culture/infection: 02/14/2015 MDRO Source:: URINE Past Surgical History: Appendectomy, Cholecystectomy, Heart Catheterization With Stent, Hysterectomy, Orthopedic Surgery Additional Past Surgical History / Comment(s): bilateral total knee, 4 breast biopsies right breast, bilateral cataract sx Past Anesthesia/Blood Transfusion Reactions: No Reported Reaction Date of Last Stent Placement:: unknown Past Psychological History: No Psychological Hx Reported Smoking Status: Never smoker Past Alcohol Use History: None Reported, Rare Past Drug Use History: None Reported - Past Family History Father Additional Family Medical History / Comment(s): from lung disease not sure what it was called Mother History Unknown: Yes Family Medical History: COPD Additional Family Medical History / Comment(s): empysema General Exam Limitations: altered mental status General appearance: alert Head exam: Present: atraumatic, normocephalic Eye exam: Present: normal appearance, PERRL, EOMI. Absent: scleral icterus, conjunctival injection ENT exam: Present: mucous membranes dry Neck exam: Present: full ROM. Absent: tenderness Respiratory exam: Present: normal lung sounds bilaterally. Absent: respiratory distress, wheezes, rales, rhonchi, stridor Cardiovascular Exam: Present: regular rate, normal rhythm, normal heart sounds. Absent: systolic murmur, diastolic murmur, rubs, gallop GI/Abdominal exam: Present: soft, diminished bowel sounds. Absent: distended, tenderness, guarding, rebound, rigid, pulsatile mass Extremities exam: Present: normal inspection, normal capillary refill. Absent: pedal edema, calf tenderness Neurological exam: Present: alert Skin exam: Present: dry, intact, normal color. Absent: warm, rash Course Vital Signs 12/12/20 12/12/20 12/12/20 21:13 22:00 23:58 Temperature 97.7 F 97.4 F L Pulse Rate 78 71 Respiratory 18 18 Rate Blood Pressure 146/109 107/87 120/71 O2 Sat by Pulse 98 96 Oximetry 12/13/20 12/13/20 12/13/20 04:30 06:10 08:07 Temperature 98.2 F Pulse Rate 61 61 65 Respiratory 18 16 18 Rate Blood Pressure 104/94 131/56 142/67 O2 Sat by Pulse 99 98 97 Oximetry 12/13/20 11:34 Temperature Pulse Rate 67 Respiratory 17 Rate Blood Pressure 149/59 O2 Sat by Pulse 97 Oximetry Medical Decision Making - Lab Data Result diagrams: 12/24/20 04:47 12/24/20 04:53 Lab Results 12/12/20 12/12/20 12/12/20 Range/Units 21:36 21:36 21:36 WBC 13.1 H (3.8-10.6) k/uL RBC 3.93 (3.80-5.40) m/uL Hgb 12.3 (11.4-16.0) gm/dL Hct 37.6 (34.0-46.0) % MCV 95.7 (80.0-100.0) fL MCH 31.3 (25.0-35.0) pg MCHC 32.7 (31.0-37.0) g/dL RDW 13.4 (11.5-15.5) % Plt Count 292 (150-450) k/uL MPV 8.8 Neutrophils % 82 % Lymphocytes % 7 % Monocytes % 8 % Eosinophils % 1 % Basophils % 0 % Neutrophils # 10.7 H (1.3-7.7) k/uL Lymphocytes # 1.0 (1.0-4.8) k/uL Monocytes # 1.0 (0-1.0) k/uL Eosinophils # 0.1 (0-0.7) k/uL Basophils # 0.0 (0-0.2) k/uL Hypochromasia Slight Sodium 144 (137-145) mmol/L Potassium 4.6 (3.5-5.1) mmol/L Chloride 104 (98-107) mmol/L Carbon Dioxide 21 L (22-30) mmol/L Anion Gap 19 mmol/L BUN 131 H* (7-17) mg/dL Creatinine 6.30 H (0.52-1.04) mg/dL Est GFR (CKD-EPI)AfAm 7 (>60 ml/min/1.73 sqM) Est GFR (CKD-EPI)NonAf 6 (>60 ml/min/1.73 sqM) Glucose 283 H (74-99) mg/dL Calcium 10.7 H (8.4-10.2) mg/dL Total Bilirubin 0.3 (0.2-1.3) mg/dL AST 14 (14-36) U/L ALT 7 (4-34) U/L Alkaline Phosphatase 116 (38-126) U/L Total Protein 8.1 (6.3-8.2) g/dL Albumin 4.4 (3.5-5.0) g/dL Urine Color Light Red Urine Appearance Turbid H (Clear) Urine pH 7.5 (5.0-8.0) Ur Specific [place] 1.019 (1.001-1.035) Urine Protein 3+ H (Negative) Urine Glucose (UA) Negative (Negative) Urine Ketones Negative (Negative) Urine Blood Trace H (Negative) Urine Nitrite Negative (Negative) Urine Bilirubin Negative (Negative) Urine Urobilinogen <2.0 (<2.0) mg/dL Ur Leukocyte Esterase Large H (Negative) Urine WBC >182 H (0-5) /hpf Amorphous Sediment Rare H (None) /hpf Urine Bacteria Many H (None) /hpf Urine Mucus Many H (None) /hpf Disposition Clinical Impression: Acute kidney injury, Dehydration Disposition: ADMITTED IP TO THIS [facility] Condition: Serious Is patient prescribed a controlled substance at d/c from ED?: No
[2020-12-12 21:52] LABS: Basophils % (A) 0 %; Eosinophils # (A) 0.1 k/uL (0-0.7); Eosinophils % (A) 1 %; HCT 37.6 % (34.0-46.0); HGB 12.3 gm/dL (11.4-16.0); Hypochromasia Slight; Lymphocytes % (A) 7 %; MCH 31.3 pg (25.0-35.0); MCHC 32.7 g/dL (31.0-37.0); MCV 95.7 fL (80.0-100.0); Mean Platelet Volume 8.8; Monocytes % (A) 8 %; Neutrophils # (A) 10.7 k/uL (1.3-7.7); Neutrophils % (A) 82 %; Platelet Count 292 k/uL (150-450); RBC 3.93 m/uL (3.80-5.40); RDW 13.4 % (11.5-15.5); WBC 13.1 k/uL (3.8-10.6)
[2020-12-12 22:04] LABS: Albumin 4.4 g/dL (3.5-5.0); Calcium 10.7 mg/dL (8.4-10.2); Potassium 4.6 mmol/L (3.5-5.1); Total Bilirubin 0.3 mg/dL (0.2-1.3); Total Protein 8.1 g/dL (6.3-8.2)
[2020-12-12] MEDS ORDERED: SODIUM CHLORIDE 0.9% 500 ML 500 ML IV STA (22:18)
[2020-12-12] MEDS ORDERED: SODIUM CHLORIDE 0.9% 1,000 ML IV STA (22:18)
[2020-12-12] MEDS ORDERED: NALOXONE 0.4 MG/ML 1 ML VIAL IV PRN (22:41)
[2020-12-12 23:47] LABS: Amorphous Sediment,Urine Rare /hpf; Appearance,Urine Turbid (Clear); Bacteria,Urine Many /hpf; Bilirubin,Urine Negative (Negative); Blood,Urine Trace (Negative); Color,Urine Light Red; Glucose,Urine (UA) Negative (Negative); Ketones,Urine Negative (Negative); Leukocyte Esterase,Urine Large (Negative); Mucus,Urine Many /hpf; Nitrite,Urine Negative (Negative); PH, Urine 7.5 (5.0-8.0); Protein,Urine 3+ (Negative); Specific Gravity,Urine 1.019 (1.001-1.035); Urobilinogen,Urine <2.0 mg/dL (<2.0); WBC,Urine >182 /hpf (0-5)
[2020-12-13] MEDS ORDERED: SODIUM CHLORIDE 0.9% 1,000 ML IV ONE (00:46)
[2020-12-13] MEDS: HEPARIN SODIUM,PORCINE/PF 5,000 UNIT/0.5 ML SYRINGE SQ SCH ×2 (08:05→22:13)
[2020-12-13] MEDS ORDERED: SODIUM CHLORIDE 0.9% 1,000 ML IV SCH (10:45)
[2020-12-13 11:15] LABS: African American GFR (CKD) 8 (>60 ml/min/1.73 sqM); Anion Gap 18 mmol/L; Calcium 9.2 mg/dL (8.4-10.2); Carbon Dioxide 14 mmol/L (22-30); Chloride 111 mmol/L (98-107); Glucose 131 mg/dL (74-99); Non-African American GFR(CKD) 7 (>60 ml/min/1.73 sqM); Potassium 4.3 mmol/L (3.5-5.1); Sodium 143 mmol/L (137-145)
[2020-12-13 11:24] LABS: Blood Urea Nitrogen 126 mg/dL (7-17)
--- NOTE | 2020-12-13 11:58 | XR ---
EXAMINATION TYPE: XR chest 1V DATE OF EXAM: 12/13/2020 COMPARISON: 03/28/2020 INDICATION: CHF TECHNIQUE: Single frontal view of the chest is obtained. FINDINGS: The heart size is normal. The pulmonary vasculature is normal. The lungs are clear. IMPRESSION: 1. No acute pulmonary process.
--- NOTE | 2020-12-13 12:32 | US ---
EXAMINATION TYPE: US kidneys/renal and bladder DATE OF EXAM: 12/13/2020 COMPARISON: NONE CLINICAL HISTORY: RF. Poor historian, patient unable to move EXAM MEASUREMENTS: Right Kidney: 9.4 x 3.5 x 3.6 cm Left Kidney: 11.6 x 4.6 x 3.7 cm Right Kidney: Appears small in size compared to contralateral kidney. Echogenic. Cortical thinning. Suboptimal visualization. Left Kidney: Multiple cysts seen throughout kidney. Largest mid medial = 2.6 x 3.1 x 2.8 cm Bladder: Debris vs lesion vs focal wall thickening vs other etiology = 6.5 x 5.7 x 3.6 cm. Mass is s uspected with color flow present. Bilateral Jets not seen IMPRESSION: Left renal cysts. 2. Abnormal density within the dependent urinary bladder. Additional workup is recommended. Mass is s uspected.
--- NOTE | 2020-12-13 14:19 | HP ---
HISTORY AND PHYSICAL This 80-year-old white female came into the hospital due to elevated BUN and creatinine and abnormal mental status, failing outpatient treatment with Macrobid for urinary tract infection. She came back with a BUN of 120 and creatinine 6.4, which is new- onset renal failure for her. She was sent to the hospital and admitted at this point. I suspect she is very dry and dehydrated due to overall mental status and not eating and drinking. She was feeling thirsty. We were giving IV fluids overnight. Her creatinine is down to 5.9. HOME MEDICATIONS: She takes Sinemet 2500 b.i.d., Synthroid 50 mcg daily, aspirin 81 mg daily, Norvasc 2.5 mg daily, vitamin D, vitamin B12, nitroglycerin sublingual. ALLERGIES: INSULIN, LISINOPRIL, METFORMIN, TETANUS, STRAWBERRIES. REVIEW OF SYSTEMS: Fourteen-point review of systems otherwise is altered mental status, confusion, lightheaded, dizziness, some dementia with delirium. PAST MEDICAL HISTORY: Coronary artery disease, angina, heart failure, diabetes mellitus, DVT, hypertension, dyslipidemia, myocardial infarction, neurologic disorder, pneumonia, pulmonary embolism, renal disease, hypothyroidism, thrombocytopenia, Parkinson's, stage III renal failure. SURGERIES: Appendectomy, cholecystectomy, heart catheterization, stent, hysterectomy, orthopedic surgery, bilateral cataract surgeries. PHYSICAL EXAMINATION: Temperature 97.7, pulse 70s to 80s, respiratory rate 16 to 18, blood pressures 140s to 100s over 87 to 109. Oxygen 98. Cardiovascular: S1, S2. LUNGS: Transmitted upper airway sounds. Lungs are clear. INTEGUMENT: She is dry. Poor skin turgor, dry mucous membranes. PSYCH: She is alert, oriented x0. NEUROLOGIC: She can move 4 extremities. EXTREMITIES: Extremities show2+ edema. HEMATOLOGY: Negative Homans. GI: Soft, nontender. ASSESSMENT: 1. Urinary tract infection. 2. Urosepsis. 3. Severe dehydration with acute tubular necrosis and acute renal injury secondary to probable prerenal renal insufficiency and UTI with sepsis. 4. Bladder mass on ultrasound. Urology is consulted. Continue broad-spectrum antibiotics. Infectious disease, renal and urology consults. . MMODL / IJN: [id number] /
--- NOTE | 2020-12-13 15:48 | CONS ---
CONSULTATION REASON FOR CONSULT: Renal failure. HISTORY OF PRESENT ILLNESS: The patient is an 80-year-old female who was admitted from custodial with abnormal labs. The patient is noted to have a BUN of 131 and creatinine of 6.3. Review of previous labs show serum creatinine 1.1 on 06/01/2020. The patient is currently confused. She is not able to provide detailed history. Blood pressure is noted to be around 107-120 mmHg. Apparently patient did void, but it is unclear. Medications prior to admission showed Lasix. I do not see any MELI inhibitors or angiotensin receptor blockers or nonsteroidal anti-inflammatory agents on board. PAST MEDICAL HISTORY: Significant for hypertension, coronary artery disease, type 2 diabetes, DVT, hyperlipidemia, history of [place], pneumonia, history of PE, hypothyroidism, osteoarthritis, Parkinson disease, thrombocytopenia. PAST SURGICAL HISTORY: Appendectomy, cholecystectomy, cardiac catheterization, coronary stent placement, hysterectomy, bilateral total knee arthroplasty, breast biopsies, cataract surgery. SOCIAL HISTORY: Negative for smoking, drug abuse or alcohol abuse. MEDICATIONS: Medications prior to admission included Sinemet, Synthroid, aspirin, amlodipine, vitamin D, Nitrostat, Tylenol, Lipitor, Lexapro, folic acid, insulin, Seroquel, Senokot, vitamin B1. ALLERGIES: Include FLU SHOT, INSULIN, LISINOPRIL, METFORMIN, PNEUMOCOCCAL VACCINE, STRAWBERRIES, TETANUS IMMUNOGLOBULIN. REVIEW OF SYSTEMS: Review of systems cannot be obtained. No active bleeding noted. No significant shortness of breath. No fever. No diarrhea or significant abdominal pain noted. PHYSICAL EXAMINATION: Patient is comfortable, awake. She does respond but is confused. Blood pressure is 142/67, heart rate 65 per minute, she is afebrile. Examination of the heart S1, S2. Examination of the lungs, bilateral breath sounds are heard. Abdomen is soft, nontender. Examination of lower extremities shows no evidence of edema. BUSINESS SERVICES ASSISTANT exam shows patient moving all four extremities but she is confused. LAB: Show sodium 144, potassium 4.6, chloride 104, CO2 is 21, BUN 131, creatinine 6.3, hemoglobin 12.3 g/dL. ASSESSMENT: 1. Acute kidney injury, most likely acute tubular necrosis. Rule out obstruction. Check bladder scan. Check ultrasound of the kidneys. UA shows significant pyuria. The patient did receive Rocephin. We will follow up on the urine cultures. She may need dialysis if renal function is not improved. Patient is status post IV fluids. 2. Confusion secondary to underlying uremia. The patient may need to be dialyzed if repeat labs are not improved. 3. Coronary artery disease with history of coronary artery stent placement. 4. Mild hypercalcemia associated with volume depletion. 5. Urinary tract infection. Urine culture is pending. Status post Rocephin. 6. Type 2 diabetes with hyperglycemia. Serum osmolality 354. PLAN: Resume IV fluids. Check bladder scan. Check ultrasound of the kidneys. Repeat stat labs and the patient may need dialysis if the labs are not improved. Thank you for this consultation. Will continue to follow the patient with you during her hospitalization. MMODL / IJN: [id number] /
--- NOTE | 2020-12-13 16:27 | P.GSCN ---
History of Present Illness Consult date: 12/13/20 Reason for Consult: Bladder mass Requesting physician: Ben Al History of present illness: The patient is an 80-year-old white female admitted with acute renal failure. Her serum creatinine level in May 2020 was 1.1. Ultrasound has shown the right kidney to be smaller than the left, with cortical thinning. Left renal cysts are seen. There is no evidence of hydronephrosis. The ultrasound also suggested the presence of a 6 cm bladder mass with color flow. The patient appears weak and is a vague historian. She states that she is treated for approximately 2 UTIs annually. She does report a one-year history of intermittent gross hematuria. Review of Systems - Constitutional Denies chills, Denies fever - Genitourinary Genitourinary: Reports hematuria Past Medical History Past Medical History: Blood Disorder, Coronary Artery Disease (CAD), Chest Pain / Angina, Heart Failure, Diabetes Mellitus, Deep Vein Thrombosis (DVT), Hyperlipidemia, Hypertension, Myocardial Infarction ([place]), Neurologic Disorder, Pneumonia, Pulmonary Embolus ([place]), Renal Disease, Thyroid Disorder Additional Past Medical History / Comment(s): ARTHRITIS, low platelets, [place] x2, parkinsons, stage 3 renal failure, alzheimers, cerebral palsy, vertigo Last Myocardial Infarction Date:: unknown History of Any Multi-Drug Resistant Organisms: C-DIFF Year Discovered:: 02/14/2015 MDRO Source:: URINE Past Surgical History: Appendectomy, Cholecystectomy, Heart Catheterization With Stent, Hysterectomy, Orthopedic Surgery Additional Past Surgical History / Comment(s): bilateral total knee, 4 breast biopsies right breast, bilateral cataract sx, unstageable ulcer l heel, Past Anesthesia/Blood Transfusion Reactions: No Reported Reaction Date of Last Stent Placement:: unknown Past Psychological History: Bipolar Additional Psychological History / Comment(s): bipolar with delusions Smoking Status: Never smoker Past Alcohol Use History: None Reported, Rare Past Drug Use History: None Reported - Past Family History Father Additional Family Medical History / Comment(s): from lung disease not sure what it was called Mother History Unknown: Yes Family Medical History: COPD Additional Family Medical History / Comment(s): empysema Medications and Allergies Home Medications Medication Instructions Recorded Confirmed Type Carbidopa-Levodopa 25-100 mg 1 tab PO BID@080006/03/18 12/12/20 History [Sinemet 25-100 mg] Levothyroxine Sodium [Synthroid] 50 mcg PO HS 06/03/18 12/12/20 History amLODIPine [Norvasc] 2.5 mg PO DAILY 05/13/19 12/12/20 History Cholecalciferol [Vitamin D3 (25 25 mcg PO DAILY 01/31/20 12/12/20 History Mcg = 1000 Iu)] Cyanocobalamin (Vitamin B-12) 1,000 mcg PO HS 01/31/20 12/12/20 History [Vitamin B-12] Atorvastatin [Lipitor] 40 mg PO HS tab 04/21/20 12/12/20 Rx Escitalopram [Lexapro] 10 mg PO DAILY tab 04/21/20 12/12/20 Rx QUEtiapine [SEROquel] 50 mg PO BID tab 04/21/20 12/12/20 Rx Aspirin EC [Ecotrin Low Dose] 81 mg PO DAILY 12/12/20 12/12/20 History Ciprofloxacin HCl [Cipro] 500 mg PO BID 12/12/20 12/12/20 History Folic Acid 0.8 mg PO DAILY 12/12/20 12/12/20 History Furosemide [Lasix] 40 mg PO DAILY 12/12/20 12/12/20 History Healthshake 1 can PO AC-BID 12/12/20 12/12/20 History Insulin Glargine [Lantus Vial] 35 unit SQ HS 12/12/20 12/12/20 History Insulin Lispro [humaLOG Kwikpen] See Protocol SQ ACHS 12/12/20 12/12/20 History Magnesium Hydroxide [Milk of 2,400 mg PO ONCE PRN 12/12/20 12/12/20 History Magnesia] Memantine [Namenda] 5 mg PO BID 12/12/20 12/12/20 History QUEtiapine [SEROquel] 25 mg PO BID 12/12/20 12/12/20 History Sennosides/Docusate Sodium [Senna 1 tab PO TID 12/12/20 12/12/20 History Plus 8.6-50 mg Tablet] Thiamine [Vitamin B-1] 100 mg PO HS 12/12/20 12/12/20 History amantadine HCL [Amantadine] 100 mg PO BID 12/12/20 12/12/20 History Allergies Allergy/AdvReac Type Severity Reaction Status Date / Time Influenza Virus Vaccines Allergy Unknown Verified 03/27/20 11:00 Insulins Allergy Swelling Verified 03/27/20 11:00 lisinopril Allergy SWELLING, Verified 03/27/20 11:00 HIVES metformin Allergy Rash/Hives Verified 03/27/20 11:00 pneumococcal vaccine Allergy Unknown Verified 03/27/20 11:00 strawberry Allergy Swelling Verified 03/27/20 11:00 tetanus immune globulin Allergy Unknown Verified 03/27/20 11:00 Surgical - Exam Vital Signs Temp Pulse Resp BP Pulse Ox 97.7 F 78 18 146/109 98 12/12/20 21:13 12/12/20 21:13 12/12/20 21:13 12/12/20 21:13 12/12/20 21:13 - General well developed, well nourished, no distress - Respiratory normal respiratory effort - Abdomen Soft, non-distended. Mild suprapubic tenderness, no guarding, no rebound, no mass. - Psychiatric oriented to time, oriented to person, oriented to place, speech is normal, memory intact Results - Labs 12/12/20 21:36 12/13/20 10:47 Abnormal Lab Results - Last 24 Hours (Table) 12/12/20 12/12/20 12/12/20 Range/Units 21:36 21:36 21:36 WBC 13.1 H (3.8-10.6) k/uL Neutrophils # 10.7 H (1.3-7.7) k/uL Chloride (98-107) mmol/L Carbon Dioxide 21 L (22-30) mmol/L BUN 131 H* (7-17) mg/dL Creatinine 6.30 H (0.52-1.04) mg/dL Glucose 283 H (74-99) mg/dL Osmolality (280-301) mosm/kg Calcium 10.7 H (8.4-10.2) mg/dL Urine Appearance Turbid H (Clear) Urine Protein 3+ H (Negative) Urine Blood Trace H (Negative) Ur Leukocyte Esterase Large H (Negative) Urine WBC >182 H (0-5) /hpf Amorphous Sediment Rare H (None) /hpf Urine Bacteria Many H (None) /hpf Urine Mucus Many H (None) /hpf 12/12/20 12/13/20 Range/Units 23:40 10:47 WBC (3.8-10.6) k/uL Neutrophils # (1.3-7.7) k/uL Chloride 111 H (98-107) mmol/L Carbon Dioxide 14 L (22-30) mmol/L BUN 126 H* (7-17) mg/dL Creatinine 5.25 H (0.52-1.04) mg/dL Glucose 131 H (74-99) mg/dL Osmolality 354 H* (280-301) mosm/kg Calcium (8.4-10.2) mg/dL Urine Appearance (Clear) Urine Protein (Negative) Urine Blood (Negative) Ur Leukocyte Esterase (Negative) Urine WBC (0-5) /hpf Amorphous Sediment (None) /hpf Urine Bacteria (None) /hpf Urine Mucus (None) /hpf Microbiology - Last 24 Hours (Table) 12/13/20 00:00 Urine Culture - Preliminary Urine,Catheterized Diabetes panel 12/12/20 12/13/20 Range/Units 21:36 10:47 Sodium 144 143 (137-145) mmol/L Potassium 4.6 4.3 (3.5-5.1) mmol/L Chloride 104 111 H (98-107) mmol/L Carbon Dioxide 21 L 14 L (22-30) mmol/L BUN 131 H* 126 H* (7-17) mg/dL Creatinine 6.30 H 5.25 H (0.52-1.04) mg/dL Glucose 283 H 131 H (74-99) mg/dL Calcium 10.7 H 9.2 (8.4-10.2) mg/dL AST 14 (14-36) U/L ALT 7 (4-34) U/L Alkaline Phosphatase 116 (38-126) U/L Total Protein 8.1 (6.3-8.2) g/dL Albumin 4.4 (3.5-5.0) g/dL Thyroid panel 12/13/20 Range/Units 10:43 TSH 0.806 (0.465-4.680) mIU/L Calcium panel 12/12/20 12/13/20 Range/Units 21:36 10:47 Calcium 10.7 H 9.2 (8.4-10.2) mg/dL Albumin 4.4 (3.5-5.0) g/dL Pituitary panel 0812/13/20 12/13/20 Range/Units 21:36 10:43 10:47 Sodium 144 143 (137-145) mmol/L Potassium 4.6 4.3 (3.5-5.1) mmol/L Chloride 104 111 H (98-107) mmol/L Carbon Dioxide 21 L 14 L (22-30) mmol/L BUN 131 H* 126 H* (7-17) mg/dL Creatinine 6.30 H 5.25 H (0.52-1.04) mg/dL Glucose 283 H 131 H (74-99) mg/dL Calcium 10.7 H 9.2 (8.4-10.2) mg/dL TSH 0.806 (0.465-4.680) mIU/L Adrenal panel 12/12/20 12/13/20 Range/Units 21:36 10:47 Sodium 144 143 (137-145) mmol/L Potassium 4.6 4.3 (3.5-5.1) mmol/L Chloride 104 111 H (98-107) mmol/L Carbon Dioxide 21 L 14 L (22-30) mmol/L BUN 131 H* 126 H* (7-17) mg/dL Creatinine 6.30 H 5.25 H (0.52-1.04) mg/dL Glucose 283 H 131 H (74-99) mg/dL Calcium 10.7 H 9.2 (8.4-10.2) mg/dL Total Bilirubin 0.3 (0.2-1.3) mg/dL AST 14 (14-36) U/L ALT 7 (4-34) U/L Alkaline Phosphatase 116 (38-126) U/L Total Protein 8.1 (6.3-8.2) g/dL Albumin 4.4 (3.5-5.0) g/dL - Imaging US - kidney/bladder: report reviewed, image reviewed Assessment and Plan (1) Genitourinary x-ray or scan abnormality Current Visit: Yes Status: Acute Code(s): R93.89 - ABNORMAL FINDINGS ON DX IMAGING OF OTH BODY STRUCTURES SNOMED Code(s): 980001904 Plan: I had a lengthy discussion with the patient regarding the ultrasound findings. The findings do not show any etiology for the renal failure, given the lack of hydronephrosis. Ultrasound is a rather inaccurate way to image the bladder, but she was made aware of the fact that the findings may represent malignancy. She will require cystoscopy to better evaluate the bladder, which will likely be performed as an outpatient. A urine culture was sent, and the results are pending. Time with Patient: Greater than 30
[2020-12-13 20:03] LABS: Hemoglobin A1C 6.8 % (4.0-6.0)
--- NOTE | 2020-12-13 21:44 | P.CONS ---
History of Present Illness - Reason for Consult Consult date: 12/13/20 UTI Requesting physician: Ben lA - Chief Complaint abnormal labs x 1 day - History of Present Illness History of present illness : Patient is 80-year female who was brought into the ER last evening from the shelter for evaluation of elevated BUN and creatinine in this patient noticed to have BUN of 120 and a creatinine of 6.4 patient was delirious unable to provide any reliable history patient on presentation to the hospital was afebrile and no fever was recorded subsequently patient is currently not hypoxic and no need for supplemental oxygen patient did have elevated white count of 13.1 with a left shift with a BUN of 131 and creatinine 6.30 libido has been normal patient did have positive UA with large leukocyte esterase and more than 182 WBC patient did have a abdominal bladder ultrasound which shows left renal cyst abnormal density within the urinary bladder concerning for possible mass patient has been treated with Rocephin infectious he was consulted for further management of antibiotic therapy most information has been obtained from review the chart and talking nursing staff and the patient herself was unable to provide any history Review of system: Positive point has been mentioned in HPI complete review could not be obtained because of underlying mental status Past medical history : Reviewed, documented below Past surgical history : Reviewed, documented below Social history: Reviewed, documented below Medications: Reviewed, as documented below GENERAL DESCRIPTION: Elderly female lying in bed, no distress. No tachypnea or accessory muscle of respiration use. HEENT: Shows Pallor , no scleral icterus. Oral mucous membrane is dry. NECK: Trachea central, no thyromegaly. LUNGS: Unlabored breathing. Decreased breath sound at the base. No wheeze or crackle. HEART: S1, S2, regular rate and rhythm. ABDOMEN: Soft, no tenderness , guarding or rigidity EXTREMITIES: No edema of feet. SKIN: No rash, no masses palpable. NEUROLOGICAL: The patient is lethargic orientation could not determine LABS AND RADIOLOGY: Reviewed results see below Assessment : Patient presented to hospital with abnormal labs in this patient who did have elevated BUN and creatinine patient did have a positive UA abnormal ultrasound suggestive of possible bladder mass but no evidence of any hydronephrosis did have a positive UA and concern for possible urinary tract infection from a enteric gram-negative pathogen Plan: 1-Rocephin 1 g daily to continue 2-gentle IV fluid We will follow on clinical condition and cultures to further adjust medication if needed Thank you for this consultation we will follow the patient along with you Past Medical History Past Medical History: Blood Disorder, Coronary Artery Disease (CAD), Chest Pain / Angina, Heart Failure, Diabetes Mellitus, Deep Vein Thrombosis (DVT), Hyperlipidemia, Hypertension, Myocardial Infarction (TN), Neurologic Disorder, Pneumonia, Pulmonary Embolus (PE), Renal Disease, Thyroid Disorder Additional Past Medical History / Comment(s): ARTHRITIS, low platelets, TN x2, parkinsons, stage 3 renal failure Last Myocardial Infarction Date:: unknown History of Any Multi-Drug Resistant Organisms: C-DIFF Year Discovered:: 02/14/2015 MDRO Source:: URINE Past Surgical History: Appendectomy, Cholecystectomy, Heart Catheterization With Stent, Hysterectomy, Orthopedic Surgery Additional Past Surgical History / Comment(s): bilateral total knee, 4 breast biopsies right breast, bilateral cataract sx Past Anesthesia/Blood Transfusion Reactions: No Reported Reaction Date of Last Stent Placement:: unknown Smoking Status: Never smoker - Past Family History Father Additional Family Medical History / Comment(s): from lung disease not sure what it was called Mother History Unknown: Yes Family Medical History: COPD Additional Family Medical History / Comment(s): empysema Medications and Allergies Home Medications Medication Instructions Recorded Confirmed Type Carbidopa-Levodopa 25-100 mg 1 tab PO BID@0800,199906/03/18 12/12/20 History [Sinemet 25-100 mg] Levothyroxine Sodium [Synthroid] 50 mcg PO HS 06/03/18 12/12/20 History amLODIPine [Norvasc] 2.5 mg PO DAILY 05/13/19 12/12/20 History Cholecalciferol [Vitamin D3 (25 25 mcg PO DAILY 01/31/20 12/12/20 History Mcg = 1000 Iu)] Cyanocobalamin (Vitamin B-12) 1,000 mcg PO HS 01/31/20 12/12/20 History [Vitamin B-12] Atorvastatin [Lipitor] 40 mg PO HS tab 04/21/20 12/12/20 Rx Escitalopram [Lexapro] 10 mg PO DAILY tab 04/21/20 12/12/20 Rx QUEtiapine [SEROquel] 50 mg PO BID tab 04/21/20 12/12/20 Rx Aspirin EC [Ecotrin Low Dose] 81 mg PO DAILY 12/12/20 12/12/20 History Ciprofloxacin HCl [Cipro] 500 mg PO BID 12/12/20 12/12/20 History Folic Acid 0.8 mg PO DAILY 12/12/20 12/12/20 History Furosemide [Lasix] 40 mg PO DAILY 12/12/20 12/12/20 History Healthshake 1 can PO AC-BID 12/12/20 12/12/20 History Insulin Glargine [Lantus Vial] 35 unit SQ HS 12/12/20 12/12/20 History Insulin Lispro [humaLOG Kwikpen] See Protocol SQ ACHS 12/12/20 12/12/20 History Magnesium Hydroxide [Milk of 2,400 mg PO ONCE PRN 12/12/20 12/12/20 History Magnesia] Memantine [Namenda] 5 mg PO BID 12/12/20 12/12/20 History QUEtiapine [SEROquel] 25 mg PO BID 12/12/20 12/12/20 History Sennosides/Docusate Sodium [Senna 1 tab PO TID 12/12/20 12/12/20 History Plus 8.6-50 mg Tablet] Thiamine [Vitamin B-1] 100 mg PO HS 12/12/20 12/12/20 History amantadine HCL [Amantadine] 100 mg PO BID 12/12/20 12/12/20 History Allergies Allergy/AdvReac Type Severity Reaction Status Date / Time Influenza Virus Vaccines Allergy Unknown Verified 03/27/20 11:00 Insulins Allergy Swelling Verified 03/27/20 11:00 lisinopril Allergy SWELLING, Verified 03/27/20 11:00 HIVES metformin Allergy Rash/Hives Verified 03/27/20 11:00 pneumococcal vaccine Allergy Unknown Verified 03/27/20 11:00 strawberry Allergy Swelling Verified 03/27/20 11:00 tetanus immune globulin Allergy Unknown Verified 03/27/20 11:00 Physical Exam Vitals: Vital Signs Temp Pulse Pulse Resp BP BP Pulse Ox 12/13/20 12:19 98 F 65 18 159/64 100 12/13/20 11:34 67 17 149/59 97 12/13/20 08:07 98.2 F 65 18 142/67 97 12/13/20 06:10 61 16 131/56 98 12/13/20 04:30 61 18 104/94 99 12/12/20 23:58 97.4 F L 71 18 120/71 96 12/12/20 22:00 107/87 12/12/20 21:13 97.7 F 78 18 146/109 98 Intake and Output 12/12/20 12/13/20 12/13/20 22:59 06:59 14:59 Other: # Voids 2 # Bowel Movements 1 Weight 72.575 kg 72.575 kg Results CBC & Chem 7: 12/12/20 21:36 12/13/20 10:47 Labs: Abnormal Lab Results - Last 24 Hours (Table) 12/12/20 12/12/20 12/12/20 Range/Units 21:36 21:36 21:36 WBC 13.1 H (3.8-10.6) k/uL Neutrophils # 10.7 H (1.3-7.7) k/uL Chloride (98-107) mmol/L Carbon Dioxide 21 L (22-30) mmol/L BUN 131 H* (7-17) mg/dL Creatinine 6.30 H (0.52-1.04) mg/dL Glucose 283 H (74-99) mg/dL Osmolality (280-301) mosm/kg Calcium 10.7 H (8.4-10.2) mg/dL Urine Appearance Turbid H (Clear) Urine Protein 3+ H (Negative) Urine Blood Trace H (Negative) Ur Leukocyte Esterase Large H (Negative) Urine WBC >182 H (0-5) /hpf Amorphous Sediment Rare H (None) /hpf Urine Bacteria Many H (None) /hpf Urine Mucus Many H (None) /hpf 12/12/20 12/13/20 Range/Units 23:40 10:47 WBC (3.8-10.6) k/uL Neutrophils # (1.3-7.7) k/uL Chloride 111 H (98-107) mmol/L Carbon Dioxide 14 L (22-30) mmol/L BUN 126 H* (7-17) mg/dL Creatinine 5.25 H (0.52-1.04) mg/dL Glucose 131 H (74-99) mg/dL Osmolality 354 H* (280-301) mosm/kg Calcium (8.4-10.2) mg/dL Urine Appearance (Clear) Urine Protein (Negative) Urine Blood (Negative) Ur Leukocyte Esterase (Negative) Urine WBC (0-5) /hpf Amorphous Sediment (None) /hpf Urine Bacteria (None) /hpf Urine Mucus (None) /hpf
[2020-12-13] MEDS: CYANOCOBALAMIN 500 MCG TAB PO SCH (22:13)
[2020-12-13] MEDS: ATORVASTATIN 40 MG TAB PO SCH (22:13)
[2020-12-13] MEDS: DEXTROSE 5% IN WATER 1,000 ML with SODIUM BICARB (1 MEQ/ML) 150 ML IV SCH (23:04)
[2020-12-14 01:46] LABS: Folate, Serum >24.0 ng/mL
[2020-12-14] MEDS: FOLIC ACID 1 MG TAB PO SCH (08:15)
[2020-12-14] MEDS: HEPARIN SODIUM,PORCINE/PF 5,000 UNIT/0.5 ML SYRINGE SQ SCH ×2 (08:15→21:15)
[2020-12-14] MEDS: amLODIPine 2.5 MG TAB PO SCH (08:15)
[2020-12-14] MEDS: ESCITALOPRAM 10 MG TAB PO SCH (08:15)
[2020-12-14] MEDS: ASPIRIN 81 MG PO SCH (08:15)
[2020-12-14 11:01] LABS: African American GFR (CKD) 9 (>60 ml/min/1.73 sqM); Anion Gap 11 mmol/L; Calcium 9.9 mg/dL (8.4-10.2); Carbon Dioxide 25 mmol/L (22-30); Chloride 114 mmol/L (98-107); Glucose 191 mg/dL (74-99); Non-African American GFR(CKD) 8 (>60 ml/min/1.73 sqM); Potassium 3.7 mmol/L (3.5-5.1); Sodium 150 mmol/L (137-145)
[2020-12-14 11:17] LABS: Blood Urea Nitrogen 109 mg/dL (7-17)
--- NOTE | 2020-12-14 12:23 | PN ---
PROGRESS NOTE Patient is seen for followup for acute kidney injury. Patient's renal function continues to improve. She is maintained on IV fluids. Serum creatinine is down to 4.6 from 6.3 on initial admission. Initial creatinine was 1.1 on . The patient currently is voiding. There was no urine retention noted. I believe a bladder scan was performed, although I do not see the documentation at this point. The patient's mentation has improved. She is answering questions and she is awake. On examination today, blood pressure 178/71, heart rate 64 per minute. She is afebrile. EXAMINATION OF THE HEART: S1 and S2. EXAMINATION OF LUNGS: Bilateral breath sounds are heard. ABDOMEN: Soft, nontender. LOWER EXTREMITIES: Examination of lower extremities shows no significant edema. LOSS PREVENTION SPECIALIST EXAM: LOSS PREVENTION SPECIALIST exam shows patient moving all 4 extremities. She is lethargic but able to answer some questions. Labs show sodium 150, potassium 3.7, chloride 114, BUN 109, serum creatinine 4.69. ASSESSMENT: 1. Acute kidney injury, most likely prerenal associated with hypovolemia. No evidence of obstruction. Renal function is improving. Patient is maintained on IV fluids. 2. Hypernatremia. Change IV fluids to D5.45 and repeat sodium this evening. 3. Pyuria. Rule out urinary tract infection. Maintained on antibiotics. Urine culture is pending. 4. Mental status changes secondary to underlying uremia and acute kidney injury, currently improving with improving renal function. We can hold off on dialysis for now. 5. Coronary artery disease with history of coronary artery stent placement previously. 6. Type 2 diabetes with hyperglycemia. PLAN: Change IV fluids to half-normal saline. Repeat sodium this evening. Discontinue IV bicarb. Encourage increased oral intake. Avoid hypotension. MMODL / IJN: [id number] /
[2020-12-14] MEDS: SODIUM CHLORIDE 0.45% 1,000 ML IV SCH (13:39)
[2020-12-14] MEDS: DEXTROSE 5% IN WATER 1,000 ML with SODIUM BICARB (1 MEQ/ML) 150 ML IV SCH (13:47)
--- NOTE | 2020-12-14 13:47 | PN ---
PROGRESS NOTE DATE OF SERVICE: 12/14/2020 REASON FOR FOLLOWUP: Urinary tract infection. INTERVAL HISTORY: The patient is currently afebrile. She is more awake and alert today. Patient is breathing comfortably. No chest pain, shortness of breath or cough. No vomiting. No abdominal pain or diarrhea. PHYSICAL EXAMINATION: Blood pressure /71 with a pulse of 84, temperature 97.5. She is 100% on room air. GENERAL DESCRIPTION: General description is an elderly female lying in bed in no distress. RESPIRATORY SYSTEM: Unlabored breathing. Clear to auscultation anteriorly. HEART: S1, S2. Regular rate and rhythm. ABDOMEN: Soft. No tenderness. LAB DATA: BUN of 109, creatinine 4.69. Urine is pending. Blood culture so far negative. DIAGNOSTIC IMPRESSION AND PLAN: Patient admitted to hospital with mental status changes, multifactorial, concerning for a urinary tract infection with a positive UA and elevated white count. Patient to continue Rocephin while waiting for the culture to finalize. Monitor clinical course closely. MMODL / IJN: [id number] /
--- NOTE | 2020-12-14 17:28 | PN ---
PROGRESS NOTE 80-year-old white female with acute tubular necrosis secondary to prerenal renal insufficiency and possible bladder tumor. No hydronephrosis is seen. She has gram- negative UTI. Remains on Rocephin. Waiting for outpatient cystoscopy for mass seen on ultrasound. Continue to rehydrate her. Her creatinine continues to improve. Creatinine was 6.3, down to 5.25, now 4.69. Continue with PT, OT, dietitian, increase oral intake. Prognosis is guarded. Continue current treatments. Follow up in the next 24 to 48 hours. Continue with broad-spectrum antibiotics and rehydration for acute tubular necrosis, recurrent UTI, metabolic encephalopathy, delirium and bladder mass. MMODL / IJN: [id number] /
[2020-12-14] MEDS: CYANOCOBALAMIN 500 MCG TAB PO SCH (21:14)
[2020-12-14] MEDS: ATORVASTATIN 40 MG TAB PO SCH (21:15)
[2020-12-15] MEDS: SODIUM CHLORIDE 0.45% 1,000 ML IV SCH ×2 (03:22→06:01)
[2020-12-15 10:16] LABS: African American GFR (CKD) 13 (>60 ml/min/1.73 sqM); Anion Gap 13 mmol/L; Blood Urea Nitrogen 95 mg/dL (7-17); Calcium 10.2 mg/dL (8.4-10.2); Carbon Dioxide 21 mmol/L (22-30); Chloride 118 mmol/L (98-107); Glucose 248 mg/dL (74-99); Non-African American GFR(CKD) 11 (>60 ml/min/1.73 sqM); Potassium 3.7 mmol/L (3.5-5.1); Sodium 152 mmol/L (137-145)
--- NOTE | 2020-12-15 10:39 | P.PN ---
Progress Note - Text Progress Note Date: 12/15/20 Patient remains afebrile. Her urine cultures shown Proteus mirabilis, sensitive to the ceftriaxone she is currently receiving. In view of this, I would suggest that a CT scan of the abdomen and pelvis without contrast be obtained, as patients with Proteus in the urine often found to have urinary calculi. This will also provide additional imaging of the bladder.
[2020-12-15] MEDS: ESCITALOPRAM 10 MG TAB PO SCH (10:55)
[2020-12-15] MEDS: amLODIPine 2.5 MG TAB PO SCH (10:55)
[2020-12-15] MEDS: HEPARIN SODIUM,PORCINE/PF 5,000 UNIT/0.5 ML SYRINGE SQ SCH ×2 (10:55→21:51)
[2020-12-15] MEDS: FOLIC ACID 1 MG TAB PO SCH (10:56)
[2020-12-15] MEDS: ASPIRIN 81 MG PO SCH (10:56)
[2020-12-15] MEDS ORDERED: DEXTROSE 5% IN WATER 1,000 ML IV ONE (12:25)
--- NOTE | 2020-12-15 12:51 | PN ---
PROGRESS NOTE Patient is seen for followup for acute kidney injury. Her renal function continues to improve, with serum creatinine now down to 3.6 from 6.3 on initial admission. The patient's sodium has increased to 152. Her IV fluids were switched to 0.45 normal saline yesterday. Mentation has significantly improved. On examination today, blood pressure 173/88, heart rate 82 per minute. She is afebrile. EXAMINATION OF THE HEART: S1 and S2. EXAMINATION OF LUNGS: Bilateral breath sounds are heard. ABDOMEN: Soft, nontender. LOWER EXTREMITIES: Examination of lower extremities shows no significant edema. INVESTIGATOR OPERATOR EXAMINATION: Grossly intact. Mentation is much improved. Labs show sodium 152, potassium 3.7, chloride 18. CO2 is 21, BUN 95, creatinine 3.6. ASSESSMENT: 1. Acute kidney injury, prerenal, currently much improved with IV hydration. Blood pressure had been on the lower side; currently it is high. 2. Hypernatremia associated with free water deficit. Will change IV fluids to D5W. Discontinue 0.45 normal saline. 3. Hypertension. We can increase the dose of Norvasc and add another medication if needed, possibly beta blockers. 4. Mental status changes associated with underlying urinary tract infection and some degree of uremia, currently improved. 5. Urinary tract infection with urine culture growing Proteus mirabilis, maintained on Rocephin. PLAN: Discontinue half-normal saline. Switch to D5W. Increase dose of Norvasc and repeat labs in a.m. MMODL / IJN: [id number] / MTDD
--- NOTE | 2020-12-15 17:08 | PN ---
PROGRESS NOTE DATE OF SERVICE: 12/15/2020 REASON FOR FOLLOWUP: Urinary tract infection. INTERVAL HISTORY: The patient is afebrile. The patient is more awake and alert. She is breathing comfortably. No chest pain, shortness of breath or cough. No abdominal pain or diarrhea. PHYSICAL EXAMINATION: Blood pressure 173/88 with pulse of 82, temperature 98.1. She is 98% on room air. GENERAL DESCRIPTION: General description is an elderly female lying in bed in no distress. RESPIRATORY SYSTEM: Unlabored breathing. Clear to auscultation anteriorly. HEART: S1, S2. Regular rate and rhythm. ABDOMEN: Soft. No tenderness. LABS: BUN of 75, creatinine 3.66. Urine with Proteus mirabilis. DIAGNOSTIC IMPRESSION AND PLAN: Patient with Proteus mirabilis urinary tract infection, covered with Rocephin; to continue. are slightly improving. Continue supportive care. MMODL / IJN: [id number] /
--- NOTE | 2020-12-15 17:41 | PN ---
PROGRESS NOTE Follow up for kidney injury. Creatinine is down to 2.6 from 6.3 on admission. Sodium is increased to 152. Going to switch her fluids to half-normal saline. She is still confused, alert, oriented x0, talking to herself in bed. Blood pressure is 170s over 80s. Respiratory 88 3. Cardiovascular: S1, S2. Lungs clear. GI soft. Neurologic: She has tremors to the extremities. ASSESSMENT: 1. Acute kidney injury. 2. Hyponatremia. 3. Hypertension. 4. Urinary tract infection. 5. Metabolic encephalopathy. 6. Dementia with possible Parkinson's. 7. Urinary tract infection. Prognosis guarded. Continue with antibiotics. Rehydrate. Neurology consult. Bladder tumor workup to be done outpatient with Dr. Shelton for possible surgery. MMMEETAL / RICKEYN: [id number] /
[2020-12-15] MEDS: CYANOCOBALAMIN 500 MCG TAB PO SCH (21:50)
[2020-12-15] MEDS: ATORVASTATIN 40 MG TAB PO SCH (21:50)
[2020-12-16 06:17] LABS: Basophils % (A) 0 %; Eosinophils # (A) 0.1 k/uL (0-0.7); Eosinophils % (A) 0 %; HCT 38.9 % (34.0-46.0); HGB 11.9 gm/dL (11.4-16.0); Hypochromasia Slight; Lymphocytes # (A) 0.9 k/uL (1.0-4.8); Lymphocytes % (A) 6 %; MCH 29.7 pg (25.0-35.0); MCHC 30.5 g/dL (31.0-37.0); MCV 97.6 fL (80.0-100.0); Mean Platelet Volume 9.4; Monocytes # (A) 0.8 k/uL (0-1.0); Monocytes % (A) 6 %; Neutrophils # (A) 12.1 k/uL (1.3-7.7); Neutrophils % (A) 86 %; Platelet Count 200 k/uL (150-450); RBC 3.99 m/uL (3.80-5.40); RDW 13.4 % (11.5-15.5)
[2020-12-16 06:42] LABS: ALT 7 U/L (4-34); AST 18 U/L (14-36); African American GFR (CKD) 13 (>60 ml/min/1.73 sqM); Albumin 3.8 g/dL (3.5-5.0); Albumin/Globulin Ratio 1.1; Alkaline Phosphatase 115 U/L (38-126); Anion Gap 12 mmol/L; Blood Urea Nitrogen 94 mg/dL (7-17); Calcium 10.5 mg/dL (8.4-10.2); Carbon Dioxide 23 mmol/L (22-30); Chloride 119 mmol/L (98-107); Globulin 3.4 g/dL; Glucose 260 mg/dL (74-99); Non-African American GFR(CKD) 11 (>60 ml/min/1.73 sqM); Potassium 3.4 mmol/L (3.5-5.1); Sodium 154 mmol/L (137-145); Total Bilirubin 0.4 mg/dL (0.2-1.3); Total Protein 7.2 g/dL (6.3-8.2)
[2020-12-16] MEDS ORDERED: amLODIPine 5 MG TAB PO SCH (09:00)
[2020-12-16] MEDS ORDERED: CARBIDOPA-LEVODOPA 25-100 MG 1 EACH TAB PO SCH (09:30)
[2020-12-16] MEDS: ASPIRIN 81 MG PO SCH (09:35)
[2020-12-16] MEDS: ESCITALOPRAM 10 MG TAB PO SCH (09:35)
[2020-12-16] MEDS: HEPARIN SODIUM,PORCINE/PF 5,000 UNIT/0.5 ML SYRINGE SQ SCH ×2 (09:35→20:31)
[2020-12-16] MEDS: FOLIC ACID 1 MG TAB PO SCH (09:35)
[2020-12-16] MEDS: DEXTROSE 5% IN WATER 1,000 ML IV SCH ×2 (09:36→22:44)
[2020-12-16] MEDS ORDERED: POTASSIUM CHLORIDE ER 20 MEQ TAB.ER PO STA (10:56)
--- NOTE | 2020-12-16 11:01 | P.CNNES ---
History of Present Illness Consult date: 12/16/20 Requesting physician: Ben Al Reason for Consult: confusion History of Present Illness: This is an 80-year-old woman with medical history of Parkinson's disease, diabetes mellitus, hypertension, hyperlipidemia, pulmonary embolism, chronic kidney insufficiency, coronary artery disease status post stent who was sent from her nursing facility to the emergency department on the 12/12/2020 for elevated BUN/creatinine. Some of the history is obtained from medical record. Neurology is consulted for confusion. On presentation to the hospital the patient the head and creatinine of 6.3 and currently is 3.68 which is trending down as well as the patient has refractory tract infections ID is on board and patient is getting ceftriaxone. Per the patient's nurse he stated that this is the first time she has the patient but according to her nurses aide who was seen this patient the prior to today and stated that the patient's mentation is improving. No seizure-like activity is noted during the hospital. Upon seeing the patient's she stated that she's doing drastically better today compared to her initial presentation. He denies of any focal weakness, any headaches, any new visual disturbance. Some of the patient will medication consists of: Amantadine 100 mg 1 tablet twice a day, sediment (25-100mg bid (8am and 1999), ASA 81mg, Lipitor 40mg qhs, amlodipine, thiamine 100 mg daily at bedtime, Seroquel 75 mg twice a day, amantadine 5 mg twice a day, Synthroid, Lantus, Lasix, folic acid, Lexapro, vitamin B12 1000mcg daily, vitamin D3. Some of the work-up in the hospital consisted of: Most recent vitals is a blood pressure of 216/64, heart rate of 72, respiratory of 16, temperature of 97.8 Fahrenheit oral and pulse ox of 100% room air. Prior blood pressure is 191/84. Since the patient has been the hospital she's been afebrile. On initial presentation white blood cells 13.1 in the repeated today is 14.0. As stated above initial presentation her creatinine was the 6.3 and currently is 3.68 at. Initial BUN is 126 and currently is 94 at. Initial presentation is the sodium is 144 and currently is 154 Calcium during the hospital stay has been normal but the most recent is 10.5 which I think it's reactive. AST of 18 ALT of 7. Vitamin B-12 is 1870, folate is more than 24 and it's a serum, TSH is 0.806 which is within normal limits. Hemoglobin A1c is 6.8 which is elevated the patient's glucose has been in last 24 hours in 240 to 260s As stated urinalysis was positive for urinary tract infection on presentation. Review of Systems Review of system: The 12 point system was reviewed and apparent positive and negative per HPI. Past Medical History Past Medical History: Blood Disorder, Coronary Artery Disease (CAD), Chest Pain / Angina, Heart Failure, Diabetes Mellitus, Deep Vein Thrombosis (DVT), Hyperlipidemia, Hypertension, Myocardial Infarction ([place]), Neurologic Disorder, Pneumonia, Pulmonary Embolus ([place]), Renal Disease, Thyroid Disorder Additional Past Medical History / Comment(s): ARTHRITIS, low platelets, [place] x2, parkinsons, stage 3 renal failure Last Myocardial Infarction Date:: unknown History of Any Multi-Drug Resistant Organisms: C-DIFF Date of last positivie culture/infection: 02/14/2015 MDRO Source:: URINE Past Surgical History: Appendectomy, Cholecystectomy, Heart Catheterization With Stent, Hysterectomy, Orthopedic Surgery Additional Past Surgical History / Comment(s): bilateral total knee, 4 breast biopsies right breast, bilateral cataract sx Past Anesthesia/Blood Transfusion Reactions: No Reported Reaction Date of Last Stent Placement:: unknown Smoking Status: Never smoker - Past Family History Father Additional Family Medical History / Comment(s): from lung disease not sure what it was called Mother History Unknown: Yes Family Medical History: COPD Additional Family Medical History / Comment(s): empysema Medications and Allergies Home Medications Medication Instructions Recorded Confirmed Type Carbidopa-Levodopa 25-100 mg 1 tab PO BID@0800,199906/03/18 12/12/20 History [Sinemet 25-100 mg] Levothyroxine Sodium [Synthroid] 50 mcg PO HS 06/03/18 12/12/20 History amLODIPine [Norvasc] 2.5 mg PO DAILY 05/13/19 12/12/20 History Cholecalciferol [Vitamin D3 (25 25 mcg PO DAILY 01/31/20 12/12/20 History Mcg = 1000 Iu)] Cyanocobalamin (Vitamin B-12) 1,000 mcg PO HS 01/31/20 12/12/20 History [Vitamin B-12] Atorvastatin [Lipitor] 40 mg PO HS tab 04/21/20 12/12/20 Rx Escitalopram [Lexapro] 10 mg PO DAILY tab 04/21/20 12/12/20 Rx QUEtiapine [SEROquel] 50 mg PO BID tab 04/21/20 12/12/20 Rx Aspirin EC [Ecotrin Low Dose] 81 mg PO DAILY 12/12/20 12/12/20 History Ciprofloxacin HCl [Cipro] 500 mg PO BID 12/12/20 12/12/20 History Folic Acid 0.8 mg PO DAILY 12/12/20 12/12/20 History Furosemide [Lasix] 40 mg PO DAILY 12/12/20 12/12/20 History Healthshake 1 can PO AC-BID 12/12/20 12/12/20 History Insulin Glargine [Lantus Vial] 35 unit SQ HS 12/12/20 12/12/20 History Insulin Lispro [humaLOG Kwikpen] See Protocol SQ ACHS 12/12/20 12/12/20 History Magnesium Hydroxide [Milk of 2,400 mg PO ONCE PRN 12/12/20 12/12/20 History Magnesia] Memantine [Namenda] 5 mg PO BID 12/12/20 12/12/20 History QUEtiapine [SEROquel] 25 mg PO BID 12/12/20 12/12/20 History Sennosides/Docusate Sodium [Senna 1 tab PO TID 12/12/20 12/12/20 History Plus 8.6-50 mg Tablet] Thiamine [Vitamin B-1] 100 mg PO HS 12/12/20 12/12/20 History amantadine HCL [Amantadine] 100 mg PO BID 12/12/20 12/12/20 History Allergies Allergy/AdvReac Type Severity Reaction Status Date / Time Influenza Virus Vaccines Allergy Unknown Verified 03/27/20 11:00 Insulins Allergy Swelling Verified 03/27/20 11:00 lisinopril Allergy SWELLING, Verified 03/27/20 11:00 HIVES metformin Allergy Rash/Hives Verified 03/27/20 11:00 pneumococcal vaccine Allergy Unknown Verified 03/27/20 11:00 strawberry Allergy Swelling Verified 03/27/20 11:00 tetanus immune globulin Allergy Unknown Verified 03/27/20 11:00 Physical Examination - Vital Signs Vital Signs: Vital Signs Temp Pulse Resp BP Pulse Ox 12/16/20 05:30 97.8 F 72 16 216/64 100 12/15/20 20:41 98.2 F 77 16 191/84 94 L 12/15/20 12:01 98.1 F 82 18 173/88 98 Intake and Output 12/15/20 12/16/20 12/16/20 22:59 06:59 14:59 Intake Total 400 100 Balance 400 100 Intake: Intake, IV Titration 400 Amount Dextrose 5% in Water 1, 400 000 ml @ 100 mls/hr IV . Q10H ONE Rx#:[id number] Oral 100 Other: Voiding Method Diaper Diaper Incontinent Incontinent # Voids 4 3 Weight 69.5 kg GENERAL: The patient is lying in bed and is not in acute distress. CHEST: The heart rate is regular rate rhythm. No murmurs to auscultation. LUNG: Clear to auscultation bilaterally no wheezing noted throughout. Not labored breathing. ABDOMEN/GI: Bowel sounds present in all 4 quadrants. No tenderness to palpation throughout. NEUROLOGICAL: Higher mental function: The patient is awake, alert, oriented to self and time. She stated she was at nursing facility. She was able to name objects correctly (Silver pen, watch). Patient is following simple commands. No aphasia and no neglect. Cranial nerves: The pupils are round, equal and reactive to light. Visual richter are full to confrontation throughout. Extraocular movement is intact no nystagmus is noted. Facial sensation is normal to touch throughout. The facial strength is normal throughout. Hearing is moderately to severely decreased bilaterally to hand rub. Tongue is midline and moved [id number] without any difficulty. Mild dysarthria is noted. Shoulder shrug is normal bilaterally. Motor: The strength is in uppers are 5- bilaterally while lower is able to raise above gravity without focality. Slight mild increase tone in bilateral wrist and elbow. On occasion has some resting tremor (right > left). Cerebellum: Normal finger to nose bilaterally. Sensation: Sensation is normal to touch throughout. Reflexes (right/left): 2+ uppers and 1+ lowers. Plantars are mute bilaterally. Results - Laboratory Findings CBC and BMP: 12/16/20 05:27 12/16/20 05:27 Abnormal Lab Findings: Abnormal Labs 12/12/20 12/12/20 12/12/20 21:36 21:36 21:36 WBC 13.1 H MCHC Neutrophils # 10.7 H Lymphocytes # Sodium Potassium Chloride Carbon Dioxide 21 L BUN 131 H* Creatinine 6.30 H Glucose 283 H Hemoglobin A1c Osmolality Calcium 10.7 H Vitamin B12 Urine Appearance Turbid H Urine Protein 3+ H Urine Blood Trace H Ur Leukocyte Esterase Large H Urine WBC >182 H Amorphous Sediment Rare H Urine Bacteria Many H Urine Mucus Many H 12/12/20 12/13/20 12/13/20 23:40 10:43 10:43 WBC MCHC Neutrophils # Lymphocytes # Sodium Potassium Chloride Carbon Dioxide BUN Creatinine Glucose Hemoglobin A1c 6.8 H Osmolality 354 H* Calcium Vitamin B12 1870.0 H Urine Appearance Urine Protein Urine Blood Ur Leukocyte Esterase Urine WBC Amorphous Sediment Urine Bacteria Urine Mucus 12/13/20 12/14/20 12/14/20 10:47 10:28 18:06 WBC MCHC Neutrophils # Lymphocytes # Sodium 150 H 150 H Potassium Chloride 111 H 114 H Carbon Dioxide 14 L BUN 126 H* 109 H* Creatinine 5.25 H 4.69 H Glucose 131 H 191 H Hemoglobin A1c Osmolality Calcium Vitamin B12 Urine Appearance Urine Protein Urine Blood Ur Leukocyte Esterase Urine WBC Amorphous Sediment Urine Bacteria Urine Mucus 12/15/20 12/16/20 12/16/20 09:43 05:27 05:27 WBC 14.0 H MCHC 30.5 L Neutrophils # 12.1 H Lymphocytes # 0.9 L Sodium 152 H 154 H Potassium 3.4 L Chloride 118 H 119 H Carbon Dioxide 21 L BUN 95 H 94 H Creatinine 3.66 H 3.68 H Glucose 248 H 260 H Hemoglobin A1c Osmolality Calcium 10.5 H Vitamin B12 Urine Appearance Urine Protein Urine Blood Ur Leukocyte Esterase Urine WBC Amorphous Sediment Urine Bacteria Urine Mucus Assessment and Plan Assessment: Encephalopathy due to metabolic (sugar in 200's, acute on chronic kidney insuffiency, hypernatremia (likely due to dehydration) and underlying UTI)---mentation is improving Hypernatremia (currently 154)--likely due to dehydration History of reported Parkinson's disease (not sure for how long and who diagnosed with it) Acute ureter tract infection Acute on chronic kidney insufficiency Hypertension and is uncontrolled and currently it's in the 200s systolic Diabetes mellitus and her sugar is uncontrolled in the hospital it's in the 200s History according artery disease status post stent History of hyperlipidemia History of pulmonary embolism Plan: * An EEG is not warranted since the patient's mentation is improving. * Ordered CT head to rule out any inctranial process. * Regarding the patient's reported history of Parkinson's disease I feel her medication scheduling seems a bit off. She is on amantadine 100 mg 1 tablet twice a day and per the nurse she gets the last dose at 2000 or 2100 which the amantadine should not be given at night. It should not be not being given past 2:00pm since it is a stimulant and can then make patient stay awake especially with patient that has chronic kidney insufficiency. Therefore I stopped amantadine. * Regarding [place] [address] one tablet twice a day one in the morning and one at night (home dose) which seems lipid off that there is a big gap in between. I restarted her home dose and consider modification of medication as outpatient. * I feel the patient needs a better management regarding her Parkinson's disease as an outpatient and needs her medication to be modified but I highly recommend amantadine not to be used past 2 PM and I recommend if needed if the kidney is better to restart amantadine 100 mg in the morning only. Consider Stone scan as an outpatient (if Stone Scan is abnormal then it is not essential tremor). * Patient is on Seroquel 75 mg 1 tablet twice a day (home dose) and the antipsychotic can cause underlying Parkinson's disease. * Infection disease is on board * We'll defer the rest of the medical management to the primary team. * Upon discharge the patient needs to follow-up with a neurologist as an outpatient within 1-2 weeks Thank you for the consultation. The plan is discussed with the patient's nurse. Ang ta MD Neuro-Hospitalist Time with Patient: Greater than 30
--- NOTE | 2020-12-16 11:57 | PN ---
PROGRESS NOTE 80-year-old white female who is still has worsening confusion. Tried to consult Neurology yesterday. Discussed with Dr. Falcon on the phone about a possible Parkinson's versus essential tremor and confusion. He thought it was more metabolic encephalopathy secondary to worsening renal failure due to prerenal renal azotemia and possible UTI and sepsis, which is reasonable. Hopefully, he will be able to see her and figure out whether he has essential tremor versus Parkinson's. Otherwise continue with clinical rehydration and monitoring renal function. Treat for UTI and await renal physician's recommendations. We will also continue to get some PT/OT involved. She is obviously confused. She is talking to herself. She has some mild tremors to her extremities Cardiovascular S1, S2. Lungs clear. Neurologic: She talks. She is alert, oriented x0. ASSESSMENT: 1. Dementia. 2. Delirium. 3. Metabolic encephalopathy secondary to urinary tract infection. 4. Worsening renal failure, prerenal renal insufficiency. 5. Poor oral intake. Get dietitian consult. Please see further orders per consult. MMODL / IJN: [id number] /
--- NOTE | 2020-12-16 11:57 | PN ---
PROGRESS NOTE ADDENDUM: Please add: Hypertension acceleration. We are going to give her hydralazine 10 IV q.6 hours for systolic over 160 and possibly add some oral hypertension medications also. MMODL / IJN: [id number] /
[2020-12-16] MEDS: METOPROLOL TARTRATE 50 MG TAB PO SCH ×2 (12:24→20:30)
--- NOTE | 2020-12-16 14:49 | PN ---
PROGRESS NOTE Patient is seen for followup for acute kidney injury. She was admitted to the hospital with creatinine of about 6.3 from a previous creatinine of 1.1 on 06/01/2020. She was volume depleted with mental status changes. Renal function has been slowly improving with creatinine down to 3.6. Patient has been maintained on IV fluids. Her sodium has recently increased and she was switched to D5W. Blood sugar was high and it appears the D5W was discontinued last night. Sodium is up to 154 today. PHYSICAL EXAMINATION: Blood pressure was elevated 216/64, heart rate 72 per minute, she is afebrile. Examination of the heart S1, S2. Examination of the lungs, bilateral breath sounds are heard. Abdomen is soft, nontender. Examination of lower extremities shows no significant edema. [employer] exam much improved. LAB: Show sodium 154, potassium 3.4, chloride 119, BUN 94, serum creatinine 3.6, hemoglobin 11.9 g/dL. ASSESSMENT: 1. Acute kidney injury, appears to be prerenal, slowly improving with IV hydration. UA shows 3+ protein, blood trace with evidence of WBCs. Urine culture is growing Proteus mirabilis. I will continue with the IV fluids for now, repeat labs in a.m. If renal function does not continue to improve, patient will need a kidney biopsy. 2. Urinary tract infection with urine culture growing Proteus mirabilis. 3. Hypernatremia. I will resume D5W and encourage increased oral intake and use increased dose of insulin for the hyperglycemia. 4. Mild hypercalcemia noted associated with volume depletion. Check PTH level and vitamin D levels. 5. Hypokalemia, will replace orally. PLAN: Resume D5W. Replace potassium. Check intact PTH level for workup for hypercalcemia. Check vitamin D and MELI levels as well. Continue antibiotics. MMODL / IJN: [id number] /
[2020-12-16] MEDS: CARBIDOPA-LEVODOPA 25-100 MG 1 EACH TAB PO SCH ×2 (17:38→20:31)
--- NOTE | 2020-12-16 18:05 | PN ---
PROGRESS NOTE DATE OF SERVICE: 12/16/2020 REASON FOR FOLLOWUP VISIT: Urinary tract infection. INTERVAL HISTORY: Patient is afebrile. She is breathing comfortably. Denies having any chest pain. Shortness of breath with cough. No abdominal pain, no diarrhea. PHYSICAL EXAMINATION: Blood pressure 182/69, pulse of 79, temperature 98.3. She is 96% on room air. General description is an elderly female lying in bed in no distress. Respiratory system unlabored breathing. Lungs clear to auscultation anteriorly. Heart S1, S2. Regular rate and rhythm. Abdomen soft, no tenderness. LABS: Hemoglobin 11.1, white count 14, BUN of 94, creatinine 3.68. Urine with Proteus mirabilis. DIAGNOSTIC IMPRESSION AND PLAN: Patient admitted to the hospital with mental status changes, multifactorial, and this patient did have a component of urinary tract infection. Patient is covered with Rocephin, to continue. Monitor her white count closely. Continue supportive care. MMODL / IJN: [id number] /
[2020-12-16] MEDS: amLODIPine 5 MG TAB PO SCH (20:30)
[2020-12-16] MEDS: CYANOCOBALAMIN 500 MCG TAB PO SCH (20:30)
[2020-12-16] MEDS: ATORVASTATIN 40 MG TAB PO SCH (20:30)
[2020-12-17] MEDS: METOPROLOL TARTRATE 50 MG TAB PO SCH ×2 (08:09→21:08)
[2020-12-17] MEDS: HEPARIN SODIUM,PORCINE/PF 5,000 UNIT/0.5 ML SYRINGE SQ SCH ×2 (08:10→21:08)
[2020-12-17] MEDS: ESCITALOPRAM 10 MG TAB PO SCH (08:10)
[2020-12-17] MEDS: ASPIRIN 81 MG PO SCH (08:10)
[2020-12-17] MEDS: amLODIPine 5 MG TAB PO SCH ×2 (08:10→21:08)
[2020-12-17] MEDS: FOLIC ACID 1 MG TAB PO SCH (08:10)
[2020-12-17] MEDS: CARBIDOPA-LEVODOPA 25-100 MG 1 EACH TAB PO SCH ×3 (08:10→21:08)
[2020-12-17] MEDS ORDERED: SODIUM CHLORIDE 0.9% 1,000 ML IV SCH (12:15)
--- NOTE | 2020-12-17 12:21 | P.PN ---
Subjective Progress Note Date: 12/17/20 The patient is seen at bedside and she is about the same. I spoke with the patient's nurse and she stated that it is documented that patient has Parkinson's disease but unknown for how long and it is unknown patient baseline mentation. She continues to have tremors but is responding. Objective - Vital Signs Vital signs: Vital Signs Temp 97.8 F 12/17/20 04:48 Pulse 48 L 12/17/20 08:00 Resp 16 12/17/20 08:00 BP 139/52 12/17/20 04:48 Pulse Ox 96 12/17/20 04:48 Intake & Output 12/16/20 12/17/20 12/17/20 18:59 06:59 18:59 Intake Total 900 120 Balance 900 120 Weight 69.5 kg 69.6 kg Intake: Intake, IV Titration 900 Amount Dextrose 5% in Water 1, 900 000 ml @ 75 mls/hr IV . [id number] [facility] Rx#:[id number] Oral 120 Other: Voiding Method Diaper Diaper Diaper Incontinent Incontinent Incontinent # Voids 2 - Exam GENERAL: The patient is lying in bed and is not in acute distress. NEUROLOGICAL: Higher mental function: The patient is awake, alert, oriented to self. She state the year is 2020 but could not tell me month. She stated she was at nursing facility. She was able to name objects correctly (pen, watch and glasses). Patient is following simple commands. No aphasia and no neglect. Cranial nerves: The pupils are round, equal and reactive to light. Visual richter are full to confrontation throughout. Extraocular movement is intact no nystagmus is noted. Facial sensation is normal to touch throughout. The facial strength is left nasolabial flattening. Hearing is moderately to severely decreased bilaterally to hand rub. Tongue is midline and moved [id number] without any difficulty. Mild dysarthria is noted. Patient mouth seems dry. Motor: The strength is in uppers are 5- bilaterally while lower is able to raise above gravity without focality. Slight mild increase tone in bilateral wrist and elbow. Has resting tremors bilaterally and lift arms up there seems to be some tremor as well. Sensation: Sensation is normal to touch throughout. Reflexes (right/left): 2+ uppers and 1+ lowers. Plantars are mute bilaterally. WORK-UP: Calcium during the hospital stay has been normal but the most recent is 10.5 which I think it's reactive. AST of 18 ALT of 7. Vitamin B-12 is 1870, folate is more than 24 and it's a serum, TSH is 0.806 which is within normal limits. Hemoglobin A1c is 6.8 which is elevated the patient's glucose has been in last 24 hours in 240 to 260s As stated urinalysis was positive for urinary tract infection on presentation. - Labs CBC & Chem 7: 12/16/20 05:27 12/16/20 05:27 Labs: Microbiology - Last 24 Hours (Table) 12/13/20 01:00 Blood Culture - Preliminary Blood No Growth after 96 hours Assessment and Plan Assessment: Encephalopathy due to metabolic (sugar in 200's, acute on chronic kidney insuffiency, hypernatremia (likely due to dehydration) and underlying UTI)---mentation is improving (according to nursing staff. But unsure patient baseline mentation) Hypernatremia (currently 154)--likely due to dehydration History of reported Parkinson's disease (not sure for how long and who diagnosed with it) Acute ureter tract infection Acute on chronic kidney insufficiency Hypertension and is uncontrolled and currently it's in the 200s systolic Diabetes mellitus and her sugar is uncontrolled in the hospital it's in the 200s History according artery disease status post stent History of hyperlipidemia History of pulmonary embolism Plan: * Her tremors can be exacerbated from her metabolic abnormalities. I recommend once the patient kidney function improves and her condition improves especially since has acute UTI, we can have a better assessment of her tremors. * Patient is on Seroquel 75 mg 1 tablet twice a day (home dose) and the antipsychotic can cause underlying Parkinson's disease. Please avoid antipsychotics as much as possible. * CT HEAD on 12/16/2020: Pending report area and I personally reviewed the CT of the head and the patient has bilateral frontal atrophy which is seen on old images but there is no acute subacute ischemia or any hemorrhage appreciated. * Ordered routine EEG. Will not start the patient on antiepileptic drug or seizure on the EEG. * Regarding the patient's reported history of Parkinson's disease I feel her medication scheduling seems a bit off. She is on amantadine 100 mg 1 tablet twice a day and per the nurse she gets the last dose at 1999 or 2100 which the amantadine should not be given at night. It should not be not being given past 2:00pm since it is a stimulant and can then make patient stay awake especially with patient that has chronic kidney insufficiency. Therefore I s topped amantadine. * Regarding [place] [address] one tablet twice a day one in the morning and one at night (home dose) which seems lipid off that there is a big gap in between. I restarted her home dose and consider modification of medication as outpatient. * I feel the patient needs a better management regarding her Parkinson's disease as an outpatient and needs her medication to be modified but I highly recommend amantadine not to be used past 2 PM and I recommend if needed if the kidney is better to restart amantadine 100 mg in the morning only. Consider Stone scan as an outpatient (if Stone Scan is abnormal then it is not essential tremor). * Infection disease is on board * We'll defer the rest of the medical management to the primary team. * Upon discharge the patient needs to follow-up with a neurologist as an outpatient within 1-2 weeks * The plan is discussed with the patient's nurse. The patient has public guardian and I attempted to contact them on 12/16/2020 but no response. Will follow-up patient sporadically. Ang ta MD Neuro-Hospitalist Time with Patient: Less than 30
--- NOTE | 2020-12-17 13:41 | P.PN ---
Subjective Progress Note Date: 12/17/20 Principal diagnosis: This is a 80-year-old female seen in consultation because of acute kidney injury, and now has become hypernatremic and hypercalcemic in the hospital. She had a creatinine of 6.4 for admission has slowly improved to 3.68 as of yesterday. No labs are available today. Urine output is not documented as she is incontinent. She is confused, she is a [facility] resident. She's not taking much intake. She was on D5W which was discontinued, because of high blood sugars, ranging between 131-283. She is unable to give any history because of the confusion. In the hospital she was found to have urinary tract infection with Proteus. Workup has included an ultrasound of the kidney shows 9.4 cm and 11.6 and given a right and left kidney with multiple left renal cysts. There is also a lesion in the bladder rule out mass. Objective - Vital Signs Vital signs: Vital Signs Temp 97.8 F 12/17/20 04:48 Pulse 48 L 12/17/20 08:00 Resp 16 12/17/20 08:00 BP 139/52 12/17/20 04:48 Pulse Ox 96 12/17/20 04:48 Intake & Output 12/16/20 12/17/20 12/17/20 18:59 06:59 18:59 Intake Total 900 120 Balance 900 120 Weight 69.5 kg 69.6 kg Intake: Intake, IV Titration 900 Amount Dextrose 5% in Water 1, 900 000 ml @ 75 mls/hr IV . [id number] [facility] Rx#:[id number] Oral 120 Other: Voiding Method Diaper Diaper Diaper Incontinent Incontinent Incontinent # Voids 2 On examination she is awake alert but confused. HEENT exam no JVP neck is supple no facial asymmetry Lungs are clear to auscultation fair air entry bilaterally Heart sounds unremarkable for any murmur rub gallop Abdomen soft nontender Extremity exam was trace edema Neurologically awake alert but disoriented confused and gets angry - Labs CBC & Chem 7: 12/16/20 05:27 12/16/20 05:27 Labs: Microbiology - Last 24 Hours (Table) 12/13/20 01:00 Blood Culture - Preliminary Blood No Growth after 96 hours Assessment and Plan Assessment: Impression 1. Acute kidney injury secondary to poor intake and responding to IV fluids. 2. Bilateral kidney cysts likely acquired. 3. Bladder mass versus stone. 4. Hypernatremia secondary to poor intake. 5. Hypercalcemia secondary to immobilization. PTH is normal. Vitamin D 125 and 25 pending 5. Type 2 diabetes blood sugars somewhat high after D5W. 6. Mild degree of hypo-potassium 3.4 likely from D5Wl 7. Proteinuria likely from diabetic nephropathy Pigmentation 1. Will check labs frequently because of the hypernatremia 2. We'll change IV fluids to half normal saline and see if her sodium will improve. We'll give her 100 mL an hour 3. Continue antibiotics per ID recommendation 4.Replace KCl with 40 mg of potassium chloride by mouth 5. Check serum magnesium 6. Check calcium ionized 7. Check urine protein to creatinine ratio 8. Check urine immunofixation
[2020-12-17] MEDS: DEXTROSE 5% IN WATER 1,000 ML IV SCH (14:48)
[2020-12-17] MEDS: SODIUM CHLORIDE 0.45% 1,000 ML IV SCH (14:49)
[2020-12-17 17:28] LABS: Creatinine,Urine Random 61.2 mg/dL; Protein/Creatinine Ratio,Urine 2.451
[2020-12-17] MEDS ORDERED: CALCIUM CARB-VIT D 500 MG-5 MCG TAB PO SCH (17:30)
[2020-12-17 17:44] LABS: Glucose,Whole Blood 262 mg/dL (75-99)
--- NOTE | 2020-12-17 17:56 | XR ---
EXAMINATION TYPE: XR chest 1V portable DATE OF EXAM: 12/17/2020 COMPARISON: 12/13/2020 HISTORY: Chest pain TECHNIQUE: Single view FINDINGS: There is no heart failure nor confluent pneumonic infiltrate. Costophrenic angles are clear . Thoracic aorta is atheromatous. Heart size is normal. Bony thorax is intact there is thoracic dextr oscoliosis. IMPRESSION: No active cardiopulmonary disease. No change.
--- NOTE | 2020-12-17 19:13 | PN ---
PROGRESS NOTE DATE OF SERVICE: 12/17/2020 REASON FOR FOLLOWUP: Complicated urinary tract infection. INTERVAL HISTORY: The patient is afebrile. The patient remains to be pleasantly confused. However, no agitation. No vomiting, diarrhea or other changes reported by the nursing staff. The patient herself was unable to provide reliable history. PHYSICAL EXAMINATION: Her blood pressure is 134/57, pulse of 52, temperature 98.5. She is 99% on room air. General description is an elderly female lying in bed in no distress. Respiratory system: Unlabored breathing, clear to auscultation anteriorly. Heart S1, S2. Regular rate and rhythm. Abdomen soft, no tenderness. LABS: Hemoglobin is 11.9, white count 14, BUN of 94, creatinine 3.68. DIAGNOSTIC IMPRESSION AND PLAN: Patient with Proteus mirabilis urinary tract infection for which the patient is currently covered with Rocephin to continue while monitoring clinical course closely. Continue supportive care. MMODL / RICKEYN: [id number] /
[2020-12-17 20:23] LABS: Glucose,Whole Blood 265 mg/dL (75-99)
--- NOTE | 2020-12-17 20:40 | PN ---
PROGRESS NOTE DATE OF SERVICE: 12/17/2020 I am covering for Dr. Al. This 80-year-old woman who was admitted with change in mental status, which is multiple factor, also hypernatremia. Patient also has Parkinson's. Patient also had acute urinary tract infection present on admission. Patient has significant renal failure present on admission. The creatinine was actually 4.69, with IV fluids improved to 3.6. The patient continues to be confused. Patient hypokalemic currently. Ionized calcium also slightly increased at 6, WBC 14. The cultures showed Proteus mirabilis which is actually resistant to multiple antibiotics and the patient is currently on Rocephin to which the Proteus is sensitive. PAST MEDICAL HISTORY: Reviewed. Review of systems could not be taken. CURRENT MEDICATIONS: Reviewed include Tylenol, Norvasc, aspirin, Lipitor, Sinemet, Rocephin, Lexapro, folic acid, heparin, Synthroid, Lopressor, Narcan. Doses reviewed. PHYSICAL EXAMINATION: Patient is alert, oriented x1. Pulse 52, blood pressure 170/73, respirations 18, temperature 98.5, pulse ox 99% on room air. HEENT: Conjunctivae normal. NECK: No JVD. CARDIOVASCULAR: S1, S2 muffled. RESPIRATIONS: Breath sounds diminished in the bases. A few scattered rhonchi. ABDOMEN: Soft. LEGS: No edema. No swelling. NERVOUS SYSTEM: Diffusely weak. LAB STUDIES: WBC sodium 150, potassium 3.4. Other labs are noted. ASSESSMENT: 1. Acute renal failure with possibly acute kidney injury with acute tubular necrosis and prerenal factors. 2. Possible underlying chronic kidney disease. 3. Acute urinary tract infection with sepsis possible sepsis present on admission. 4. Change in mental status, metabolic encephalopathy multifactorial. 5. Hypercalcemia secondary to immobilization possibly. 6. Hypernatremia. 7. Hypokalemia. 8. Hyperchloremia. 9. Hypercalcemia. 10.Increased WBC. 11.History of coronary artery disease. 12.History of congestive heart failure. 13.Diabetes mellitus type 2. 14.Deep vein thrombosis. 15.Hypertension. 16.Hyperlipidemia. 17.Myocardial infarction. 18.History of pneumonia. 19.History of pulmonary embolus. 20.History of degenerative joint disease. 21.History of C diff colitis. 22.History of coronary artery disease, stent. 23.History of bipolar with delusions. 24.Bradycardia. 25.FULL CODE. RECOMMENDATIONS AND DISCUSSION: This 80-year-old woman who presented with multiple complex medical issues, we will monitor the patient closely, continue the current medications, management and symptomatic treatment. We will continue IV fluids. Discussed with Dr. Chavez. We will continue with 0.45 saline currently and repeat lytes, adjust fluids accordingly. The chest x-ray done on December 13 did not show any acute abnormality. However, I would recommend repeat chest x-ray. CT scan of the brain is not reported yet. Repeat labs tomorrow to address the above mentioned multiple electrolytes imbalances. The blood sugar is also elevated. I would recommend Accu-Cheks a.c. and q.h.s. and scale also at this time. Other than that, I would avoid nephrotoxic medications. The patient is on Norvasc 5 mg twice daily. We will continue to monitor. The blood pressure has been fluctuating. I would recommend a small dose of hydralazine and titrate upwards as well. Prognosis guarded. Further recommendations to follow. We will initiate the carbidopa L-dopa. MMODL / IJN: [id number] /
[2020-12-17] MEDS: SENNOSIDES-DOCUSATE SODIUM 1 EACH TAB PO SCH (21:08)
[2020-12-17] MEDS: CYANOCOBALAMIN 500 MCG TAB PO SCH (21:08)
[2020-12-17] MEDS: LEVOTHYROXINE 50 MCG TAB PO SCH (21:08)
[2020-12-17] MEDS: ATORVASTATIN 40 MG TAB PO SCH (21:08)
[2020-12-17] MEDS: THIAMINE 100 MG TAB PO SCH (21:10)
[2020-12-18] MEDS: SODIUM CHLORIDE 0.45% 1,000 ML IV SCH ×2 (01:19→11:56)
[2020-12-18 06:26] LABS: Basophils % (A) 0 %; Eosinophils # (A) 0.6 k/uL (0-0.7); Eosinophils % (A) 5 %; HCT 30.3 % (34.0-46.0); HGB 10.1 gm/dL (11.4-16.0); Lymphocytes # (A) 1.7 k/uL (1.0-4.8); Lymphocytes % (A) 13 %; MCH 31.8 pg (25.0-35.0); MCHC 33.3 g/dL (31.0-37.0); MCV 95.6 fL (80.0-100.0); Mean Platelet Volume 9.2; Monocytes # (A) 0.7 k/uL (0-1.0); Monocytes % (A) 5 %; Neutrophils # (A) 9.6 k/uL (1.3-7.7); Neutrophils % (A) 75 %; Platelet Count 170 k/uL (150-450); RBC 3.17 m/uL (3.80-5.40); WBC 12.8 k/uL (3.8-10.6)
[2020-12-18] MEDS: FOLIC ACID 1 MG TAB PO SCH (08:07)
[2020-12-18] MEDS: SENNOSIDES-DOCUSATE SODIUM 1 EACH TAB PO SCH ×3 (08:07→21:33)
[2020-12-18] MEDS: METOPROLOL TARTRATE 50 MG TAB PO SCH (08:07)
[2020-12-18] MEDS: CARBIDOPA-LEVODOPA 25-100 MG 1 EACH TAB PO SCH ×3 (08:07→21:32)
[2020-12-18] MEDS: ASPIRIN 81 MG PO SCH (08:07)
[2020-12-18] MEDS: amLODIPine 5 MG TAB PO SCH ×2 (08:07→21:31)
[2020-12-18] MEDS: ESCITALOPRAM 10 MG TAB PO SCH (08:08)
[2020-12-18] MEDS: HEPARIN SODIUM,PORCINE/PF 5,000 UNIT/0.5 ML SYRINGE SQ SCH ×2 (08:08→21:33)
[2020-12-18 08:39] LABS: Glucose,Whole Blood 223 mg/dL (75-99)
[2020-12-18 09:32] LABS: African American GFR (CKD) 13.5 (60.0-200.0); Anion Gap 6.4 mmol/L (4.00-12.00); BUN/Creat Ratio 27.14 Ratio (12.00-20.00); Calcium 9.6 mg/dL (8.7-10.3); Carbon Dioxide 24.6 mmol/L (21.6-31.8); Non-African American GFR(CKD) 11.6 (60.0-200.0); Potassium 3.4 mmol/L (3.5-5.5)
[2020-12-18 12:42] LABS: Glucose,Whole Blood 355 mg/dL (75-99)
[2020-12-18] MEDS: INSULIN ASPART (NovoLOG) 100 UNIT/ML VIAL SQ SCH ×3 (13:37→21:33)
--- NOTE | 2020-12-18 13:39 | P.PN ---
Subjective Progress Note Date: 12/18/20 Principal diagnosis: This is a 80-year-old female seen in consultation because of acute kidney injury, sec to poor intake. here in the hospital, has become hypernatremic and hypercalcemic in the hospital. She had a creatinine of 6.4 for admission has slowly improved to 3.68 as of yesterday 3.5 today. She is confused, she is a [facility] resident. She's eating better She was on D5W which was discontinued, because of high blood sugars, ranging between 131-283, and was started on .45 ns, Na better at 151. She is unable to give any history because of the confusion. In the hospital she was found to have urinary tract infection with Proteus. Workup has included an ultrasound of the kidney shows 9.4 cm and 11.6 and given a right and left kidney with multiple left renal cysts. There is also a lesion in the bladder rule out mass. Objective - Vital Signs Vital signs: Vital Signs Temp 98.4 F 12/18/20 05:00 Pulse 72 12/18/20 08:00 Resp 16 12/18/20 08:00 BP 180/43 12/18/20 05:00 Pulse Ox 95 12/18/20 05:00 Intake & Output 12/17/20 12/18/20 12/18/20 18:59 06:59 18:59 Intake Total 360 1335 Balance 360 1335 Weight 69.1 kg Intake: Intake, IV Titration 360 1250 Amount Sodium Chloride 0.45% 1, 360 1200 000 ml @ 100 mls/hr IV . Q10H [facility] Rx#:[id number] cefTRIAXone 1 gm In 50 Sodium Chloride 0.9% 50 ml @ 100 mls/hr IVPB Q24H [facility] Rx#:[id number] Oral 85 Other: Voiding Method Diaper Diaper Diaper Incontinent Incontinent Incontinent # Voids 2 1 On examination she is awake alert but confused. HEENT exam no JVP neck is supple no facial asymmetry Lungs are clear to auscultation fair air entry bilaterally Heart sounds unremarkable for any murmur rub gallop Abdomen soft nontender Extremity exam was trace edema Neurologically awake alert but disoriented confused and gets angry - Labs CBC & Chem 7: 12/18/20 05:51 12/18/20 05:51 Labs: Abnormal Lab Results - Last 24 Hours (Table) 12/17/20 12/17/20 12/17/20 Range/Units 14:01 17:42 20:22 WBC (3.8-10.6) k/uL RBC (3.80-5.40) m/uL Hgb (11.4-16.0) gm/dL Hct (34.0-46.0) % Neutrophils # (1.3-7.7) k/uL Sodium (135-145) mmol/L Potassium (3.5-5.5) mmol/L Chloride (96-109) mmol/L BUN (9.0-27.0) mg/dL Creatinine (0.6-1.5) mg/dL Est GFR (CKD-EPI)AfAm (60.0-200.0) Est GFR (CKD-EPI)NonAf (60.0-200.0) BUN/Creatinine Ratio (12.00-20.00) Ratio Glucose (70-110) mg/dL POC Glucose (mg/dL) 262 H 265 H (75-99) mg/dL Ionized Calcium [place] 6.0 H* (4.5-5.3) mg/dL 12/18/20 12/18/20 12/18/20 Range/Units 05:51 05:51 08:37 WBC 12.8 H (3.8-10.6) k/uL RBC 3.17 L (3.80-5.40) m/uL Hgb 10.1 L (11.4-16.0) gm/dL Hct 30.3 L (34.0-46.0) % Neutrophils # 9.6 H (1.3-7.7) k/uL Sodium 151 H (135-145) mmol/L Potassium 3.4 L (3.5-5.5) mmol/L Chloride 120 H (96-109) mmol/L BUN 95.0 H (9.0-27.0) mg/dL Creatinine 3.5 H (0.6-1.5) mg/dL Est GFR (CKD-EPI)AfAm 13.5 L (60.0-200.0) Est GFR (CKD-EPI)NonAf 11.6 L (60.0-200.0) BUN/Creatinine Ratio 27.14 H (12.00-20.00) Ratio Glucose 172 H (70-110) mg/dL POC Glucose (mg/dL) 223 H (75-99) mg/dL Ionized Calcium T[place] (4.5-5.3) mg/dL 12/18/20 Range/Units 12:37 WBC (3.8-10.6) k/uL RBC (3.80-5.40) m/uL Hgb (11.4-16.0) gm/dL Hct (34.0-46.0) % Neutrophils # (1.3-7.7) k/uL Sodium (135-145) mmol/L Potassium (3.5-5.5) mmol/L Chloride (96-109) mmol/L BUN (9.0-27.0) mg/dL Creatinine (0.6-1.5) mg/dL Est GFR (CKD-EPI)AfAm (60.0-200.0) Est GFR (CKD-EPI)NonAf (60.0-200.0) BUN/Creatinine Ratio (12.00-20.00) Ratio Glucose (70-110) mg/dL POC Glucose (mg/dL) 355 H (75-99) mg/dL Ionized Calcium [place] (4.5-5.3) mg/dL Microbiology - Last 24 Hours (Table) 12/13/20 01:00 Blood Culture - Preliminary Blood No Growth after 120 hours Assessment and Plan Assessment: Impression 1. Acute kidney injury secondary to poor intake and responding to IV fluids. 2. Bilateral kidney cysts likely acquired. 3. Bladder mass versus stone. 4. Hypernatremia secondary to poor intake.better on IVF .45 NS 5. Hypercalcemia secondary to immobilization. PTH is normal. Vitamin D 125 and 25 is 44, normal. Ca normal 5. Type 2 diabetes blood sugars somewhat high after D5W. 6. Mild degree of hypo-potassium 3.4 likely from D5Wl 7. Proteinuria likely from diabetic nephropathy Pigmentation 1. Start D5w at 75/ hr 2. Monitor labs,
[2020-12-18] MEDS ORDERED: DEXTROSE 5%-0.9% NACL 1,000 ML IV SCH (13:45)
[2020-12-18 18:03] LABS: Glucose,Whole Blood 188 mg/dL (75-99)
[2020-12-18 20:54] LABS: Glucose,Whole Blood 216 mg/dL (75-99)
[2020-12-18] MEDS: CYANOCOBALAMIN 500 MCG TAB PO SCH (21:32)
[2020-12-18] MEDS: ATORVASTATIN 40 MG TAB PO SCH (21:32)
[2020-12-18] MEDS: LEVOTHYROXINE 50 MCG TAB PO SCH (21:32)
[2020-12-18] MEDS: THIAMINE 100 MG TAB PO SCH (21:33)
[2020-12-19] MEDS ORDERED: DEXTROSE 5% IN WATER 1,000 ML IV ONE (00:15)
--- NOTE | 2020-12-19 00:23 | PN ---
PROGRESS NOTE DATE OF SERVICE: 12/18/2020 REASON FOR FOLLOWUP: Urinary tract infection. INTERVAL HISTORY: The patient is afebrile. The patient remains to be pleasantly confused though denies any chest pain. No cough. No abdominal pain. No diarrhea has been reported. PHYSICAL EXAMINATION: Blood pressure 150/64 with a pulse of 51, temperature 98.3. He is 99% on room air. General description is an elderly female lying in bed in no distress. Respiratory system: Unlabored breathing, decreased breath sounds at the base, no wheeze. Heart S1, S2. Regular rate and rhythm. Abdomen soft, no tenderness. LABS: White count 12.8, creatinine 3.5. IMPRESSION/PLAN: Patient with Proteus mirabilis urinary tract infection for which the patient is covered with Rocephin, to continue. Transition to oral antibiotic on discharge. Continue supportive care. MMODL / RICKEYN: [id number] /
--- NOTE | 2020-12-19 00:24 | P.PN ---
Subjective Progress Note Date: 12/18/20 Principal diagnosis: Hypernatremia Acute urinary tract infection Patient is a 80-year-old female was admitted to hospital due to mental status change. Patient was found to have hyponatremia and acute urinary tract infection.. Also has Parkinson's disease. Patient is being continued on IV hydration with D5 water but blood sugar is going up. Patient is currently antibiotics in the form of ceftriaxone. Urine culture showed Proteus mirabilis. Laboratory data showed WBC 12.8 hemoglobin 10.1 and platelets 170 Sodium 141 potassium 3.4 chloride 120 BUN 95 and creatinine 3.5 Nephrology is on board. Patient is currently lying in the bed awake alert but not oriented. No hannah rrhea. Patient is currently dysphagia level 1 pured diet. Patient was seen by neurology due to altered mental status. Active Medications Generic Name Dose Route Start Last Admin Trade Name Freq PRN Reason Stop Dose Admin Acetaminophen 650 mg 12/12/20 22:41 Acetaminophen Tab 325 Mg Tab PO Q6HR PRN Mild Pain or Fever > 100.5 Amlodipine Besylate 5 mg 12/16/20 21:00 12/18/20 21:31 Amlodipine 5 Mg Tab PO 5 mg BID [facility] Administration Aspirin 81 mg 12/14/20 09:00 12/18/20 08:07 Aspirin 81 Mg PO 81 mg DAILY [facility] Administration Atorvastatin Calcium 40 mg 12/13/20 21:00 12/18/20 21:32 Atorvastatin 40 Mg Tab PO 40 mg HS [facility] Administration Carbidopa/Levodopa 1 each 12/16/20 16:00 12/18/20 21:32 Carbidopa-Levodopa 25-100 Mg 1 Each Tab PO 1 each TID [facility] Administration Cyanocobalamin 1,000 mcg 12/13/20 21:00 12/18/20 21:32 Cyanocobalamin 500 Mcg Tab PO 1,000 mcg HS [facility] Administration Escitalopram Oxalate 10 mg 12/14/20 09:00 12/18/20 08:08 Escitalopram 10 Mg Tab PO 10 mg DAILY [facility] Administration Folic Acid 1 mg 12/14/20 09:00 12/18/20 08:07 Folic Acid 1 Mg Tab PO 1 mg DAILY [facility] Administration Heparin Sodium (Porcine) 5,000 unit 12/13/20 09:00 12/18/20 21:33 Heparin Sodium,Porcine/Pf 5,000 Unit/0.5 Ml Syringe SQ 5,000 unit Q12HR [facility] Administration Ceftriaxone Sodium 1 gm/ 50 mls @ 100 mls/hr 12/13/20 23:00 12/18/20 23:05 Sodium Chloride IVPB 100 mls/hr Q24H [facility] Administration Dextrose/Water 1,000 mls @ 75 mls/hr 12/19/20 00:15 Dextrose 5%-Water Iv Soln IV 12/19/20 13:34 .[id number] ONE Insulin Aspart 0 unit 12/18/20 13:33 12/18/20 21:33 Insulin Aspart (Novolog) 100 Unit/Ml Vial SQ 3 unit ACHS [facility] Administration Protocol Levothyroxine Sodium 50 mcg 12/17/20 21:00 12/18/20 21:32 Levothyroxine 50 Mcg Tab PO 50 mcg HS [facility] Administration Metoprolol Tartrate 50 mg 12/16/20 11:30 12/18/20 08:07 Metoprolol Tartrate 50 Mg Tab PO 50 mg BID [facility] Administration Naloxone HCl 0.2 mg 12/12/20 22:41 Naloxone 0.4 Mg/Ml 1 Ml Vial IV Q2M PRN Opioid Reversal Senna/Docusate Sodium 1 each 12/17/20 22:00 12/18/20 21:33 Sennosides-Docusate Sodium 1 Each Tab PO 1 each TID [facility] Administration Thiamine HCl 100 mg 12/17/20 21:00 12/18/20 21:33 Thiamine 100 Mg Tab PO 100 mg HS [facility] Administration Objective - Vital Signs Vital signs: Vital Signs Temp 98.2 F 12/18/20 12:40 Pulse 50 L 12/18/20 12:40 Resp 17 12/18/20 12:40 BP 179/69 12/18/20 12:40 Pulse Ox 98 12/18/20 12:40 Intake & Output 12/17/20 12/18/20 12/18/20 18:59 06:59 18:59 Intake Total 360 1335 600 Balance 360 1335 600 Weight 69.1 kg Intake: Intake, IV Titration 360 1250 600 Amount Dextrose 5%-0.9% NaCl 1, 600 000 ml @ 75 mls/hr IV . [id number] [facility] Rx#:[id number] Sodium Chloride 0.45% 1, 360 1200 000 ml @ 100 mls/hr IV . Q10H [facility] Rx#:[id number] cefTRIAXone 1 gm In 50 Sodium Chloride 0.9% 50 ml @ 100 mls/hr IVPB Q24H [facility] Rx#:[id number] Oral 85 Other: Voiding Method Diaper Diaper Diaper Incontinent Incontinent Incontinent # Voids 2 1 - Exam PHYSICAL EXAMINATION: Patient is lying in the bed comfortably, no acute distress, awake alert.. HEENT: Normocephalic. Neck is supple. Pupils reactive. Nostrils clear. Oral cavity is moist. Neck reveals no JVD, carotid bruits, or thyromegaly. CHEST EXAMINATION: Trachea is central. Symmetrical expansion. Lung richter clear to auscultation and percussion. CARDIAC: Normal S1, S2 with no gallops. No murmurs ABDOMEN: Soft. Bowel sounds normal. No organomegaly. No abdominal bruits. Extremities: reveal no edema. No clubbing or cyanosis Neurologically awake, alert, oriented x0-1 No gross focal deficits noted Skin: No rash or skin lesions. Psychiatric:Could not be assessed. Musculoskeletal: No joint swelling or deformity. - Labs CBC & Chem 7: 12/18/20 05:51 12/18/20 05:51 Labs: Abnormal Lab Results - Last 24 Hours (Table) 12/17/20 12/18/20 12/18/20 Range/Units 20:22 05:51 05:51 WBC 12.8 H (3.8-10.6) k/uL RBC 3.17 L (3.80-5.40) m/uL Hgb 10.1 L (11.4-16.0) gm/dL Hct 30.3 L (34.0-46.0) % Neutrophils # 9.6 H (1.3-7.7) k/uL Sodium 151 H (135-145) mmol/L Potassium 3.4 L (3.5-5.5) mmol/L Chloride 120 H (96-109) mmol/L BUN 95.0 H (9.0-27.0) mg/dL Creatinine 3.5 H (0.6-1.5) mg/dL Est GFR (CKD-EPI)AfAm 13.5 L (60.0-200.0) Est GFR (CKD-EPI)NonAf 11.6 L (60.0-200.0) BUN/Creatinine Ratio 27.14 H (12.00-20.00) Ratio Glucose 172 H (70-110) mg/dL POC Glucose (mg/dL) 265 H (75-99) mg/dL 12/18/20 12/18/20 12/18/20 Range/Units 08:37 12:37 18:01 WBC (3.8-10.6) k/uL RBC (3.80-5.40) m/uL Hgb (11.4-16.0) gm/dL Hct (34.0-46.0) % Neutrophils # (1.3-7.7) k/uL Sodium (135-145) mmol/L Potassium (3.5-5.5) mmol/L Chloride (96-109) mmol/L BUN (9.0-27.0) mg/dL Creatinine (0.6-1.5) mg/dL Est GFR (CKD-EPI)AfAm (60.0-200.0) Est GFR (CKD-EPI)NonAf (60.0-200.0) BUN/Creatinine Ratio (12.00-20.00) Ratio Glucose (70-110) mg/dL POC Glucose (mg/dL) 223 H 355 H 188 H (75-99) mg/dL Microbiology - Last 24 Hours (Table) 12/13/20 01:00 Blood Culture - Preliminary Blood No Growth after 120 hours Assessment and Plan Assessment: Acute kidney injury likely due to prerenal and possible ATN. Hyper natremia due to poor oral intake. Acute urinary tract infection with Proteus mirabilis. Acute metabolic encephalopathy multifactorial. Hypercalcemia Hypokalemia History of coronary artery disease with stent placement Chronic CHF with diastolic dysfunction Diabetes type 2 hyperglycemia uncontrolled History of CA Degenerative joint disease Bipolar disorder and delusions DVT prophylaxis Plan: Patient will be started on D5 water at 75 cc/h. Encourage oral intake. Apparently patient is allergic to insulin. Kind of allergic reaction is unknown. Tried to give insulin aspart for possible reaction and patient is able to tolerate currently. Will be continued on insulin sliding scale and follow-up closely. Patient is on antibiotics in the form of ceftriaxone for urinary tract infection. ID and pulmonary is on board. Prognosis guarded at this time. Time with Patient: Greater than 30
[2020-12-19] MEDS: METOPROLOL TARTRATE 50 MG TAB PO SCH ×3 (02:31→21:46)
[2020-12-19 06:10] LABS: Basophils % (A) 0 %; Eosinophils # (A) 0.5 k/uL (0-0.7); Eosinophils % (A) 5 %; HCT 32.3 % (34.0-46.0); HGB 10.6 gm/dL (11.4-16.0); Lymphocytes # (A) 1.2 k/uL (1.0-4.8); Lymphocytes % (A) 11 %; MCHC 32.9 g/dL (31.0-37.0); MCV 97.2 fL (80.0-100.0); Mean Platelet Volume 9.1; Monocytes # (A) 0.7 k/uL (0-1.0); Monocytes % (A) 6 %; Neutrophils # (A) 8.5 k/uL (1.3-7.7); Neutrophils % (A) 76 %; Platelet Count 141 k/uL (150-450); RBC 3.33 m/uL (3.80-5.40); WBC 11.2 k/uL (3.8-10.6)
[2020-12-19 07:34] LABS: Glucose,Whole Blood 245 mg/dL (75-99)
[2020-12-19] MEDS: ASPIRIN 81 MG PO SCH (07:36)
[2020-12-19] MEDS: SENNOSIDES-DOCUSATE SODIUM 1 EACH TAB PO SCH ×3 (07:36→21:45)
[2020-12-19] MEDS: amLODIPine 5 MG TAB PO SCH ×2 (07:37→21:44)
[2020-12-19] MEDS: HEPARIN SODIUM,PORCINE/PF 5,000 UNIT/0.5 ML SYRINGE SQ SCH ×2 (07:37→21:46)
[2020-12-19] MEDS: FOLIC ACID 1 MG TAB PO SCH (07:37)
[2020-12-19] MEDS: CARBIDOPA-LEVODOPA 25-100 MG 1 EACH TAB PO SCH ×3 (07:37→21:45)
[2020-12-19] MEDS: ESCITALOPRAM 10 MG TAB PO SCH (07:37)
[2020-12-19] MEDS: ACETAMINOPHEN TAB 325 MG TAB PO PRN (07:41)
[2020-12-19] MEDS: INSULIN ASPART (NovoLOG) 100 UNIT/ML VIAL SQ SCH ×4 (07:42→21:46)
[2020-12-19 09:35] LABS: Anion Gap 9.3 mmol/L (4.00-12.00); BUN/Creat Ratio 28.44 Ratio (12.00-20.00); Calcium 9.4 mg/dL (8.7-10.3); Carbon Dioxide 22.7 mmol/L (21.6-31.8); Non-African American GFR(CKD) 12.9 (60.0-200.0); Potassium 3.6 mmol/L (3.5-5.5)
[2020-12-19 12:04] LABS: Glucose,Whole Blood 260 mg/dL (75-99)
[2020-12-19 12:11] LABS: Anion Gap 14.2 mmol/L (4.00-12.00); Carbon Dioxide 17.8 mmol/L (21.6-31.8); Potassium 4.8 mmol/L (3.5-5.5)
--- NOTE | 2020-12-19 13:03 | P.PN ---
Subjective Progress Note Date: 12/19/20 Principal diagnosis: This is a 80-year-old female seen in consultation because of acute kidney injury, sec to poor intake. here in the hospital, has become hypernatremic and hypercalcemic in the hospital. She is unable to drinking liquids as she is being spoonfed and refuses after a few spoons off liquids but she is able take some solids. She had a creatinine of 6.4 for admission has slowly improved to 3.68 as of yesterday 3.2 today. She was started on IV fluids with D5W because of hyponatremia. At 75 an hour since yesterday. Sodium has gone up to 153 from 151 in spite of this. She is confused, she is a skilled nursing resident. In the hospital she was found to have urinary tract infection with Proteus. Workup has included an ultrasound of the kidney shows 9.4 cm and 11.6 and given a right and left kidney with multiple left renal cysts. There is also a lesion in the bladder rule out mass. Objective - Vital Signs Vital signs: Vital Signs Temp 97.7 F 12/19/20 12:40 Pulse 49 L 12/19/20 12:40 Resp 19 12/19/20 12:40 BP 159/63 12/19/20 12:40 Pulse Ox 98 12/19/20 12:40 Intake & Output 12/18/20 12/19/20 12/19/20 18:59 06:59 18:59 Intake Total 600 1050 Balance 600 1050 Weight 69.1 kg Intake: Intake, IV Titration 600 900 Amount Dextrose 5% in Water 1, 300 000 ml @ 75 mls/hr IV . [id number] [facility] Rx#:[id number] Dextrose 5%-0.9% NaCl 1, 600 600 000 ml @ 75 mls/hr IV . [id number] [facility] Rx#:[id number] Oral 150 Other: Voiding Method Diaper Diaper Diaper Incontinent Incontinent # Voids 1 3 On examination she is awake alert but confused. HEENT exam no JVP neck is supple no facial asymmetry Lungs are clear to auscultation fair air entry bilaterally Heart sounds unremarkable for any murmur rub gallop Abdomen soft nontender Extremity exam was trace edema Neurologically she has ups and downs, currently she is awake alert but disoriented confused and gets angry - Labs CBC & Chem 7: 12/19/20 05:12 12/19/20 05:12 Labs: Abnormal Lab Results - Last 24 Hours (Table) 12/17/20 12/18/20 12/18/20 Range/Units 21:15 18:01 20:46 WBC (3.8-10.6) k/uL RBC (3.80-5.40) m/uL Hgb (11.4-16.0) gm/dL Hct (34.0-46.0) % Plt Count (150-450) k/uL Neutrophils # (1.3-7.7) k/uL Sodium 151 H (135-145) mmol/L Chloride 119 H (96-109) mmol/L Carbon Dioxide 17.8 L (21.6-31.8) mmol/L Anion Gap 14.20 H (4.00-12.00) mmol/L BUN (9.0-27.0) mg/dL Creatinine (0.6-1.5) mg/dL Est GFR (CKD-EPI)AfAm (60.0-200.0) Est GFR (CKD-EPI)NonAf (60.0-200.0) BUN/Creatinine Ratio (12.00-20.00) Ratio Glucose (70-110) mg/dL POC Glucose (mg/dL) 188 H 216 H (75-99) mg/dL 12/19/20 12/19/20 12/19/20 Range/Units 05:12 05:12 07:32 WBC 11.2 H (3.8-10.6) k/uL RBC 3.33 L (3.80-5.40) m/uL Hgb 10.6 L (11.4-16.0) gm/dL Hct 32.3 L (34.0-46.0) % Plt Count 141 L (150-450) k/uL Neutrophils # 8.5 H (1.3-7.7) k/uL Sodium 153 H (135-145) mmol/L Chloride 121 H (96-109) mmol/L Carbon Dioxide (21.6-31.8) mmol/L Anion Gap (4.00-12.00) mmol/L BUN 91.0 H (9.0-27.0) mg/dL Creatinine 3.2 H (0.6-1.5) mg/dL Est GFR (CKD-EPI)AfAm 15.0 L (60.0-200.0) Est GFR (CKD-EPI)NonAf 12.9 L (60.0-200.0) BUN/Creatinine Ratio 28.44 H (12.00-20.00) Ratio Glucose 215 H (70-110) mg/dL POC Glucose (mg/dL) 245 H (75-99) mg/dL 12/19/20 Range/Units 12:02 WBC (3.8-10.6) k/uL RBC (3.80-5.40) m/uL Hgb (11.4-16.0) gm/dL Hct (34.0-46.0) % Plt Count (150-450) k/uL Neutrophils # (1.3-7.7) k/uL Sodium (135-145) mmol/L Chloride (96-109) mmol/L Carbon Dioxide (21.6-31.8) mmol/L Anion Gap (4.00-12.00) mmol/L BUN (9.0-27.0) mg/dL Creatinine (0.6-1.5) mg/dL Est GFR (CKD-EPI)AfAm (60.0-200.0) Est GFR (CKD-EPI)NonAf (60.0-200.0) BUN/Creatinine Ratio (12.00-20.00) Ratio Glucose (70-110) mg/dL POC Glucose (mg/dL) 260 H (75-99) mg/dL Microbiology - Last 24 Hours (Table) 12/13/20 01:00 Blood Culture - Final Blood No Growth after 144 hours Assessment and Plan Assessment: Impression 1. Acute kidney injury secondary to poor intake and responding to IV fluids. Creatinine improved to 3.2 2. Bilateral kidney cysts likely acquired. 3. Bladder mass versus stone. On ultrasound 4. Hypernatremia secondary to poor intake.sodium went up in spite of being on D5W at 75 an hour. 5. Hypercalcemia secondary to immobilization. PTH is normal. Vitamin D 125 and 25 is 44, normal. Ca normal 5. Type 2 diabetes blood sugars somewhat high after D5W. 6. Mild degree of hypokalemia resolved etiology was D5W and poor intake 7. Proteinuria likely from diabetic nephropathy Pigmentation 1. Increase D5W from 75 mL an hour 150 an hour 2. Monitor labs,
--- NOTE | 2020-12-19 13:14 | PN ---
PROGRESS NOTE This 80-year-old white female came in with altered mental status, severe prerenal renal insufficiency, urinary tract infection. She apparently is talking and eating 75% of her food. She possibly can go home this week. Cardiovascular: S1, S2. Lungs clear. GI: Soft. Creatinine is down to 3.6 to 3.5. She has Proteus mirabilis UTI. Continue with Rocephin. Transition to oral antibiotics. Wait for renal physician to clear the patient for discharge. She appears to be slowly improving with fluids and her oral intake is increasing, also. Her creatinine was 6.4 on admission, now down to 3.5 from 3.8. Eating better. Sugars are in the mid 100s. She is on 0.45 normal saline. Sodium is better at 151. Continue current treatment. As far as her bladder tumor, she will have that worked up as an outpatient with Dr. Shelton. Continue to monitor. Current treatments. Psych medications were adjusted for dementia and delirium and possibly bipolar or behavior disturbances. Prognosis guarded. MMODL / IJN: [id number] /
--- NOTE | 2020-12-19 13:34 | CT ---
EXAMINATION TYPE: CT brain wo con DATE OF EXAM: 12/16/2020 COMPARISON: 06/22/2019 HISTORY: Decreased mental status CT DLP: [address] of the brain was performed. The ventricles, basal cisterns and sulci overlying the cerebral convexities demonstrate mild enlargem ent. There is no evidence for intracranial hemorrhage or sulcal effacement. There is decreased attenuation about the periventricular white matter and deep white matter of both c erebral hemispheres, compatible with chronic small vessel ischemia. Differential diagnosis does inclu de demyelination. No mass effects are seen.No midline shift. Osseous calvarium is intact. If symptoms persist consider MRI. IMPRESSION: 1. Age related atrophic and chronic small vessel ischemic change without acute intracranial process s een at this time.
--- NOTE | 2020-12-19 17:26 | P.PN ---
Subjective Progress Note Date: 12/19/20 Neurology consultation previously performed by Dr. Ang Falcon. Please refer to his note for detail. Patient is an 80-year-old female with altered mental status. Patient was found to have acute kidney injury and mental status change was felt to be metabolic. Patient also has possible Parkinson's disease, currently on Sinemet and amantadine. Amantadine was discontinued because of altered mental status and acute renal failure. Patient is currently on Sinemet 25/100 3 times a day. Patient's blood test initially showed BUN 131, creatinine 6.30. It is now improved to 91.0 and 3.2 respectively. Objective - Vital Signs Vital signs: Vital Signs Temp 97.7 F 12/19/20 12:40 Pulse 49 L 12/19/20 12:40 Resp 19 12/19/20 12:40 BP 159/63 12/19/20 12:40 Pulse Ox 98 12/19/20 12:40 Intake & Output 12/18/20 12/19/20 12/19/20 18:59 06:59 18:59 Intake Total 600 1050 Balance 600 1050 Weight 69.1 kg Intake: Intake, IV Titration 600 900 Amount Dextrose 5% in Water 1, 300 000 ml @ 75 mls/hr IV . [id number] Rx#:[id number] Dextrose 5%-0.9% NaCl 1, 600 600 000 ml @ 75 mls/hr IV . [id number] [facility] Rx#:[id number] Oral 150 Other: Voiding Method Diaper Diaper Diaper Incontinent Incontinent # Voids 1 3 - Exam GENERAL: The patient is lying in bed and is not in acute distress. NEUROLOGICAL: Higher mental function: The patient is awake, alert, oriented to self. Patient could not tell the month or the year.. Patient could not tell name of the current president. Patient appears more confused as compared to the last examination from Dr. Falcon. Patient is following simple commands. No aphasia and no neglect. Patient has dry mouth, mild to moderate slurring, mumbling speech. Slight hoarse voice. Patient became offensive. Started using foul language. Cranial nerves: The pupils are round, equal and reactive to light. Visual richter could not be tested. Extraocular movement is intact no nystagmus is noted. Facial sensation is normal to touch throughout. The facial strength is left nasolabial flattening. Hearing is moderately to severely decreased bila terally to hand rub and for conversation. Tongue is midline and moved [id number] without any difficulty. Mild dysarthria is noted. Patient mouth seems dry. Motor: Patient did not cooperate for the examination. Slight mild increase tone in bilateral wrist and elbow. Has resting tremors bilaterally and lift arms up there seems to be some tremor as well. Sensation: Patient did not cooperate. Reflexes (right/left): 2+ uppers and 1+ lowers. Plantars are mute bilaterally. WORK-UP: Calcium during the hospital stay has been normal but the most recent is 10.5 which I think it's reactive. AST of 18 ALT of 7. Vitamin B-12 is 1870, folate is more than 24 and it's a serum, TSH is 0.806 which is within normal limits. Hemoglobin A1c is 6.8 which is elevated the patient's glucose has been in last 24 hours in 240 to 260s As stated urinalysis was positive for urinary tract infection on presentation. - Labs CBC & Chem 7: 12/19/20 05:12 12/19/20 05:12 Labs: Abnormal Lab Results - Last 24 Hours (Table) 12/17/20 12/18/20 12/18/20 Range/Units 21:15 18:01 20:46 WBC (3.8-10.6) k/uL RBC (3.80-5.40) m/uL Hgb (11.4-16.0) gm/dL Hct (34.0-46.0) % Plt Count (150-450) k/uL Neutrophils # (1.3-7.7) k/uL Sodium 151 H (135-145) mmol/L Chloride 119 H (96-109) mmol/L Carbon Dioxide 17.8 L (21.6-31.8) mmol/L Anion Gap 14.20 H (4.00-12.00) mmol/L BUN (9.0-27.0) mg/dL Creatinine (0.6-1.5) mg/dL Est GFR (CKD-EPI)AfAm (60.0-200.0) Est GFR (CKD-EPI)NonAf (60.0-200.0) BUN/Creatinine Ratio (12.00-20.00) Ratio Glucose (70-110) mg/dL POC Glucose (mg/dL) 188 H 216 H (75-99) mg/dL 12/19/20 12/19/20 12/19/20 Range/Units 05:12 05:12 07:32 WBC 11.2 H (3.8-10.6) k/uL RBC 3.33 L (3.80-5.40) m/uL Hgb 10.6 L (11.4-16.0) gm/dL Hct 32.3 L (34.0-46.0) % Plt Count 141 L (150-450) k/uL Neutrophils # 8.5 H (1.3-7.7) k/uL Sodium 153 H (135-145) mmol/L Chloride 121 H (96-109) mmol/L Carbon Dioxide (21.6-31.8) mmol/L Anion Gap (4.00-12.00) mmol/L BUN 91.0 H (9.0-27.0) mg/dL Creatinine 3.2 H (0.6-1.5) mg/dL Est GFR (CKD-EPI)AfAm 15.0 L (60.0-200.0) Est GFR (CKD-EPI)NonAf 12.9 L (60.0-200.0) BUN/Creatinine Ratio 28.44 H (12.00-20.00) Ratio Glucose 215 H (70-110) mg/dL POC Glucose (mg/dL) 245 H (75-99) mg/dL 12/19/20 Range/Units 12:02 WBC (3.8-10.6) k/uL RBC (3.80-5.40) m/uL Hgb (11.4-16.0) gm/dL Hct (34.0-46.0) % Plt Count (150-450) k/uL Neutrophils # (1.3-7.7) k/uL Sodium (135-145) mmol/L Chloride (96-109) mmol/L Carbon Dioxide (21.6-31.8) mmol/L Anion Gap (4.00-12.00) mmol/L BUN (9.0-27.0) mg/dL Creatinine (0.6-1.5) mg/dL Est GFR (CKD-EPI)AfAm (60.0-200.0) Est GFR (CKD-EPI)NonAf (60.0-200.0) BUN/Creatinine Ratio (12.00-20.00) Ratio Glucose (70-110) mg/dL POC Glucose (mg/dL) 260 H (75-99) mg/dL Microbiology - Last 24 Hours (Table) 12/13/20 01:00 Blood Culture - Final Blood No Growth after 144 hours Assessment and Plan Assessment: Encephalopathy due to metabolic (sugar in 200's, acute on chronic kidney insuffiency, hypernatremia (likely due to dehydration) and underlying UTI). Patient continues to be encephalopathic, confused, mumbling speech. Hypernatremia (currently 153)--likely due to dehydration History of reported Parkinson's disease (not sure for how long and who diagnosed with it) Acute urinary tract infection, currently on ceftriaxone 1 g every 24 hours Acute on chronic kidney insufficiency Hypertension and is uncontrolled and currently it's in the 200s systolic Diabetes mellitus and her sugar is uncontrolled in the hospital it's in the 200s History according artery disease status post stent History of hyperlipidemia History of pulmonary embolism Plan: * Her tremors can be exacerbated from her metabolic abnormalities. Patient continues to be encephalopathic. Examination is limited because of his noncooperation. I recommend once the patient kidney function improves and her condition improves especially since has acute UTI, we can have a better assessment of her tremors. * Patient is on Seroquel 75 mg 1 tablet twice a day (home dose) and the antipsychotic can cause underlying Parkinson's disease. Please avoid antipsychotics as much as possible. * CT HEAD on 12/16/2020: Revealed age-related atrophic and chronic small vessel ischemic change without acute intracranial process seen at this time. * Await EEG. Will not start the patient on antiepileptic drug or seizure on the EEG. * Agree with stopping amantadine because of renal insufficiency. Continue Sinemet. * Consider Stone scan as an outpatient (if Stone Scan is abnormal then it is not essential tremor). * Infection disease is on board * We'll defer the rest of the medical management to the primary team. * Upon discharge the patient needs to follow-up with a neurologist as an outpa tient within 1-2 weeks * B12 is 1870, folate > 24.0. TSH is normal. Hepatic panel normal.
[2020-12-19 17:30] LABS: Glucose,Whole Blood 382 mg/dL (75-99)
[2020-12-19] MEDS: DEXTROSE 5% IN WATER 1,000 ML IV SCH (18:30)
[2020-12-19 20:33] LABS: Glucose,Whole Blood 343 mg/dL (75-99)
--- NOTE | 2020-12-19 21:31 | PN ---
PROGRESS NOTE DATE OF SERVICE: 12/19/2020 REASON FOR FOLLOWUP: Urinary tract infection. INTERVAL HISTORY: Patient is afebrile. The patient is breathing comfortably. The patient remains to be lethargic and not a good historian. No vomiting or diarrhea has been reported by nursing staff. PHYSICAL EXAMINATION: Blood pressure is 159/69 with a pulse of 49, temperature 97.7. She is 98% on room air. General description is an elderly female lying in bed in no distress. Respiratory system: Unlabored breathing, clear to auscultation anteriorly. Heart S1, S2. Regular rate and rhythm. Abdomen soft, no tenderness. LABORATORY DATA: Hemoglobin is 10.9, white count 11.2, BUN of 91, creatinine 3.2. DIAGNOSTIC IMPRESSION AND PLAN: Patient with Proteus mirabilis urinary tract infection covered with Rocephin. White count is trending down. To finish therapy with oral antibiotic on discharge. Continue supportive care. MMODL / IJN: [id number] /
[2020-12-19] MEDS: CYANOCOBALAMIN 500 MCG TAB PO SCH (21:44)
[2020-12-19] MEDS: THIAMINE 100 MG TAB PO SCH (21:44)
[2020-12-19] MEDS: ATORVASTATIN 40 MG TAB PO SCH (21:45)
[2020-12-19] MEDS: LEVOTHYROXINE 50 MCG TAB PO SCH (21:45)
[2020-12-20] MEDS: DEXTROSE 5% IN WATER 1,000 ML IV SCH ×4 (00:57→21:29)
[2020-12-20 07:01] LABS: Basophils % (A) 0 %; Eosinophils # (A) 0.4 k/uL (0-0.7); Eosinophils % (A) 4 %; HCT 31.2 % (34.0-46.0); HGB 10.3 gm/dL (11.4-16.0); Lymphocytes # (A) 1.3 k/uL (1.0-4.8); Lymphocytes % (A) 13 %; MCHC 33.1 g/dL (31.0-37.0); MCV 96.8 fL (80.0-100.0); Mean Platelet Volume 9.8; Monocytes # (A) 0.6 k/uL (0-1.0); Monocytes % (A) 6 %; Neutrophils # (A) 7.7 k/uL (1.3-7.7); Neutrophils % (A) 75 %; Platelet Count 143 k/uL (150-450); RBC 3.22 m/uL (3.80-5.40); RDW 13.1 % (11.5-15.5); WBC 10.4 k/uL (3.8-10.6)
[2020-12-20 07:18] LABS: Glucose,Whole Blood 328 mg/dL (75-99)
[2020-12-20] MEDS: HEPARIN SODIUM,PORCINE/PF 5,000 UNIT/0.5 ML SYRINGE SQ SCH ×2 (07:51→21:33)
[2020-12-20] MEDS: SENNOSIDES-DOCUSATE SODIUM 1 EACH TAB PO SCH ×3 (07:52→21:32)
[2020-12-20] MEDS: amLODIPine 5 MG TAB PO SCH ×2 (07:52→21:30)
[2020-12-20] MEDS: ASPIRIN 81 MG PO SCH (07:52)
[2020-12-20] MEDS: METOPROLOL TARTRATE 50 MG TAB PO SCH ×2 (07:52→21:33)
[2020-12-20] MEDS: CARBIDOPA-LEVODOPA 25-100 MG 1 EACH TAB PO SCH ×3 (07:52→21:33)
[2020-12-20] MEDS: FOLIC ACID 1 MG TAB PO SCH (07:52)
[2020-12-20] MEDS: ESCITALOPRAM 10 MG TAB PO SCH (08:01)
[2020-12-20] MEDS: INSULIN ASPART (NovoLOG) 100 UNIT/ML VIAL SQ SCH ×4 (08:48→21:30)
[2020-12-20 11:50] LABS: ALT <8 U/L (8-44); AST 14 U/L (13-35); African American GFR (CKD) 16.2 (60.0-200.0); Albumin/Globulin Ratio 1.14 (1.60-3.17); Alkaline Phosphatase 109 U/L (41-126); Calcium 9.2 mg/dL (8.7-10.3); Carbon Dioxide 22.6 mmol/L (21.6-31.8); Chloride 113 mmol/L (96-109); Globulin 2.8 g/dL (1.6-3.3); Glucose 305 mg/dL (70-110); Potassium 3.3 mmol/L (3.5-5.5); Sodium 145 mmol/L (135-145); Total Bilirubin 0.3 mg/dL (0.2-1.2)
[2020-12-20 12:05] LABS: Glucose,Whole Blood 332 mg/dL (75-99)
[2020-12-20] MEDS ORDERED: Potassium Replacement Protocol 1 EACH MISC MISCELLANE PRN (15:25)
[2020-12-20] MEDS: POTASSIUM CHLORIDE 10 MEQ in WATER FOR INJECTION 1 100ML.BAG IVPB SCH ×4 (15:53→20:11)
[2020-12-20 17:07] LABS: Glucose,Whole Blood 222 mg/dL (75-99)
--- NOTE | 2020-12-20 17:52 | P.PN ---
Subjective Progress Note Date: 12/20/20 12/20/2020: Patient denies any new complaints. Patient states she is feeling better. She does admit to having some headache. Patient continues to be quite disoriented as mentioned below. 12/19/2020: Neurology consultation previously performed by Dr. Ang Falcon. Please refer to his note for detail. Patient is an 80-year-old female with altered mental status. Patient was found to have acute kidney injury and mental status change was felt to be metabolic. Patient also has possible Parkinson's disease, currently on Sinemet and amantadine. Amantadine was discontinued because of altered mental status and acute renal failure. Patient is currently on Sinemet 25/100 3 times a day. Patient's blood test initially showed BUN 131, creatinine 6.30. It is now improved to 91.0 and 3.2 respectively. Objective - Vital Signs Vital signs: Vital Signs Temp 98.0 F 12/20/20 11:00 Pulse 52 L 12/20/20 12:07 Resp 18 12/20/20 11:00 BP 145/75 12/20/20 11:00 Pulse Ox 97 12/20/20 11:00 Intake & Output 12/19/20 12/20/20 12/20/20 18:59 06:59 18:59 Intake Total 350 2090 Balance 350 2090 Weight 69.1 kg Intake: Intake, IV Titration 1850 Amount Dextrose 5% in Water 1, 1500 000 ml @ 150 mls/hr IV . Q6H40M [facility] Rx#:[id number] Potassium Chloride 10 meq 300 In Water For Injection 1 100ml.bag @ 100 mls/hr IVPB Q1HR [facility] Rx#: [id number] cefTRIAXone 1 gm In 50 Sodium Chloride 0.9% 50 ml @ 100 mls/hr IVPB Q24H [facility] Rx#:[id number] Oral 350 240 Other: Voiding Method Diaper Diaper Diaper Incontinent # Voids 2 1 5 - Exam GENERAL: The patient is lying in bed and is not in acute distress. NEUROLOGICAL: Higher mental function: The patient is awake, alert, oriented to self. She states she is 73 years old. Patient could not tell the current month or the year.. Patient could not tell name of the current president. Patient cannot tell the city she is in although she knows that she is in [place]. Patient is following simple commands. No aphasia and no neglect. Patient has dry mouth, mild to moderate slurring, mumbling speech. Slight hoarse raspy voice. Patient is more cooperative today. Cranial nerves: The pupils are round, equal and reactive to light. Visual richter could not be tested. Extraocular movement is intact no nystagmus is noted. Facial sensation is normal to touch throughout. The facial strength is left nasolabial flattening. Hearing is moderately to severely decreased bilaterally to hand rub and for conversation. Tongue is midline . Mild dysarthria is noted. Patient mouth seems dry. Motor: Her muscle strength is normal in the arms. Patient did not cooperate with examination of the lower limbs.. Her ankles are at least 4+ although she did not cooperate well. . Slight mild increase tone in bilateral wrist and elbow. Has resting tremors bilaterally and lift arms up there seems to be some tremor as well. Sensation: Patient did not cooperate. Reflexes (right/left): 2+ uppers and 1+ lowers. Plantars are mute bilaterally. WORK-UP: Calcium during the hospital stay has been normal but the most recent is 10.5 which I think it's reactive. AST of 18 ALT of 7. Vitamin B-12 is 1870, folate is more than 24 and it's a serum, TSH is 0.806 which is within normal limits. Hemoglobin A1c is 6.8 which is elevated the patient's glucose has been in last 24 hours in 240 to 260s As stated urinalysis was positive for urinary tract infection on presentation. - Labs CBC & Chem 7: 12/20/20 06:13 12/20/20 06:13 Labs: Abnormal Lab Results - Last 24 Hours (Table) 12/19/20 12/20/20 12/20/20 Range/Units 20:32 06:13 06:13 RBC 3.22 L (3.80-5.40) m/uL Hgb 10.3 L (11.4-16.0) gm/dL Hct 31.2 L (34.0-46.0) % Plt Count 143 L (150-450) k/uL Potassium 3.3 L (3.5-5.5) mmol/L Chloride 113 H (96-109) mmol/L BUN 78.0 H (9.0-27.0) mg/dL Creatinine 3.0 H (0.6-1.5) mg/dL Est GFR (CKD-EPI)AfAm 16.2 L (60.0-200.0) Est GFR (CKD-EPI)NonAf 14.0 L (60.0-200.0) BUN/Creatinine Ratio 26.00 H (12.00-20.00) Ratio Glucose 305 H (70-110) mg/dL POC Glucose (mg/dL) 343 H (75-99) mg/dL ALT <8 L (8-44) U/L Total Protein 6.0 L (6.2-8.2) g/dL Albumin 3.20 L (3.80-4.90) g/dL Albumin/Globulin Ratio 1.14 L (1.60-3.17) g/dL 12/20/20 12/20/20 12/20/20 Range/Units 07:12 11:54 16:59 RBC (3.80-5.40) m/uL Hgb (11.4-16.0) gm/dL Hct (34.0-46.0) % Plt Count (150-450) k/uL Potassium (3.5-5.5) mmol/L Chloride (96-109) mmol/L BUN (9.0-27.0) mg/dL Creatinine (0.6-1.5) mg/dL Est GFR (CKD-EPI)AfAm (60.0-200.0) Est GFR (CKD-EPI)NonAf (60.0-200.0) BUN/Creatinine Ratio (12.00-20.00) Ratio Glucose (70-110) mg/dL POC Glucose (mg/dL) 328 H 332 H 222 H (75-99) mg/dL ALT (8-44) U/L Total Protein (6.2-8.2) g/dL Albumin (3.80-4.90) g/dL Albumin/Globulin Ratio (1.60-3.17) g/dL Assessment and Plan Assessment: Toxic metabolic encephalopathy, likely due to acute Proteus mirabilis UTI. Also patient had hyperglycemia, acute on chronic kidney insuffiency, hypernatremia (likely due to dehydration) and underlying UTI). Patient continues to be encephalopathic, confused, mumbling speech. Hypernatremia--likely due to dehydration, now resolved, today sodium 145 History of reported Parkinson's disease (not sure for how long and who diagnosed with it) Acute urinary tract infection, currently on ceftriaxone 1 g every 24 hours Acute on chronic kidney insufficiency Hypertension and is uncontrolled and currently it's in the 200s systolic Diabetes mellitus and her sugar is uncontrolled in the hospital it's in the 200s History according artery disease status post stent History of hyperlipidemia History of pulmonary embolism Plan: * Her tremors can be exacerbated from her metabolic abnormalities. Patient continues to be encephalopathic. Examination is limited because of his noncooperation. Her mentation will improve, once metabolic conditions comes under control. * Patient is on Seroquel 75 mg 1 tablet twice a day (home dose) and the antipsychotic can cause underlying Parkinson's disease. Please avoid antipsychotics as much as possible. * CT HEAD on 12/16/2020: Revealed age-related atrophic and chronic small vessel ischemic change without acute intracranial process seen at this time. * EEG 12/20/2020 revealed moderate background slowing. No epileptiform activity was seen. No indication for antiepileptic medication. * Agree with stopping amantadine because of renal insufficiency. Continue Sinemet. * Consider Stone scan as an outpatient (if Stone Scan is abnormal then it is not essential tremor). * Infection disease is on board. Patient currently on ceftriaxone. * We'll defer the rest of the medical management to the primary team. * Upon discharge the patient needs to follow-up with a neurologist as an outpatient within 1-2 weeks * B12 is 1870, folate > 24.0. TSH is normal. Hemoglobin A1c 6.8 Hepatic panel normal.
--- NOTE | 2020-12-20 18:08 | EEG ---
ELECTROENCEPHALOGRAM REPORT DATE OF SERVICE: 12/20/2020 PREAMBLE: This is an 80-year-old female with altered mental status. EEG FINDINGS: This is a 21-channel routine EEG recording in a patient utilizing 10/20 international system with referential and bipolar montages. Background consists of well-developed, moderately well regulated, mixed frequencies of 4-6 hertz theta intermixed with some moderate amplitude delta activity seen in bihemispheric region. Background does not seem to be clearly reactive to eye opening or closing. Some myogenic activity was seen in the frontal central region in the middle of the study. Photic stimulation was not performed. Different stages of sleep were not seen. No focal or generalized epileptiform activity was seen. IMPRESSION: This is an abnormal EEG due to background slowing of at least moderate degree. This is suggestive of generalized cerebral dysfunction as can be seen with toxic metabolic encephalopathy or due to diffuse structural brain abnormality. No epileptiform activity was seen. MMMEETAL / IJN: [id number] /
--- NOTE | 2020-12-20 18:14 | PN ---
PROGRESS NOTE Patient is seen for followup for acute kidney injury. The patient was admitted to the hospital with acute kidney injury with creatinine at about 6.4 mg/dL. Her renal function improved with hydration, and creatinine came down to about 3.2 to 3.1 mg/dL. However, patient had been hypernatremic, for which she is maintained on D5W. Serum sodium is improved, with creatinine staying at about 3.0 mg/dL. The patient's mentation improved from initial admission. She does have underlying baseline dementia. On examination today, blood pressure 145/75, heart rate 45 per minute. She is afebrile. EXAMINATION OF THE HEART: S1 and S2. EXAMINATION OF LUNGS: Bilateral breath sounds are heard. ABDOMEN: Soft, nontender. LOWER EXTREMITIES: Examination of lower extremities shows no significant edema. 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 Moving all 4 extremities. Labs show sodium 145, potassium 3.3, chloride 113. CO2 is 22.6, BUN 78, serum creatinine 3.0, albumin 3.2. ASSESSMENT: 1. Acute kidney injury, prerenal and acute tubular necrosis. Rule out any other underlying GN, although unlikely. Renal function has improved but is not improving further, serum creatinine staying at 3.0 to 3.1 mg/dL. Previous creatinine was as low as 1.1 on 06/01/2020. At this time I will continue with IV fluids. We will check baseline serologies and consider kidney biopsy if not further improved in the next 1 to 2 days. 2. Hypernatremia associated with free water deficit, currently improving. 3. Hypokalemia associated with decreased oral intake. Will replace. 4. UTI with proteus Mirabilis. 5. Bladder wall thickening noted on CT, possibly tumour. PLAN: Continue D5W at current rate. Repeat labs in a.m. Check serologies and consider kidney biopsy if renal function not further improved. MMODL / IJN: [id number] / [facility]
--- NOTE | 2020-12-20 19:52 | PN ---
PROGRESS NOTE DATE OF SERVICE: 12/20/2020. REASON FOR FOLLOWUP: Proteus mirabilis urinary tract infection. INTERVAL HISTORY: Patient is afebrile. The patient is currently breathing comfortably. The patient remains to be lethargic and is unable to provide any history. No vomiting or diarrhea has been reported by the nursing staff. PHYSICAL EXAMINATION: Blood pressure is 145/75, pulse of 75, temperature 98. She is 97% on room air. General description is an elderly female lying in bed in no distress. Respiratory system: Unlabored breathing. Clear to auscultation anteriorly. Heart S1, S2. Regular rate and rhythm. Abdomen soft, no tenderness. LABS: Hemoglobin is 10.3, white count 10.5, BUN of 78, creatinine 3.0. DIAGNOSTIC IMPRESSION AND PLAN: Patient with proteus mirabilis urinary tract infection. Patient is currently covered with Rocephin to continue while transition to oral antibiotic on discharge. Continue supportive care. White count has normalized. MMODL / IJN: [id number] /
[2020-12-20 20:32] LABS: Glucose,Whole Blood 252 mg/dL (75-99)
[2020-12-20] MEDS: ATORVASTATIN 40 MG TAB PO SCH (21:30)
[2020-12-20] MEDS: THIAMINE 100 MG TAB PO SCH (21:32)
[2020-12-20] MEDS: CYANOCOBALAMIN 500 MCG TAB PO SCH (21:32)
[2020-12-20] MEDS: LEVOTHYROXINE 50 MCG TAB PO SCH (21:33)
--- NOTE | 2020-12-20 22:32 | CT ---
EXAMINATION TYPE: CT abdomen pelvis wo con DATE OF EXAM: 12/20/2020 COMPARISON: None HISTORY: bladder mass, UTI CT DLP: 1029.6 mGycm Automated exposure control for dose reduction was used. Exam from the diaphragm to the floor the pelvis without contrast. There is some infiltrate and atelectasis at both lung bases. Heart is enlarged. There is no pericardi al effusion. There is no pleural effusion. Liver spleen stomach appear intact. Bile ducts are not dilated. There are clips apparently from mando cystectomy. There is no evidence of pancreatic mass. There is no adrenal mass. Kidneys have fairly normal size. There is 3 cm left renal parapelvic cyst. There is no hydronephrosis. Ureters are not dilated. There is no retroperitoneal adenopathy. There is increased density on the left lateral wall of the urinary bladder. There is also some relative incre ased density in the anterior aspect of the urinary bladder. This measures 4 cm in thickness and could be a fluid level. There is hysterectomy. There are multiple sigmoid diverticula. There is no diverti culitis. There is no inguinal hernia. There is left adnexal 2 cm cyst. Appendix is not seen. There is no sign of thickened appendix. There is no mesenteric edema. There is no ascites or free air. There is no evidence of bowel obstruction. There is mild lumbar levoscoliosis. There is multilevel degenerative disc space narrowing. There is n o compression fracture. Bony pelvis is intact. The hip joints are intact. There is mild acetabular spurring. IMPRESSION: Infiltrate and atelectasis in both lower lobes. Cardiomegaly. Atherosclerotic vascular disease. Irregular urinary bladder wall thickening on the left side lateral wall and at the dome that could re late to tumor and blood clot. Left side adnexal cyst is probably ovarian cyst. No renal obstruction.
[2020-12-21] MEDS: DEXTROSE 5% IN WATER 1,000 ML IV SCH ×3 (04:52→17:14)
--- NOTE | 2020-12-21 05:46 | PN ---
PROGRESS NOTE 80-year-old white female who is feeling better. She is talking better. Oral intake is fairly good. Her creatinine is down to 3.0 down from 3.4. Remains on IV fluids, IV Rocephin given for UTI. Prognosis guarded. Follow up in next 24 to 48 hours, possible discharge. Cardiovascular S1-S2. Lungs clear. Neurologic: She moves 4 extremities. Prognosis is guarded. Metabolic encephalopathy, slowly improving. Acute tubular necrosis is improving, UTI is being treated. Follow up in next 24 to 48 hours. MMODL / IJN: [id number] /
[2020-12-21 07:17] LABS: Glucose,Whole Blood 322 mg/dL (75-99)
[2020-12-21] MEDS: INSULIN ASPART (NovoLOG) 100 UNIT/ML VIAL SQ SCH ×4 (08:18→20:57)
[2020-12-21] MEDS: HEPARIN SODIUM,PORCINE/PF 5,000 UNIT/0.5 ML SYRINGE SQ SCH ×2 (08:19→20:48)
[2020-12-21] MEDS: ESCITALOPRAM 10 MG TAB PO SCH (08:19)
[2020-12-21] MEDS: CARBIDOPA-LEVODOPA 25-100 MG 1 EACH TAB PO SCH ×3 (08:19→20:49)
[2020-12-21] MEDS: SENNOSIDES-DOCUSATE SODIUM 1 EACH TAB PO SCH ×3 (08:19→20:49)
[2020-12-21] MEDS: amLODIPine 5 MG TAB PO SCH ×2 (08:19→20:48)
[2020-12-21] MEDS: FOLIC ACID 1 MG TAB PO SCH (08:19)
[2020-12-21] MEDS: ASPIRIN 81 MG PO SCH (08:19)
[2020-12-21] MEDS: METOPROLOL TARTRATE 50 MG TAB PO SCH ×2 (08:19→20:49)
[2020-12-21 12:06] LABS: Glucose,Whole Blood 322 mg/dL (75-99)
[2020-12-21 13:16] LABS: African American GFR (CKD) 17 (>60 ml/min/1.73 sqM); Anion Gap 7 mmol/L; Blood Urea Nitrogen 74 mg/dL (7-17); Carbon Dioxide 17 mmol/L (22-30); Chloride 108 mmol/L (98-107); Glucose 305 mg/dL (74-99); Non-African American GFR(CKD) 15 (>60 ml/min/1.73 sqM); Potassium 4.3 mmol/L (3.5-5.1); Sodium 132 mmol/L (137-145)
--- NOTE | 2020-12-21 16:50 | P.CNPUL ---
History of Present Illness Consult date: 12/21/20 Reason for consult: dyspnea, cough, pneumonia Chief complaint: Shortness of breath Patient admitted originally with acute kidney injury History of present illness: Patient is a 80-year-old male admitted [facility] the hospital [facility] due to abnormal labs of BUN/creatinine up to 131 and 6.3, back in May. Was just 1.1, not much data can be obtained from patient due to confusion, patient has a history of the Parkinson's disease hypothyroidism hypertension hypertensive cardiovascular disease and dementia and Alzheimer's disease, patient urine is positive for Proteus with hydration BUN/creatinine coming down, last chest x-ray on the December 17 failed to reveal any acute pulmonary process, computed tomography scan of down and pelvis revealed basal atelectasis and possible infiltrate, bladder wall thickening irregular in shape predominantly on the left lateral side with a differential diagnoses of blood clot and tumor Review of Systems All systems: negative Past Medical History Past Medical History: Blood Disorder, Coronary Artery Disease (CAD), Chest Pain / Angina, Heart Failure, Diabetes Mellitus, Deep Vein Thrombosis (DVT), Hyperlipidemia, Hypertension, Myocardial Infarction (AK), Neurologic Disorder, Pneumonia, Pulmonary Embolus (PE), Renal Disease, Thyroid Disorder Additional Past Medical History / Comment(s): ARTHRITIS, low platelets, AK x2, parkinsons, stage 3 renal failure Last Myocardial Infarction Date:: unknown History of Any Multi-Drug Resistant Organisms: C-DIFF Date of last positivie culture/infection: 02/14/2015 MDRO Source:: URINE Past Surgical History: Appendectomy, Cholecystectomy, Heart Catheterization With Stent, Hysterectomy, Orthopedic Surgery Additional Past Surgical History / Comment(s): bilateral total knee, 4 breast biopsies right breast, bilateral cataract sx Past Anesthesia/Blood Transfusion Reactions: No Reported Reaction Date of Last Stent Placement:: unknown Smoking Status: Never smoker - Past Family History Father Additional Family Medical History / Comment(s): from lung disease not sure what it was called Mother History Unknown: Yes Family Medical History: COPD Additional Family Medical History / Comment(s): empysema Medications and Allergies Home Medications Medication Instructions Recorded Confirmed Type Carbidopa-Levodopa 25-100 mg 1 tab PO BID@0800,199906/03/18 12/12/20 History [Sinemet 25-100 mg] Levothyroxine Sodium [Synthroid] 50 mcg PO HS 06/03/18 12/12/20 History amLODIPine [Norvasc] 2.5 mg PO DAILY 05/13/19 12/12/20 History Cholecalciferol [Vitamin D3 (25 25 mcg PO DAILY 01/31/20 12/12/20 History Mcg = 1000 Iu)] Cyanocobalamin (Vitamin B-12) 1,000 mcg PO HS 01/31/20 12/12/20 History [Vitamin B-12] Atorvastatin [Lipitor] 40 mg PO HS tab 04/21/20 12/12/20 Rx Escitalopram [Lexapro] 10 mg PO DAILY tab 04/21/20 12/12/20 Rx QUEtiapine [SEROquel] 50 mg PO BID tab 04/21/20 12/12/20 Rx Aspirin EC [Ecotrin Low Dose] 81 mg PO DAILY 12/12/20 12/12/20 History Ciprofloxacin HCl [Cipro] 500 mg PO BID 12/12/20 12/12/20 History Folic Acid 0.8 mg PO DAILY 12/12/20 12/12/20 History Furosemide [Lasix] 40 mg PO DAILY 12/12/20 12/12/20 History Healthshake 1 can PO AC-BID 12/12/20 12/12/20 History Insulin Glargine [Lantus Vial] 35 unit SQ HS 12/12/20 12/12/20 History Insulin Lispro [humaLOG Kwikpen] See Protocol SQ ACHS 12/12/20 12/12/20 History Magnesium Hydroxide [Milk of 2,400 mg PO ONCE PRN 12/12/20 12/12/20 History Magnesia] Memantine [Namenda] 5 mg PO BID 12/12/20 12/12/20 History QUEtiapine [SEROquel] 25 mg PO BID 12/12/20 12/12/20 History Sennosides/Docusate Sodium [Senna 1 tab PO TID 12/12/20 12/12/20 History Plus 8.6-50 mg Tablet] Thiamine [Vitamin B-1] 100 mg PO HS 12/12/20 12/12/20 History amantadine HCL [Amantadine] 100 mg PO BID 12/12/20 12/12/20 History Allergies Allergy/AdvReac Type Severity Reaction Status Date / Time Influenza Virus Vaccines Allergy Unknown Verified 03/27/20 11:00 Insulins Allergy Swelling Verified 03/27/20 11:00 lisinopril Allergy SWELLING, Verified 03/27/20 11:00 HIVES metformin Allergy Rash/Hives Verified 03/27/20 11:00 pneumococcal vaccine Allergy Unknown Verified 03/27/20 11:00 strawberry Allergy Swelling Verified 03/27/20 11:00 tetanus immune globulin Allergy Unknown Verified 03/27/20 11:00 Physical Exam Vitals: Vital Signs Temp Pulse Resp BP Pulse Ox 12/21/20 12:17 96.9 F L 49 L 18 132/68 100 12/21/20 04:25 99 F 47 L 20 117/65 100 12/20/20 20:00 20 12/20/20 19:10 98.8 F 85 20 144/97 95 Intake and Output 12/21/20 12/21/20 12/21/20 06:59 14:59 22:59 Intake Total 1600 Balance 1600 Intake: Intake, IV Titration 1600 Amount Dextrose 5% in Water 1, 1350 000 ml @ 150 mls/hr IV . Q6H40M [facility] Rx#:[id number] Potassium Chloride 10 meq 200 In Water For Injection 1 100ml.bag @ 100 mls/hr IVPB Q1HR [facility] Rx#: [id number] cefTRIAXone 1 gm In 50 Sodium Chloride 0.9% 50 ml @ 100 mls/hr IVPB Q24H [facility] Rx#:[id number] Other: Voiding Method Diaper On examination she is awake alert but confused. HEENT exam no JVP neck is supple no facial asymmetry Lungs are clear to auscultation fair air entry bilaterally Heart sounds unremarkable for any murmur rub gallop Abdomen soft nontender Extremity exam was trace edema Neurologically she has ups and downs, currently she is awake alert but di soriented confused and gets angry Results - Laboratory Findings CBC and BMP: 12/20/20 06:13 12/21/20 12:18 Abnormal lab findings: Abnormal Labs 12/12/20 12/12/20 12/12/20 21:36 21:36 21:36 WBC 13.1 H RBC Hgb Hct MCHC Plt Count Neutrophils # 10.7 H Lymphocytes # Sodium Potassium Chloride Carbon Dioxide 21 L Anion Gap BUN 131 H* Creatinine 6.30 H Est GFR (CKD-EPI)AfAm Est GFR (CKD-EPI)NonAf BUN/Creatinine Ratio Glucose 283 H POC Glucose (mg/dL) Hemoglobin A1c Osmolality Calcium 10.7 H Ionized Calcium Treamyne ALT Total Protein Albumin Albumin/Globulin Ratio Vitamin B12 Vit D 1,25-Dihydroxy Urine Appearance Turbid H Urine Protein 3+ H Urine Blood Trace H Ur Leukocyte Esterase Large H Urine WBC >182 H Amorphous Sediment Rare H Urine Bacteria Many H Urine Mucus Many H 12/12/20 12/13/20 12/13/20 23:40 10:43 10:43 WBC RBC Hgb Hct MCHC Plt Count Neutrophils # Lymphocytes # Sodium Potassium Chloride Carbon Dioxide Anion Gap BUN Creatinine Est GFR (CKD-EPI)AfAm Est GFR (CKD-EPI)NonAf BUN/Creatinine Ratio Glucose POC Glucose (mg/dL) Hemoglobin A1c 6.8 H Osmolality 354 H* Calcium Ionized Calcium [place]rem[place]ne ALT Total Protein Albumin Albumin/Globulin Ratio Vitamin B12 1870.0 H Vit D 1,25-Dihydroxy Urine Appearance Urine Protein Urine Blood Ur Leukocyte Esterase Urine WBC Amorphous Sediment Urine Bacteria Urine Mucus 12/13/20 12/14/20 12/14/20 10:47 10:28 18:06 WBC RBC Hgb Hct MCHC Plt Count Neutrophils # Lymphocytes # Sodium 150 H 150 H Potassium Chloride 111 H 114 H Carbon Dioxide 14 L Anion Gap BUN 126 H* 109 H* Creatinine 5.25 H 4.69 H Est GFR (CKD-EPI)AfAm Est GFR (CKD-EPI)NonAf BUN/Creatinine Ratio Glucose 131 H 191 H POC Glucose (mg/dL) Hemoglobin A1c Osmolality Calcium Ionized Calcium [place] ALT Total Protein Albumin Albumin/Globulin Ratio Vitamin B12 Vit D 1,25-Dihydroxy Urine Appearance Urine Protein Urine Blood Ur Leukocyte Esterase Urine WBC Amorphous Sediment Urine Bacteria Urine Mucus 12/15/20 12/16/20 12/16/20 09:43 05:27 05:27 WBC 14.0 H RBC Hgb Hct MCHC 30.5 L Plt Count Neutrophils # 12.1 H Lymphocytes # 0.9 L Sodium 152 H 154 H Potassium 3.4 L Chloride 118 H 119 H Carbon Dioxide 21 L Anion Gap BUN 95 H 94 H Creatinine 3.66 H 3.68 H Est GFR (CKD-EPI)AfAm Est GFR (CKD-EPI)NonAf BUN/Creatinine Ratio Glucose 248 H 260 H POC Glucose (mg/dL) Hemoglobin A1c Osmolality Calcium 10.5 H Ionized Calcium [place] ALT Total Protein Albumin Albumin/Globulin Ratio Vitamin B12 Vit D 1,25-Dihydroxy Urine Appearance Urine Protein Urine Blood Ur Leukocyte Esterase Urine WBC Amorphous Sediment Urine Bacteria Urine Mucus 12/16/20 12/17/20 12/17/20 05:27 14:01 17:42 WBC RBC Hgb Hct MCHC Plt Count Neutrophils # Lymphocytes # Sodium Potassium Chloride Carbon Dioxide Anion Gap BUN Creatinine Est GFR (CKD-EPI)AfAm Est GFR (CKD-EPI)NonAf BUN/Creatinine Ratio Glucose POC Glucose (mg/dL) 262 H Hemoglobin A1c Osmolality Calcium Ionized Calcium [place]rem[place]ne 6.0 H* ALT Total Protein Albumin Albumin/Globulin Ratio Vitamin B12 Vit D 1,25-Dihydroxy 12 L Urine Appearance Urine Protein Urine Blood Ur Leukocyte Esterase Urine WBC Amorphous Sediment Urine Bacteria Urine Mucus 12/17/20 12/17/20 12/18/20 20:22 21:15 05:51 WBC 12.8 H RBC 3.17 L Hgb 10.1 L Hct 30.3 L MCHC Plt Count Neutrophils # 9.6 H Lymphocytes # Sodium 151 H Potassium Chloride 119 H Carbon Dioxide 17.8 L Anion Gap 14.20 H BUN Creatinine Est GFR (CKD-EPI)AfAm Est GFR (CKD-EPI)NonAf BUN/Creatinine Ratio Glucose POC Glucose (mg/dL) 265 H Hemoglobin A1c Osmolality Calcium Ionized Calcium [place] ALT Total Protein Albumin Albumin/Globulin Ratio Vitamin B12 Vit D 1,25-Dihydroxy Urine Appearance Urine Protein Urine Blood Ur Leukocyte Esterase Urine WBC Amorphous Sediment Urine Bacteria Urine Mucus 12/18/20 12/18/20 12/18/20 05:51 08:37 12:37 WBC RBC Hgb Hct MCHC Plt Count Neutrophils # Lymphocytes # Sodium 151 H Potassium 3.4 L Chloride 120 H Carbon Dioxide Anion Gap BUN 95.0 H Creatinine 3.5 H Est GFR (CKD-EPI)AfAm 13.5 L Est GFR (CKD-EPI)NonAf 11.6 L BUN/Creatinine Ratio 27.14 H Glucose 172 H POC Glucose (mg/dL) 223 H 355 H Hemoglobin A1c Osmolality Calcium Ionized Calcium [place] ALT Total Protein Albumin Albumin/Globulin Ratio Vitamin B12 Vit D 1,25-Dihydroxy Urine Appearance Urine Protein Urine Blood Ur Leukocyte Esterase Urine WBC Amorphous Sediment Urine Bacteria Urine Mucus 12/18/20 12/18/20 12/19/20 18:01 20:46 05:12 WBC 11.2 H RBC 3.33 L Hgb 10.6 L Hct 32.3 L MCHC Plt Count 141 L Neutrophils # 8.5 H Lymphocytes # Sodium Potassium Chloride Carbon Dioxide Anion Gap BUN Creatinine Est GFR (CKD-EPI)AfAm Est GFR (CKD-EPI)NonAf BUN/Creatinine Ratio Glucose POC Glucose (mg/dL) 188 H 216 H Hemoglobin A1c Osmolality Calcium Ionized Calcium [place] ALT Total Protein Albumin Albumin/Globulin Ratio Vitamin B12 Vit D 1,25-Dihydroxy Urine Appearance Urine Protein Urine Blood Ur Leukocyte Esterase Urine WBC Amorphous Sediment Urine Bacteria Urine Mucus 12/19/20 12/19/20 12/19/20 05:12 07:32 12:02 WBC RBC Hgb Hct MCHC Plt Count Neutrophils # Lymphocytes # Sodium 153 H Potassium Chloride 121 H Carbon Dioxide Anion Gap BUN 91.0 H Creatinine 3.2 H Est GFR (CKD-EPI)AfAm 15.0 L Est GFR (CKD-EPI)NonAf 12.9 L BUN/Creatinine Ratio 28.44 H Glucose 215 H POC Glucose (mg/dL) 245 H 260 H Hemoglobin A1c Osmolality Calcium Ionized Calcium [place] ALT Total Protein Albumin Albumin/Globulin Ratio Vitamin B12 Vit D 1,25-Dihydroxy Urine Appearance Urine Protein Urine Blood Ur Leukocyte Esterase Urine WBC Amorphous Sediment Urine Bacteria Urine Mucus 12/19/20 12/19/20 12/20/20 17:28 20:32 06:13 WBC RBC 3.22 L Hgb 10.3 L Hct 31.2 L MCHC Plt Count 143 L Neutrophils # Lymphocytes # Sodium Potassium Chloride Carbon Dioxide Anion Gap BUN Creatinine Est GFR (CKD-EPI)AfAm Est GFR (CKD-EPI)NonAf BUN/Creatinine Ratio Glucose POC Glucose (mg/dL) 382 H 343 H Hemoglobin A1c Osmolality Calcium Ionized Calcium [place] ALT Total Protein Albumin Albumin/Globulin Ratio Vitamin B12 Vit D 1,25-Dihydroxy Urine Appearance Urine Protein Urine Blood Ur Leukocyte Esterase Urine WBC Amorphous Sediment Urine Bacteria Urine Mucus 12/20/20 12/20/20 12/20/20 06:13 07:12 11:54 WBC RBC Hgb Hct MCHC Plt Count Neutrophils # Lymphocytes # Sodium Potassium 3.3 L Chloride 113 H Carbon Dioxide Anion Gap BUN 78.0 H Creatinine 3.0 H Est GFR (CKD-EPI)AfAm 16.2 L Est GFR (CKD-EPI)NonAf 14.0 L BUN/Creatinine Ratio 26.00 H Glucose 305 H POC Glucose (mg/dL) 328 H 332 H Hemoglobin A1c Osmolality Calcium Ionized Calcium [place]rem[place]ne ALT <8 L Total Protein 6.0 L Albumin 3.20 L Albumin/Globulin Ratio 1.14 L Vitamin B12 Vit D 1,25-Dihydroxy Urine Appearance Urine Protein Urine Blood Ur Leukocyte Esterase Urine WBC Amorphous Sediment Urine Bacteria Urine Mucus 12/20/20 12/20/20 12/21/20 16:59 20:24 07:16 WBC RBC Hgb Hct MCHC Plt Count Neutrophils # Lymphocytes # Sodium Potassium Chloride Carbon Dioxide Anion Gap BUN Creatinine Est GFR (CKD-EPI)AfAm Est GFR (CKD-EPI)NonAf BUN/Creatinine Ratio Glucose POC Glucose (mg/dL) 222 H 252 H 322 H Hemoglobin A1c Osmolality Calcium Ionized Calcium [place]rem[place] ALT Total Protein Albumin Albumin/Globulin Ratio Vitamin B12 Vit D 1,25-Dihydroxy Urine Appearance Urine Protein Urine Blood Ur Leukocyte Esterase Urine WBC Amorphous Sediment Urine Bacteria Urine Mucus 12/21/20 12/21/20 12:05 12:18 WBC RBC Hgb Hct MCHC Plt Count Neutrophils # Lymphocytes # Sodium 132 L Potassium Chloride 108 H Carbon Dioxide 17 L Anion Gap BUN 74 H Creatinine 2.92 H Est GFR (CKD-EPI)AfAm Est GFR (CKD-EPI)NonAf BUN/Creatinine Ratio Glucose 305 H POC Glucose (mg/dL) 322 H Hemoglobin A1c Osmolality Calcium Ionized Calcium Trem[place]ne ALT Total Protein Albumin Albumin/Globulin Ratio Vitamin B12 Vit D 1,25-Dihydroxy Urine Appearance Urine Protein Urine Blood Ur Leukocyte Esterase Urine WBC Amorphous Sediment Urine Bacteria Urine Mucus - Diagnostic Findings Chest x-ray: report reviewed, image reviewed Assessment and Plan Assessment: 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
[2020-12-21 17:06] LABS: Glucose,Whole Blood 299 mg/dL (75-99)
[2020-12-21] MEDS: SODIUM CHLORIDE 0.45% 1,000 ML IV SCH (17:20)
--- NOTE | 2020-12-21 17:20 | PN ---
PROGRESS NOTE Patient is seen for followup for acute kidney injury. The patient also had hypernatremia. Her serum creatinine is slightly improved. Mentation, however, is unchanged. Previous creatinine was 1.1 on 06/01/2020. PHYSICAL EXAMINATION: On examination today, the patient is awake. She does not communicate much. Blood pressure 132/68, heart rate 49 per minute. She is afebrile. Examination of the heart S1, S2. Examination of the lungs, decreased breath sounds at the bases. Abdomen: Soft, nontender. Examination of lower extremities shows no significant edema. 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 Patient moving all 4 extremities. She does not communicate much. LAB: Shows sodium 132, potassium 4.3, chloride 108, CO2 17, BUN 74, serum creatinine 2.9. ASSESSMENT: 1. Acute kidney injury, slowly improving, most likely acute tubular necrosis with volume depletion on initial admission, the patient has underlying urinary tract infection, which would explain the proteinuria and trace blood. Since her serum creatinine is staying around 3 and not improving further, I will go ahead and order baseline serologies. 2. Hypernatremia, improved. I will discontinue the D5W as serum sodium is down to 132. 3. Metabolic acidosis. Add oral sodium bicarb. 4. Bradycardia, Lopressor, currently on hold. PLAN: Continue IV fluids, change to half-normal saline. Add sodium bicarb and check baseline serologies. Repeat labs in a.m. MMMEETAL / RICKEYN: [id number] /
--- NOTE | 2020-12-21 18:40 | PN ---
PROGRESS NOTE DATE OF SERVICE: 12/21/2020 REASON FOR FOLLOW UP: Proteus mirabilis urinary tract infection. INTERVAL HISTORY: Patient is afebrile. The patient remains to be lethargic unable to provide any history. No vomiting or diarrhea has been reported by the nursing staff. PHYSICAL EXAMINATION: Blood pressure 132/68 with a pulse of 79, temperature 96.9. She is 100% on room air. General description is an elderly female lying in bed in no distress. Respiratory: Unlabored breathing, clear to auscultation anteriorly. Heart S1, S2. Regular rate and rhythm. Abdomen soft, no tenderness. LABS: Creatinine is down to 2.92. Patient did have a CT of abdomen and pelvis completed. Revealed urinary bladder wall thickening, tumor or blood clot. No real obstruction. DIAGNOSTIC IMPRESSION AND PLAN: Patient with Proteus mirabilis urinary tract infection for which the patient received 7 days of IV Rocephin which should be enough. The patient's white count normalized. We will monitor the patient closely off antibiotic therapy for now. Continue supportive care. MMODL / IJN: [id number] /
[2020-12-21 19:53] LABS: Glucose,Whole Blood 249 mg/dL (75-99)
[2020-12-21] MEDS: CYANOCOBALAMIN 500 MCG TAB PO SCH (20:48)
[2020-12-21] MEDS: LEVOTHYROXINE 50 MCG TAB PO SCH (20:48)
[2020-12-21] MEDS: ATORVASTATIN 40 MG TAB PO SCH (20:49)
[2020-12-21] MEDS: THIAMINE 100 MG TAB PO SCH (20:49)
[2020-12-21] MEDS: SODIUM BICARBONATE TAB 650 MG TAB PO SCH (21:00)
--- NOTE | 2020-12-22 05:04 | PN ---
PROGRESS NOTE 80-year-old white female with improved renal function. BUN is 74, creatinine 2.92, which is improved. His sodium 132, potassium 4.3 Cardiovascular S1-S2, lungs clear. GI soft. Hematology negative Homans. ASSESSMENT: 1. Proteus mirabilis urinary tract infection. 2. Metabolic encephalopathy which is seen on the EEG. White count is normalized. Continue with IV antibiotics. Prognosis is guarded. PROGNOSIS: Guarded. Follow up in next 24 to 48 hours for possible transfer back to rehab center. MMODL / IJN: [id number] /
[2020-12-22 05:57] LABS: Basophils % (A) 0 %; Eosinophils # (A) 0.4 k/uL (0-0.7); Eosinophils % (A) 4 %; HGB 9.2 gm/dL (11.4-16.0); Lymphocytes # (A) 1.1 k/uL (1.0-4.8); Lymphocytes % (A) 11 %; MCHC 35.3 g/dL (31.0-37.0); MCV 93.5 fL (80.0-100.0); Mean Platelet Volume 10.2; Monocytes # (A) 0.6 k/uL (0-1.0); Monocytes % (A) 6 %; Neutrophils # (A) 7.3 k/uL (1.3-7.7); Neutrophils % (A) 76 %; Platelet Count 117 k/uL (150-450); RBC 2.78 m/uL (3.80-5.40); RDW 12.4 % (11.5-15.5); WBC 9.6 k/uL (3.8-10.6)
[2020-12-22 07:38] LABS: Glucose,Whole Blood 185 mg/dL (75-99)
--- NOTE | 2020-12-22 07:58 | P.PN ---
Subjective Progress Note Date: 12/22/20 The patient was seen by Dr Shelton for a uti and possible mass. The culture grew proteus. the ct scan didnt show any stones. SHe needs to see Dr Shelton as an op for a cystoscopy based on the us findings. Objective - Vital Signs Vital signs: Vital Signs Temp 99.6 F 12/22/20 04:18 Pulse 49 L 12/22/20 04:18 Resp 16 12/22/20 04:18 BP 140/65 12/22/20 04:18 Pulse Ox 95 12/22/20 04:18 Intake & Output 12/21/20 12/22/20 12/22/20 18:59 06:59 18:59 Intake Total 1650 Balance 1650 Intake: Intake, IV Titration 1650 Amount Dextrose 5% in Water 1, 1650 000 ml @ 150 mls/hr IV . Q6H40M [facility] Rx#:[id number] Other: Voiding Method Diaper Diaper # Voids 2 - Labs CBC & Chem 7: 12/22/20 04:57 12/21/20 12:18 Labs: Abnormal Lab Results - Last 24 Hours (Table) 12/21/20 12/21/20 12/21/20 Range/Units 12:05 12:18 17:04 RBC (3.80-5.40) m/uL Hgb (11.4-16.0) gm/dL Hct (34.0-46.0) % Plt Count (150-450) k/uL Sodium 132 L (137-145) mmol/L Chloride 108 H (98-107) mmol/L Carbon Dioxide 17 L (22-30) mmol/L BUN 74 H (7-17) mg/dL Creatinine 2.92 H (0.52-1.04) mg/dL Glucose 305 H (74-99) mg/dL POC Glucose (mg/dL) 322 H 299 H (75-99) mg/dL 12/21/20 12/22/20 12/22/20 Range/Units 19:52 04:57 07:37 RBC 2.78 L (3.80-5.40) m/uL Hgb 9.2 L (11.4-16.0) gm/dL Hct 26.0 L (34.0-46.0) % Plt Count 117 L (150-450) k/uL Sodium (137-145) mmol/L Chloride (98-107) mmol/L Carbon Dioxide (22-30) mmol/L BUN (7-17) mg/dL Creatinine (0.52-1.04) mg/dL Glucose (74-99) mg/dL POC Glucose (mg/dL) 249 H 185 H (75-99) mg/dL
[2020-12-22] MEDS: SODIUM CHLORIDE 0.45% 1,000 ML IV SCH ×2 (08:46→20:09)
[2020-12-22] MEDS: INSULIN ASPART (NovoLOG) 100 UNIT/ML VIAL SQ SCH ×4 (08:46→21:30)
[2020-12-22] MEDS: HEPARIN SODIUM,PORCINE/PF 5,000 UNIT/0.5 ML SYRINGE SQ SCH ×2 (09:43→20:10)
[2020-12-22] MEDS: ASPIRIN 81 MG PO SCH (09:44)
[2020-12-22] MEDS: METOPROLOL TARTRATE 50 MG TAB PO SCH ×2 (09:44→20:10)
[2020-12-22] MEDS: SODIUM BICARBONATE TAB 650 MG TAB PO SCH ×2 (09:45→20:10)
[2020-12-22] MEDS: ESCITALOPRAM 10 MG TAB PO SCH (09:45)
[2020-12-22] MEDS: FOLIC ACID 1 MG TAB PO SCH (09:45)
[2020-12-22] MEDS: SENNOSIDES-DOCUSATE SODIUM 1 EACH TAB PO SCH ×3 (09:45→21:32)
[2020-12-22] MEDS: amLODIPine 5 MG TAB PO SCH ×2 (09:45→20:10)
[2020-12-22] MEDS: CARBIDOPA-LEVODOPA 25-100 MG 1 EACH TAB PO SCH ×3 (09:45→21:32)
[2020-12-22 10:07] LABS: ALT <8 U/L (8-44); AST 13 U/L (13-35); African American GFR (CKD) 13.9 (60.0-200.0); Albumin/Globulin Ratio 1.24 (1.60-3.17); Alkaline Phosphatase 92 U/L (41-126); BUN/Creat Ratio 20.29 Ratio (12.00-20.00); Calcium 8.4 mg/dL (8.7-10.3); Carbon Dioxide 19.9 mmol/L (21.6-31.8); Chloride 105 mmol/L (96-109); Globulin 2.5 g/dL (1.6-3.3); Glucose 142 mg/dL (70-110); Potassium 3.6 mmol/L (3.5-5.5); Sodium 132 mmol/L (135-145); Total Bilirubin 0.3 mg/dL (0.3-1.2); Total Protein 5.6 g/dL (6.2-8.2)
[2020-12-22 12:06] LABS: Anti-DNA, DS unit <1.0 IU/mL; DNA Double-Stranded NEGATIVE (NEGATIVE)
[2020-12-22 12:36] LABS: Glucose,Whole Blood 175 mg/dL (75-99)
--- NOTE | 2020-12-22 13:43 | PN ---
PROGRESS NOTE Patient is seen for followup for acute kidney injury. She was admitted with a serum creatinine of about 6. Serum creatinine did improve to 2.9-3, but not any further and today it is up to 3.4. Previous creatinine 1.1 on 06/01/2020. Mentation had improved after initial hospitalization, but patient has not been communicating much. She is eating when fed. Seems to follow commands occasionally. Patient does have underlying dementia, but her mentation has changed from baseline on admission. Patient has been hypernatremic for which she was maintained on IV fluids. Sodium had improved. In fact, it was a bit on the lower side and therefore fluids were changed to half-normal saline yesterday. PHYSICAL EXAMINATION: On examination today, blood pressure is 153/71, heart rate 55 per minute. She is afebrile. Examination of the heart S1, S2. Examination of the lungs, bilateral breath sounds are heard. Abdomen is soft, nontender. Examination of lower extremities shows no significant edema. The patient does respond to verbal stimuli but does not communicate much. LAB: Show sodium 132, potassium 3.6, chloride 109, CO2 is 19.9, BUN 69, creatinine 3.4. ASSESSMENT: 1. Acute kidney injury, component of hypovolemia/acute tubular necrosis on initial admission, which improved. Creatinine now staying at about 3 and not improving further. Today, the serum creatinine is higher at 3.4. Need to rule out urine retention. I will check a post-void residual. The serologies were sent out yesterday and since renal function was not improving further, there is consideration for kidney biopsy. However, given her advanced age, we may wait for the rest of the serologies. 2. Bladder wall thickening/mass noted on CT scan. Urology plans a cystoscopy as outpatient. 3. Hypernatremia, improved with serum sodium now at about 132. IV fluids were changed from D5W to half-normal saline yesterday. Sodium staying at 132. I will continue with the half-normal saline and switch to normal saline tomorrow if the serum sodium is not increased. The patient has been tolerating oral intake. The sodium bicarb was also added yesterday for metabolic acidosis. 4. Bradycardia currently, Lopressor is on hold. 5. Metabolic acidosis, started on oral sodium bicarb. 6. Urinary tract infection with Proteus mirabilis. 7. Hypercalcemia on initial admission secondary to immobilization, workup negative. 8. Proteinuria, likely from diabetic nephropathy, previous creatinine 1.1-1.3, chronic kidney disease stage 3. PLAN: Check post-void residual. Follow up on serologies and change fluids to saline if sodium is not higher tomorrow. MMODL / IJN: [id number] /
--- NOTE | 2020-12-22 17:28 | PN ---
PROGRESS NOTE DATE OF SERVICE: 12/22/2020 REASON FOR FOLLOWUP: Proteus mirabilis urinary tract infection. INTERVAL HISTORY: The patient is afebrile. The patient remains sleepy and lethargic and is unable to provide any history. No vomiting or diarrhea has been reported by the nursing staff. PHYSICAL EXAMINATION: Her blood pressure 151/64 with a pulse of 84, temperature 98.8. She is 99% on room air. GENERAL DESCRIPTION: General description is an elderly female lying in bed in no distress. RESPIRATORY SYSTEM: Unlabored breathing. Clear to auscultation anteriorly. HEART: S1, S2. Regular rate and rhythm. ABDOMEN: Soft. No tenderness. LABS: Hemoglobin is 9.2, white count 9.6, BUN of 59, creatinine 3.4. DIAGNOSTIC IMPRESSION AND PLAN: Patient with Proteus mirabilis urinary tract infection; has completed a 7-day course of Rocephin. Will monitor the patient closely off antibiotic therapy and continue with supportive care. MMODL / IJN: [id number] /
[2020-12-22 17:51] LABS: Glucose,Whole Blood 186 mg/dL (75-99)
[2020-12-22 18:36] LABS: Hepatitis B Surface Antigen Non-Reactive (Non-Reactive); Hepatitis C IgG Antibody Non-Reactive (Non-Reactive)
[2020-12-22] MEDS: LEVOTHYROXINE 50 MCG TAB PO SCH (20:10)
[2020-12-22] MEDS: CYANOCOBALAMIN 500 MCG TAB PO SCH (20:10)
[2020-12-22] MEDS: ATORVASTATIN 40 MG TAB PO SCH (20:10)
[2020-12-22] MEDS: THIAMINE 100 MG TAB PO SCH (20:10)
[2020-12-22 20:19] LABS: Glucose,Whole Blood 158 mg/dL (75-99)
[2020-12-23 06:38] LABS: Basophils % (A) 0 %; Eosinophils # (A) 0.3 k/uL (0-0.7); Eosinophils % (A) 4 %; HCT 27.1 % (34.0-46.0); HGB 9.6 gm/dL (11.4-16.0); Lymphocytes # (A) 0.9 k/uL (1.0-4.8); Lymphocytes % (A) 11 %; MCH 32.6 pg (25.0-35.0); MCHC 35.3 g/dL (31.0-37.0); MCV 92.3 fL (80.0-100.0); Mean Platelet Volume 9.6; Monocytes # (A) 0.6 k/uL (0-1.0); Monocytes % (A) 8 %; Neutrophils # (A) 6.5 k/uL (1.3-7.7); Neutrophils % (A) 76 %; Platelet Count 129 k/uL (150-450); RBC 2.94 m/uL (3.80-5.40); RDW 12.6 % (11.5-15.5); WBC 8.6 k/uL (3.8-10.6)
[2020-12-23 07:26] LABS: Glucose,Whole Blood 125 mg/dL (75-99)
[2020-12-23] MEDS: INSULIN ASPART (NovoLOG) 100 UNIT/ML VIAL SQ SCH ×4 (08:05→21:28)
[2020-12-23] MEDS: METOPROLOL TARTRATE 50 MG TAB PO SCH (08:53)
[2020-12-23] MEDS: ASPIRIN 81 MG PO SCH (08:53)
[2020-12-23] MEDS: amLODIPine 5 MG TAB PO SCH ×2 (08:53→21:27)
[2020-12-23] MEDS: HEPARIN SODIUM,PORCINE/PF 5,000 UNIT/0.5 ML SYRINGE SQ SCH ×2 (08:53→21:27)
[2020-12-23] MEDS: SENNOSIDES-DOCUSATE SODIUM 1 EACH TAB PO SCH ×3 (08:53→21:27)
[2020-12-23] MEDS: SODIUM BICARBONATE TAB 650 MG TAB PO SCH ×2 (08:53→21:27)
[2020-12-23] MEDS: FOLIC ACID 1 MG TAB PO SCH (08:53)
[2020-12-23] MEDS: CARBIDOPA-LEVODOPA 25-100 MG 1 EACH TAB PO SCH ×3 (09:09→21:27)
[2020-12-23] MEDS: ESCITALOPRAM 10 MG TAB PO SCH (09:09)
--- NOTE | 2020-12-23 09:23 | PN ---
PROGRESS NOTE The patient is much more confused today than yesterday. She has worsening renal function with a BUN of 69 and creatinine 3.4, which is higher than yesterday. She is more confused today. She has been spitting up food at some of the workers. Sugars have been mid 100s. She was seen by Urology today for UTI, possible mass. Culture grew Proteus. CT scan showed no stones. She is going to get cystoscopy as an outpatient. Blood pressure 140s over 65, pulses around 49-50, respiratory rate 16-18, temp 99.6. NEUROLOGY: She is not answering. She is sleeping. She will open her eyes and then close them again when you walk in the room. She follows commands occasionally, not communicating much after improvement over the last 2-3 days. Creatinine as mentioned went from 2.9 up to 3.4 today. She has baseline dementia. She has been given IV fluids, sodium, and improved. GI soft. Lungs clear. CARDIOVASCULAR: S1, S2. ASSESSMENT: Consideration for renal biopsy due to worsening renal function. Bladder with wall thickening on the CT scan. Cystoscopy as outpatient. Hyponatremia, now hyponatremia. Continue with half-normal saline. Try to encourage oral intake. Metabolic acidosis, metabolic encephalopathy. Get Dietary to see her. Oral bicarb. Bradycardia. Blood pressure on hold, UTI Proteus mirabilis. Hypercalcemia, proteinuria. Wait for multiple consultations to address her problems. We may get Cardiology involved for bradycardia. Continue to rehydrate her. Increase dietary intake. Treat underlying conditions. Neurology to see if they have anything to offer. MMODL / IJN: [id number] /
--- NOTE | 2020-12-23 10:10 | P.CRDCN ---
History of Present Illness Consult date: 12/23/20 History of present illness: HISTORY OF PRESENT ILLNESS: This is a 80-year-old female with a past medical history significant for coronary artery disease with previous stenting to the LAD in 2006, hypertension, hyperlipidemia, and diabetes. Patient used to follow in the office with Dr. Tan but has not been seen since August 2018. We have been asked to see the patient in consultation for bradycardia. Patient examined at the bedside. Patient is admitted to the hospital secondary to urinary tract infection and altered mental status. Patient is a poor historian and is unable to give any information at the time of examination. Patient is not on telemetry monitoring. According to the EMR, patient's heart rates have been in the 50s. Patient does not appear to be symptomatic with her bradycardia. She denies chest pain or pressure. Denies shortness of breath. No EKG available at this time Chest xray negative for acute process Laboratory data: WBC 8.6. Hemoglobin 9.6. Platelet count 129. Sodium 132. Potassium 3.6. BUN 69. Creatinine 3.4. Current home cardiac medications include amlodipine 2.5 mg daily, Lasix 40 mg daily, Lipitor 40 g daily, aspirin 81 mg daily REVIEW OF SYSTEMS: At the time of my exam: Unable to obtain thorough review of systems secondary to altered mental status PHYSICAL EXAM: VITAL SIGNS: Reviewed. GENERAL: Well-developed in no acute distress. HEENT: Head is normocephalic. Pupils are equal, round. Sclerae anicteric. Mucous membranes of the mouth are moist. Neck supple. No JVD or thyromegaly LUNGS: Respirations even and unlabored. Lungs essentially clear to auscultation bilaterally. HEART: Regular rate and rhythm. S1 and S2 heard. ABDOMEN: Soft. Nondistended. Nontender. EXTREMITIES: Normal range of motion. No clubbing or cyanosis. Peripheral pulses intact. No lower extremity edema NEUROLOGIC: Awake but confused ASSESSMENT: Altered mental status Acute urinary tract infection Hypernatremia Hyponatremia Asymptomatic bradycardia History of coronary artery disease with previous stenting to the LAD in 2006 Hypertension Hyperlipidemia Diabetes PLAN: No need to obtain echocardiogram at this time Continue current cardiac medications Discontinue metoprolol tartrate. Begin metoprolol succinate at a decreased dose of 25 mg daily No further inpatient recognitions from a cardiac standpoint We will sign off. Please reconsult if needed. Nurse practitioner note has been reviewed by physician. Signing provider agrees with the documented findings, assessment, and plan of care. Past Medical History Past Medical History: Blood Disorder, Coronary Artery Disease (CAD), Chest Pain / Angina, Heart Failure, Diabetes Mellitus, Deep Vein Thrombosis (DVT), Hyperlipidemia, Hypertension, Myocardial Infarction (TN), Neurologic Disorder, Pneumonia, Pulmonary Embolus (PE), Renal Disease, Thyroid Disorder Additional Past Medical History / Comment(s): ARTHRITIS, low platelets, [place] x2, parkinsons, stage 3 renal failure Last Myocardial Infarction Date:: unknown History of Any Multi-Drug Resistant Organisms: C-DIFF Date of last positivie culture/infection: 02/14/2015 MDRO Source:: URINE Past Surgical History: Appendectomy, Cholecystectomy, Heart Catheterization With Stent, Hysterectomy, Orthopedic Surgery Additional Past Surgical History / Comment(s): bilateral total knee, 4 breast biopsies right breast, bilateral cataract sx Past Anesthesia/Blood Transfusion Reactions: No Reported Reaction Date of Last Stent Placement:: unknown Smoking Status: Never smoker - Past Family History Father Additional Family Medical History / Comment(s): from lung disease not sure what it was called Mother History Unknown: Yes Family Medical History: COPD Additional Family Medical History / Comment(s): empysema Medications and Allergies Home Medications Medication Instructions Recorded Confirmed Type Carbidopa-Levodopa 25-100 mg 1 tab PO BID@0800,199906/03/18 12/12/20 History [Sinemet 25-100 mg] Levothyroxine Sodium [Synthroid] 50 mcg PO HS 06/03/18 12/12/20 History amLODIPine [Norvasc] 2.5 mg PO DAILY 05/13/19 12/12/20 History Cholecalciferol [Vitamin D3 (25 25 mcg PO DAILY 01/31/20 12/12/20 History Mcg = 1000 Iu)] Cyanocobalamin (Vitamin B-12) 1,000 mcg PO HS 01/31/20 12/12/20 History [Vitamin B-12] Atorvastatin [Lipitor] 40 mg PO HS tab 04/21/20 12/12/20 Rx Escitalopram [Lexapro] 10 mg PO DAILY tab 04/21/20 12/12/20 Rx QUEtiapine [SEROquel] 50 mg PO BID tab 04/21/20 12/12/20 Rx Aspirin EC [Ecotrin Low Dose] 81 mg PO DAILY 12/12/20 12/12/20 History Ciprofloxacin HCl [Cipro] 500 mg PO BID 12/12/20 12/12/20 History Folic Acid 0.8 mg PO DAILY 12/12/20 12/12/20 History Furosemide [Lasix] 40 mg PO DAILY 12/12/20 12/12/20 History Healthshake 1 can PO AC-BID 12/12/20 12/12/20 History Insulin Glargine [Lantus Vial] 35 unit SQ HS 12/12/20 12/12/20 History Insulin Lispro [humaLOG Kwikpen] See Protocol SQ ACHS 12/12/20 12/12/20 History Magnesium Hydroxide [Milk of 2,400 mg PO ONCE PRN 12/12/20 12/12/20 History Magnesia] Memantine [Namenda] 5 mg PO BID 12/12/20 12/12/20 History QUEtiapine [SEROquel] 25 mg PO BID 12/12/20 12/12/20 History Sennosides/Docusate Sodium [Senna 1 tab PO TID 12/12/20 12/12/20 History Plus 8.6-50 mg Tablet] Thiamine [Vitamin B-1] 100 mg PO HS 12/12/20 12/12/20 History amantadine HCL [Amantadine] 100 mg PO BID 12/12/20 12/12/20 History Allergies Allergy/AdvReac Type Severity Reaction Status Date / Time Influenza Virus Vaccines Allergy Unknown Verified 03/27/20 11:00 Insulins Allergy Swelling Verified 03/27/20 11:00 lisinopril Allergy SWELLING, Verified 03/27/20 11:00 HIVES metformin Allergy Rash/Hives Verified 03/27/20 11:00 pneumococcal vaccine Allergy Unknown Verified 03/27/20 11:00 strawberry Allergy Swelling Verified 03/27/20 11:00 tetanus immune globulin Allergy Unknown Verified 03/27/20 11:00 Physical Exam Vitals: Vital Signs Temp Pulse Resp BP BP Pulse Ox 12/23/20 08:00 54 L 12/23/20 07:50 98.8 F 62 18 167/50 12/23/20 04:27 98.7 F 56 L 16 138/74 99 12/22/20 20:23 98.8 F 105 H 16 127/45 91 L 12/22/20 15:22 98.8 F 54 L 18 151/64 99 Intake and Output 12/22/20 12/23/20 12/23/20 22:59 06:59 14:59 Intake Total 310 900 Balance 310 900 Intake: Intake, IV Titration 900 Amount Sodium Chloride 0.45% 1, 900 000 ml @ 75 mls/hr IV . [id number] [facility] Rx#:[id number] Oral 310 Other: Voiding Method Diaper Diaper # Voids 2 Weight 79 kg Results 12/23/20 06:04 12/22/20 04:57 Cardiac Enzymes 12/22/20 Range/Units 04:57 AST 13 (13-35) U/L CBC 12/23/20 Range/Units 06:04 WBC 8.6 (3.8-10.6) k/uL RBC 2.94 L (3.80-5.40) m/uL Hgb 9.6 L (11.4-16.0) gm/dL Hct 27.1 L (34.0-46.0) % Plt Count 129 L (150-450) k/uL Comprehensive Metabolic Panel 12/22/20 Range/Units 04:57 Sodium 132 L (135-145) mmol/L Potassium 3.6 (3.5-5.5) mmol/L Chloride 105 (96-109) mmol/L Carbon Dioxide 19.9 L (21.6-31.8) mmol/L BUN 69.0 H (9.0-27.0) mg/dL Creatinine 3.4 H (0.6-1.5) mg/dL Glucose 142 H (70-110) mg/dL Calcium 8.4 L (8.7-10.3) mg/dL AST 13 (13-35) U/L ALT <8 L (8-44) U/L Alkaline Phosphatase 92 (41-126) U/L Total Protein 5.6 L (6.2-8.2) g/dL Albumin 3.10 L (3.80-4.90) g/dL Current Medications Generic Name Dose Route Start Last Admin Trade Name Freq PRN Reason Stop Dose Admin Acetaminophen 650 mg 12/12/20 22:41 12/19/20 07:41 Acetaminophen Tab 325 Mg Tab PO 650 mg Q6HR PRN Administration Mild Pain or Fever > 100.5 Amlodipine Besylate 5 mg 12/16/20 21:00 12/23/20 08:53 Amlodipine 5 Mg Tab PO 5 mg BID YULISA Administration Aspirin 81 mg 12/14/20 09:00 12/23/20 08:53 Aspirin 81 Mg PO 81 mg DAILY YULISA Administration Atorvastatin Calcium 40 mg 12/13/20 21:00 12/22/20 20:10 Atorvastatin 40 Mg Tab PO 40 mg HS YULISA Administration Carbidopa/Levodopa 1 each 12/16/20 16:00 12/23/20 09:09 Carbidopa-Levodopa 25-100 Mg 1 Each Tab PO 1 each TID YULISA Administration Cyanocobalamin 1,000 mcg 12/13/20 21:00 12/22/20 20:10 Cyanocobalamin 500 Mcg Tab PO 1,000 mcg HS YULISA Administration Escitalopram Oxalate 10 mg 12/14/20 09:00 12/23/20 09:09 Escitalopram 10 Mg Tab PO 10 mg DAILY YULISA Administration Folic Acid 1 mg 12/14/20 09:00 12/23/20 08:53 Folic Acid 1 Mg Tab PO 1 mg DAILY YULISA Administration Heparin Sodium (Porcine) 5,000 unit 12/13/20 09:00 12/23/20 08:53 Heparin Sodium,Porcine/Pf 5,000 Unit/0.5 Ml Syringe SQ 5,000 unit Q12HR YULISA Administration Sodium Chloride 1,000 mls @ 75 mls/hr 12/21/20 17:15 12/22/20 20:09 Saline 0.45% IV 75 mls/hr .[id number] YULISA Administration Insulin Aspart 0 unit 12/18/20 13:33 12/23/20 08:05 Insulin Aspart (Novolog) 100 Unit/Ml Vial SQ Not Given ACHS [facility] Protocol Levothyroxine Sodium 50 mcg 12/17/20 21:00 12/22/20 20:10 Levothyroxine 50 Mcg Tab PO 50 mcg HS YULISA Administration Metoprolol Succinate 25 mg 12/24/20 09:00 Metoprolol Succinate (Er) 25 Mg Tab.Er.24h PO DAILY YULISA Miscellaneous Information 1 each 12/20/20 15:25 Potassium Replacement Protocol 1 Each Misc MISCELLANE DAILY PRN Per Protocol Protocol Naloxone HCl 0.2 mg 12/12/20 22:41 Naloxone 0.4 Mg/Ml 1 Ml Vial IV Q2M PRN Opioid Reversal Senna/Docusate Sodium 1 each 12/17/20 22:00 12/23/20 08:53 Sennosides-Docusate Sodium 1 Each Tab PO 1 each TID YULISA Administration Sodium Bicarbonate 650 mg 12/21/20 21:00 12/23/20 08:53 Sodium Bicarbonate Tab 650 Mg Tab PO 650 mg BID YULISA Administration Thiamine HCl 100 mg 12/17/20 21:00 12/22/20 20:10 Thiamine 100 Mg Tab PO 100 mg HS YULISA Administration Intake and Output 12/22/20 12/23/20 12/23/20 22:59 06:59 14:59 Intake Total 310 900 Balance 310 900 Intake: Intake, IV Titration 900 Amount Sodium Chloride 0.45% 1, 900 000 ml @ 75 mls/hr IV . [id number] [facility] Rx#:[id number] Oral 310 Other: Voiding Method Diaper Diaper # Voids 2 Weight 79 kg 12/23/20 06:04 12/22/20 04:57
--- NOTE | 2020-12-23 10:31 | ECHOF ---
Referral Reason:bradycardia MEASUREMENTS -------- HEIGHT: 167.6 cm WEIGHT: 78.9 kg BP: 138/74 RVIDd: 2.5 cm (< 3.3) IVSd: 1.3 cm (0.6 - 1.1) LVIDd: 4.3 cm (3.9 - 5.3) LVPWd: 1.2 cm (0.6 - 1.1) IVSs: 1.8 cm LVIDs: 2.8 cm LVPWs: 1.7 cm LA Diam: 3.4 cm (2.7 - 3.8) Ao Diam: 3.0 cm (2.0 - 3.7) AV Cusp: 1.9 cm (1.5 - 2.6) MV EXCURSION: 12.842 mm (> 18.000) MV EF SLOPE: 71 mm/s (70 - 150) EPSS: 0.4 cm MV E Melo: 1.07 m/s MV DecT: 274 ms MV A Melo: 0.63 m/s MV E/A Ratio: 1.69 FINDINGS -------- Sinus rhythm. This was a technically adequate study. The left ventricular size is normal. There is mild concentric left ventricular hypertrophy. Overa ll left ventricular systolic function is normal with, an EF between 60 - 65 %. The right ventricle is normal in size. The left atrium is normal in size. The right atrium is normal in size. Interatrial and interventricular septum intact. The aortic valve is trileaflet, and appears structurally normal. No aortic stenosis or regurgitation. The mitral valve is normal. Trace tricuspid regurgitation present. Unable to estimate RVSP due to inadequate TR jet spectral do ppler profile. Trace/mild (physiologic) pulmonic regurgitation. The aortic root size is normal. Normal inferior vena cava with normal inspiratory collapse consistent with estimated right atrial pre ssure of 5 mmHg. There is no pericardial effusion. CONCLUSIONS -------- 1. The left ventricular size is normal. 2. There is mild concentric left ventricular hypertrophy. 3. Overall left ventricular systolic function is normal with, an EF between 60 - 65 %. 4. The aortic valve is trileaflet, and appears structurally normal. No aortic stenosis or regurgitati on. 5. Trace tricuspid regurgitation present. 6. Trace/mild (physiologic) pulmonic regurgitation. 7. There is no pericardial effusion. CLINICAL OUTCOMES MANAGER: Nancy Traore RDCS
--- NOTE | 2020-12-23 10:59 | P.PN ---
Subjective Progress Note Date: 12/23/20 Principal diagnosis: This is a 80-year-old female seen in consultation because of acute kidney injury, sec to poor intake. here in the hospital, has become hypernatremic and hypercalcemic in the hospital. She is unable to drinking liquids as she is being spoonfed and refuses after a few spoons off liquids but she is able take some solids. She had a creatinine of 6.4 for admission has slowly improved to 2.92 as of 12/21/2020 2 days ago but then started to go up and is at 3.4 this morning. She remains somewhat sleepy arousable does not cooperate with exam. I spoke to the nursing staff when she is eating small amounts. She is on currently 75 mL of normal saline in spite of which her creatinine going up. She has incontinence of her urine output is not documented Her calcium is improved In the hospital she was found to have urinary tract infection with Proteus. Workup has included an ultrasound of the kidney shows 9.4 cm and 11.6 and given a right and left kidney with multiple left renal cysts. There is also a lesion in the bladder rule out mass. Objective - Vital Signs Vital signs: Vital Signs Temp 98.8 F 12/23/20 07:50 Pulse 54 L 12/23/20 08:00 Resp 18 12/23/20 07:50 BP 167/50 12/23/20 07:50 Pulse Ox 99 12/23/20 04:27 Intake & Output 12/22/20 12/23/20 12/23/20 18:59 06:59 18:59 Intake Total 250 960 Balance 250 960 Weight 69.1 kg 79 kg Intake: Intake, IV Titration 900 Amount Sodium Chloride 0.45% 1, 900 000 ml @ 75 mls/hr IV . [id number] [facility] Rx#:[id number] Oral 250 60 Other: Voiding Method Diaper Diaper Diaper # Voids 2 On examination she is sleepy arousable but does not cooperate and answer questions HEENT exam no JVP neck is supple no facial asymmetry Lungs are clear to auscultation but poor air entry bilaterally Heart sounds unremarkable Abdomen soft nontender nondistended Extremity exam was trace edema Neurologically as mentioned above - Labs CBC & Chem 7: 12/23/20 06:04 12/22/20 04:57 Labs: Abnormal Lab Results - Last 24 Hours (Table) 12/22/20 12/22/20 12/22/20 Range/Units 12:35 17:49 20:18 RBC (3.80-5.40) m/uL Hgb (11.4-16.0) gm/dL Hct (34.0-46.0) % Plt Count (150-450) k/uL Lymphocytes # (1.0-4.8) k/uL POC Glucose (mg/dL) 175 H 186 H 158 H (75-99) mg/dL 12/23/20 12/23/20 Range/Units 06:04 07:25 RBC 2.94 L (3.80-5.40) m/uL Hgb 9.6 L (11.4-16.0) gm/dL Hct 27.1 L (34.0-46.0) % Plt Count 129 L (150-450) k/uL Lymphocytes # 0.9 L (1.0-4.8) k/uL POC Glucose (mg/dL) 125 H (75-99) mg/dL Assessment and Plan Assessment: Impression 1. Acute kidney injury secondary to poor intake and responding to IV fluids. Creatinine improved to 2.9 and then went up to 3.4 as of yesterday. Currently on IV fluids. Cause of this worsening not clear. Today's creatinine not available 2. Bilateral kidney cysts likely acquired. 3. Bladder mass versus stone. On ultrasound 4. Hypernatremia secondary to poor intake.sodium went up in spite of being on D5W at 75 an hour. 5. Hypercalcemia secondary to immobilization. PTH is normal. Vitamin D 125 and 25 is 44, normal. Ca normal 5. Type 2 diabetes blood sugars somewhat high after D5W. 6. Mild degree of hypokalemia resolved etiology was D5W and poor intake 7. Chronic kidney disease stage III, with Proteinuria likely from diabetic nephropathy Pigmentation 1. Continue normal saline at 75 an hour 2. Check bladder scan. 3. Check urinalysis to make sure there is no acute interstitial nephritis
[2020-12-23 12:45] LABS: Glucose,Whole Blood 167 mg/dL (75-99)
[2020-12-23 13:44] LABS: C-ANCA <1:20 Titer (<1:20)
[2020-12-23 14:21] LABS: Glucose,Whole Blood 169 mg/dL (75-99)
[2020-12-23] MEDS: SODIUM CHLORIDE 0.45% 1,000 ML IV SCH (17:04)
[2020-12-23 17:13] LABS: Glucose,Whole Blood 146 mg/dL (75-99)
--- NOTE | 2020-12-23 17:27 | PN ---
PROGRESS NOTE DATE OF SERVICE: 12/23/2020 REASON FOR FOLLOWUP: Proteus mirabilis urinary tract infection. INTERVAL HISTORY: The patient is afebrile. The patient is slightly awake and alert today; however, not a very good historian. No vomiting, diarrhea or any other changes reported by the nursing staff. PHYSICAL EXAMINATION: Her blood pressure is 113/67, pulse of 54, temperature 98.7. She is currently 92% on 2 L nasal cannula. GENERAL DESCRIPTION: General description is an elderly female lying in bed in no distress. RESPIRATORY SYSTEM: Unlabored breathing. Decreased breath sounds at the bases. No wheeze. HEART: S1, S2. Regular rate and rhythm. ABDOMEN: Soft. No tenderness. LABS: Hemoglobin is 9.3, white count 8.6. DIAGNOSTIC IMPRESSION AND PLAN: Patient with Proteus mirabilis urinary tract infection that has been adequately treated. The patient's white count normalized. She received 7 days of antibiotic. We will monitor the patient closely off antibiotic therapy. Continue supportive care. MMODL / IJN: [id number] /
--- NOTE | 2020-12-23 18:10 | P.PN ---
Subjective Progress Note Date: 12/23/20 12/23/2020: Patient continues to be very encephalopathic. Severely slow mentation. Appears to be slightly worse as compared to before. Patient not able to tell her name. Somewhat groggy, somnolent. 12/20/2020: Patient denies any new complaints. Patient states she is feeling better. She does admit to having some headache. Patient continues to be quite disoriented as mentioned below. 12/19/2020: Neurology consultation previously performed by Dr. Ang Falcon. Please refer to his note for detail. Patient is an 80-year-old female with altered mental status. Patient was found to have acute kidney injury and mental status change was felt to be metabolic. Patient also has possible Parkinson's disease, currently on Sinemet and amantadine. Amantadine was discontinued because of altered mental status and acute renal failure. Patient is currently on Sinemet 25/100 3 times a day. Patient's blood test initially showed BUN 131, creatinine 6.30. It is now improved to 91.0 and 3.2 respectively. Objective - Vital Signs Vital signs: Vital Signs Temp 97.7 F 12/23/20 16:00 Pulse 55 L 12/23/20 16:00 Resp 18 12/23/20 16:00 BP 129/52 12/23/20 16:00 Pulse Ox 99 12/23/20 04:27 Intake & Output 12/22/20 12/23/20 12/23/20 18:59 06:59 18:59 Intake Total 182 344 6986 Output Total 1560 Balance 250 960 -490 Weight 69.1 kg 79 kg 79 kg Intake: Intake, IV Titration 900 900 Amount Sodium Chloride 0.45% 1, 900 900 000 ml @ 75 mls/hr IV . [id number] [facility] Rx#:[id number] Oral 250 60 170 Output: Urine 1200 Straight 400 Post Void Residual 360 Other: Voiding Method Diaper Diaper Incontinent # Voids 2 2 - Exam GENERAL: The patient is lying in bed and slightly morning off and on. NEUROLOGICAL: Higher mental function: The patient is somnolent, groggy, but does wake up, moans. She could not tell me her name, could not answer any question. Sometimes mumbles. Patient does not follow commands. Patient does open eyes, makes eye contact, mumbles. Cranial nerves: The pupils are round, equal and reactive to light. Visual richter could not be tested. Extraocular movement is intact no nystagmus is noted. Facial sensations cannot be tested.. The facial strength is left nasolabial flattening. Hearing is moderately to severely decreased bilaterally to hand rub and for conversation. Patient did not cooperate for tongue testing. Patient mouth seems dry. Motor: Patient did not squeeze hands. On bringing the arms up, they dropped down with equal intensity bilaterally. Patient does not wiggle her feet. On painful stimuli, she said "ouch" equally and moved the feet equally on both sides. Tone is increased in bilateral upper limbs. Patient does appear bradykinetic. Sensation: Patient did not cooperate. Reflexes (right/left): 2+ uppers and 1+ lowers. Plantars are mute bilaterally. WORK-UP: Calcium normal 8.4. Hemoglobin 9.6, WBC 8.6 Hepatic panel normal. BUN 69, creatinine 3.4, overall improving. Vitamin B-12 is 1870, folate is more than 24 and it's a serum, TSH is 0.806 which is within normal limits. Hemoglobin A1c is 6.8 which is elevated the patient's glucose has been in last 24 hours in 240 to 260s As stated urinalysis was positive for urinary tract infection on presentation. - Labs CBC & Chem 7: 12/25/20 05:55 12/25/20 05:55 Labs: Abnormal Lab Results - Last 24 Hours (Table) 12/22/20 12/23/20 12/23/20 Range/Units 20:18 06:04 07:25 RBC 2.94 L (3.80-5.40) m/uL Hgb 9.6 L (11.4-16.0) gm/dL Hct 27.1 L (34.0-46.0) % Plt Count 129 L (150-450) k/uL Lymphocytes # 0.9 L (1.0-4.8) k/uL POC Glucose (mg/dL) 158 H 125 H (75-99) mg/dL 12/23/20 12/23/20 12/23/20 Range/Units 12:43 14:19 17:11 RBC (3.80-5.40) m/uL Hgb (11.4-16.0) gm/dL Hct (34.0-46.0) % Plt Count (150-450) k/uL Lymphocytes # (1.0-4.8) k/uL POC Glucose (mg/dL) 167 H 169 H 146 H (75-99) mg/dL Microbiology - Last 24 Hours (Table) 12/23/20 00:00 Urine Culture - Preliminary Urine,Catheterized Assessment and Plan Assessment: Toxic metabolic encephalopathy, likely due to acute Proteus mirabilis UTI. Also patient had hyperglycemia, acute on chronic kidney insuffiency, hypernatremia (likely due to dehydration) and underlying UTI). Patient continues to be encephalopathic, confused, mumbling speech. Hypernatremia on presentation, now hyponatremia. History of reported Parkinson's disease (not sure for how long and who diagnosed with it) Acute urinary tract infection, currently on ceftriaxone 1 g every 24 hours Acute on chronic kidney insufficiency Hypertension, uncontrolled in the beginning but now is controlled. Diabetes mellitus History according artery disease status post stent History of hyperlipidemia History of pulmonary embolism Plan: * Patient's encephalopathy appears to be getting worse. Patient is hardly talking at all. We will repeat computed tomography scan of the head. * Carotid Doppler rule out stenosis. * Patient is off Seroquel. * CT HEAD on 12/16/2020: Revealed age-related atrophic and chronic small vessel ischemic change without acute intracranial process seen at this time. * EEG 12/20/2020 revealed moderate background slowing. No epileptiform activity was seen. No indication for antiepileptic medication. * Agree with stopping amantadine because of renal insufficiency. Continue Sinemet. * Consider Stone scan as an outpatient (if Stone Scan is abnormal then it is not essential tremor). * Infection disease is on board. Patient currently on ceftriaxone. * We'll defer the rest of the medical management to the primary team. * Upon discharge the patient needs to follow-up with a neurologist as an outpatient within 1-2 weeks * B12 is 1870, folate > 24.0. TSH is normal. Hemoglobin A1c 6.8 Hepatic panel normal. * Patient currently on aspirin 81 mg, Lipitor 40 mg. Also on thiamine, B12 and folate replacement. * Dr. Jose will be available from neurology service over the weekend. Addendum: CT head showed cerebral atrophy and chronic small vessel ischemia. No acute intracranial abnormality. Carotid Doppler revealed no flow seen in the right vertebral artery. Antegrade flow in the left vertebral artery. There is estimated less than 40% stenosis in both ICA. 2-D echo revealed normal left-ventricular size, mild concentric LVH, EF is between 60-65%. No aortic stenosis. Continue aspirin 81 mg daily and Lipitor 40 mg. Neurology will sign off. Please reconsult neurology if any concerns.
[2020-12-23 20:43] LABS: Glucose,Whole Blood 135 mg/dL (75-99)
[2020-12-23] MEDS: ATORVASTATIN 40 MG TAB PO SCH (21:26)
[2020-12-23] MEDS: LEVOTHYROXINE 50 MCG TAB PO SCH (21:27)
[2020-12-23] MEDS: THIAMINE 100 MG TAB PO SCH (21:27)
[2020-12-23] MEDS: CYANOCOBALAMIN 500 MCG TAB PO SCH (21:27)
[2020-12-23 21:29] LABS: T4, Free (Free Thyroxine) 1.6 ng/dL (0.80-1.80)
[2020-12-23 21:49] LABS: ALT <8 U/L (8-44); AST 11 U/L (13-35); African American GFR (CKD) 13.9 (60.0-200.0); Albumin/Globulin Ratio 1.15 (1.60-3.17); Alkaline Phosphatase 101 U/L (41-126); BUN/Creat Ratio 19.12 Ratio (12.00-20.00); Calcium 8.3 mg/dL (8.7-10.3); Carbon Dioxide 15.9 mmol/L (21.6-31.8); Chloride 107 mmol/L (96-109); Globulin 2.7 g/dL (1.6-3.3); Glucose 107 mg/dL (70-110); Potassium 3.6 mmol/L (3.5-5.5); Sodium 135 mmol/L (135-145); Total Bilirubin 0.3 mg/dL (0.3-1.2); Total Protein 5.8 g/dL (6.2-8.2)
--- NOTE | 2020-12-23 22:11 | US ---
EXAMINATION TYPE: US carotid duplex BILAT DATE OF EXAM: 12/23/2020 COMPARISON: NONE CLINICAL HISTORY: Altered mental status, ? Aphasia, rule out CVA. Exam done portable. EXAM MEASUREMENTS: RIGHT: Peak Systolic Velocity (PSV) cm/sec ----- Right CCA: 89.3 ----- Right ICA: 92.5 ----- Right ECA: 91.2 ICA/CCA ratio: 1.0 RIGHT: End Diastole cm/sec ----- Right CCA: 12.6 ----- Right ICA: 16.2 ----- Right ECA: 9.7 LEFT: Peak Systolic Velocity (PSV) cm/sec ----- Left CCA: 104.0 ----- Left ICA: 87.9 ----- Left ECA: 151.0 ICA/CCA ratio: 0.9 LEFT: End Diastole cm/sec ----- Left CCA: 11.7 ----- Left ICA: 14.7 ----- Left ECA: 11.0 VERTEBRALS (direction of flow): Right Vertebral: not seen Left Vertebral: Antegrade Rhythm: Normal Elevated velocity: left prox ECA No significant stenosis IMPRESSION: No flow identified in the right vertebral artery. There is antegrade flow in the left vertebral arter y. Elevated velocity in the left external carotid artery consistent with 50-70% stenosis. There is estim ated less than 40% stenosis in both internal carotid arteries. NASCET criteria was used in interpretation of this exam? Criteria for Assigning % of Stenosis / Diameter reduction (Estimation based on the indirect measurements of the internal carotid artery velocities (ICA PSV). 1. Normal (no stenosis)=ICA PSV < 125 cm/s: ratio < 2.0: ICA EDV<40 cm/s. 2. Less than 50% stenosis=ICA PSV < 125 cm/s: ratio < 2.0: ICA EDV<40 cm/s. 3. 50 to 69% stenosis=ICA PSV of 125 to 230 cm/s: ration 2.0 ? 4.0: ICA EDV 40-100 cm/s. 4. Greater than 70% stenosis to near occlusion= ICA PSV > 230 cm/s: ratio > 4.0: ICA EDV > 100 cm/s. 5. Near occlusion= ICA PSV velocities may be low or undetectable: variable ratio and ICA EDV. 6. Total occlusion=unable to detect flow.
--- NOTE | 2020-12-23 22:15 | CT ---
EXAMINATION TYPE: CT brain wo con DATE OF EXAM: 12/23/2020 COMPARISON: 12/16/2020 HISTORY: increased ams CT DLP: 1047.1 mGycm Automated exposure control for dose reduction was used. There is cerebral cortical atrophy. There is some hypodensity in the periventricular white matter. Th ere is no mass effect nor midline shift. There is no sign of intracranial hemorrhage. Calvarium is in tact. There is normal aeration of the mastoid sinuses. IMPRESSION: Cerebral atrophy and chronic small vessel ischemia. No acute intracranial abnormality.
--- NOTE | 2020-12-23 23:50 | PN ---
PROGRESS NOTE This is an 80-year-old white female who appears very confused at times. Slow mentation. Slightly worsened before. Groggy, somnolent, unable to tell her name. Psychiatry has stopped all her psych medications. Maybe she is having some trouble with acute kidney injury and appears to be getting a little bit worse. She was on Sinemet, amantadine. Amantadine was discontinued due to renal failure, but she has gotten no better; she is getting worse. Blood pressure 120s over 50s, O2 99, respiratory rate 16-18, pulse 50 to 55, temp 97.7. Cardiovascular: S1, S2. Lungs clear. GI soft. Hematology: Negative Homans. BUN is 69, creatinine 3.4, hemoglobin 9.6, sodium 132, potassium 3.6, hemoglobin A1c is 6.8. ASSESSMENT: 1. Toxic metabolic encephalopathy. 2. Proteus mirabilis urinary tract infection. 3. Hypernatremia. 4. Hyponatremia. 5. Parkinson's disease. 6. Urinary tract infection. 7. Metabolic encephalopathy. 8. Severe dementia with behavioral changes. 9. Coronary artery disease. 10.History of PE. She had a negative showing no seizures. I told the nurse to get a psych consult on the patient and we will see if that happens, as patient is getting worse, not better. Prognosis guarded. MMODL / IJN: [id number] /
[2020-12-24] MEDS: SODIUM CHLORIDE 0.45% 1,000 ML IV SCH (05:07)
[2020-12-24 05:56] LABS: Basophils % (A) 0 %; Eosinophils # (A) 0.3 k/uL (0-0.7); Eosinophils % (A) 4 %; HCT 24.7 % (34.0-46.0); HGB 8.6 gm/dL (11.4-16.0); Lymphocytes # (A) 0.7 k/uL (1.0-4.8); Lymphocytes % (A) 7 %; MCH 32.5 pg (25.0-35.0); MCHC 34.9 g/dL (31.0-37.0); MCV 93.3 fL (80.0-100.0); Monocytes # (A) 0.7 k/uL (0-1.0); Monocytes % (A) 7 %; Neutrophils # (A) 7.9 k/uL (1.3-7.7); Neutrophils % (A) 80 %; Platelet Count 138 k/uL (150-450); RBC 2.65 m/uL (3.80-5.40); RDW 12.5 % (11.5-15.5); WBC 9.9 k/uL (3.8-10.6)
[2020-12-24 07:25] LABS: Glucose,Whole Blood 145 mg/dL (75-99)
--- NOTE | 2020-12-24 08:17 | P.PN ---
Subjective Patient is seen in follow-up for acute kidney injury and chronic kidney disease. Creatinine 3.4 yesterday. Oral intake is poor. She is receiving half normal saline. Nonoliguric. Poor historian. Vital signs are stable. General: Resting in bed. HEENT: Head exam is unremarkable. LUNGS: Breath sounds decreased. HEART: Rate and Rhythm are regular. ABDOMEN: No distention. EXTREMITITES: No edema. Objective - Vital Signs Vital signs: Vital Signs Temp 97.8 F 12/24/20 05:00 Pulse 62 12/24/20 05:00 Resp 20 12/24/20 05:00 BP 149/72 12/24/20 05:00 Pulse Ox 100 12/24/20 05:00 Intake & Output 12/23/20 12/24/20 12/24/20 18:59 06:59 18:59 Intake Total 1120 100 Output Total 1560 250 Balance -440 -150 Weight 79 kg 78 kg Intake: Intake, IV Titration 900 Amount Sodium Chloride 0.45% 1, 900 000 ml @ 75 mls/hr IV . [id number] [facility] Rx#:[id number] Oral 220 100 Output: Urine 1200 250 Straight 400 Post Void Residual 360 Other: Voiding Method Incontinent Incontinent # Voids 2 1 - Labs CBC & Chem 7: 12/24/20 04:47 12/23/20 06:04 Labs: Abnormal Lab Results - Last 24 Hours (Table) 12/23/20 12/23/20 12/23/20 Range/Units 06:04 12:43 14:19 RBC (3.80-5.40) m/uL Hgb (11.4-16.0) gm/dL Hct (34.0-46.0) % Plt Count (150-450) k/uL Neutrophils # (1.3-7.7) k/uL Lymphocytes # (1.0-4.8) k/uL Carbon Dioxide 15.9 L (21.6-31.8) mmol/L Anion Gap 12.10 H (4.00-12.00) mmol/L BUN 65.0 H (9.0-27.0) mg/dL Creatinine 3.4 H (0.6-1.5) mg/dL Est GFR (CKD-EPI)AfAm 13.9 L (60.0-200.0) Est GFR (CKD-EPI)NonAf 12.0 L (60.0-200.0) POC Glucose (mg/dL) 167 H 169 H (75-99) mg/dL Calcium 8.3 L (8.7-10.3) mg/dL AST 11 L (13-35) U/L ALT <8 L (8-44) U/L Total Protein 5.8 L (6.2-8.2) g/dL Albumin 3.10 L (3.80-4.90) g/dL Albumin/Globulin Ratio 1.15 L (1.60-3.17) g/dL 12/23/20 12/23/20 12/24/20 Range/Units 17:11 20:40 04:47 RBC 2.65 L (3.80-5.40) m/uL Hgb 8.6 L (11.4-16.0) gm/dL Hct 24.7 L (34.0-46.0) % Plt Count 138 L (150-450) k/uL Neutrophils # 7.9 H (1.3-7.7) k/uL Lymphocytes # 0.7 L (1.0-4.8) k/uL Carbon Dioxide (21.6-31.8) mmol/L Anion Gap (4.00-12.00) mmol/L BUN (9.0-27.0) mg/dL Creatinine (0.6-1.5) mg/dL Est GFR (CKD-EPI)AfAm (60.0-200.0) Est GFR (CKD-EPI)NonAf (60.0-200.0) POC Glucose (mg/dL) 146 H 135 H (75-99) mg/dL Calcium (8.7-10.3) mg/dL AST (13-35) U/L ALT (8-44) U/L Total Protein (6.2-8.2) g/dL Albumin (3.80-4.90) g/dL Albumin/Globulin Ratio (1.60-3.17) g/dL 12/24/20 Range/Units 07:13 RBC (3.80-5.40) m/uL Hgb (11.4-16.0) gm/dL Hct (34.0-46.0) % Plt Count (150-450) k/uL Neutrophils # (1.3-7.7) k/uL Lymphocytes # (1.0-4.8) k/uL Carbon Dioxide (21.6-31.8) mmol/L Anion Gap (4.00-12.00) mmol/L BUN (9.0-27.0) mg/dL Creatinine (0.6-1.5) mg/dL Est GFR (CKD-EPI)AfAm (60.0-200.0) Est GFR (CKD-EPI)NonAf (60.0-200.0) POC Glucose (mg/dL) 145 H (75-99) mg/dL Calcium (8.7-10.3) mg/dL AST (13-35) U/L ALT (8-44) U/L Total Protein (6.2-8.2) g/dL Albumin (3.80-4.90) g/dL Albumin/Globulin Ratio (1.60-3.17) g/dL Microbiology - Last 24 Hours (Table) 12/23/20 00:00 Urine Culture - Preliminary Urine,Catheterized Assessment and Plan Plan: Assessment: 1. Acute kidney injury secondary to ATN. Creatinine was 6.3 on admission - 3.4 the last 2 days. Nonoliguric. No hydronephrosis noted on CT. 2. Hypernatremia from lack of oral water intake. Resolved. 3. Hypercalcemia from volume contraction. Resolved. 4. Metabolic acidosis secondary to acute kidney injury and IV fluids. 5. Chronic kidney disease stage IIIa with baseline creatinine in the range of 1-1.3 secondary to diabetic kidney disease. Serologies negative. UPC 2.45 g. 6. Diabetes mellitus. 7. Possible bladder mass. Urology following. 8. Anemia of chronic kidney disease. Rule out iron deficiency. Plan: Stop half-normal saline. Start isotonic bicarbonate drip to be run at 75 mL an hour. Follow-up morning labs. Check iron studies. Check UA and urine eosinophils. Encouraged oral intake. Avoid nephrotoxins.
--- NOTE | 2020-12-24 08:33 | P.PN ---
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 Was just 1.1, not much data can be obtained from patient due to confusion, patient has a history of the Parkinson's disease hypothyroidism hypertension hypertensive cardiovascular disease and dementia and Alzheimer's disease, patient urine is positive for Proteus with hydration BUN/creatinine coming down, last chest x-ray on the December 17 failed to reveal any acute pulmonary process, computed tomography scan of down and pelvis revealed basal atelectasis and possible i nfiltrate, bladder wall thickening irregular in shape predominantly on the left lateral side with a differential diagnoses of blood clot and tumor Objective - Vital Signs Vital signs: Vital Signs Temp 97.7 F 12/23/20 16:00 Pulse 55 L 12/23/20 16:00 Resp 18 12/23/20 16:00 BP 129/52 12/23/20 16:00 Pulse Ox 99 12/23/20 04:27 Intake & Output 12/22/20 12/23/20 12/23/20 18:59 06:59 18:59 Intake Total 250 960 Output Total 360 Balance 250 960 -360 Weight 69.1 kg 79 kg 79 kg Intake: Intake, IV Titration 900 Amount Sodium Chloride 0.45% 1, 900 000 ml @ 75 mls/hr IV . [id number] [facility] Rx#:[id number] Oral 250 60 Output: Post Void Residual 360 Other: Voiding Method Diaper Diaper Diaper # Voids 2 - Exam On examination she is awake alert but confused. HEENT exam no JVP neck is supple no facial asymmetry Lungs are clear to auscultation fair air entry bilaterally Heart sounds unremarkable for any murmur rub gallop Abdomen soft nontender Extremity exam was trace edema Neurologically she has ups and downs, currently she is awake alert but disoriented confused and gets angry - Labs CBC & Chem 7: 12/24/20 04:47 12/23/20 06:04 Labs: Abnormal Lab Results - Last 24 Hours (Table) 12/22/20 12/22/20 12/23/20 Range/Units 17:49 20:18 06:04 RBC 2.94 L (3.80-5.40) m/uL Hgb 9.6 L (11.4-16.0) gm/dL Hct 27.1 L (34.0-46.0) % Plt Count 129 L (150-450) k/uL Lymphocytes # 0.9 L (1.0-4.8) k/uL POC Glucose (mg/dL) 186 H 158 H (75-99) mg/dL 12/23/20 12/23/20 12/23/20 Range/Units 07:25 12:43 14:19 RBC (3.80-5.40) m/uL Hgb (11.4-16.0) gm/dL Hct (34.0-46.0) % Plt Count (150-450) k/uL Lymphocytes # (1.0-4.8) k/uL POC Glucose (mg/dL) 125 H 167 H 169 H (75-99) mg/dL Assessment and Plan Assessment: 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
--- NOTE | 2020-12-24 08:38 | P.PN ---
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 UTI due to Proteus Bilateral basal atelectasis due to intra-abdominal process Acute kidney injury due to acute tubular necrosis multifactorial Advanced dementia and thymus disease 12/24/2020, patient seen eval examined neurology felt patient's mental status continued to get worse this is a order computed tomography scan of the head and carotid duplex, mild left-sided carotid artery stenosis about 50-70% noted however computed tomography scan of the head no acute abnormality identified chronic cerebral atrophy with chronic small vessel changes, patient renal functions slowly improving creatinine is down to 3.4, off note that this is down from 6.3 on admission, patient also had hyponatremia and hypercalcemia and sev ere metabolic acidosis continued to improve, urology have been following about bladder mass 12/23/2020, patient seen eval examined overall no significant change awake but nonverbal and noncommunicative off of oxygen, patient is being treated for antibiotics for Proteus UTI noted worsening of renal function, Patient is a 80-year-old male admitted to the hospital from group home due to abnormal labs of BUN/creatinine up to 131 and 6.3, back in May. Was just 1.1, not much data can be obtained from patient due to confusion, patient has a history of the Parkinson's disease hypothyroidism hypertension hypertensive cardiovascular disease and dementia and Alzheimer's disease, patient urine is positive for Proteus with hydration BUN/creatinine coming down, last chest x-ray on the December 17 failed to reveal any acute pulmonary process, computed tomography scan of down and pelvis revealed basal atelectasis and possible infiltrate, bladder wall thickening irregular in shape predominantly on the left lateral side with a differential diagnoses of blood clot and tumor Objective - Vital Signs Vital signs: Vital Signs Temp 97.8 F 12/24/20 05:00 Pulse 62 12/24/20 05:00 Resp 20 12/24/20 05:00 BP 149/72 12/24/20 05:00 Pulse Ox 100 12/24/20 05:00 Intake & Output 12/23/20 12/24/20 12/24/20 18:59 06:59 18:59 Intake Total 1120 100 Output Total 1560 250 Balance -440 -150 Weight 79 kg 78 kg Intake: Intake, IV Titration 900 Amount Sodium Chloride 0.45% 1, 900 000 ml @ 75 mls/hr IV . [id number] [facility] Rx#:[id number] Oral 220 100 Output: Urine 1200 250 Straight 400 Post Void Residual 360 Other: Voiding Method Incontinent Incontinent # Voids 2 1 - Exam On examination she is awake alert but confused. HEENT exam no JVP neck is supple no facial asymmetry Lungs are clear to auscultation fair air entry bilaterally Heart sounds unremarkable for any murmur rub gallop Abdomen soft nontender Extremity exam was trace edema Neurologically she has ups and downs, currently she is awake alert but disoriented confused and gets angry - Labs CBC & Chem 7: 12/24/20 04:47 12/23/20 06:04 Labs: Abnormal Lab Results - Last 24 Hours (Table) 12/23/20 12/23/20 12/23/20 Range/Units 06:04 12:43 14:19 RBC (3.80-5.40) m/uL Hgb (11.4-16.0) gm/dL Hct (34.0-46.0) % Plt Count (150-450) k/uL Neutrophils # (1.3-7.7) k/uL Lymphocytes # (1.0-4.8) k/uL Carbon Dioxide 15.9 L (21.6-31.8) mmol/L Anion Gap 12.10 H (4.00-12.00) mmol/L BUN 65.0 H (9.0-27.0) mg/dL Creatinine 3.4 H (0.6-1.5) mg/dL Est GFR (CKD-EPI)AfAm 13.9 L (60.0-200.0) Est GFR (CKD-EPI)NonAf 12.0 L (60.0-200.0) POC Glucose (mg/dL) 167 H 169 H (75-99) mg/dL Calcium 8.3 L (8.7-10.3) mg/dL AST 11 L (13-35) U/L ALT <8 L (8-44) U/L Total Protein 5.8 L (6.2-8.2) g/dL Albumin 3.10 L (3.80-4.90) g/dL Albumin/Globulin Ratio 1.15 L (1.60-3.17) g/dL 12/23/20 12/23/20 12/24/20 Range/Units 17:11 20:40 04:47 RBC 2.65 L (3.80-5.40) m/uL Hgb 8.6 L (11.4-16.0) gm/dL Hct 24.7 L (34.0-46.0) % Plt Count 138 L (150-450) k/uL Neutrophils # 7.9 H (1.3-7.7) k/uL Lymphocytes # 0.7 L (1.0-4.8) k/uL Carbon Dioxide (21.6-31.8) mmol/L Anion Gap (4.00-12.00) mmol/L BUN (9.0-27.0) mg/dL Creatinine (0.6-1.5) mg/dL Est GFR (CKD-EPI)AfAm (60.0-200.0) Est GFR (CKD-EPI)NonAf (60.0-200.0) POC Glucose (mg/dL) 146 H 135 H (75-99) mg/dL Calcium (8.7-10.3) mg/dL AST (13-35) U/L ALT (8-44) U/L Total Protein (6.2-8.2) g/dL Albumin (3.80-4.90) g/dL Albumin/Globulin Ratio (1.60-3.17) g/dL 12/24/20 Range/Units 07:13 RBC (3.80-5.40) m/uL Hgb (11.4-16.0) gm/dL Hct (34.0-46.0) % Plt Count (150-450) k/uL Neutrophils # (1.3-7.7) k/uL Lymphocytes # (1.0-4.8) k/uL Carbon Dioxide (21.6-31.8) mmol/L Anion Gap (4.00-12.00) mmol/L BUN (9.0-27.0) mg/dL Creatinine (0.6-1.5) mg/dL Est GFR (CKD-EPI)AfAm (60.0-200.0) Est GFR (CKD-EPI)NonAf (60.0-200.0) POC Glucose (mg/dL) 145 H (75-99) mg/dL Calcium (8.7-10.3) mg/dL AST (13-35) U/L ALT (8-44) U/L Total Protein (6.2-8.2) g/dL Albumin (3.80-4.90) g/dL Albumin/Globulin Ratio (1.60-3.17) g/dL Microbiology - Last 24 Hours (Table) 12/23/20 00:00 Urine Culture - Preliminary Urine,Catheterized Assessment and Plan Assessment: 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
[2020-12-24] MEDS: HEPARIN SODIUM,PORCINE/PF 5,000 UNIT/0.5 ML SYRINGE SQ SCH ×2 (09:30→20:04)
[2020-12-24] MEDS: ASPIRIN 81 MG PO SCH (09:30)
[2020-12-24] MEDS: INSULIN ASPART (NovoLOG) 100 UNIT/ML VIAL SQ SCH ×4 (09:30→21:36)
[2020-12-24] MEDS: METOPROLOL SUCCINATE (ER) 25 MG TAB.ER.24H PO SCH (09:31)
[2020-12-24] MEDS: ESCITALOPRAM 10 MG TAB PO SCH (09:31)
[2020-12-24] MEDS: CARBIDOPA-LEVODOPA 25-100 MG 1 EACH TAB PO SCH ×3 (09:31→20:04)
[2020-12-24] MEDS: amLODIPine 5 MG TAB PO SCH ×2 (09:31→20:04)
[2020-12-24] MEDS: SODIUM BICARBONATE TAB 650 MG TAB PO SCH ×2 (09:31→20:04)
[2020-12-24] MEDS: SENNOSIDES-DOCUSATE SODIUM 1 EACH TAB PO SCH ×3 (09:31→20:05)
[2020-12-24] MEDS: FOLIC ACID 1 MG TAB PO SCH (09:31)
[2020-12-24] MEDS: DEXTROSE 5% IN WATER 1,000 ML with SODIUM BICARB (1 MEQ/ML) 150 ML IV SCH (09:42)
[2020-12-24 10:37] LABS: ALT <8 U/L (8-44); AST 15 U/L (13-35); African American GFR (CKD) 14.4 (60.0-200.0); Albumin/Globulin Ratio 1.04 (1.60-3.17); Alkaline Phosphatase 97 U/L (41-126); Calcium 8.4 mg/dL (8.7-10.3); Carbon Dioxide 17.8 mmol/L (21.6-31.8); Chloride 107 mmol/L (96-109); Globulin 2.8 g/dL (1.6-3.3); Glucose 109 mg/dL (70-110); Non-African American GFR(CKD) 12.5 (60.0-200.0); Sodium 134 mmol/L (135-145); Total Bilirubin 0.2 mg/dL (0.2-1.2); Total Protein 5.7 g/dL (6.2-8.2)
[2020-12-24 11:24] LABS: Glucose,Whole Blood 187 mg/dL (75-99)
[2020-12-24] MEDS: ACETAMINOPHEN TAB 325 MG TAB PO PRN (12:24)
[2020-12-24] MEDS ORDERED: ZIPRASIDONE 20 MG VIAL IM STA (12:30)
[2020-12-24 13:30] LABS: Amorphous Sediment,Urine Rare /hpf; Appearance,Urine Cloudy (Clear); Bacteria,Urine Few /hpf; Bilirubin,Urine Negative (Negative); Blood,Urine Negative (Negative); Color,Urine Light Yellow; Glucose,Urine (UA) Negative (Negative); Ketones,Urine Negative (Negative); Leukocyte Esterase,Urine Small (Negative); Mucus,Urine Rare /hpf; Nitrite,Urine Negative (Negative); Protein,Urine 1+ (Negative); RBC,Urine <1 /hpf (0-5); Specific Gravity,Urine 1.006 (1.001-1.035); Squamous Epithelial Cell,Urine <1 /hpf (0-4); Urobilinogen,Urine <2.0 mg/dL (<2.0); WBC,Urine 5 /hpf (0-5)
[2020-12-24 17:31] LABS: Glucose,Whole Blood 193 mg/dL (75-99)
[2020-12-24] MEDS: ATORVASTATIN 40 MG TAB PO SCH (20:04)
[2020-12-24] MEDS: THIAMINE 100 MG TAB PO SCH (20:04)
[2020-12-24] MEDS: CYANOCOBALAMIN 500 MCG TAB PO SCH (20:04)
[2020-12-24] MEDS: LEVOTHYROXINE 50 MCG TAB PO SCH (20:04)
[2020-12-24 21:27] LABS: Glucose,Whole Blood 205 mg/dL (75-99)
[2020-12-24 21:32] LABS: % Iron Saturation 18.78 (12.00-45.00)
[2020-12-24 22:25] LABS: Protein, Total 5.9 g/dL (6.2-8.2)
[2020-12-24] MEDS: SODIUM FERRIC GLUCONAT-SUCROSE 125 MG in SODIUM CHLORIDE 0.9% 100 ML IVPB SCH (23:37)
[2020-12-25] MEDS: DEXTROSE 5% IN WATER 1,000 ML with SODIUM BICARB (1 MEQ/ML) 150 ML IV SCH (03:05)
[2020-12-25 06:39] LABS: Basophils % (A) 0 %; Eosinophils # (A) 0.3 k/uL (0-0.7); Eosinophils % (A) 3 %; HCT 25.4 % (34.0-46.0); HGB 8.8 gm/dL (11.4-16.0); Lymphocytes # (A) 0.7 k/uL (1.0-4.8); Lymphocytes % (A) 9 %; MCH 32.1 pg (25.0-35.0); MCHC 34.7 g/dL (31.0-37.0); MCV 92.5 fL (80.0-100.0); Mean Platelet Volume 9.3; Monocytes # (A) 0.5 k/uL (0-1.0); Monocytes % (A) 7 %; Neutrophils # (A) 5.7 k/uL (1.3-7.7); Neutrophils % (A) 78 %; Platelet Count 155 k/uL (150-450); RBC 2.74 m/uL (3.80-5.40); WBC 7.3 k/uL (3.8-10.6)
[2020-12-25 06:45] LABS: ALT <6 U/L (4-34); AST 18 U/L (14-36); African American GFR (CKD) 14 (>60 ml/min/1.73 sqM); Albumin 2.5 g/dL (3.5-5.0); Albumin/Globulin Ratio 0.8; Alkaline Phosphatase 93 U/L (38-126); Anion Gap 9 mmol/L; Blood Urea Nitrogen 58 mg/dL (7-17); Calcium 8.1 mg/dL (8.4-10.2); Carbon Dioxide 21 mmol/L (22-30); Chloride 106 mmol/L (98-107); Globulin 3.1 g/dL; Glucose 184 mg/dL (74-99); Magnesium 1.9 mg/dL (1.6-2.3); Non-African American GFR(CKD) 12 (>60 ml/min/1.73 sqM); Potassium 3.8 mmol/L (3.5-5.1); Sodium 136 mmol/L (137-145); Total Bilirubin 0.4 mg/dL (0.2-1.3); Total Protein 5.6 g/dL (6.3-8.2)
[2020-12-25 07:05] LABS: Glucose,Whole Blood 206 mg/dL (75-99)
--- NOTE | 2020-12-25 07:18 | PN ---
PROGRESS NOTE DATE OF SERVICE: 12/24/2020 REASON FOR FOLLOWUP: Urinary tract infection. INTERVAL HISTORY: The patient is afebrile. The patient remains to be sleepy lethargic unable to provide any history. No vomiting, diarrhea, or any other changes reported by the nursing staff. PHYSICAL EXAMINATION: Blood pressure 156/71, pulse 78, temperature 99.3, she is 98% on room air. General description is an elderly female lying in bed in no distress. Respiratory system: Unlabored breathing, clear to auscultation anteriorly. Heart S1, S2. Regular rate and rhythm. Abdomen soft, no tenderness. LABS: Repeat urine is negative. DIAGNOSTIC IMPRESSION AND PLAN: Patient with Proteus mirabilis urinary tract infection has been adequately treated. Completed her antibiotic therapy. Repeat urine is negative. No need for further antibiotics. Patient will be monitored closely off antibiotic therapy. Continue supportive care. MMMEETAL / RICKEYN: [id number] /
--- NOTE | 2020-12-25 07:21 | PN ---
PROGRESS NOTE 80-year-old white female who has been more and more confused. Creatinine maintains around 3.3, but she has been more confused ever since she was taken off her psychiatry medications. We are going to give her 1 dose of Geodon today and see how she does with her mental status as she is spitting at the nurses, spitting out her food and not responding most of the time except for glaring at the nurses etc. and misbehaving. The urine shows small leukocyte esterase. Sugars are in the mid 100s. White count 9.9, hemoglobin 7 to 8.6 from 9.6. Iron is low as 34. We are going to have to give her IV iron and monitor for some kind of GI bleeding. BUN and creatinine will have to be monitored some more. Continue with fluids, see if Geodon works. Give her some Venofer every day. Prognosis is guarded. ASSESSMENT: 1. Urinary tract infection with sepsis. 2. Metabolic encephalopathy. 3. Dementia with delirium. 4. Dementia with behavioral changes. 5. Metabolic encephalopathy, metabolic acidosis. 6. Prognosis guarded. MMODL / IJN: [id number] /
--- NOTE | 2020-12-25 09:10 | P.PN ---
Subjective Patient is seen in follow-up for acute kidney injury and chronic kidney disease. Renal function stable. Oral intake is poor. Currently on bicarb drip. Acidosis improved. Nonoliguric. Poor historian. Vital signs are stable. General: Resting in bed. HEENT: Head exam is unremarkable. LUNGS: Breath sounds decreased. HEART: Rate and Rhythm are regular. ABDOMEN: No distention. EXTREMITITES: No edema. Objective - Vital Signs Vital signs: Vital Signs Temp 97.8 F 12/25/20 04:36 Pulse 70 12/25/20 04:36 Resp 20 12/25/20 04:36 BP 143/54 12/25/20 04:36 Pulse Ox 94 L 12/25/20 04:36 Intake & Output 12/24/20 12/25/20 12/25/20 18:59 06:59 18:59 Intake Total 750 0 Output Total 700 500 Balance 50 -500 Weight 79.5 kg Intake: Intake, IV Titration 750 Amount Dextrose 5% in Water 1, 750 000 ml @ 75 mls/hr IV . [id number] YULISA with Sodium Bicarb (1 Meq/ml) 150 ml Rx#:[id number] Oral 0 Output: Urine 700 500 Other: Voiding Method Incontinent Incontinent - Labs CBC & Chem 7: 12/25/20 05:55 12/25/20 05:55 Labs: Abnormal Lab Results - Last 24 Hours (Table) 12/24/20 12/24/20 12/24/20 Range/Units 04:53 04:53 04:53 RBC (3.80-5.40) m/uL Hgb (11.4-16.0) gm/dL Hct (34.0-46.0) % Lymphocytes # (1.0-4.8) k/uL Sodium 134 L (135-145) mmol/L Carbon Dioxide 17.8 L (21.6-31.8) mmol/L BUN 65.0 H (9.0-27.0) mg/dL Creatinine 3.3 H (0.6-1.5) mg/dL Est GFR (CKD-EPI)AfAm 14.4 L (60.0-200.0) Est GFR (CKD-EPI)NonAf 12.5 L (60.0-200.0) Glucose (74-99) mg/dL POC Glucose (mg/dL) (75-99) mg/dL Calcium 8.4 L (8.7-10.3) mg/dL Iron 34 L (50-170) ug/dL TIBC 181 L (228-460) ug/dL ALT <8 L (8-44) U/L Total Protein 5.7 L (6.2-8.2) g/dL Total Protein (PEP) 5.9 L (6.2-8.2) g/dL Albumin 2.90 L (3.80-4.90) g/dL Albumin/Globulin Ratio 1.04 L (1.60-3.17) g/dL Urine Appearance (Clear) Urine Protein (Negative) Ur Leukocyte Esterase (Negative) Amorphous Sediment (None) /hpf Urine Bacteria (None) /hpf Urine Mucus (None) /hpf 12/24/20 12/24/20 12/24/20 Range/Units 11:22 13:00 17:30 RBC (3.80-5.40) m/uL Hgb (11.4-16.0) gm/dL Hct (34.0-46.0) % Lymphocytes # (1.0-4.8) k/uL Sodium (135-145) mmol/L Carbon Dioxide (21.6-31.8) mmol/L BUN (9.0-27.0) mg/dL Creatinine (0.6-1.5) mg/dL Est GFR (CKD-EPI)AfAm (60.0-200.0) Est GFR (CKD-EPI)NonAf (60.0-200.0) Glucose (74-99) mg/dL POC Glucose (mg/dL) 187 H 193 H (75-99) mg/dL Calcium (8.7-10.3) mg/dL Iron (50-170) ug/dL TIBC (228-460) ug/dL ALT (8-44) U/L Total Protein (6.2-8.2) g/dL Total Protein (PEP) (6.2-8.2) g/dL Albumin (3.80-4.90) g/dL Albumin/Globulin Ratio (1.60-3.17) g/dL Urine Appearance Cloudy H (Clear) Urine Protein 1+ H (Negative) Ur Leukocyte Esterase Small H (Negative) Amorphous Sediment Rare H (None) /hpf Urine Bacteria Few H (None) /hpf Urine Mucus Rare H (None) /hpf 12/24/20 12/25/20 12/25/20 Range/Units 21:21 05:55 05:55 RBC 2.74 L (3.80-5.40) m/uL Hgb 8.8 L (11.4-16.0) gm/dL Hct 25.4 L (34.0-46.0) % Lymphocytes # 0.7 L (1.0-4.8) k/uL Sodium 136 L (135-145) mmol/L Carbon Dioxide 21 L (21.6-31.8) mmol/L BUN 58 H (9.0-27.0) mg/dL Creatinine 3.34 H (0.6-1.5) mg/dL Est GFR (CKD-EPI)AfAm (60.0-200.0) Est GFR (CKD-EPI)NonAf (60.0-200.0) Glucose 184 H (74-99) mg/dL POC Glucose (mg/dL) 205 H (75-99) mg/dL Calcium 8.1 L (8.7-10.3) mg/dL Iron (50-170) ug/dL TIBC (228-460) ug/dL ALT (8-44) U/L Total Protein 5.6 L (6.2-8.2) g/dL Total Protein (PEP) (6.2-8.2) g/dL Albumin 2.5 L (3.80-4.90) g/dL Albumin/Globulin Ratio (1.60-3.17) g/dL Urine Appearance (Clear) Urine Protein (Negative) Ur Leukocyte Esterase (Negative) Amorphous Sediment (None) /hpf Urine Bacteria (None) /hpf Urine Mucus (None) /hpf 12/25/20 Range/Units 07:03 RBC (3.80-5.40) m/uL Hgb (11.4-16.0) gm/dL Hct (34.0-46.0) % Lymphocytes # (1.0-4.8) k/uL Sodium (135-145) mmol/L Carbon Dioxide (21.6-31.8) mmol/L BUN (9.0-27.0) mg/dL Creatinine (0.6-1.5) mg/dL Est GFR (CKD-EPI)AfAm (60.0-200.0) Est GFR (CKD-EPI)NonAf (60.0-200.0) Glucose (74-99) mg/dL POC Glucose (mg/dL) 206 H (75-99) mg/dL Calcium (8.7-10.3) mg/dL Iron (50-170) ug/dL TIBC (228-460) ug/dL ALT (8-44) U/L Total Protein (6.2-8.2) g/dL Total Protein (PEP) (6.2-8.2) g/dL Albumin (3.80-4.90) g/dL Albumin/Globulin Ratio (1.60-3.17) g/dL Urine Appearance (Clear) Urine Protein (Negative) Ur Leukocyte Esterase (Negative) Amorphous Sediment (None) /hpf Urine Bacteria (None) /hpf Urine Mucus (None) /hpf Microbiology - Last 24 Hours (Table) 12/23/20 00:00 Urine Culture - Final Urine,Catheterized Assessment and Plan Plan: Assessment: 1. Acute kidney injury secondary to ATN. Creatinine was 6.3 on admission - stable at 3.34 today. Nonoliguric. No hydronephrosis noted on CT. 2. Hypernatremia from lack of oral water intake. Resolved. 3. Hypercalcemia from volume contraction. Resolved. 4. Metabolic acidosis secondary to acute kidney injury and IV fluids. 5. Chronic kidney disease stage IIIa with baseline creatinine in the range of 1-1.3 secondary to diabetic kidney disease. Serologies negative. UPC 2.45 g. Repeat UA with only 1+ proteinuria and no blood. Urine eosinophils 1%. Not on any nephrotoxins. Doubt ALLERGIC interstitial nephritis as no significant WBCs/ hematuria on UA. 6. Diabetes mellitus. 7. Possible bladder mass. Urology following. 8. Anemia of chronic kidney disease. Iron deficiency noted. Plan: Change bicarb drip to normal saline. Maintain oral sodium bicarbonate. Receiving IV iron. Repeat UPC. Encouraged oral intake. Avoid nephrotoxins.
--- NOTE | 2020-12-25 09:18 | P.PN ---
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 UTI due to Proteus Bilateral basal atelectasis due to intra-abdominal process Acute kidney injury due to acute tubular necrosis multifactorial Advanced dementia and thymus disease 06/24/2020, patient seen eval examined remains on room air awake but nonverbal and noncommunicative, she'll status remains unchanged, hemodynamically stable saturation is 94%, BUN/creatinine stable 58 and 3.3-4 12/24/2020, patient seen eval examined neurology felt patient's mental status continued to get worse this is a order computed tomography scan of the head and carotid duplex, mild left-sided carotid artery stenosis about 50-70% noted however computed tomography scan of the head no acute abnormality identified chronic cerebral atrophy with chronic small vessel changes, patient renal functions slowly improving creatinine is down to 3.4, off note that this is down from 6.3 on admission, patient also had hyponatremia and hypercalcemia and severe metabolic acidosis continued to improve, urology have been following about bladder mass 12/23/2020, patient seen eval examined overall no significant change awake but nonverbal and noncommunicative off of oxygen, patient is being treated for antibiotics for Proteus UTI noted worsening of renal function, Patient is a 80-year-old male admitted [facility] the [facility] due to abnormal labs of BUN/creatinine up to 131 and 6.3, back in May. Was just 1.1, not much data can be obtained from patient due to confusion, patient has a history of the Parkinson's disease hypothyroidism hypertension hypertensive cardiovascular disease and dementia and Alzheimer's disease, patient urine is positive for Proteus with hydration BUN/creatinine coming down, last chest x-ray on the December 17 failed to reveal any acute pulmonary process, computed tomography scan of down and pelvis revealed basal atelectasis and possible infiltrate, bladder wall thickening irregular in shape predominantly on the left lateral side with a differential diagnoses of blood clot and tumor Objective - Vital Signs Vital signs: Vital Signs Temp 97.8 F 12/25/20 04:36 Pulse 70 12/25/20 04:36 Resp 20 12/25/20 04:36 BP 143/54 12/25/20 04:36 Pulse Ox 94 L 12/25/20 04:36 Intake & Output 12/24/20 12/25/20 12/25/20 18:59 06:59 18:59 Intake Total 750 0 Output Total 700 500 Balance 50 -500 Weight 79.5 kg Intake: Intake, IV Titration 750 Amount Dextrose 5% in Water 1, 750 000 ml @ 75 mls/hr IV . [id number] YULISA with Sodium Bicarb (1 Meq/ml) 150 ml Rx#:[id number] Oral 0 Output: Urine 700 500 Other: Voiding Method Incontinent Incontinent - Exam On examination she is awake alert but confused. HEENT exam no JVP neck is supple no facial asymmetry Lungs are clear to auscultation fair air entry bilaterally Heart sounds unremarkable for any murmur rub gallop Abdomen soft nontender Extremity exam was trace edema Neurologically she has ups and downs, currently she is awake alert but disoriented confused and gets angry - Labs CBC & Chem 7: 12/25/20 05:55 12/25/20 05:55 Labs: Abnormal Lab Results - Last 24 Hours (Table) 12/24/20 12/24/20 12/24/20 Range/Units 04:53 04:53 04:53 RBC (3.80-5.40) m/uL Hgb (11.4-16.0) gm/dL Hct (34.0-46.0) % Lymphocytes # (1.0-4.8) k/uL Sodium 134 L (135-145) mmol/L Carbon Dioxide 17.8 L (21.6-31.8) mmol/L BUN 65.0 H (9.0-27.0) mg/dL Creatinine 3.3 H (0.6-1.5) mg/dL Est GFR (CKD-EPI)AfAm 14.4 L (60.0-200.0) Est GFR (CKD-EPI)NonAf 12.5 L (60.0-200.0) Glucose (74-99) mg/dL POC Glucose (mg/dL) (75-99) mg/dL Calcium 8.4 L (8.7-10.3) mg/dL Iron 34 L (50-170) ug/dL TIBC 181 L (228-460) ug/dL ALT <8 L (8-44) U/L Total Protein 5.7 L (6.2-8.2) g/dL Total Protein (PEP) 5.9 L (6.2-8.2) g/dL Albumin 2.90 L (3.80-4.90) g/dL Albumin/Globulin Ratio 1.04 L (1.60-3.17) g/dL Urine Appearance (Clear) Urine Protein (Negative) Ur Leukocyte Esterase (Negative) Amorphous Sediment (None) /hpf Urine Bacteria (None) /hpf Urine Mucus (None) /hpf 12/24/20 12/24/20 12/24/20 Range/Units 11:22 13:00 17:30 RBC (3.80-5.40) m/uL Hgb (11.4-16.0) gm/dL Hct (34.0-46.0) % Lymphocytes # (1.0-4.8) k/uL Sodium (135-145) mmol/L Carbon Dioxide (21.6-31.8) mmol/L BUN (9.0-27.0) mg/dL Creatinine (0.6-1.5) mg/dL Est GFR (CKD-EPI)AfAm (60.0-200.0) Est GFR (CKD-EPI)NonAf (60.0-200.0) Glucose (74-99) mg/dL POC Glucose (mg/dL) 187 H 193 H (75-99) mg/dL Calcium (8.7-10.3) mg/dL Iron (50-170) ug/dL TIBC (228-460) ug/dL ALT (8-44) U/L Total Protein (6.2-8.2) g/dL Total Protein (PEP) (6.2-8.2) g/dL Albumin (3.80-4.90) g/dL Albumin/Globulin Ratio (1.60-3.17) g/dL Urine Appearance Cloudy H (Clear) Urine Protein 1+ H (Negative) Ur Leukocyte Esterase Small H (Negative) Amorphous Sediment Rare H (None) /hpf Urine Bacteria Few H (None) /hpf Urine Mucus Rare H (None) /hpf 12/24/20 12/25/20 12/25/20 Range/Units :21 05:55 05:55 RBC 2.74 L (3.80-5.40) m/uL Hgb 8.8 L (11.4-16.0) gm/dL Hct 25.4 L (34.0-46.0) % Lymphocytes # 0.7 L (1.0-4.8) k/uL Sodium 136 L (135-145) mmol/L Carbon Dioxide 21 L (21.6-31.8) mmol/L BUN 58 H (9.0-27.0) mg/dL Creatinine 3.34 H (0.6-1.5) mg/dL Est GFR (CKD-EPI)AfAm (60.0-200.0) Est GFR (CKD-EPI)NonAf (60.0-200.0) Glucose 184 H (74-99) mg/dL POC Glucose (mg/dL) 205 H (75-99) mg/dL Calcium 8.1 L (8.7-10.3) mg/dL Iron (50-170) ug/dL TIBC (228-460) ug/dL ALT (8-44) U/L Total Protein 5.6 L (6.2-8.2) g/dL Total Protein (PEP) (6.2-8.2) g/dL Albumin 2.5 L (3.80-4.90) g/dL Albumin/Globulin Ratio (1.60-3.17) g/dL Urine Appearance (Clear) Urine Protein (Negative) Ur Leukocyte Esterase (Negative) Amorphous Sediment (None) /hpf Urine Bacteria (None) /hpf Urine Mucus (None) /hpf 12/25/20 Range/Units 07:03 RBC (3.80-5.40) m/uL Hgb (11.4-16.0) gm/dL Hct (34.0-46.0) % Lymphocytes # (1.0-4.8) k/uL Sodium (135-145) mmol/L Carbon Dioxide (21.6-31.8) mmol/L BUN (9.0-27.0) mg/dL Creatinine (0.6-1.5) mg/dL Est GFR (CKD-EPI)AfAm (60.0-200.0) Est GFR (CKD-EPI)NonAf (60.0-200.0) Glucose (74-99) mg/dL POC Glucose (mg/dL) 206 H (75-99) mg/dL Calcium (8.7-10.3) mg/dL Iron (50-170) ug/dL TIBC (228-460) ug/dL ALT (8-44) U/L Total Protein (6.2-8.2) g/dL Total Protein (PEP) (6.2-8.2) g/dL Albumin (3.80-4.90) g/dL Albumin/Globulin Ratio (1.60-3.17) g/dL Urine Appearance (Clear) Urine Protein (Negative) Ur Leukocyte Esterase (Negative) Amorphous Sediment (None) /hpf Urine Bacteria (None) /hpf Urine Mucus (None) /hpf Microbiology - Last 24 Hours (Table) 12/23/20 00:00 Urine Culture - Final Urine,Catheterized Assessment and Plan Assessment: 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
[2020-12-25] MEDS: ESCITALOPRAM 10 MG TAB PO SCH (09:24)
[2020-12-25] MEDS: FOLIC ACID 1 MG TAB PO SCH (09:24)
[2020-12-25] MEDS: amLODIPine 5 MG TAB PO SCH ×2 (09:24→22:20)
[2020-12-25] MEDS: METOPROLOL SUCCINATE (ER) 25 MG TAB.ER.24H PO SCH (09:24)
[2020-12-25] MEDS: CARBIDOPA-LEVODOPA 25-100 MG 1 EACH TAB PO SCH ×3 (09:24→22:23)
[2020-12-25] MEDS: ASPIRIN 81 MG PO SCH (09:24)
[2020-12-25] MEDS: SENNOSIDES-DOCUSATE SODIUM 1 EACH TAB PO SCH ×3 (09:25→22:23)
[2020-12-25] MEDS: SODIUM CHLORIDE 0.9% 1,000 ML IV SCH (09:25)
[2020-12-25] MEDS: SODIUM BICARBONATE TAB 650 MG TAB PO SCH ×2 (09:25→22:23)
[2020-12-25] MEDS: HEPARIN SODIUM,PORCINE/PF 5,000 UNIT/0.5 ML SYRINGE SQ SCH ×2 (09:26→22:26)
[2020-12-25] MEDS: INSULIN ASPART (NovoLOG) 100 UNIT/ML VIAL SQ SCH ×4 (09:26→22:21)
[2020-12-25 12:10] LABS: Glucose,Whole Blood 168 mg/dL (75-99)
[2020-12-25 15:05] LABS: Creatinine,Urine Random 70.5 mg/dL; Protein/Creatinine Ratio,Urine 1.631
[2020-12-25 16:47] LABS: Glucose,Whole Blood 160 mg/dL (75-99)
--- NOTE | 2020-12-25 17:07 | PN ---
PROGRESS NOTE DATE OF SERVICE: 12/25/2020 REASON FOR FOLLOWUP: Proteus mirabilis urinary tract infection. INTERVAL HISTORY: The patient is afebrile. The patient is breathing comfortably. The patient is hemodynamically stable. No vomiting or diarrhea has been reported by the nursing staff. Patient herself is unable to provide any history. PHYSICAL EXAMINATION: Blood pressure is 155/64, pulse of 71, temperature 98.8. She is 98% on room air. GENERAL DESCRIPTION: General description is an elderly female lying in bed in no distress. RESPIRATORY SYSTEM: Unlabored breathing. Clear to auscultation anteriorly. HEART: S1, S2. Regular rate and rhythm. ABDOMEN: Soft. No tenderness. LABS: Hemoglobin is 8.3, white count 7.3, BUN of 58, creatinine 3.34. DIAGNOSTIC IMPRESSION AND PLAN: Patient with Proteus mirabilis urinary tract infection that has been adequately treated. She has completed her seven-day course of antibiotic therapy. Repeat urine and culture have been negative. Recommend no further antibiotic therapy at this point and continue supportive care. MMODL / IJN: [id number] /
--- NOTE | 2020-12-25 19:23 | PN ---
PROGRESS NOTE The patient is still is having difficulty with her focusing and agitation and spitting at nurses. Sugars are in the mid 100s. We gave her some Geodon last night. Waiting for Psychiatry to possibly restart her home medications. If that does not happen, we will just restart them ourselves, since she is not doing well when they took her off her psych medications. Temperature 98.8, pulse 71, respiratory rate 20, blood pressure 140s to 150s over 60s, O2 98% on room air. Cardiovascular S1, S2. Lungs clear. GI is distended. Hematology 2+ edema. ASSESSMENT: 1. Metabolic encephalopathy. 2. Dementia with behavioral difficulties. 3. Multiple medical problems, including acute tubular necrosis, acute renal insufficiency with chronic kidney disease, stage 3 to 4. Prognosis is guarded. Will start her back on low-dose psychiatry medication that she was on before and was discontinued. Prognosis guarded. MMODL / IJN: [id number] /
[2020-12-25 20:03] LABS: Glucose,Whole Blood 168 mg/dL (75-99)
--- NOTE | 2020-12-25 21:53 | CONS ---
CONSULTATION DATE OF SERVICE: 12/25/2020. PURPOSE FOR CONSULTATION: Evaluate for altered mental status. HISTORY OF PRESENTING ILLNESS: The patient was somnolent and nonresponsive and thus was not able to provide any information or respond in any manner. She was admitted due to elevated BUN and creatinine, altered mental status and failure to respond to treatment for urinary tract infection. According to nursing staff, when the patient was first admitted to the hospital she was awake, alert and generally responsive a fair amount of the day. She would take medications, though she often complained about medications. She would make comments about things going on around her, though most of the time she seemed to be in an irritable mood and was more negative than anything else. As of about a week ago she started being less communicative and less verbal in general. She would take medications though typically would spit them out. By Saturday or she was declining to take any medication. She would not swallow any medications. She has not been eating or taking in fluids, and in the last few days she has been sleeping excessively in the day and night and is minimally responsive to anything verbal as well as to general physical stimulation. When she was admitted, she was assessed as having altered mental status, confusion, lightheadedness, dizziness, some degree of dementia and delirium. She has underlying health conditions, including cardiovascular disease, diabetes, hypertension, renal disease, hypothyroidism, Parkinson's and stage III renal failure. Prior to admission, the patient had been on two psychotropic medications, including Lexapro 10 mg a day and Seroquel 75 mg twice a day. It is unclear what the indication for those medications had been. As of today, Nursing indicates that she simply will not swallow any oral medications. MENTAL STATUS: Patient was lying in bed with her eyes closed. She seemed to be sleeping. Her mouth was somewhat open. I encouraged her to wake up a number of times. There were a few times when I talked to her in a loud voice that she would half open one eye, though this would only be for a few seconds at best, and then she would close it again. She would not respond after that for a while. With continued coaxing, she again would half open an eye and then it would close. She did not respond to mild and moderate physical stimulation to wake up. She did not make any effort to speak or make any vocalization. ASSESSMENT: From a psychiatric standpoint, it is unclear what the underlying etiology is that has led her into excessive sedation and total inability to engage in any aspects of treatment. It is not likely that discontinuing her antidepressant and Seroquel has been a major factor in her current difficulties. There is a very small likelihood that she may have some aspects of catatonia, with inability to respond in any meaningful way. I have not seen any presentations of catatonia with simply sedation. One issue to assess for possible catatonia is typically an Ativan challenge. Generally that would be a 2 mg dose administered typically IM. In this patient's case, that would be a high- risk situation to aggravate somnolence even more with the risk of respiratory depression. If the patient was able to begin to take any medications orally, there might be consideration for a trial of a psychostimulant such as Ritalin. Psychostimulants may benefit depression with a quick onset of response. There is a methylphenidate transdermal patch that might be a consideration. I would doubt that the pharmacy would have it, and I do not have information about how it would be able to be obtained. If that was available, I would consider a 10 mg patch which typically would be left on for about 9 hours. If there were any early signs of improvement, there could be consideration for titrating to a 15 or 20 mg patch. If there was to be consideration for an Ativan challenge to assess for catatonia, there would need to be a full discussion between Psychiatry and Medicine. The patient has received an injection of Geodon, though it is not clear if she has shown much if any response at all to that. There is risk for any further use of IM antipsychotics, again in regard to deepening her state of somnolence with further risk to respiratory depression. Other than the above-mentioned very limited options, it does not appear that Psychiatry has much to offer at this point. After review of this note, if Dr. Al feels that further psychiatric intervention is appropriate or if her clinical status changes, especially with the possibility of her becoming more awake and able to take oral medications, I would recommend re-consulting Psychiatry. MMDEVI / RICKEYN: [id number] /
[2020-12-25] MEDS: CYANOCOBALAMIN 500 MCG TAB PO SCH (22:21)
[2020-12-25] MEDS: ATORVASTATIN 40 MG TAB PO SCH (22:21)
[2020-12-25] MEDS: LEVOTHYROXINE 50 MCG TAB PO SCH (22:23)
[2020-12-25] MEDS: THIAMINE 100 MG TAB PO SCH (22:23)
[2020-12-25] MEDS: SODIUM FERRIC GLUCONAT-SUCROSE 125 MG in SODIUM CHLORIDE 0.9% 100 ML IVPB SCH (22:24)
[2020-12-25] MEDS ORDERED: hydrALAZINE HCL 20 MG/ML 1 ML VIAL IVP PRN (22:44)
[2020-12-26] MEDS: SODIUM CHLORIDE 0.9% 1,000 ML IV SCH ×2 (05:24→20:32)
[2020-12-26 07:12] LABS: Glucose,Whole Blood 148 mg/dL (75-99)
[2020-12-26 07:16] LABS: Basophils % (A) 0 %; Eosinophils # (A) 0.3 k/uL (0-0.7); Eosinophils % (A) 4 %; HCT 25.6 % (34.0-46.0); HGB 8.8 gm/dL (11.4-16.0); Lymphocytes # (A) 0.5 k/uL (1.0-4.8); Lymphocytes % (A) 7 %; MCH 32.6 pg (25.0-35.0); MCHC 34.5 g/dL (31.0-37.0); MCV 94.5 fL (80.0-100.0); Mean Platelet Volume 8.8; Monocytes # (A) 0.6 k/uL (0-1.0); Monocytes % (A) 8 %; Neutrophils # (A) 5.8 k/uL (1.3-7.7); Neutrophils % (A) 78 %; Platelet Count 160 k/uL (150-450); RBC 2.71 m/uL (3.80-5.40); RDW 13.1 % (11.5-15.5); WBC 7.4 k/uL (3.8-10.6)
[2020-12-26] MEDS: INSULIN ASPART (NovoLOG) 100 UNIT/ML VIAL SQ SCH ×4 (07:33→19:51)
[2020-12-26] MEDS: ESCITALOPRAM 10 MG TAB PO SCH (09:16)
[2020-12-26] MEDS: FOLIC ACID 1 MG TAB PO SCH (09:16)
[2020-12-26] MEDS: amLODIPine 5 MG TAB PO SCH ×2 (09:16→19:44)
[2020-12-26] MEDS: ASPIRIN 81 MG PO SCH (09:16)
[2020-12-26] MEDS: CARBIDOPA-LEVODOPA 25-100 MG 1 EACH TAB PO SCH ×3 (09:16→19:53)
[2020-12-26] MEDS: SODIUM BICARBONATE TAB 650 MG TAB PO SCH ×2 (09:17→19:52)
[2020-12-26] MEDS: METOPROLOL SUCCINATE (ER) 25 MG TAB.ER.24H PO SCH (09:17)
[2020-12-26] MEDS: SENNOSIDES-DOCUSATE SODIUM 1 EACH TAB PO SCH ×3 (09:17→19:53)
[2020-12-26] MEDS: HEPARIN SODIUM,PORCINE/PF 5,000 UNIT/0.5 ML SYRINGE SQ SCH ×2 (09:41→20:32)
--- NOTE | 2020-12-26 09:51 | P.PN ---
Subjective Patient is seen in follow-up for acute kidney injury and chronic kidney disease. Renal function stable. Oral intake is poor. On normal saline. Nonoliguric. Poor historian. No changes overnight. Vital signs are stable. General: Resting in bed. HEENT: Head exam is unremarkable. LUNGS: Breath sounds decreased. HEART: Rate and Rhythm are regular. ABDOMEN: No distention. EXTREMITITES: No edema. Objective - Vital Signs Vital signs: Vital Signs Temp 98.6 F 12/26/20 05:00 Pulse 74 12/26/20 05:00 Resp 16 12/26/20 05:00 BP 152/65 12/26/20 05:00 Pulse Ox 95 12/26/20 05:00 Intake & Output 12/25/20 12/26/20 12/26/20 18:59 06:59 18:59 Intake Total 500 0 Output Total 500 750 Balance 0 -750 Intake: Intake, IV Titration 500 Amount Sodium Chloride 0.9% 1, 500 000 ml @ 50 mls/hr IV . Q20H [facility] Rx#:[id number] Oral 0 Output: Urine 500 750 Straight 750 Other: Voiding Method Indwelling Catheter Indwelling Catheter Indwelling Catheter # Bowel Movements 1 - Labs CBC & Chem 7: 12/26/20 06:45 12/25/20 05:55 Labs: Abnormal Lab Results - Last 24 Hours (Table) 12/25/20 12/25/20 12/25/20 Range/Units 12:09 16:46 20:01 RBC (3.80-5.40) m/uL Hgb (11.4-16.0) gm/dL Hct (34.0-46.0) % Lymphocytes # (1.0-4.8) k/uL POC Glucose (mg/dL) 168 H 160 H 168 H (75-99) mg/dL 12/26/20 12/26/20 Range/Units 06:45 07:11 RBC 2.71 L (3.80-5.40) m/uL Hgb 8.8 L (11.4-16.0) gm/dL Hct 25.6 L (34.0-46.0) % Lymphocytes # 0.5 L (1.0-4.8) k/uL POC Glucose (mg/dL) 148 H (75-99) mg/dL Assessment and Plan Plan: Assessment: 1. Acute kidney injury secondary to ATN. Creatinine was 6.3 on admission - stable at 3.34 yesterday. Nonoliguric. No hydronephrosis noted on CT. 2. Hypernatremia from lack of oral water intake. Resolved. 3. Hypercalcemia from volume contraction. Resolved. 4. Metabolic acidosis secondary to acute kidney injury and IV fluids. Improved post bicarb drip. Now on oral bicarb. 5. Chronic kidney disease stage IIIa with baseline creatinine in the range of 1-1.3 secondary to diabetic kidney disease. Serologies negative. UPC 2.45 g - repeat 1.6 g. Repeat UA with only 1+ proteinuria and no blood. Urine eosinophils 1%. Not on any nephrotoxins. Doubt ALLERGIC interstitial nephritis as no significant WBCs/ hematuria on UA. 6. Diabetes mellitus. 7. Possible bladder mass. Urology following. 8. Anemia of chronic kidney disease. Iron deficiency noted. Plan: Maintain normal saline. Receiving IV iron. Encouraged oral intake. Avoid nephrotoxins. Follow-up morning labs. Continue to monitor renal function and urine output. Patient is not a candidate for aggressive interventions such as kidney biopsy.
[2020-12-26 12:18] LABS: Glucose,Whole Blood 178 mg/dL (75-99)
[2020-12-26 12:44] LABS: Albumin/Globulin Ratio 1.03 (1.60-3.17); Anion Gap 10.9 mmol/L (4.00-12.00); BUN/Creat Ratio 16.25 Ratio (12.00-20.00); Calcium 8.1 mg/dL (8.7-10.3); Carbon Dioxide 22.1 mmol/L (21.6-31.8); Globulin 2.9 g/dL (1.6-3.3); Magnesium 1.8 mg/dL (1.5-2.4); Non-African American GFR(CKD) 12.9 (60.0-200.0); Total Bilirubin 0.3 mg/dL (0.2-1.2); Total Protein 5.9 g/dL (6.2-8.2)
--- NOTE | 2020-12-26 13:30 | P.PN ---
Progress Note - Text Progress Note Date: 12/26/20 Interval History: Patient was seen resting in bed and was unable to be directed or able to cooperate with this provider due to her mental status. The patient is currently being treated for acute kidney injury, urinary tract infection, multiple mental status. As per discussion with patient's nurse, the patient is not taking any oral medications and is mostly somnolent and unable to participate in any sort of interview at this time. There is a recommendation for hospice care. The patient was evaluated by Dr. Hodges yesterday who noted with the patient was lying in bed with eyes closed but was mostly somnolent and unable to respond to mild than moderate physical stimulation to wake up. She again presents like this today. Mental Status Exam: General Appearance: Patient appears to have poor dentition, obese body habitus, and lying in bed in no apparent acute distress. Behavior: Patient appears to be sleeping with her eyes closed. The patient is not arousable to moderate external stimuli. Speech: Unable to assess Mood/Affect:Unable to assess Suicidality/Homicidality: Unable to assess Perceptions: Unable to assess Though content/process: Unable to assess Memory and concentration: Grossly poor Judgment and insight: Very poor Laboratory Results - Last 24 Hours 12/25/20 12/25/20 12/25/20 14:30 16:46 20:01 WBC RBC Hgb Hct MCV MCH MCHC RDW Plt Count MPV Neutrophils % Lymphocytes % Monocytes % Eosinophils % Basophils % Neutrophils # Lymphocytes # Monocytes # Eosinophils # Basophils # Sodium Potassium Chloride Carbon Dioxide Anion Gap BUN Creatinine Est GFR (CKD-EPI)AfAm Est GFR (CKD-EPI)NonAf BUN/Creatinine Ratio Glucose POC Glucose (mg/dL) 160 H 168 H POC Glu Physician Assistant Psychiatry ID CruzCristina Brenda Calcium Magnesium Total Bilirubin AST ALT Alkaline Phosphatase Total Protein Albumin Globulin Albumin/Globulin Ratio Urine Creatinine 70.5 Protein/Creatinin Ratio 1.631 Urine Total Protein 115.0 12/26/20 12/26/20 12/26/20 06:45 06:45 07:11 WBC 7.4 RBC 2.71 L Hgb 8.8 L Hct 25.6 L MCV 94.5 MCH 32.6 MCHC 34.5 RDW 13.1 Plt Count 160 MPV 8.8 Neutrophils % 78 Lymphocytes % 7 Monocytes % 8 Eosinophils % 4 Basophils % 0 Neutrophils # 5.8 Lymphocytes # 0.5 L Monocytes # 0.6 Eosinophils # 0.3 Basophils # 0.0 Sodium 143 Potassium 4.0 Chloride 110 H Carbon Dioxide 22.1 Anion Gap 10.90 BUN 52.0 H Creatinine 3.2 H Est GFR (CKD-EPI)AfAm 15.0 L Est GFR (CKD-EPI)NonAf 12.9 L BUN/Creatinine Ratio 16.25 Glucose 156 H POC Glucose (mg/dL) 148 H POC Glu Physician Assistant Psychiatry ID Cristina Cruz Calcium 8.1 L Magnesium 1.8 Total Bilirubin 0.3 AST 17 ALT 9 Alkaline Phosphatase 96 Total Protein 5.9 L Albumin 3.00 L Globulin 2.9 Albumin/Globulin Ratio 1.03 L Urine Creatinine Protein/Creatinin Ratio Urine Total Protein 12/26/20 12:15 WBC RBC Hgb Hct MCV MCH MCHC RDW Plt Count MPV Neutrophils % Lymphocytes % Monocytes % Eosinophils % Basophils % Neutrophils # Lymphocytes # Monocytes # Eosinophils # Basophils # Sodium Potassium Chloride Carbon Dioxide Anion Gap BUN Creatinine Est GFR (CKD-EPI)AfAm Est GFR (CKD-EPI)NonAf BUN/Creatinine Ratio Glucose POC Glucose (mg/dL) 178 H POC Glu Physician Assistant Psychiatry ID Cristina Cruz Calcium Magnesium Total Bilirubin AST ALT Alkaline Phosphatase Total Protein Albumin Globulin Albumin/Globulin Ratio Urine Creatinine Protein/Creatinin Ratio Urine Total Protein Vital Signs Temp 98.6 F 12/26/20 11:35 Pulse 80 12/26/20 11:35 Resp 18 12/26/20 11:35 BP 165/78 12/26/20 11:35 Pulse Ox 99 12/26/20 11:35 Intake & Output 12/25/20 12/26/20 12/26/20 18:59 06:59 18:59 Intake Total 500 0 Output Total 500 750 Balance 0 -750 Intake: Intake, IV Titration 500 Amount Sodium Chloride 0.9% 1, 500 000 ml @ 50 mls/hr IV . Q20H [facility] Rx#:[id number] Oral 0 Output: Urine 500 750 Straight 750 Other: Voiding Method Indwelling Catheter Indwelling Catheter Indwelling Catheter # Bowel Movements 1 Assessment Acute kidney injury secondary to acute tubular necrosis Altered mental status - likely secondary to urinary tract infection Plan: -The patient does not meet criteria for inpatient psychiatric admission. It is unlikely that her discontinuation of psychotropic medications are contributing to her current presentation. Her current presentation is likely secondary to her active infection and decline in general medical health. -No medication recommendations are made at this time. -Psychiatry will sign off at this time. If there are any significant changes in the patient's mentation, please call reconsult us if necessary.
[2020-12-26 14:17] VITALS: BMI 28.3
[2020-12-26 16:40] LABS: Albumin 2.56 g/dL (3.80-4.90); Gamma Globulin 1.32 g/dL (0.70-1.50)
[2020-12-26 16:46] LABS: Ferritin 252.2 ng/mL (10.0-291.0)
[2020-12-26 17:02] LABS: Glucose,Whole Blood 176 mg/dL (75-99)
--- NOTE | 2020-12-26 17:54 | PN ---
PROGRESS NOTE DATE OF SERVICE: 12/26/2020 REASON FOR FOLLOWUP: Proteus mirabilis urinary tract infection. INTERVAL HISTORY: The patient is afebrile. The patient is breathing comfortably on room air. She is hemodynamically stable. No nausea, vomiting, diarrhea or any other changes reported by the nursing staff. PHYSICAL EXAMINATION: Blood pressure 165/70 with a pulse of 80, temperature 98.6. She is 99% on room air. GENERAL DESCRIPTION: General description is an elderly female lying in bed in no distress. RESPIRATORY SYSTEM: Unlabored breathing. Clear to auscultation anteriorly. HEART: S1, S2. Regular rate and rhythm. ABDOMEN: Soft. No tenderness. LABS: Hemoglobin 8.9, white count 7.4, BUN of 52, creatinine 3.2. DIAGNOSTIC IMPRESSION AND PLAN: Patient with Proteus mirabilis urinary tract infection that has been adequately treated. The patient is currently being monitored closely off antibiotic therapy. Continue supportive care. MMODL / IJN: [id number] /
--- NOTE | 2020-12-26 18:22 | P.PN ---
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 UTI due to Proteus Bilateral basal atelectasis due to intra-abdominal process Acute kidney injury due to acute tubular necrosis multifactorial Advanced dementia and thymus disease 12/26/2020, patient seen eval examined overall no significant change, respiratory status stable, patient is status post treatment with Proteus, also has acute kidney injury the BUN/creatinine appears to have the supplies respiratory status remained stable 12/25/2020, patient seen eval examined remains on room air awake but nonverbal and noncommunicative, she'll status remains unchanged, hemodynamically stable saturation is 94%, BUN/creatinine stable 58 and 3.3-4 12/24/2020, patient seen eval examined neurology felt patient's mental status continued to get worse this is a order computed tomography scan of the head and carotid duplex, mild left-sided carotid artery stenosis about 50-70% noted however computed tomography scan of the head no acute abnormality identified chronic cerebral atrophy with chronic small vessel changes, patient renal functions slowly improving creatinine is down to 3.4, off note that this is down from 6.3 on admission, patient also had hyponatremia and hypercalcemia and severe metabolic acidosis continued to improve, urology have been following about bladder mass 12/23/2020, patient seen eval examined overall no significant change awake but nonverbal and noncommunicative off of oxygen, patient is being treated for antibiotics for Proteus UTI noted worsening of renal function, Patient is a 80-year-old male admitted to the hospital from custodial due to abnormal labs of BUN/creatinine up to 131 and 6.3, back in May. Was just 1.1, not much data can be obtained from patient due to confusion, patient has a history of the Parkinson's disease hypothyroidism hypertension hypertensive cardiovascular disease and dementia and Alzheimer's disease, patient urine is positive for Proteus with hydration BUN/creatinine coming down, last chest x-ray on the December 17 failed to reveal any acute pulmonary process, computed tomography scan of down and pelvis revealed basal atelectasis and possible infiltrate, bladder wall thickening irregular in shape predominantly on the left lateral side with a differential diagnoses of blood clot and tumor Objective - Vital Signs Vital signs: Vital Signs Temp 98.6 F 12/26/20 11:35 Pulse 80 12/26/20 11:35 Resp 18 09/13/21 11:35 BP 165/78 12/26/20 11:35 Pulse Ox 99 12/26/20 11:35 Intake & Output 12/25/20 12/26/20 12/26/20 18:59 06:59 18:59 Intake Total 500 0 Output Total 500 750 800 Balance 0 -750 -800 Weight 79.5 kg Intake: Intake, IV Titration 500 Amount Sodium Chloride 0.9% 1, 500 000 ml @ 50 mls/hr IV . Q20H [facility] Rx#:[id number] Oral 0 Output: Urine 500 750 800 Straight 750 800 Other: Voiding Method Indwelling Catheter Indwelling Catheter Indwelling Catheter # Bowel Movements 1 - Exam On examination she is awake alert but confused. HEENT exam no JVP neck is supple no facial asymmetry Lungs are clear to auscultation fair air entry bilaterally Heart sounds unremarkable for any murmur rub gallop Abdomen soft nontender Extremity exam was trace edema Neurologically she has ups and downs, currently she is awake alert but disoriented confused and gets angry - Labs CBC & Chem 7: 12/26/20 06:45 12/26/20 06:45 Labs: Abnormal Lab Results - Last 24 Hours (Table) 12/24/20 12/25/20 12/26/20 Range/Units 04:53 20:01 06:45 RBC 2.71 L (3.80-5.40) m/uL Hgb 8.8 L (11.4-16.0) gm/dL Hct 25.6 L (34.0-46.0) % Lymphocytes # 0.5 L (1.0-4.8) k/uL Chloride (96-109) mmol/L BUN (9.0-27.0) mg/dL Creatinine (0.6-1.5) mg/dL Est GFR (CKD-EPI)AfAm (60.0-200.0) Est GFR (CKD-EPI)NonAf (60.0-200.0) Glucose (70-110) mg/dL POC Glucose (mg/dL) 168 H (75-99) mg/dL Calcium (8.7-10.3) mg/dL Total Protein (6.2-8.2) g/dL Albumin (3.80-4.90) g/dL Albumin (PEP) 2.56 L (3.80-4.90) g/dL Albumin/Globulin Ratio (1.60-3.17) g/dL Esgnt-7-Xxqjkuzmg 0.41 H (0.10-0.40) g/dL Kokaa-0-Cghwaogpm 1.07 H (0.60-1.00) g/dL Beta Globulins 0.54 L (0.60-1.30) g/dL 12/26/20 12/26/20 12/26/20 Range/Units 06:45 07:11 12:15 RBC (3.80-5.40) m/uL Hgb (11.4-16.0) gm/dL Hct (34.0-46.0) % Lymphocytes # (1.0-4.8) k/uL Chloride 110 H (96-109) mmol/L BUN 52.0 H (9.0-27.0) mg/dL Creatinine 3.2 H (0.6-1.5) mg/dL Est GFR (CKD-EPI)AfAm 15.0 L (60.0-200.0) Est GFR (CKD-EPI)NonAf 12.9 L (60.0-200.0) Glucose 156 H (70-110) mg/dL POC Glucose (mg/dL) 148 H 178 H (75-99) mg/dL Calcium 8.1 L (8.7-10.3) mg/dL Total Protein 5.9 L (6.2-8.2) g/dL Albumin 3.00 L (3.80-4.90) g/dL Albumin (PEP) (3.80-4.90) g/dL Albumin/Globulin Ratio 1.03 L (1.60-3.17) g/dL Hzopw-8-Xnqqbcytg (0.10-0.40) g/dL Lojax-3-Gnlcluiin (0.60-1.00) g/dL Beta Globulins (0.60-1.30) g/dL 12/26/20 Range/Units 17:01 RBC (3.80-5.40) m/uL Hgb (11.4-16.0) gm/dL Hct (34.0-46.0) % Lymphocytes # (1.0-4.8) k/uL Chloride (96-109) mmol/L BUN (9.0-27.0) mg/dL Creatinine (0.6-1.5) mg/dL Est GFR (CKD-EPI)AfAm (60.0-200.0) Est GFR (CKD-EPI)NonAf (60.0-200.0) Glucose (70-110) mg/dL POC Glucose (mg/dL) 176 H (75-99) mg/dL Calcium (8.7-10.3) mg/dL Total Protein (6.2-8.2) g/dL Albumin (3.80-4.90) g/dL Albumin (PEP) (3.80-4.90) g/dL Albumin/Globulin Ratio (1.60-3.17) g/dL Viiob-5-Bjrucphes (0.10-0.40) g/dL Edwcs-6-Ficauuono (0.60-1.00) g/dL Beta Globulins (0.60-1.30) g/dL Assessment and Plan Assessment: 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
[2020-12-26] MEDS: ATORVASTATIN 40 MG TAB PO SCH (19:48)
--- NOTE | 2020-12-26 19:49 | PN ---
PROGRESS NOTE Patient did not cooperate. She is an 80-year-old white female, confused, spitting foods and yells at nurses. Psychiatry saw her. They had little to add last night. The patient is not eating or drinking due to dementia and severe behaviors and worsening renal function. I do not think it is right to put the patient on any kind of feeding tube, as she has severe confusion and chronic kidney disease with acute kidney injury. Continue with normal saline since he has been admitted. Creatinine is not really improving any more than it was. Temperature 98.6, pulse 70s, respiratory rate 3.34. ASSESSMENT: 1. Acute kidney injury secondary to acute tubular necrosis. Creatinine is stable at 3.34. 2. Hypernatremia. 3. Hypercalcemia due to poor oral intake. 4. Metabolic acidosis. 5. Chronic kidney disease, 3A to 3B. Urine eosinophils 1%. Not on any nephrotoxins. 6. Diabetes mellitus. 7. Possible bladder mass. 8. Hem disease. [facility] due to poor oral intake and renal function and not a candidate for aggressive interventions due to mental status changes and dementia with behavior changes. MMODL / IJN: [id number] /
[2020-12-26] MEDS: CYANOCOBALAMIN 500 MCG TAB PO SCH (19:50)
[2020-12-26] MEDS: LEVOTHYROXINE 50 MCG TAB PO SCH (19:51)
[2020-12-26] MEDS: THIAMINE 100 MG TAB PO SCH (19:52)
[2020-12-26 20:11] LABS: Glucose,Whole Blood 180 mg/dL (75-99)
[2020-12-26] MEDS: SODIUM FERRIC GLUCONAT-SUCROSE 125 MG in SODIUM CHLORIDE 0.9% 100 ML IVPB SCH (20:32)
[2020-12-27 04:40] VITALS: RESP 18; TEMP 97.6
[2020-12-27 07:22] LABS: ALT 6 U/L (4-34); AST 16 U/L (14-36); African American GFR (CKD) 18 (>60 ml/min/1.73 sqM); Albumin 2.7 g/dL (3.5-5.0); Albumin/Globulin Ratio 0.8; Alkaline Phosphatase 93 U/L (38-126); Anion Gap 11 mmol/L; Blood Urea Nitrogen 44 mg/dL (7-17); Calcium 8.6 mg/dL (8.4-10.2); Carbon Dioxide 17 mmol/L (22-30); Chloride 116 mmol/L (98-107); Globulin 3.3 g/dL; Glucose 175 mg/dL (74-99); Magnesium 1.9 mg/dL (1.6-2.3); Non-African American GFR(CKD) 16 (>60 ml/min/1.73 sqM); Potassium 4.4 mmol/L (3.5-5.1); Sodium 144 mmol/L (137-145); Total Bilirubin 0.4 mg/dL (0.2-1.3)
[2020-12-27 07:43] LABS: Glucose,Whole Blood 181 mg/dL (75-99)
[2020-12-27] MEDS: CARBIDOPA-LEVODOPA 25-100 MG 1 EACH TAB PO SCH (09:31)
[2020-12-27] MEDS: ASPIRIN 81 MG PO SCH (09:31)
[2020-12-27] MEDS: amLODIPine 5 MG TAB PO SCH (09:31)
[2020-12-27] MEDS: ESCITALOPRAM 10 MG TAB PO SCH (09:32)
[2020-12-27] MEDS: FOLIC ACID 1 MG TAB PO SCH (09:32)
[2020-12-27] MEDS: SENNOSIDES-DOCUSATE SODIUM 1 EACH TAB PO SCH (09:32)
[2020-12-27] MEDS: METOPROLOL SUCCINATE (ER) 25 MG TAB.ER.24H PO SCH (09:32)
[2020-12-27] MEDS: SODIUM BICARBONATE TAB 650 MG TAB PO SCH (09:33)
[2020-12-27] MEDS: HEPARIN SODIUM,PORCINE/PF 5,000 UNIT/0.5 ML SYRINGE SQ SCH (09:36)
[2020-12-27] MEDS: INSULIN ASPART (NovoLOG) 100 UNIT/ML VIAL SQ SCH ×2 (09:37→13:34)
[2020-12-27 09:54] VITALS: BP 135/68; PULSE 82
--- NOTE | 2020-12-27 10:12 | P.PN ---
Subjective Patient is seen in follow-up for acute kidney injury and chronic kidney disease. Renal function better. Oral intake is poor. On normal saline. Nonoliguric. Poor historian. Patient does not respond to verbal commands. Vital signs are stable. General: Resting in bed. HEENT: Head exam is unremarkable. LUNGS: Breath sounds decreased. HEART: Rate and Rhythm are regular. ABDOMEN: No distention. EXTREMITITES: No edema. Objective - Vital Signs Vital signs: Vital Signs Temp 97.6 F 12/27/20 04:39 Pulse 82 12/27/20 09:53 Resp 18 12/27/20 09:53 BP 135/68 12/27/20 09:53 Pulse Ox 99 12/27/20 04:39 Intake & Output 12/26/20 12/27/20 12/27/20 18:59 06:59 18:59 Intake Total 600 Output Total 800 1150 Balance -800 -550 Weight 79.5 kg 79.5 kg Intake: Intake, IV Titration 600 Amount Sodium Chloride 0.9% 1, 600 000 ml @ 50 mls/hr IV . Q20H [facility] Rx#:[id number] Output: Urine 800 1150 Straight 800 1150 Other: Voiding Method Indwelling Catheter Indwelling Catheter - Labs CBC & Chem 7: 12/26/20 06:45 12/27/20 06:26 Labs: Abnormal Lab Results - Last 24 Hours (Table) 12/24/20 12/26/20 12/26/20 Range/Units 04:53 06:45 12:15 Chloride 110 H (96-109) mmol/L Carbon Dioxide (22-30) mmol/L BUN 52.0 H (9.0-27.0) mg/dL Creatinine 3.2 H (0.6-1.5) mg/dL Est GFR (CKD-EPI)AfAm 15.0 L (60.0-200.0) Est GFR (CKD-EPI)NonAf 12.9 L (60.0-200.0) Glucose 156 H (70-110) mg/dL POC Glucose (mg/dL) 178 H (75-99) mg/dL Calcium 8.1 L (8.7-10.3) mg/dL Total Protein 5.9 L (6.2-8.2) g/dL Albumin 3.00 L (3.80-4.90) g/dL Albumin (PEP) 2.56 L (3.80-4.90) g/dL Albumin/Globulin Ratio 1.03 L (1.60-3.17) g/dL Haapn-5-Duubzcpid 0.41 H (0.10-0.40) g/dL Qqxif-7-Rrmaatdpb 1.07 H (0.60-1.00) g/dL Beta Globulins 0.54 L (0.60-1.30) g/dL 12/26/20 12/26/20 12/27/20 Range/Units 17:01 20:10 06:26 Chloride 116 H (96-109) mmol/L Carbon Dioxide 17 L (22-30) mmol/L BUN 44 H (9.0-27.0) mg/dL Creatinine 2.76 H (0.6-1.5) mg/dL Est GFR (CKD-EPI)AfAm (60.0-200.0) Est GFR (CKD-EPI)NonAf (60.0-200.0) Glucose 175 H (70-110) mg/dL POC Glucose (mg/dL) 176 H 180 H (75-99) mg/dL Calcium (8.7-10.3) mg/dL Total Protein 6.0 L (6.2-8.2) g/dL Albumin 2.7 L (3.80-4.90) g/dL Albumin (PEP) (3.80-4.90) g/dL Albumin/Globulin Ratio (1.60-3.17) g/dL Oxmvc-1-Ckhajrcxo (0.10-0.40) g/dL Qekuf-6-Fqnhljzaj (0.60-1.00) g/dL Beta Globulins (0.60-1.30) g/dL 12/27/20 Range/Units 07:36 Chloride (96-109) mmol/L Carbon Dioxide (22-30) mmol/L BUN (9.0-27.0) mg/dL Creatinine (0.6-1.5) mg/dL Est GFR (CKD-EPI)AfAm (60.0-200.0) Est GFR (CKD-EPI)NonAf (60.0-200.0) Glucose (70-110) mg/dL POC Glucose (mg/dL) 181 H (75-99) mg/dL Calcium (8.7-10.3) mg/dL Total Protein (6.2-8.2) g/dL Albumin (3.80-4.90) g/dL Albumin (PEP) (3.80-4.90) g/dL Albumin/Globulin Ratio (1.60-3.17) g/dL Kpzae-4-Cjmqottpv (0.10-0.40) g/dL Mxati-0-Ocfhiyika (0.60-1.00) g/dL Beta Globulins (0.60-1.30) g/dL Assessment and Plan Plan: Assessment: 1. Acute kidney injury secondary to ATN. Creatinine was 6.3 on admission - 2.76 today. Nonoliguric. No hydronephrosis noted on CT. 2. Hypernatremia from lack of oral water intake. Stable. 3. Hypercalcemia from volume contraction. Resolved. 4. Metabolic acidosis secondary to acute kidney injury and IV fluids. Improved post bicarb drip. Now on oral bicarb. 5. Chronic kidney disease stage IIIa with baseline creatinine in the range of 1-1.3 secondary to diabetic kidney disease. Serologies negative. UPC 2.45 g - repeat 1.6 g. Repeat UA with only 1+ proteinuria and no blood. Urine eosinophils 1%. Not on any nephrotoxins. Doubt ALLERGIC interstitial nephritis as no significant WBCs/ hematuria on UA. 6. Diabetes mellitus. 7. Possible bladder mass. Urology following. 8. Anemia of chronic kidney disease. Iron deficiency noted. Plan: Maintain normal saline. Receiving IV iron. Encouraged oral intake. Avoid nephrotoxins. Continue to monitor renal function and urine output. Patient is not a candidate for aggressive interventions such as kidney biopsy. Prognosis guarded. Hospice being considered.
--- NOTE | 2020-12-27 11:47 | P.PN ---
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 UTI due to Proteus Bilateral basal atelectasis due to intra-abdominal process Acute kidney injury due to acute tubular necrosis multifactorial Advanced dementia and thymus disease 12/27/2020, patient seen eval reexamined overall remains nonverbal and noncommunicative at times she expressed spontaneously herself, patient remains on room air, respiratory status stable oxygen saturation stable labs reviewed BUN/creatinine slightly improved, patient is being monitor off of antibiotics for pneumonia as well as urinary tract infection, per RN the legal guardian is looking for a hospice 12/26/2020, patient seen eval examined overall no significant change, respiratory status stable, patient is status post treatment with Proteus, also has acute kidney injury the BUN/creatinine appears to have the supplies respiratory status remained stable 12/25/2020, patient seen eval examined remains on room air awake but nonverbal and noncommunicative, she'll status remains unchanged, hemodynamically stable saturation is 94%, BUN/creatinine stable 58 and 3.3-4 12/24/2020, patient seen eval examined neurology felt patient's mental status continued to get worse this is a order computed tomography scan of the head and carotid duplex, mild left-sided carotid artery stenosis about 50-70% noted however computed tomography scan of the head no acute abnormality identified chronic cerebral atrophy with chronic small vessel changes, patient renal functions slowly improving creatinine is down to 3.4, off note that this is down from 6.3 on admission, patient also had hyponatremia and hypercalcemia and severe metabolic acidosis continued to improve, urology have been following about bladder mass 12/23/2020, patient seen eval examined overall no significant change awake but nonverbal and noncommunicative off of oxygen, patient is being treated for antibiotics for Proteus UTI noted worsening of renal function, Patient is a 80-year-old male admitted to the hospital from long-term due to abnormal labs of BUN/creatinine up to 131 and 6.3, back in May. Was just 1.1, not much data can be obtained from patient due to confusion, patient has a history of the Parkinson's disease hypothyroidism hypertension hypertensive cardiovascular disease and dementia and Alzheimer's disease, patient urine is positive for Proteus with hydration BUN/creatinine coming down, last chest x-ray on the December 17 failed to reveal any acute pulmonary process, computed tomography scan of down and pelvis revealed basal atelectasis and possible infiltrate, bladder wall thickening irregular in shape predominantly on the left lateral side with a differential diagnoses of blood clot and tumor Objective - Vital Signs Vital signs: Vital Signs Temp 97.6 F 12/27/20 04:39 Pulse 82 12/27/20 09:53 Resp 18 12/27/20 09:53 BP 135/68 12/27/20 09:53 Pulse Ox 99 12/27/20 04:39 Intake & Output 12/26/20 12/27/20 12/27/20 18:59 06:59 18:59 Intake Total 600 Output Total 800 1150 Balance -800 -550 Weight 79.5 kg 79.5 kg Intake: Intake, IV Titration 600 Amount Sodium Chloride 0.9% 1, 600 000 ml @ 50 mls/hr IV . Q20H [facility] Rx#:[id number] Output: Urine 800 1150 Straight 800 1150 Other: Voiding Method Indwelling Catheter Indwelling Catheter Indwelling Catheter - Exam On examination she is awake alert but confused. HEENT exam no JVP neck is supple no facial asymmetry Lungs are clear to auscultation fair air entry bilaterally Heart sounds unremarkable for any murmur rub gallop Abdomen soft nontender Extremity exam was trace edema Neurologically she has ups and downs, currently she is awake alert but disoriented confused and gets angry - Labs CBC & Chem 7: 12/26/20 06:45 12/27/20 06:26 Labs: Abnormal Lab Results - Last 24 Hours (Table) 12/24/20 12/26/20 12/26/20 Range/Units 04:53 06:45 12:15 Chloride 110 H (96-109) mmol/L Carbon Dioxide (22-30) mmol/L BUN 52.0 H (9.0-27.0) mg/dL Creatinine 3.2 H (0.6-1.5) mg/dL Est GFR (CKD-EPI)AfAm 15.0 L (60.0-200.0) Est GFR (CKD-EPI)NonAf 12.9 L (60.0-200.0) Glucose 156 H (70-110) mg/dL POC Glucose (mg/dL) 178 H (75-99) mg/dL Calcium 8.1 L (8.7-10.3) mg/dL Total Protein 5.9 L (6.2-8.2) g/dL Albumin 3.00 L (3.80-4.90) g/dL Albumin (PEP) 2.56 L (3.80-4.90) g/dL Albumin/Globulin Ratio 1.03 L (1.60-3.17) g/dL Gbapb-1-Wzecaueob 0.41 H (0.10-0.40) g/dL Xxqcx-3-Oqkfamvzh 1.07 H (0.60-1.00) g/dL Beta Globulins 0.54 L (0.60-1.30) g/dL 12/26/20 12/26/20 12/27/20 Range/Units 17:01 20:10 06:26 Chloride 116 H (96-109) mmol/L Carbon Dioxide 17 L (22-30) mmol/L BUN 44 H (9.0-27.0) mg/dL Creatinine 2.76 H (0.6-1.5) mg/dL Est GFR (CKD-EPI)AfAm (60.0-200.0) Est GFR (CKD-EPI)NonAf (60.0-200.0) Glucose 175 H (70-110) mg/dL POC Glucose (mg/dL) 176 H 180 H (75-99) mg/dL Calcium (8.7-10.3) mg/dL Total Protein 6.0 L (6.2-8.2) g/dL Albumin 2.7 L (3.80-4.90) g/dL Albumin (PEP) (3.80-4.90) g/dL Albumin/Globulin Ratio (1.60-3.17) g/dL Rsokn-4-Kykqbdnnh (0.10-0.40) g/dL Eekfp-5-Xzrvgovdy (0.60-1.00) g/dL Beta Globulins (0.60-1.30) g/dL 12/27/20 Range/Units 07:36 Chloride (96-109) mmol/L Carbon Dioxide (22-30) mmol/L BUN (9.0-27.0) mg/dL Creatinine (0.6-1.5) mg/dL Est GFR (CKD-EPI)AfAm (60.0-200.0) Est GFR (CKD-EPI)NonAf (60.0-200.0) Glucose (70-110) mg/dL POC Glucose (mg/dL) 181 H (75-99) mg/dL Calcium (8.7-10.3) mg/dL Total Protein (6.2-8.2) g/dL Albumin (3.80-4.90) g/dL Albumin (PEP) (3.80-4.90) g/dL Albumin/Globulin Ratio (1.60-3.17) g/dL Ukhqe-5-Braetdvhu (0.10-0.40) g/dL Ysspp-2-Pctqkmqvv (0.60-1.00) g/dL Beta Globulins (0.60-1.30) g/dL Assessment and Plan Assessment: 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 UTI due to Proteus status post antibiotics Bilateral basal atelectasis due to intra-abdominal process Acute kidney injury due to acute tubular necrosis multifactorial renal function continued to improve Advanced dementia and Alzheimer's disease Plan: Continue to monitor off of antibiotics Continue gentle rehydration with bicarbonate replacement We'll defer hospice evaluation and recommendation for primary service and legal guardian Further workup and evaluation for bladder tumor by urology service From pulmonary standpoint continue deep breathing exercise incentive spirometry no new recommendation We'll follow clinical course closely further recommendations pending as per further planning Time with Patient: Greater than 30
[2020-12-27 11:52] LABS: Glucose,Whole Blood 202 mg/dL (75-99)
--- NOTE | 2020-12-27 12:02 | DS ---
DISCHARGE SUMMARY DISCHARGE DIAGNOSIS: 1. Acute kidney injury, acute tubular necrosis . 2. Delirium with dementia . 3. Parkinson's. 4. Anxiety. 5. Dyslipidemia. 6. Chronic kidney disease, stage 3 to 4. DISCHARGE MEDICINES: 1. Sodium bicarbonate 650 b.i.d. 2. Metoprolol succinate 25 daily. 3. Synthroid 50 mcg daily. 4. Sinemet b.i.d. 24/100. 5. Norvasc 2.5 daily. 6. Vitamin D 1000 units daily. 7. Vitamin B12 1000 mcg daily. 8. Lexapro 10 mg daily. 9. Lipitor 40 daily. 10. 50 b.i.d. 11.Humalog KwikPen before meals and at bedtime. 12. Shake b.i.d. 13.Folic acid 0.8 daily. 14.Aspirin 81 mg daily. 15.Namenda 5 mg b.i.d. 16.Amantadine 100 b.i.d. 17.Vitamin B 100 mg daily. 18.Milk of magnesia 2400 mg daily. 19.Senna p.r.n. 20.Seroquel 25 .i.d. 21.Lantus 35 units daily. CONDITION: Stable. PROGNOSIS: Guarded. Ambulate as tolerated. This 80-year-old white female came to the hospital with altered mental status, prerenal renal insufficiency, acute tubular necrosis, severe dehydration, poor oral intake. She did not really mental status while in the hospital psychiatrist, neurologist. No improvement. Poor eating. Poor nutrition. go back to hospice due to worsening renal function, worsening dementia with behavioral disturbances, poor appetite, inability to eat or drink. [facility] with patient. MMODL / IJN: [id number] /
[2020-12-27] MEDS ORDERED: SODIUM BICARBONATE TAB 650 MG TAB PO SCH (16:00)
== END 2020-12-27 14:05 | DRG 871 ==
LOC: EC 21:09 → 5NMEDONC 22:46
PROVIDERS: ADMIT Family Medicine; ATTEND Family Medicine
DX: A41.59 Other Gram-negative sepsis (principal); N17.0 Acute kidney failure with tubular necrosis; G92 Toxic encephalopathy; J18.9 Pneumonia, unspecified organism; E87.0 Hyperosmolality and hypernatremia; E87.1 Hypo-osmolality and hyponatremia; E87.2 Acidosis; F02.81 Dementia in other diseases classified elsewhere, unspecified severity, with behavioral disturbance; F05 Delirium due to known physiological condition; F20.2 Catatonic schizophrenia; I13.0 Hypertensive heart and chronic kidney disease with heart failure and stage 1 through stage 4 chronic kidney disease, or unspecified chronic kidney disease; I50.32 Chronic diastolic (congestive) heart failure; J98.11 Atelectasis; N18.4 Chronic kidney disease, stage 4 (severe); N39.0 Urinary tract infection, site not specified; L97.429 Non-pressure chronic ulcer of left heel and midfoot with unspecified severity; Z51.5 Encounter for palliative care; Z20.822 Contact with and (suspected) exposure to COVID-19; D49.4 Neoplasm of unspecified behavior of bladder; D63.1 Anemia in chronic kidney disease; E03.9 Hypothyroidism, unspecified; E11.22 Type 2 diabetes mellitus with diabetic chronic kidney disease; E11.65 Type 2 diabetes mellitus with hyperglycemia; D50.9 Iron deficiency anemia, unspecified; E78.5 Hyperlipidemia, unspecified; E83.52 Hypercalcemia; E11.21 Type 2 diabetes mellitus with diabetic nephropathy; E86.0 Dehydration; E86.1 Hypovolemia; E87.6 Hypokalemia; E87.8 Other disorders of electrolyte and fluid balance, not elsewhere classified; F31.9 Bipolar disorder, unspecified; F41.9 Anxiety disorder, unspecified; G20 Parkinson's disease; G30.9 Alzheimer's disease, unspecified; G80.9 Cerebral palsy, unspecified; I25.2 Old myocardial infarction; I25.10 Atherosclerotic heart disease of native coronary artery without angina pectoris; I65.23 Occlusion and stenosis of bilateral carotid arteries; M19.90 Unspecified osteoarthritis, unspecified site; N28.1 Cyst of kidney, acquired; R13.10 Dysphagia, unspecified; R32 Unspecified urinary incontinence; N18.31 Chronic kidney disease, stage 3a; R00.1 Bradycardia, unspecified; D69.6 Thrombocytopenia, unspecified; E86.9 Volume depletion, unspecified; F02.80 Dementia in other diseases classified elsewhere, unspecified severity, without behavioral disturbance, psychotic disturbance, mood disturbance, and anxiety; G31.89 Other specified degenerative diseases of nervous system; R31.0 Gross hematuria; R42 Dizziness and giddiness; F22 Delusional disorders; Z79.82 Long term (current) use of aspirin; Z79.890 Hormone replacement therapy; Z79.899 Other long term (current) drug therapy; Z86.19 Personal history of other infectious and parasitic diseases; Z86.711 Personal history of pulmonary embolism; Z87.01 Personal history of pneumonia (recurrent); Z90.710 Acquired absence of both cervix and uterus; Z95.5 Presence of coronary angioplasty implant and graft; Z96.653 Presence of artificial knee joint, bilateral; Z87.440 Personal history of urinary (tract) infections; Z98.42 Cataract extraction status, left eye; Z98.41 Cataract extraction status, right eye; Z79.4 Long term (current) use of insulin; Z88.8 Allergy status to other drugs, medicaments and biological substances; Z88.7 Allergy status to serum and vaccine; Z91.02 Food additives allergy status
CPT/HCPCS: 36415; 51798; 70450; 71045; 74176; 76770; 80048; 80051; 80053; 81001; 82306; 82330; 82570; 82607; 82652; 82728; 82746; 83036; 83540; 83550; 83735; 83880; 83930; 83935; 83970; 84133; 84156; 84165; 84295; 84300; 84439; 84443; 84481; 85025; 85027; 86038; 86160; 86225; 86255; 86335; 86803; 87040; 87077; 87086; 87186; 87205; 87340; 93005; 93306; 93880; 95816; 96361; 96365; 99285